=== PATIENT | male | born 1960 | race American Indian/Alaskan Native ===

== ENCOUNTER 2019-05-02 11:50 | Inpatient (IN) | payer MEDICARE ==
[2019-05-02] MEDS ORDERED: QUELICIN ONE (11:54)
[2019-05-02] MEDS ORDERED: AMIDATE IV ONE ×2 (11:54→12:02)
[2019-05-02] MEDS ORDERED: NACL 0.9% 1000 ML 1,000 ML ONE ×2 (11:58→17:11)
[2019-05-02] MEDS ORDERED: NACL 0.9% 1000 ML 1,000 ML IV ONE ×3 (12:02→16:57)
[2019-05-02] MEDS ORDERED: QUELICIN IV ONE (12:03)
[2019-05-02] MEDS ORDERED: VASELINE LIP THERAPY TP PRN (12:06)
[2019-05-02] MEDS ORDERED: ARTIFICIAL TEARS OPHTH OINT OU PRN (12:06)
[2019-05-02] MEDS ORDERED: NORMODYNE IV ONE (12:21)
--- NOTE | 2019-05-02 12:38 | Emergency Department Report ---
ED General Adult HPI - General Chief complaint: Altered Mental Status Stated complaint: UNRESPONSIVE Time Seen by Provider: 05/02/19 12:00 Source: EMS Mode of arrival: Stretcher Limitations: Physical Limitation - History of Present Illness Initial comments: This is a 59 year old male who supposedly was "fine yesterday" per a lady that comes to the emergency department. She states that she has a "business relationship" with the patient and was planning to move in. The lady does state that the patient has extreme visual impairment. However she states she is able to communicate at his baseline and make decisions. The patient is currently residing with his son who found him poorly responsive this morning. EMS was notified. They found the patient to have a respiratory rate of 6 and a low blood pressure. Medics were instructed to begin volume bolus and assist the patient's respirations. He was transferred to this facility for further evaluat ion. The patient was not able to provide any further information as he is and has remained obtunded. - Related Data Home Medications Medication Instructions Recorded Confirmed Last Taken Lisinopril [Zestril TAB] 40 mg PO QDAY 08/06/13 02/05/15 02/04/15 09:00 amLODIPine [Norvasc] 1 tab PO DAILY 08/08/13 02/05/15 02/04/15 09:00 Brimonidine Tartrate [Alphagan P 1 drop OP BID 02/05/15 02/05/15 02/04/15 09:00 0.1%] Dorzolamide HCl/Timolol Maleat 1 drop OP BID 02/05/15 02/05/15 02/04/15 09:00 [Dorzolamide-Timolol Eye Drops] glipiZIDE [Glucotrol] 5 mg PO BID 02/05/15 02/05/15 02/04/15 09:00 Previous Rx's Medication Instructions Recorded Last Taken Type levoFLOXacin [Levaquin TAB] 500 mg PO QDAY #7 tablet 02/07/15 Unknown Rx Allergies Allergy/AdvReac Type Severity Reaction Status Date / Time No Known Allergies Allergy Unverified 08/06/13 08:33 ED Review of Systems ROS: Stated complaint: UNRESPONSIVE Other details as noted in HPI Comment: Unobtainable due to pts medical conditions ED Past Medical Hx - Past Medical History Hx Hypertension: Yes Hx Diabetes: Yes Hx Asthma: No Hx COPD: No Hx HIV: No - Surgical History Additional Surgical History: corneal transplant - Social History Smoking Status: Unknown if ever smoked Substance Use Type: Other (unknown) - Medications Home Medications: Home Medications Medication Instructions Recorded Confirmed Last Taken Type Lisinopril [Zestril TAB] 40 mg PO QDAY 08/06/13 02/05/15 02/04/15 09:00 History amLODIPine [Norvasc] 1 tab PO DAILY 08/08/13 02/05/15 02/04/15 09:00 History Brimonidine Tartrate [Alphagan P 1 drop OP BID 02/05/15 02/05/15 02/04/15 09:00 History 0.1%] Dorzolamide HCl/Timolol Maleat 1 drop OP BID 02/05/15 02/05/15 02/04/15 09:00 History [Dorzolamide-Timolol Eye Drops] glipiZIDE [Glucotrol] 5 mg PO BID 02/05/15 02/05/15 02/04/15 09:00 History levoFLOXacin [Levaquin TAB] 500 mg PO QDAY #7 tablet 02/07/15 Unknown Rx ED Physical Exam - General Limitations: Physical Limitation General appearance: obtunded - Head Head exam: Present: atraumatic - Eye Eye exam: Present: other (bo cataracts question corneal abnormality). Absent: scleral icterus - ENT ENT exam: Present: mucous membranes moist - Neck Neck exam: Present: normal inspection. Absent: meningismus - Respiratory Respiratory exam: Present: normal lung sounds bilaterally. Absent: respiratory distress - Cardiovascular Cardiovascular Exam: Present: normal rhythm, tachycardia. Absent: systolic murmur, diastolic murmur, rubs, gallop - GI/Abdominal GI/Abdominal exam: Present: soft, normal bowel sounds. Absent: distended, tenderness, guarding, rebound, rigid - Rectal Rectal exam: Present: deferred - Extremities Exam Extremities exam: Present: normal inspection - Back Exam Back exam: Present: normal inspection - Neurological Exam Neurological exam: Present: altered, motor sensory deficit (all motor or sensory response to stimuli. Patient's GCS essentially was near 3 on arrival.) - Psychiatric Psychiatric exam: Present: normal affect, normal mood - Skin Skin exam: Present: warm, dry, intact, normal color. Absent: rash ED Course Vital Signs 05/02/19 05/02/19 05/02/19 11:56 12:01 12:15 Pulse Rate 99 H 97 H 101 H Respiratory 14 15 21 Rate Blood Pressure 169/123 205/109 205/109 O2 Sat by Pulse 100 80 L Oximetry 05/02/19 12:26 Pulse Rate 101 H Respiratory Rate Blood Pressure 74/43 O2 Sat by Pulse 100 Oximetry - Reevaluation(s) Reevaluation #1: The patient was intubated shortly upon arrival. A CT of his head was ordered. He was given volume bolus. He was found to be hypothermic. He was given empiric Biotic coverage for sepsis. He was rewarmed. Essential line was ultim ately placed and was put on pressors. He was found to be substantially acidotic and hypernatremic. Despite his sugar of over 1300 his sodium was 150. I decided to hold bicarbonate as this would be further hypertonic load which might be deleterious. Dr. Monson hospitalist was in agreement. I spoke to the son in [place] about his father's very guarded prognosis. He stated he would make arrangements to come to the hospital. 05/02/19 14:58 - Central Line Placement Right Femoral Consent Obtained: emergent situation Time Out Performed: Yes Patient Placed on Monitor/Pulse Ox: Yes Prep: mask, gown, gloves Central Line Prep: Povidone-Iodine 1% Local Anesthesia Used: Lidocaine 1% Amount of Anesthesia Used (mls): 5 Ultrasound Used for Placement: No Central Line Lumen Inserted: triple Central Line Position: good blood return (venous nonpulsatile after single stick) Dressing Applied: Tegaderm Post Procedure X-Ray: tip of catheter in good p Patient Tolerated Procedure: well Complications: none - Intubation Time Out Performed: Yes Sedative: Etomidate Paralytic: Succinylcholine Laryngoscope: Dioni Size: 4 ET Tube Size: 7.5 Tube Secured Depth (cm): 24 Tube Secured Location: teeth Tube Placement Confirmation: visualized tube passing t Patient Tolerated Procedure: well Intubation Complications: none ED Medical Decision Making - Lab Data Result diagrams: 05/02/19 12:05 05/02/19 13:07 Laboratory Results - last 24 hr 05/02/19 05/02/19 05/02/19 12:05 12:05 12:05 WBC 10.5 RBC TNR Hgb 15.3 H Hct TNR MCV 99 H MCH 28 MCHC 29 L RDW 16.9 H Plt Count 184 Lymph % (Auto) 15.7 [place] % (Auto) 4.5 Eos % (Auto) 0.0 Baso % (Auto) 0.3 Lymph # 1.6 [place] # 0.5 Eos # 0.0 Baso # 0.0 Seg Neutrophils % 79.5 H Seg Neutrophils # 8.3 H PT 15.4 H INR 1.25 H APTT 23.9 L VBG pH Sodium 151 H Potassium 4.5 Chloride 90.1 L Carbon Dioxide 5 L* Anion Gap 60 BUN 102 H Creatinine 6.4 H Estimated GFR 11 BUN/Creatinine Ratio 16 Glucose 1330 H* POC Glucose Ketones Quantitative Lactic Acid Calcium 8.7 Phosphorus 17.40 H Magnesium 4.90 H Total Bilirubin 0.20 AST 12 ALT 14 Alkaline Phosphatase 71 Ammonia Total Creatine Kinase 329 H CK-MB (CK-2) 2.7 CK-MB (CK-2) Rel Index 0.8 Troponin T NT-Pro-B Natriuret Pep 73.10 Total Protein 6.8 Albumin 3.4 L Albumin/Globulin Ratio 1.0 Urine Bilirubin Urine RBC (Auto) U Epithel Cells (Auto) 05/02/19 05/02/19 05/02/19 12:05 12:05 12:05 WBC RBC Hgb Hct MCV MCH MCHC RDW Plt Count Lymph % (Auto) [place] % (Auto) Eos % (Auto) Baso % (Auto) Lymph # [place] # Eos # Baso # Seg Neutrophils % Seg Neutrophils # PT INR APTT VBG pH 6.982 L* Sodium Potassium Chloride Carbon Dioxide Anion Gap BUN Creatinine Estimated GFR BUN/Creatinine Ratio Glucose POC Glucose Ketones Quantitative Lactic Acid Calcium Phosphorus Magnesium Total Bilirubin AST ALT Alkaline Phosphatase Ammonia 125.0 H Total Creatine Kinase CK-MB (CK-2) CK-MB (CK-2) Rel Index Troponin T < 0.010 NT-Pro-B Natriuret Pep Total Protein Albumin Albumin/Globulin Ratio Urine Bilirubin Urine RBC (Auto) U Epithel Cells (Auto) 05/02/19 05/02/19 05/02/19 12:05 12:05 12:09 WBC RBC Hgb Hct MCV MCH MCHC RDW Plt Count Lymph % (Auto) [place] % (Auto) Eos % (Auto) Baso % (Auto) Lymph # [place] # Eos # Baso # Seg Neutrophils % Seg Neutrophils # PT INR APTT VBG pH Sodium Potassium Chloride Carbon Dioxide Anion Gap BUN Creatinine Estimated GFR BUN/Creatinine Ratio Glucose POC Glucose > 500 H Ketones Quantitative Moderate Lactic Acid 7.60 H* Calcium Phosphorus Magnesium Total Bilirubin AST ALT Alkaline Phosphatase Ammonia Total Creatine Kinase CK-MB (CK-2) CK-MB (CK-2) Rel Index Troponin T NT-Pro-B Natriuret Pep Total Protein Albumin Albumin/Globulin Ratio Urine Bilirubin Urine RBC (Auto) U Epithel Cells (Auto) 05/02/19 12:19 WBC RBC Hgb Hct MCV MCH MCHC RDW Plt Count Lymph % (Auto) [place] % (Auto) Eos % (Auto) Baso % (Auto) Lymph # [place] # Eos # Baso # Seg Neutrophils % Seg Neutrophils # PT INR APTT VBG pH Sodium Potassium Chloride Carbon Dioxide Anion Gap BUN Creatinine Estimated GFR BUN/Creatinine Ratio Glucose POC Glucose Ketones Quantitative Lactic Acid Calcium Phosphorus Magnesium Total Bilirubin AST ALT Alkaline Phosphatase Ammonia Total Creatine Kinase CK-MB (CK-2) CK-MB (CK-2) Rel Index Troponin T NT-Pro-B Natriuret Pep Total Protein Albumin Albumin/Globulin Ratio Urine Bilirubin Neg Urine RBC (Auto) 24.0 U Epithel Cells (Auto) < 1.0 - EKG Data -: EKG Interpreted by Me EKG shows normal: sinus rhythm Rate: tachycardia - EKG Data Interpretation: nonspecific ST-T wave willam - Radiology Data Radiology results: pending (CT head is yet pending), image reviewed (endotracheal tube in satisfactory position, no acute finding otherwise) Critical Care Time: Yes Critical care time in (mins) excluding proc time.: 120 Critical care attestation.: If time is entered above; I have spent that time in minutes in the direct care of this critically ill patient, excluding procedure time. ED Disposition Clinical Impression: Lactic acidosis, Hypernatremia, Acute kidney injury, Acute encephalopathy DKA (diabetic ketoacidoses) Qualifiers: Diabetes mellitus type: type 1 Diabetes mellitus complication detail: with coma Qualified Code(s): E10.11 - Type 1 diabetes mellitus with ketoacidosis with coma Hypothermia Qualifiers: Encounter type: initial encounter Qualified Code(s): T68.XXXA - Hypothermia, initial encounter Disposition: 09 OP ADMIT IP TO THIS HOSP Is pt being admited?: Yes Does the pt Need Aspirin: Yes Condition: Stable Instructions: Diabetic Ketoacidosis (ED) Time of Disposition: 15:38
[2019-05-02 12:39] LABS: INR 1.25 (0.87-1.13)
[2019-05-02 12:43] LABS: Basophils % (Auto) 0.3 % (0.0-1.8); Lymphocytes # (Auto) 1.6 K/mm3 (1.2-5.4); Lymphocytes % (Auto) 15.7 % (13.4-35.0); Mean Corpuscular HGB Conc 29 % (32-34); Mean Corpuscular Volume 99 fl (84-94); Monocytes # (Auto) 0.5 K/mm3 (0.0-0.8); Monocytes % (Auto) 4.5 % (0.0-7.3); Platelet Count 184 K/mm3 (140-440); Red Cell Distribution Width 16.9 % (13.2-15.2)
[2019-05-02] MEDS ORDERED: ATIVAN IV ONE (12:46)
[2019-05-02 12:47] LABS: Creatine Kinase MB 2.7 ng/mL (0.0-4.0); Partial Thromboplastin Time 23.9 Sec. (24.2-36.6)
[2019-05-02] MEDS ORDERED: ATIVAN IV PRN (12:47)
--- NOTE | 2019-05-02 12:47 | XRay Report ---
CHEST 1 VIEW INDICATION: possible Sepsis. COMPARISON: None. FINDINGS: Support devices: ET tube in satisfactory position Heart: Within normal limits. Lungs/Pleura: No acute air space or interstitial disease. Additional findings: None. IMPRESSION: Satisfactory ET tube placement. Signer Name: Teo Hollis MD Signed: 05/02/2019 12:43 PM Workstation Name: [id number]
[2019-05-02 12:48] LABS: Albumin 3.4 g/dL (3.9-5); Calcium 8.7 mg/dL (8.4-10.2)
[2019-05-02] MEDS ORDERED: D50W (25GM) Syringe IV PRN ×2 (12:48→16:00)
[2019-05-02] MEDS ORDERED: ATIVAN ONE (12:50)
[2019-05-02 12:53] LABS: Bilirubin,Urine NEG (Negative); Blood,Urine LG (Negative); Color,Urine Yellow (Yellow); Mucus,Urine FEW /HPF; Protein,Urine <15 mg/dL mg/dL (Negative); Urobilinogen,Urine < 2.0 mg/dL (<2.0)
[2019-05-02 12:59] LABS: Hemoglobin 15.3 gm/dl (11.8-15.2)
[2019-05-02 13:00] LABS: Hematocrit TNR % (35.5-45.6); Red Blood Count TNR M/mm3 (3.65-5.03)
[2019-05-02] MEDS ORDERED: ATIVAN 100 MG in NACL 0.9% 50 ML, VIAFLEX EMPTY CONTAINER 0 ML IV SCH (13:00)
[2019-05-02] MEDS ORDERED: VANCOMYCIN 1,500 MG in NACL 0.9% 500 ML 500 ML IV ONE (13:00)
[2019-05-02] MEDS ORDERED: VANCOMYCIN PHARMACY TO DOSE IV SCH ×2 (13:00→17:00)
[2019-05-02] MEDS ORDERED: MERREM 1,000 MG in NACL 0.9% 100 ML IV ONE (13:03)
[2019-05-02 13:18] LABS: Bilirubin,Direct 0.2 mg/dL (0-0.2)
[2019-05-02 13:29] LABS: Calcium 8.3 mg/dL (8.4-10.2)
[2019-05-02] MEDS ORDERED: XYLOCAINE 1% 20 mL ONE (13:30)
[2019-05-02] MEDS: LEVOPHED DRIP 4 MG/NS 250 ML 4 MG/250 ML BAG IV SCH ×4 (14:44→23:30)
[2019-05-02 15:00] LABS: Calcium 7.8 mg/dL (8.4-10.2)
[2019-05-02] MEDS: HumuLIN R 100 UNITS in NACL 0.9% 99 ML IV SCH ×2 (15:14→20:03)
--- NOTE | 2019-05-02 15:58 | History and Physical Report ---
History of Present Illness Date of examination: 05/02/19 Date of admission: 05/02/19 14:10 Chief complaint: Decreased responsiveness for 1 day History of present illness: 59-year-old -[place] male with history of diabetes and hypertension brought in for altered sensorium and decreased responsiveness. Patient has been having blurred vision. Poorly compliant with his medications. Patient is currently residing with his son who found him poorly responsive this morning. EMS was called. On arrival patient was noted to have a lower respiratory rate of 6 and very low blood pressure. EMS gave of wall fluid bolus and brought the patient for further evaluation to the emergency room at [facility]. In the emergency room because of the decreased responsiveness and decreased breathing--- patient was intubated. No fever or chills. Patient also has glaucoma. No recent travel. Past Medical History Hypertension: Yes Diabetes: Yes Glaucoma Surgical History Additional Surgical History: corneal transplant Social History Smoking Status: Unknown if ever smoked Substance Use Type: Other (unknown) Family history Htn Medications Home Medications: Home Medications Medication Instructions Recorded Confirmed Last Taken Type Lisinopril [Zestril TAB] 40 mg PO QDAY 08/06/13 02/05/15 02/04/15 09:00 History amLODIPine [Norvasc] 1 tab PO DAILY 08/08/13 02/05/15 02/04/15 09:00 History Brimonidine Tartrate [Alphagan P 1 drop OP BID 02/05/15 02/05/15 02/04/15 09:00 History 0.1%] Dorzolamide HCl/Timolol Maleat 1 drop OP BID 02/05/15 02/05/15 02/04/15 09:00 History [Dorzolamide-Timolol Eye Drops] glipiZIDE [Glucotrol] 5 mg PO BID 02/05/15 02/05/15 02/04/15 09:00 History levoFLOXacin [Levaquin TAB] 500 mg PO QDAY #7 tablet 02/07/15 Unknown Rx Medications and Allergies Allergies Allergy/AdvReac Type Severity Reaction Status Date / Time No Known Allergies Allergy Unverified 08/06/13 08:33 Home Medications Medication Instructions Recorded Confirmed Last Taken Type Lisinopril [Zestril TAB] 40 mg PO QDAY 05/02/19 05/02/19 Unknown History glipiZIDE [Glucotrol] 10 mg PO QDAY 05/02/19 05/02/19 Unknown History hydroCHLOROthiazide [HCTZ] 25 mg PO QDAY 05/02/19 05/02/19 Unknown History metFORMIN [Glucophage] 500 mg PO BID 05/02/19 05/02/19 Unknown History Active Meds: Active Medications Aspirin (Aspirin) 300 mg MS QDAY ONE Stop: 05/03/19 17:01 Dextrose (D50w (25gm) Syringe) 0 ml IV ONCE PRN PRN Reason: Hypoglycemia Hydrophilic Ointment (Vaseline Lip Therapy) 1 applic TP Q2HR PRN PRN Reason: Dry Lips Lorazepam 100 mg/ Sodium Chloride/ Miscellaneous Information 100 mls @ 1 mls/hr IV TITR JENNIFER; Protocol Insulin Human Regular 100 (units/ Sodium Chloride) 100 mls @ 1 mls/hr IV TITR JENNIFER; Protocol Last Admin: 05/02/19 15:14 Dose: 8 units/hr, 8 mls/hr Documented by: Norepinephrine (Levophed Drip 4 Mg/Ns 250 Ml) 4 mg in 250 mls @ 7.5 mls/hr IV TITR JENNIFER; Protocol Last Titration: 05/02/19 15:35 Dose: 10 mcg/min, 37.5 mls/hr Documented by: Sodium Chloride (Nacl 0.9% 1000 Ml) 1,000 mls @ 250 mls/hr IV ONCE ONE Stop: 05/02/19 18:47 Last Admin: 05/02/19 15:16 Dose: 250 mls/hr Documented by: Lorazepam (Ativan) 2 mg IV Q10MIN PRN PRN Reason: Agitation Multi-Ingred Cream/Lotion/Oil/Oint (Artificial Tears Ophth Oint) 1 applic OU Q4HR PRN PRN Reason: Dry Eye(s) Review of Systems ROS unobtainable: due to endotracheal tube All systems: negative Constitutional: anorexia, fatigue, weakness, poor appetite Ears, nose, mouth and throat: no ear pain, no ear discharge, no tinnitis, no decreased hearing Cardiovascular: shortness of breath, dyspnea on exertion (RLFamily neurologic examination is normal S1 bowels and that based on Karol Lawton abrasions to many phone call), no chest pain, no orthopnea, no palpitations, no rapid/irregular heart beat, no edema, no syncope, no lightheadedness Respiratory: dyspnea on exertion, no cough, no cough with sputum, no excessive sputum, no hemoptysis, no shortness of breath, no congestion (Review.He is bladder was well l july 17 with increasing secondary to the) Gastrointestinal: nausea, vomiting, no abdominal pain, no diarrhea, no constipation, no change in bowel habits, no hematemesis, no coffee ground emesis Genitourinary Male: no dysuria, no hematuria, no flank pain, no discharge, no urinary frequency, no urinary hesitancy, no nocturia Musculoskeletal: no neck stiffness, no neck pain, no shooting arm pain, no arm numbness/tingling, no low back pain Integumentary: no rash, no pruritis, no redness, no sores, no wounds Neurological: no seizures, no syncope Psychiatric: no anxiety, no memory loss, no change in sleep habits, no sleep disturbances, no insomnia Endocrine: polyphagia, excessive thirst, polydipsia, polyuria, no cold intolerance, no heat intolerance Hematologic/Lymphatic: no easy bruising, no easy bleeding Allergic/Immunologic: no urticaria, no allergic rhinitis, no wheezing Exam - Constitutional Vitals: Temp Pulse Resp BP Pulse Ox 97.9 F 112 H 22 87/46 100 05/02/19 15:02 05/02/19 15:01 05/02/19 15:01 05/02/19 15:01 05/02/19 15:01 General appearance: Present: severe distress, well-nourished - EENT Eyes: Present: PERRL ENT: hearing intact, clear oral mucosa - Neck Neck: Present: supple, normal ROM - Respiratory Respiratory effort: normal Respiratory: bilateral: CTA - Cardiovascular Heart rate: 108 Rhythm: regular Heart Sounds: Present: S1 & S2. Absent: rub, click - Extremities Extremities: no ischemia, pulses intact, pulses symmetrical, No edema Peripheral Pulses: within normal limits - Abdominal General gastrointestinal: Present: soft, non-tender, non-distended, normal bowel sounds Male genitourinary: Present: normal - Rectal Rectal Exam: deferred - Integumentary Integumentary: Present: clear, warm, dry - Musculoskeletal Musculoskeletal: generalized weakness ( normal judgment limited), other (patient is lethargic and decreased responsiveness) - Neurologic Neurologic: CNII-XII intact, moves all extremities Results - Labs CBC & Chem 7: 05/02/19 12:05 05/02/19 17:19 Labs: Laboratory Last Values WBC 10.5 K/mm3 (4.5-11.0) 05/02/19 12:05 RBC TNR 05/02/19 12:05 Hgb 15.3 gm/dl (11.8-15.2) H 05/02/19 12:05 Hct TNR 05/02/19 12:05 MCV 99 fl (84-94) H 05/02/19 12:05 MCH 28 pg (28-32) 05/02/19 12:05 MCHC 29 % (32-34) L 05/02/19 12:05 RDW 16.9 % (13.2-15.2) H 05/02/19 12:05 Plt Count 184 K/mm3 (140-440) 05/02/19 12:05 Lymph % (Auto) 15.7 % (13.4-35.0) 05/02/19 12:05 [place] % (Auto) 4.5 % (0.0-7.3) 05/02/19 12:05 Eos % (Auto) 0.0 % (0.0-4.3) 05/02/19 12:05 Baso % (Auto) 0.3 % (0.0-1.8) 05/02/19 12:05 Lymph # 1.6 K/mm3 (1.2-5.4) 05/02/19 12:05 Hudson # 0.5 K/mm3 (0.0-0.8) 05/02/19 12:05 Eos # 0.0 K/mm3 (0.0-0.4) 05/02/19 12:05 Baso # 0.0 K/mm3 (0.0-0.1) 05/02/19 12:05 Seg Neutrophils % 79.5 % (40.0-70.0) H 05/02/19 12:05 Seg Neutrophils # 8.3 K/mm3 (1.8-7.7) H 05/02/19 12:05 PT 15.4 Sec. (12.2-14.9) H 05/02/19 12:05 INR 1.25 (0.87-1.13) H 05/02/19 12:05 APTT 23.9 Sec. (24.2-36.6) L 05/02/19 12:05 POC ABG pH 7.075 (7.35-7.45) L 05/02/19 13:50 POC ABG pO2 295 (80-105) H 05/02/19 13:50 POC ABG HCO3 6.6 (22-26 mml/L) 05/02/19 13:50 POC ABG Total CO2 7 (23-27mmol/L) 05/02/19 13:50 POC ABG O2 Sat 100 05/02/19 13:50 POC ABG Base Excess -23 ((-2) - (+3)mmol/L) 05/02/19 13:50 VBG pH 6.982 (7.320-7.420) L* 05/02/19 12:05 50 % 05/02/19 13:50 Sodium 150 mmol/L (137-145) H 05/02/19 14:28 Potassium 5.3 mmol/L (3.6-5.0) H 05/02/19 14:28 Chloride 95.0 mmol/L (98-107) L 05/02/19 14:28 Carbon Dioxide 4 mmol/L (22-30) L* 05/02/19 14:28 56 mmol/L 05/02/19 14:28 BUN 99 mg/dL (9-20) H 05/02/19 14:28 6.4 mg/dL (0.8-1.5) H 05/02/19 14:28 Estimated GFR 11 ml/min 05/02/19 14:28 15 % 05/02/19 14:28 Glucose 1271 mg/dL (75-100) H* 05/02/19 14:28 POC Glucose > 500 (70-105) H 05/02/19 12:09 Moderate (Negative) 05/02/19 12:05 Lactic Acid 4.10 mmol/L (0.7-2.0) H* 05/02/19 14:28 Calcium 7.8 mg/dL (8.4-10.2) L 05/02/19 14:28 Phosphorus 15.50 mg/dL (2.5-4.5) H 05/02/19 13:07 Magnesium 4.40 mg/dL (1.7-2.3) H 05/02/19 13:07 0.20 mg/dL (0.1-1.2) 05/02/19 12:05 0.2 mg/dL (0-0.2) 05/02/19 12:05 0.0 mg/dL 05/02/19 12:05 AST 12 units/L (5-40) 05/02/19 12:05 ALT 14 units/L (7-56) 05/02/19 12:05 71 units/L (35-129) 05/02/19 12:05 125.0 umol/L (25-60) H 05/02/19 12:05 329 units/L (55-170) H 05/02/19 12:05 CK-MB (CK-2) 2.7 ng/mL (0.0-4.0) 05/02/19 12:05 CK-MB (CK-2) Rel Index 0.8 (0-4) 05/02/19 12:05 < 0.010 ng/mL (0.00-0.029) 05/02/19 12:05 NT-Pro-B Natriuret Pep 73.10 pg/mL (0-900) 05/02/19 12:05 6.8 g/dL (6.3-8.2) 05/02/19 12:05 3.4 g/dL (3.9-5) L 05/02/19 12:05 1.0 % 05/02/19 12:05 Yellow (Yellow) 05/02/19 12:19 Slightly-cloudy (Clear) 05/02/19 12:19 5.0 (5.0-7.0) 05/02/19 12:19 Ur Specific [place] 1.021 (1.003-1.030) 05/02/19 12:19 <15 mg/dl mg/dL (Negative) 05/02/19 12:19 >=500 mg/dL (Negative) 05/02/19 12:19 20 mg/dL (Negative) 05/02/19 12:19 Lg (Negative) 05/02/19 12:19 Neg (Negative) 05/02/19 12:19 Neg (Negative) 05/02/19 12:19 < 2.0 mg/dL (<2.0) 05/02/19 12:19 Ur Leukocyte Esterase Neg (Negative) 05/02/19 12:19 2.0 /HPF (0.0-6.0) 05/02/19 12:19 24.0 /HPF (0.0-6.0) 05/02/19 12:19 U Epithel Cells (Auto) < 1.0 /HPF (0-13.0) 05/02/19 12:19 Few /HPF 05/02/19 12:19 Short CBC 05/02/19 Range/Units 12:05 WBC 10.5 (4.5-11.0) K/mm3 Hgb 15.3 H (11.8-15.2) gm/dl Hct TNR Plt Count 184 (140-440) K/mm3 BMP 05/02/19 05/02/19 05/02/19 12:05 13:07 14:28 Sodium 151 H 150 H 150 H Potassium 4.5 4.8 5.3 H Chloride 90.1 L 93.2 L 95.0 L Carbon Dioxide 5 L* 6 L* 4 L* BUN 102 H 98 H 99 H Creatinine 6.4 H 6.3 H 6.4 H Glucose 1330 H* 1264 H* 1271 H* Calcium 8.7 8.3 L 7.8 L 05/02/19 05/02/19 05/02/19 17:19 17:19 17:19 Sodium 154 H 154 H 155 H Potassium 4.4 4.3 4.3 Chloride 105.3 105.7 105.7 Carbon Dioxide 6 L* 6 L* 6 L* BUN 95 H 98 H 95 H Creatinine 6.6 H 6.5 H 6.6 H Glucose 1021 H* 1021 H* 1021 H* Calcium 6.8 L 6.8 L 6.9 L 05/02/19 05/02/19 17:19 18:36 Sodium 153 H 154 H Potassium 4.4 4.1 Chloride 104.4 107.7 H Carbon Dioxide 6 L* BUN 96 H 95 H Creatinine 6.5 H 6.6 H Glucose 1018 H* Calcium 6.8 L 6.7 L Cardiac Enzymes 05/02/19 05/02/19 Range/Units 12:05 12:05 Total Creatine Kinase 329 H (55-170) units/L CK-MB (CK-2) 2.7 (0.0-4.0) ng/mL Troponin T < 0.010 (0.00-0.029) ng/mL Liver Function 05/02/19 Range/Units 12:05 Total Bilirubin 0.20 (0.1-1.2) mg/dL Direct Bilirubin 0.2 (0-0.2) mg/dL AST 12 (5-40) units/L ALT 14 (7-56) units/L Alkaline Phosphatase 71 (35-129) units/L Albumin 3.4 L (3.9-5) g/dL Urine 05/02/19 Range/Units 12:19 Urine Color Yellow (Yellow) Urine pH 5.0 (5.0-7.0) Ur Specific [place] 1.021 (1.003-1.030) Urine Protein <15 mg/dl (Negative) mg/dL Urine Glucose (UA) >=500 (Negative) mg/dL Short CBC 05/02/19 Range/Units 12:05 WBC 10.5 (4.5-11.0) K/mm3 Hgb 15.3 H (11.8-15.2) gm/dl Hct TNR Plt Count 184 (140-440) K/mm3 BMP 05/02/19 05/02/19 05/02/19 12:05 13:07 14:28 Sodium 151 H 150 H 150 H Potassium 4.5 4.8 5.3 H Chloride 90.1 L 93.2 L 95.0 L Carbon Dioxide 5 L* 6 L* 4 L* BUN 102 H 98 H 99 H Creatinine 6.4 H 6.3 H 6.4 H Glucose 1330 H* 1264 H* 1271 H* Calcium 8.7 8.3 L 7.8 L 05/02/19 05/02/19 05/02/19 17:19 17:19 17:19 Sodium 154 H 154 H 155 H Potassium 4.4 4.3 4.3 Chloride 105.3 105.7 105.7 Carbon Dioxide 6 L* 6 L* 6 L* BUN 95 H 98 H 95 H Creatinine 6.6 H 6.5 H 6.6 H Glucose 1021 H* 1021 H* 1021 H* Calcium 6.8 L 6.8 L 6.9 L 05/02/19 05/02/19 17:19 18:36 Sodium 153 H 154 H Potassium 4.4 4.1 Chloride 104.4 107.7 H Carbon Dioxide 6 L* BUN 96 H 95 H Creatinine 6.5 H 6.6 H Glucose 1018 H* Calcium 6.8 L 6.7 L Cardiac Enzymes 05/02/19 05/02/19 Range/Units 12:05 12:05 Total Creatine Kinase 329 H (55-170) units/L CK-MB (CK-2) 2.7 (0.0-4.0) ng/mL Troponin T < 0.010 (0.00-0.029) ng/mL Liver Function 05/02/19 Range/Units 12:05 Total Bilirubin 0.20 (0.1-1.2) mg/dL Direct Bilirubin 0.2 (0-0.2) mg/dL AST 12 (5-40) units/L ALT 14 (7-56) units/L Alkaline Phosphatase 71 (35-129) units/L Albumin 3.4 L (3.9-5) g/dL Urine 05/02/19 Range/Units 12:19 Urine Color Yellow (Yellow) Urine pH 5.0 (5.0-7.0) Ur Specific [place] 1.021 (1.003-1.030) Urine Protein <15 mg/dl (Negative) mg/dL Urine Glucose (UA) >=500 (Negative) mg/dL - Imaging and Cardiology EKG: report reviewed Chest x-ray: report reviewed (no acute findings) CT Scan - head: report reviewed (no acute findings) Assessment and Plan Assessment and plan: Critical care statement Dr. barrera will be a very clinically significant sudden or life-threatening deterioration of the pulmonary, cardiac, renal systems for requirement full and direct attention, intervention and possible management. The aggravated critical care time was 45 minutes. This time is in addition to the time spent performing reported procedures but includes the following Data review and interpretation Patient assessment and monitoring of vital signs Documentation Medication orders and management Advance Directives: Yes (full code) VTE prophylaxis?: Chemical Plan of care discussed with patient/family: Yes - Patient Problems (1) Acute respiratory failure with hypoxia Current Visit: Yes Status: Acute Plan to address problem: Patient intubated Past hypoxic Duonebs round the clock, Albuterol neb treatments prn (2) Diabetic hyperosmolar non-ketotic state Current Visit: Yes Status: Acute Plan to address problem: Patient has a blood glucose level around 1300 Severe metabolic acidosis Minimal ketones in urine Insulin drip started IV fluids about 3 L of normal saline bolus given Normal saline to be continued at 250 mL per hour Patient is hypotensive Started on Levophed and vasopressin Plate Conditioner consult requested Poor prognosis because of the hypernatremia and severe volume depletion (3) Septic shock Current Visit: Yes Status: Acute Plan to address problem: High possibility IV antibiotics and IV fluids and pressors (4) Hypotension Current Visit: Yes Status: Acute Qualifiers: Hypotension type: orthostatic hypotension Qualified Code(s): I95.1 - Orthostatic hypotension Plan to address problem: On pressors--on Levophed and vasopressor (5) Hypernatremia Current Visit: Yes Status: Acute Plan to address problem: IV normal saline for now because of the volume depletion and hypotension (6) Metabolic acidosis Current Visit: Yes Status: Acute Plan to address problem: Severe IV sodium bicarbonatex2 (7) Lactic acidosis Current Visit: Yes Status: Acute Plan to address problem: Patient started on IV cefepime and vancomycin (8) Hypertension Current Visit: Yes Status: Chronic Qualifiers: Hypertension type: essential hypertension Qualified Code(s): I10 - Essential (primary) hypertension Plan to address problem: Hold antihypertensives (9) Acute kidney injury Current Visit: Yes Status: Acute Plan to address problem: Secondary to ATN and severe dehydration Nephrology consult requested IV fluids for now (10) Hypocalcemia Current Visit: Yes Status: Acute Plan to address problem: Calcium gluconate for now (11) Hyperammonemia Current Visit: Yes Status: Acute Plan to address problem: Lactulose 30 cc po bid (12) DVT prophylaxis Current Visit: Yes Status: Acute Plan to address problem: On heparin and GI prophylaxis
[2019-05-02] MEDS ORDERED: NON-FORMULARY (Brimonidine Tartrate [Alphagan P 0.1%] 1 DROP) OP SCH (16:00)
[2019-05-02] MEDS ORDERED: KCL 10MEQ/100ML 10 MEQ/100 ML BAG IV PRN ×2 (16:00)
[2019-05-02] MEDS ORDERED: HumuLIN R 100 UNITS in NACL 0.9% 99 ML IV SCH (16:00)
[2019-05-02] MEDS ORDERED: ZOFRAN IV PRN (16:10)
[2019-05-02] MEDS ORDERED: SODIUM CHLORIDE FLUSH SYRINGE 10 ML IV PRN (16:10)
[2019-05-02] MEDS ORDERED: TYLENOL PO PRN (16:10)
--- NOTE | 2019-05-02 16:54 | Cat Scan Report ---
CT head without contrast INDICATION : AMS. TECHNIQUE: Axial imaging performed from the skull apex through the skull base without the use of con trast. All CT scans at this location are performed using CT dose reduction for ALARA by means of aut omated exposure control. COMPARISON: None FINDINGS: Parenchyma: No acute intracranial hemorrhage or parenchymal abnormality. Ventricles: Ventricles are normal in size and appear symmetric. Soft tissues: Soft tissues including the orbits appear normal. Bones: No acute osseous abnormality. Sinuses: Sinuses and mastoid air cells are clear. IMPRESSION: No acute abnormality. Signer Name: Leo Noriega MD Signed: 05/02/2019 4:50 PM Workstation Name: [id number]
[2019-05-02] MEDS ORDERED: D5W/0.45% NACL/KCL 20 MEQ 20 MEQ/1,000 ML BAG IV SCH (17:00)
[2019-05-02] MEDS ORDERED: MAXIPIME/NS 1 GM/100 ML 1 GM/100 ML BAG IV SCH (17:00)
[2019-05-02] MEDS ORDERED: NACL 0.45% 1000 ML 1,000 ML IV SCH (17:00)
[2019-05-02] MEDS: NON-FORMULARY (Dorzolamide Hcl/Timolol Maleat [Dorzolamide-Timolol Eye Drops] 1 DROP) OP SCH (17:16)
[2019-05-02] MEDS: MAXIPIME/NS 1 GM/100 ML 1 GM/100 ML BAG IV SCH (17:40)
[2019-05-02 17:47] LABS: Calcium 6.8 mg/dL (8.4-10.2)
[2019-05-02 17:48] LABS: Calcium 6.8 mg/dL (8.4-10.2)
[2019-05-02 17:49] LABS: Calcium 6.9 mg/dL (8.4-10.2)
[2019-05-02 17:50] LABS: Calcium 6.8 mg/dL (8.4-10.2)
[2019-05-02] MEDS: NORVASC PO SCH (18:52)
[2019-05-02] MEDS: NACL 0.9% 1000 ML 1,000 ML IV SCH ×2 (19:00→22:25)
[2019-05-02 19:19] LABS: Calcium 6.7 mg/dL (8.4-10.2)
[2019-05-02] MEDS ORDERED: INTROPIN DRIP 800 MG/D5W 250 ML 800 MG/250 ML BAG IV SCH (20:00)
[2019-05-02] MEDS: Vasostrict 20 UNIT in NACL 0.9% 100 ML IV SCH (20:09)
[2019-05-02] MEDS ORDERED: CALCIUM GLUCONATE 2,000 MG in NACL 0.9% 100 ML IV ONE (20:33)
[2019-05-02 21:01] LABS: Calcium 6.6 mg/dL (8.4-10.2)
[2019-05-02] MEDS: DUONEB *Not for PRN Use IH SCH (21:01)
[2019-05-02] MEDS: CEPHULAC PO SCH (21:25)
[2019-05-02] MEDS: SODIUM CHLORIDE FLUSH SYRINGE 10 ML IV SCH ×2 (22:00)
[2019-05-03] MEDS: HumuLIN R 100 UNITS in NACL 0.9% 99 ML IV SCH ×3 (00:15→08:05)
[2019-05-03] MEDS: LEVOPHED DRIP 4 MG/NS 250 ML 4 MG/250 ML BAG IV SCH ×3 (02:17→10:14)
[2019-05-03] MEDS: NACL 0.9% 1000 ML 1,000 ML IV SCH (02:50)
--- NOTE | 2019-05-03 03:13 | XRay Report ---
CHEST 1 VIEW 2:27 AM INDICATION / CLINICAL INFORMATION: Follow-up respiratory failure. COMPARISON: Yesterday. FINDINGS: SUPPORT DEVICES: The position of the endotracheal tube has not changed. There is a new nasogastric tu be coursing into the stomach with the tip not seen. HEART / MEDIASTINUM: No significant abnormality. LUNGS / PLEURA: No significant pulmonary or pleural abnormality. No pneumothorax. ADDITIONAL FINDINGS: No significant additional findings. IMPRESSION: 1. New nasogastric tube without complication. 2. No acute abnormality or other change since yesterday. Signer Name: Fritz Luna MD Signed: 05/03/2019 3:09 AM Workstation Name: [id number]
[2019-05-03] MEDS: MAXIPIME/NS 1 GM/100 ML 1 GM/100 ML BAG IV SCH (04:39)
[2019-05-03] MEDS: Vasostrict 20 UNIT in NACL 0.9% 100 ML IV SCH (04:39)
[2019-05-03 05:47] LABS: Calcium 7.1 mg/dL (8.4-10.2)
[2019-05-03 05:53] LABS: ABG HCO3 17.9 mmol/L (20.0-26.0); ABG Methemoglobin 0.8 % (0.0-1.5); ABG Oxygen Saturation 98.7 % (95.0-99.0); ABG PCO2 34.3 mm Hg; ABG PH 7.335 pH Units (7.350-7.450)
[2019-05-03] MEDS: DUONEB *Not for PRN Use IH SCH ×4 (08:00→19:08)
[2019-05-03] MEDS ORDERED: D5NS 0.2% 1,000 ML IV SCH (08:00)
[2019-05-03 08:36] LABS: Calcium 7.1 mg/dL (8.4-10.2)
[2019-05-03] MEDS: CEPHULAC PO SCH ×2 (10:14→21:31)
[2019-05-03] MEDS: KCL 20MEQ/100ML 20 MEQ/100 ML BAG IV SCH ×2 (10:14→11:18)
[2019-05-03] MEDS: NORVASC PO SCH (10:15)
[2019-05-03] MEDS: PEPCID IV SCH (10:15)
[2019-05-03] MEDS: SODIUM CHLORIDE FLUSH SYRINGE 10 ML IV SCH ×2 (10:33→21:34)
[2019-05-03 10:59] LABS: ABG Base Excess -4.3 mmol/L (-2.0-3.0); ABG HCO3 19.6 mmol/L (20.0-26.0); ABG PH 7.392 pH Units (7.350-7.450); ABG PO2 146.9 mm Hg (80.0-90.0)
[2019-05-03 11:02] LABS: ABG Methemoglobin 0.9 % (0.0-1.5); ABG Oxygen Saturation 98.7 % (95.0-99.0)
[2019-05-03 13:41] LABS: Calcium 7.4 mg/dL (8.4-10.2)
--- NOTE | 2019-05-03 14:17 | Consultation ---
History of Present Illness Consult date: 05/03/19 Requesting physician: ALLAN CHANCE Reason for consult: other (Acute repiratory failure on MVS, Acute metabolic encephaloapthy) History of present illness: Bethany is orally intubated with encephalopathy. Histor is as obtained from medical records. I have been consulted for critical care management, ventilator management. Chief complaint: Decreased responsiveness for 1 day History of present illness: 59-year-old -[place] African male with history of diabetes and hypertension brought in for altered sensorium and decreased responsiveness. Per ED documentations Initial comments: This is a 59 year old male who supposedly was "fine yesterday" per a lady that comes to the emergency department. She states that she has a "business relatio nship" with the patient and was planning to move in. The lady does state that the patient has extreme visual impairment. However she states she is able to communicate at his baseline and make decisions. The patient is currently residing with his son who found him poorly responsive this morning. EMS was notified. They found the patient to have a respiratory rate of 6 and a low blood pressure. Medics were instructed to begin volume bolus and assist the patient's respirations. He was transferred to this facility for further evaluation. The patient was not able to provide any further information as he is and has remained obtunded. In the emergency room because of the decreased responsiveness and decreased breathing--- patient was intubated. No fever or chills. Patient also has glaucoma. No recent travel. Patient was seen and examined. Vitals, labs, medications, chart and imaging reviewed. Currently orally intubated, ETT at 23cm AC-VC 18/450/6/30% No reported fevers, has a caban catheter in place and a right femoral CVC. On insulin infusion at 5 units, D5 1/4N saline, norepinephrine at 10mcg, vasopressin is off at this time On Cefepime and Vancomycin Past Medical History Hypertension: Yes Diabetes: Yes Glaucoma Surgical History Additional Surgical History: corneal transplant Social History Smoking Status: Unknown if ever smoked Substance Use Type: Other (unknown) Family history Htn Medications and Allergies Allergies Allergy/AdvReac Type Severity Reaction Status Date / Time No Known Allergies Allergy Unverified 08/06/13 08:33 Home Medications Medication Instructions Recorded Confirmed Last Taken Type Lisinopril [Zestril TAB] 40 mg PO QDAY 05/02/19 05/02/19 Unknown History glipiZIDE [Glucotrol] 10 mg PO QDAY 05/02/19 05/02/19 Unknown History hydroCHLOROthiazide [HCTZ] 25 mg PO QDAY 05/02/19 05/02/19 Unknown History metFORMIN [Glucophage] 500 mg PO BID 05/02/19 05/02/19 Unknown History Active Meds: Active Medications Acetaminophen (Tylenol) 650 mg PO Q4H PRN PRN Reason: Pain MILD(1-3)/Fever >100.5/MEZA Albuterol/Ipratropium (Duoneb *Not For Prn Use*) 1 ampul IH QIDRT [facility] Last Admin: 05/03/19 08:00 Dose: 1 ampul Documented by: Amlodipine Besylate (Norvasc) 10 mg PO DAILY [facility] Last Admin: 05/03/19 10:15 Dose: Not Given Documented by: Aspirin (Aspirin) 300 mg OH QDAY ONE Stop: 05/03/19 17:01 Dextrose (D50w (25gm) Syringe) 0 ml IV PRN PRN PRN Reason: Hypoglycemia Famotidine (Pepcid) 20 mg IV DAILY [facility] Last Admin: 05/03/19 10:15 Dose: 20 mg Documented by: Heparin Sodium (Porcine) (Heparin) 5,000 unit SUB-Q BID [facility] Hydrophilic Ointment (Vaseline Lip Therapy) 1 applic TP Q2HR PRN PRN Reason: Dry Lips Lorazepam 100 mg/ Sodium Chloride/ Miscellaneous Information 100 mls @ 1 mls/hr IV TITR JENNIFER; Protocol Insulin Human Regular 100 (units/ Sodium Chloride) 100 mls @ 1 mls/hr IV TITR JENNIFER; Protocol Last Titration: 05/03/19 14:11 Dose: 2 units/hr, 2 mls/hr Documented by: Norepinephrine (Levophed Drip 4 Mg/Ns 250 Ml) 4 mg in 250 mls @ 7.5 mls/hr IV TITR JENNIFER; Protocol Last Titration: 05/03/19 13:50 Dose: 0 mcg/min, 0 mls/hr Documented by: Potassium Chloride (Kcl 10meq/100ml) 10 meq in 100 mls @ 100 mls/hr IV Q1H PRN PRN Reason: SEE COMMENTS Stop: 05/03/19 15:59 Cefepime HCl (Maxipime/Ns 1 Gm/100 Ml) 1 gm in 100 mls @ 200 mls/hr IV Q12H [facility]; Protocol Last Admin: 05/03/19 04:39 Dose: 200 mls/hr Documented by: Vasopressin 20 unit/ Sodium (Chloride) 101 mls @ 9.09 mls/hr IV TITR [facility]; Protocol Last Titration: 05/03/19 08:26 Dose: 0 units/min, 0 mls/hr Documented by: Dextrose/Sodium Chloride (D5ns 0.2%) 1,000 mls @ 100 mls/hr IV DIRECT [facility] Last Admin: 05/03/19 08:18 Dose: 100 mls/hr Documented by: Lactulose (Cephulac) 20 gm PO Q12HR [facility] Last Admin: 05/03/19 10:14 Dose: 20 gm Documented by: Lorazepam (Ativan) 2 mg IV Q10MIN PRN PRN Reason: Agitation Miscellaneous Medication (Dorzolamide Hcl/Timolol Maleat [Dorzolamide-Timolol Eye Drops]) 1 drop OP BID [facility] Last Admin: 05/02/19 17:16 Dose: Not Given Documented by: Miscellaneous Medication (Brimonidine Tartrate [Alphagan P 0.1%]) 1 drop OP BID [facility] Last Admin: 05/02/19 17:16 Dose: Not Given Documented by: Multi-Ingred Cream/Lotion/Oil/Oint (Artificial Tears Ophth Oint) 1 applic OU Q4HR PRN PRN Reason: Dry Eye(s) Ondansetron HCl (Zofran) 4 mg IV Q8H PRN PRN Reason: Nausea And Vomiting Sodium Chloride (Sodium Chloride Flush Syringe 10 Ml) 10 ml IV BID [facility] Last Admin: 05/03/19 10:33 Dose: 10 ml Documented by: Sodium Chloride (Sodium Chloride Flush Syringe 10 Ml) 10 ml IV PRN PRN PRN Reason: LINE FLUSH Review of Systems ROS unobtainable: due to endotracheal tube, due to mental status Physical Examination Vital signs: Vital Signs Pulse Resp BP Pulse Ox 99 H 14 169/123 100 05/02/19 11:56 05/02/19 11:56 05/02/19 11:56 05/02/19 11:56 General appearance: no acute distress, other (unresponsive, orally intubated, ETT to MVS) Eyes: non-icteric ENT: oropharynx dry Neck: supple, no lymphadenopathy, no JVD Effort: normal, other (no patient-ventilator dys-synchrony) Ascultation: Bilateral: clear, diminished breath sounds Cardiovascular: regular rate and rhythm, other (S1,S2) Gastrointestinal: normoactive bowel sounds, soft, non-tender, other (OGT) Integumentary: normal, other (right groin CVC) Extremities: no cyanosis, no edema, pulses normal, no ischemia or petechiae pupils equal and round, unable to assess other (unable to assess) Results - Laboratory Findings CBC and BMP: 05/02/19 12:05 05/03/19 20:15 ABG POC ABG pH 7.075 (7.35-7.45) L 05/02/19 13:50 ABG pH 7.335 pH Units (7.350-7.450) L 05/03/19 Unknown ABG pCO2 34.3 mm Hg 05/03/19 Unknown POC ABG pO2 295 (80-105) H 05/02/19 13:50 ABG pO2 143.0 mm Hg (80.0-90.0) H 05/03/19 Unknown POC ABG HCO3 6.6 (22-26 mml/L) 05/02/19 13:50 POC ABG Total CO2 7 (23-27mmol/L) 05/02/19 13:50 POC ABG O2 Sat 100 05/02/19 13:50 ABG O2 Saturation 98.7 % (95.0-99.0) 05/03/19 Unknown PT/INR, D-dimer PT 15.4 Sec. (12.2-14.9) H 05/02/19 12:05 INR 1.25 (0.87-1.13) H 05/02/19 12:05 Abnormal lab findings: Abnormal Labs 05/02/19 05/02/19 05/02/19 12:05 12:05 12:05 Hgb 15.3 H MCV 99 H MCHC 29 L RDW 16.9 H Seg Neutrophils % 79.5 H Seg Neutrophils # 8.3 H PT 15.4 H INR 1.25 H APTT 23.9 L POC ABG pH ABG pH POC ABG pO2 ABG pO2 ABG HCO3 ABG Base Excess ABG Hemoglobin VBG pH Sodium 151 H Potassium Chloride 90.1 L Carbon Dioxide 5 L* BUN 102 H Creatinine 6.4 H Glucose 1330 H* POC Glucose Hemoglobin A1c Lactic Acid Calcium Phosphorus 17.40 H Magnesium 4.90 H Ammonia Total Creatine Kinase 329 H Albumin 3.4 L 05/02/19 05/02/19 05/02/19 12:05 12:05 12:05 Hgb MCV MCHC RDW Seg Neutrophils % Seg Neutrophils # PT INR APTT POC ABG pH ABG pH POC ABG pO2 ABG pO2 ABG HCO3 ABG Base Excess ABG Hemoglobin VBG pH 6.982 L* Sodium Potassium Chloride Carbon Dioxide BUN Creatinine Glucose POC Glucose Hemoglobin A1c Lactic Acid 7.60 H* Calcium Phosphorus Magnesium Ammonia 125.0 H Total Creatine Kinase Albumin 05/02/19 05/02/19 05/02/19 12:09 12:59 13:07 Hgb MCV MCHC RDW Seg Neutrophils % Seg Neutrophils # PT INR APTT POC ABG pH ABG pH POC ABG pO2 ABG pO2 ABG HCO3 ABG Base Excess ABG Hemoglobin VBG pH Sodium Potassium Chloride Carbon Dioxide BUN Creatinine Glucose POC Glucose > 500 H Hemoglobin A1c Lactic Acid 6.00 H* Calcium Phosphorus 15.50 H Magnesium 4.40 H Ammonia Total Creatine Kinase Albumin 05/02/19 05/02/19 05/02/19 13:07 13:50 14:28 Hgb MCV MCHC RDW Seg Neutrophils % Seg Neutrophils # PT INR APTT POC ABG pH 7.075 L ABG pH POC ABG pO2 295 H ABG pO2 ABG HCO3 ABG Base Excess ABG Hemoglobin VBG pH Sodium 150 H 150 H Potassium 5.3 H Chloride 93.2 L 95.0 L Carbon Dioxide 6 L* 4 L* BUN 98 H 99 H Creatinine 6.3 H 6.4 H Glucose 1264 H* 1271 H* POC Glucose Hemoglobin A1c Lactic Acid Calcium 8.3 L 7.8 L Phosphorus Magnesium Ammonia Total Creatine Kinase Albumin 05/02/19 05/02/19 05/02/19 14:28 15:22 16:20 Hgb MCV MCHC RDW Seg Neutrophils % Seg Neutrophils # PT INR APTT POC ABG pH ABG pH POC ABG pO2 ABG pO2 ABG HCO3 ABG Base Excess ABG Hemoglobin VBG pH Sodium Potassium Chloride Carbon Dioxide BUN Creatinine Glucose POC Glucose > 500 H Hemoglobin A1c Lactic Acid 4.10 H* 4.40 H* Calcium Phosphorus Magnesium Ammonia Total Creatine Kinase Albumin 05/02/19 05/02/19 05/02/19 17:13 17:19 17:19 Hgb MCV MCHC RDW Seg Neutrophils % Seg Neutrophils # PT INR APTT POC ABG pH ABG pH POC ABG pO2 ABG pO2 ABG HCO3 ABG Base Excess ABG Hemoglobin VBG pH Sodium 154 H 154 H Potassium Chloride Carbon Dioxide 6 L* 6 L* BUN 95 H 98 H Creatinine 6.6 H 6.5 H Glucose 1021 H* 1021 H* POC Glucose > 500 H Hemoglobin A1c Lactic Acid Calcium 6.8 L 6.8 L Phosphorus Magnesium Ammonia Total Creatine Kinase Albumin 05/02/19 05/02/19 05/02/19 17:19 17:19 17:19 Hgb MCV MCHC RDW Seg Neutrophils % Seg Neutrophils # PT INR APTT POC ABG pH ABG pH POC ABG pO2 ABG pO2 ABG HCO3 ABG Base Excess ABG Hemoglobin VBG pH Sodium 155 H Potassium Chloride Carbon Dioxide 6 L* BUN 95 H Creatinine 6.6 H Glucose 1021 H* POC Glucose Hemoglobin A1c 12.9 H Lactic Acid 2.70 H* Calcium 6.9 L Phosphorus 10.90 H D Magnesium 3.70 H Ammonia Total Creatine Kinase Albumin 05/02/19 05/02/19 05/02/19 17:19 18:36 19:00 Hgb MCV MCHC RDW Seg Neutrophils % Seg Neutrophils # PT INR APTT POC ABG pH ABG pH POC ABG pO2 ABG pO2 ABG HCO3 ABG Base Excess ABG Hemoglobin VBG pH Sodium 153 H 154 H Potassium Chloride 107.7 H Carbon Dioxide 6 L* 8 L* BUN 96 H 95 H Creatinine 6.5 H 6.6 H Glucose 1018 H* 884 H* POC Glucose > 500 H Hemoglobin A1c Lactic Acid Calcium 6.8 L 6.7 L Phosphorus Magnesium Ammonia Total Creatine Kinase Albumin 05/02/19 05/02/19 05/02/19 20:02 21:08 21:20 Hgb MCV MCHC RDW Seg Neutrophils % Seg Neutrophils # PT INR APTT POC ABG pH ABG pH POC ABG pO2 ABG pO2 ABG HCO3 ABG Base Excess ABG Hemoglobin VBG pH Sodium Potassium Chloride Carbon Dioxide BUN Creatinine Glucose 708 H* POC Glucose > 500 H > 500 H Hemoglobin A1c Lactic Acid Calcium Phosphorus Magnesium Ammonia Total Creatine Kinase Albumin 05/02/19 05/02/19 05/02/19 22:15 22:41 23:13 Hgb MCV MCHC RDW Seg Neutrophils % Seg Neutrophils # PT INR APTT POC ABG pH ABG pH POC ABG pO2 ABG pO2 ABG HCO3 ABG Base Excess ABG Hemoglobin VBG pH Sodium Potassium Chloride Carbon Dioxide BUN Creatinine Glucose 600 H* POC Glucose > 500 H > 500 H Hemoglobin A1c Lactic Acid Calcium Phosphorus Magnesium Ammonia Total Creatine Kinase Albumin 05/02/19 05/02/19 05/02/19 23:40 23:55 Unknown Hgb MCV MCHC RDW Seg Neutrophils % Seg Neutrophils # PT INR APTT POC ABG pH ABG pH POC ABG pO2 ABG pO2 ABG HCO3 ABG Base Excess ABG Hemoglobin VBG pH Sodium 155 H Potassium Chloride 111.7 H Carbon Dioxide 10 L BUN 101 H Creatinine 6.3 H Glucose 544 H* 755 H* POC Glucose > 500 H Hemoglobin A1c Lactic Acid Calcium 6.6 L Phosphorus Magnesium Ammonia Total Creatine Kinase Albumin 05/02/19 05/02/19 05/03/19 Unknown Unknown 01:42 Hgb MCV MCHC RDW Seg Neutrophils % Seg Neutrophils # PT INR APTT POC ABG pH ABG pH POC ABG pO2 ABG pO2 ABG HCO3 ABG Base Excess ABG Hemoglobin VBG pH Sodium Potassium Chloride Carbon Dioxide BUN Creatinine Glucose 783 H* POC Glucose 484 H Hemoglobin A1c Lactic Acid 2.60 H* Calcium Phosphorus Magnesium Ammonia Total Creatine Kinase Albumin 05/03/19 05/03/19 05/03/19 02:39 03:45 05:05 Hgb MCV MCHC RDW Seg Neutrophils % Seg Neutrophils # PT INR APTT POC ABG pH ABG pH POC ABG pO2 ABG pO2 ABG HCO3 ABG Base Excess ABG Hemoglobin VBG pH Sodium Potassium Chloride Carbon Dioxide BUN Creatinine Glucose POC Glucose 358 H 329 H 324 H Hemoglobin A1c Lactic Acid Calcium Phosphorus Magnesium Ammonia Total Creatine Kinase Albumin 05/03/19 05/03/19 05/03/19 05:20 05:31 06:36 Hgb MCV MCHC RDW Seg Neutrophils % Seg Neutrophils # PT INR APTT POC ABG pH ABG pH POC ABG pO2 ABG pO2 ABG HCO3 ABG Base Excess ABG Hemoglobin VBG pH Sodium 162 H* Potassium 3.2 L Chloride 124.9 H Carbon Dioxide 18 L D BUN 87 H Creatinine 5.2 H Glucose 316 H POC Glucose 324 H 277 H Hemoglobin A1c Lactic Acid Calcium 7.1 L Phosphorus Magnesium Ammonia Total Creatine Kinase Albumin 05/03/19 05/03/19 05/03/19 07:58 07:59 07:59 Hgb MCV MCHC RDW Seg Neutrophils % Seg Neutrophils # PT INR APTT POC ABG pH ABG pH POC ABG pO2 ABG pO2 ABG HCO3 ABG Base Excess ABG Hemoglobin VBG pH Sodium 165 H* Potassium 2.9 L* Chloride 128.0 H Carbon Dioxide 19 L BUN 80 H Creatinine 4.5 H Glucose 164 H POC Glucose 161 H Hemoglobin A1c Lactic Acid Calcium 7.1 L Phosphorus Magnesium 3.20 H Ammonia Total Creatine Kinase Albumin 05/03/19 05/03/19 05/03/19 09:51 10:26 13:07 Hgb MCV MCHC RDW Seg Neutrophils % Seg Neutrophils # PT INR APTT POC ABG pH ABG pH POC ABG pO2 ABG pO2 146.9 H ABG HCO3 19.6 L ABG Base Excess -4.3 L ABG Hemoglobin 13.8 L VBG pH Sodium 164 H* Potassium 3.4 L Chloride 128.3 H Carbon Dioxide 21 L BUN 71 H Creatinine 3.3 H Glucose POC Glucose 117 H Hemoglobin A1c Lactic Acid Calcium 7.4 L Phosphorus Magnesium Ammonia Total Creatine Kinase Albumin 05/03/19 Unknown Hgb MCV MCHC RDW Seg Neutrophils % Seg Neutrophils # PT INR APTT POC ABG pH ABG pH 7.335 L POC ABG pO2 ABG pO2 143.0 H ABG HCO3 17.9 L ABG Base Excess -7.0 L ABG Hemoglobin VBG pH Sodium Potassium Chloride Carbon Dioxide BUN Creatinine Glucose POC Glucose Hemoglobin A1c Lactic Acid Calcium Phosphorus Magnesium Ammonia Total Creatine Kinase Albumin - Diagnostic Findings Chest x-ray: image reviewed (ETT in position, no acute pulmonary ifiltrates) Additional studies: CT HEAD- No acute mass, shift or bleed Assessment and Plan -Acute hypoxic respiratory failure on MVS -Acute metabolic encephalopathy -Hypotension, un differentiated shock- dehydration, sepsis -Hyperosmolar non-ketotic state/coma -Severe metabolic acidosis -Acute renal failure -Hypernatremia -Hypokalemia -VAP bundle addressed -Volume resuscitation -Free water flushes via the NGT -Accuchecks with glycemic control, continue with insulin infusion per protocol -Caban catheter for accurate intake and output monitoring in this critically ill patient with acute renal failure and hypotension -Avoid nephrotoxins, adjust all medications for CrCL, GFR -VTE prophylaxis -Stress ulcer prophylaxis -Empiric antibiotics, follow up cultures then de-escalate as indicated (currently on Cefepime/Vancomycin) -Nutritional support -Maintenance of sleep-wake cycle -Daily SAT and SBT -Avoid delirium -Mobility for pressure ulcer prevention -Wean vasopressor support for MAP>65 -Serial BMPs -Plan to discontinue femoral CVC in the morning CONDITION: CRITICAL PROGNOSIS; GUARDED CODE STATUS: FULL Discussed care plan with RT and RN. Discussed during ICU-IDT rounds The high probability of a clinically significant, sudden or life threatening deterioration of the respiratory, cardiovascular,endocrine, renal system(s) required my full and direct attention, intervention and personal management. The aggregate critical care time was [75] minutes. This time is in addition to time spent performing reported procedures but includes the following: [x] Data Review and interpretation [x]Patient assessment and monitoring of vital signs [x] Documentation [x] Medication orders and management
--- NOTE | 2019-05-03 14:46 | Progress Note ---
Assessment and Plan / Acute metabolic encephalopathy - from [facility], hyperglycemia and hypernatremia - CT head unremarkable, cont to monitor clinically / Acute respiratory failure with hypoxia Patient intubated for AMS and hypoxia Duonebs round the clock, Albuterol neb treatments prn CC consulted, wean off vent as tolerated / HHNS - hyperosmolar hyperglycemic non-ketotic syndrome Patient has a blood glucose level around 1330 with Severe metabolic acidosis and Minimal ketones in urine Insulin drip started, IV fluids about 3 L of normal saline bolus given will cont iv fluid with D5w for hypernatremia, and will cont insulin drip till Na level improves / Septic shock vs hypovlomic shock vs cardiogenic shock cont IV antibiotics and IV fluids and pressors - Started on Levophed and vasopressin follow Cx, obtain 2d echo /Severe Hypernatremia - Na 164 this am s/p IV normal saline for now because of the volume depletion and hypotension, now on D5W Cont to monitor BMP q6h / Metabolic acidosis Severe due to reclining renal function vs possible sepsis IV sodium bicarbonatex2, monitor bmp / h/o Hypertension Hold antihypertensives / Acute kidney injury due to ATN Secondary to severe dehydration Nephrology consult requested IV fluids for now, monitor renal function / Hypocalcemia s/p Calcium gluconate for now / Hyperammonemia Lactulose 30 cc with feeding tube bid / DVT prophylaxis On heparin and GI prophylaxis The high probability of a clinically significant, sudden or life threatening deterioration of the [[employer]/Renal/endocrine] system(s) required my full and direct attention, intervention and personal management. The aggregate critical care time was [34] minutes. This time is in addition to time spent performing reported procedures but includes the following: [x] Data Review and interpretation [x] Patient assessment and monitoring of vital signs [x] Documentation [x] Medication orders and management Brief History: 59-year-old -[place] male with history of diabetes and hypertension brought in for altered sensorium and decreased responsiveness. Patient is currently residing with his sister who found him poorly responsive in the morning and EMS was called. EMS gave of wall fluid bolus and brought the patient for further evaluation to the emergency room at [facility]. In the emergency room because of the decreased responsiveness and decreased breathing--- patient was intubated. His BG was 1330, Cr 6.4, Na of 154. He was placed on pressores, insulin drip, aggressive iv fluid hydration, abx and admitted to ICU for further Mx. Hospitalist physical: GENERAL: well-developed and well-nourished -Dominican male lying on bed, intubated and sedated. HEENT: Normocephalic. Atraumatic. No conjunctival congestion or icterus. Patient has dry mucous membranes. NECK: Supple. Trachea midline. ET tube in place CHEST/LUNGS: Clear to auscultated bilaterally. No wheezes crackles or rhonchi. On mechanical ventilation HEART/CARDIOVASCULAR: Tachycardic. S1 and S2 positive. ABDOMEN: Abdomen is soft. Patient has normal bowel sounds. SKIN: There is no rash. Warm and dry. NEURO: Sedated, moves all extremities purposefully MUSCULOSKELETAL: No joint effusion or tenderness. EXTRIMITY: No edema, no cyanosis or clubbing. PSYCH: Unable to assess Subjective Date of service: 05/03/19 Interval history: Patient seen and examined Intubated, on pressores, discussed with Pt's Objective - Constitutional Vitals: Vital Signs - 12hr 05/03/19 05/03/19 05/03/19 02:50 03:00 03:10 Temperature Pulse Rate 116 H 114 H 117 H Pulse Rate [ Bilateral Throughout] Respiratory 21 20 25 H Rate Respiratory Rate [Bilateral Throughout] Blood Pressure 113/77 113/77 128/78 O2 Sat by Pulse 99 100 100 Oximetry 05/03/19 05/03/19 05/03/19 03:20 03:23 03:30 Temperature Pulse Rate 116 H 119 H Pulse Rate [ Bilateral Throughout] Respiratory 25 H 21 23 Rate Respiratory Rate [Bilateral Throughout] Blood Pressure 111/75 120/80 O2 Sat by Pulse 100 100 100 Oximetry 05/03/19 05/03/19 05/03/19 03:40 03:50 04:00 Temperature Pulse Rate 117 H 114 H 116 H Pulse Rate [ Bilateral Throughout] Respiratory 18 20 24 Rate Respiratory Rate [Bilateral Throughout] Blood Pressure 106/78 94/73 119/72 O2 Sat by Pulse 100 100 100 Oximetry 05/03/19 05/03/19 05/03/19 04:02 04:11 04:20 Temperature Pulse Rate 116 H 116 H 112 H Pulse Rate [ Bilateral Throughout] Respiratory 19 20 Rate Respiratory Rate [Bilateral Throughout] Blood Pressure 119/72 124/76 121/68 O2 Sat by Pulse 100 99 100 Oximetry 05/03/19 05/03/19 05/03/19 04:30 04:40 04:50 Temperature Pulse Rate 117 H 116 H 112 H Pulse Rate [ Bilateral Throughout] Respiratory 21 18 21 Rate Respiratory Rate [Bilateral Throughout] Blood Pressure 127/74 127/71 108/67 O2 Sat by Pulse 97 100 98 Oximetry 05/03/19 05/03/19 05/03/19 05:00 05:11 05:20 Temperature Pulse Rate 112 H 119 H 116 H Pulse Rate [ Bilateral Throughout] Respiratory 23 19 17 Rate Respiratory Rate [Bilateral Throughout] Blood Pressure 112/73 112/73 106/76 O2 Sat by Pulse 99 100 99 Oximetry 05/03/19 05/03/19 05/03/19 05:29 05:30 05:40 Temperature Pulse Rate 116 H 121 H 116 H Pulse Rate [ Bilateral Throughout] Respiratory 17 21 Rate Respiratory Rate [Bilateral Throughout] Blood Pressure 111/78 109/71 O2 Sat by Pulse 100 100 Oximetry 05/03/19 05/03/19 05/03/19 05:50 06:00 06:10 Temperature Pulse Rate 114 H 111 H 111 H Pulse Rate [ Bilateral Throughout] Respiratory 16 15 21 Rate Respiratory Rate [Bilateral Throughout] Blood Pressure 118/87 120/78 106/79 O2 Sat by Pulse 100 100 Oximetry 05/03/19 05/03/19 05/03/19 06:19 06:20 06:30 Temperature Pulse Rate 109 H 108 H Pulse Rate [ Bilateral Throughout] Respiratory 18 17 22 Rate Respiratory Rate [Bilateral Throughout] Blood Pressure 124/75 126/79 O2 Sat by Pulse 100 99 Oximetry 05/03/19 05/03/19 05/03/19 07:57 08:00 10:00 Temperature 98.0 F Pulse Rate 107 H 107 H 114 H Pulse Rate [ 107 H Bilateral Throughout] Respiratory 17 Rate Respiratory 17 Rate [Bilateral Throughout] Blood Pressure 140/84 140/84 O2 Sat by Pulse 100 100 100 Oximetry 05/03/19 05/03/19 11:58 12:00 Temperature 98.4 F Pulse Rate 115 H Pulse Rate [ Bilateral Throughout] Respiratory 18 Rate Respiratory Rate [Bilateral Throughout] Blood Pressure 112/76 O2 Sat by Pulse 100 100 Oximetry - Labs CBC & Chem 7: 05/02/19 12:05 05/05/19 01:09 Labs: Abnormal lab results 05/02/19 05/02/19 05/02/19 Range/Units 14:28 14:28 15:22 ABG pH (7.350-7.450) pH Units ABG pO2 (80.0-90.0) mm Hg ABG HCO3 (20.0-26.0) mmol/L ABG Base Excess (-2.0-3.0) mmol/L ABG Hemoglobin (14.0-18.0) gm/dl Sodium 150 H (137-145) mmol/L Potassium 5.3 H (3.6-5.0) mmol/L Chloride 95.0 L (98-107) mmol/L Carbon Dioxide 4 L* (22-30) mmol/L BUN 99 H (9-20) mg/dL Creatinine 6.4 H (0.8-1.5) mg/dL Glucose 1271 H* (75-100) mg/dL POC Glucose (70-105) Hemoglobin A1c (4-6) % Lactic Acid 4.10 H* 4.40 H* (0.7-2.0) mmol/L Calcium 7.8 L (8.4-10.2) mg/dL Phosphorus (2.5-4.5) mg/dL Magnesium (1.7-2.3) mg/dL 05/02/19 05/02/19 05/02/19 Range/Units 16:20 17:13 17:19 ABG pH (7.350-7.450) pH Units ABG pO2 (80.0-90.0) mm Hg ABG HCO3 (20.0-26.0) mmol/L ABG Base Excess (-2.0-3.0) mmol/L ABG Hemoglobin (14.0-18.0) gm/dl Sodium 154 H (137-145) mmol/L Potassium (3.6-5.0) mmol/L Chloride (98-107) mmol/L Carbon Dioxide 6 L* (22-30) mmol/L BUN 95 H (9-20) mg/dL Creatinine 6.6 H (0.8-1.5) mg/dL Glucose 1021 H* (75-100) mg/dL POC Glucose > 500 H > 500 H (70-105) Hemoglobin A1c (4-6) % Lactic Acid (0.7-2.0) mmol/L Calcium 6.8 L (8.4-10.2) mg/dL Phosphorus (2.5-4.5) mg/dL Magnesium (1.7-2.3) mg/dL 05/02/19 05/02/19 05/02/19 Range/Units 17: 17: 17: ABG pH (7.350-7.450) pH Units ABG pO2 (80.0-90.0) mm Hg ABG HCO3 (20.0-26.0) mmol/L ABG Base Excess (-2.0-3.0) mmol/L ABG Hemoglobin (14.0-18.0) gm/dl Sodium 154 H 155 H (137-145) mmol/L Potassium (3.6-5.0) mmol/L Chloride (98-107) mmol/L Carbon Dioxide 6 L* 6 L* (22-30) mmol/L BUN 98 H 95 H (9-20) mg/dL Creatinine 6.5 H 6.6 H (0.8-1.5) mg/dL Glucose 1021 H* 1021 H* (75-100) mg/dL POC Glucose (70-105) Hemoglobin A1c (4-6) % Lactic Acid 2.70 H* (0.7-2.0) mmol/L Calcium 6.8 L 6.9 L (8.4-10.2) mg/dL Phosphorus 10.90 H D (2.5-4.5) mg/dL Magnesium 3.70 H (1.7-2.3) mg/dL 05/02/19 05/02/19 05/02/19 Range/Units : 17: 18:36 ABG pH (7.350-7.450) pH Units ABG pO2 (80.0-90.0) mm Hg ABG HCO3 (20.0-26.0) mmol/L ABG Base Excess (-2.0-3.0) mmol/L ABG Hemoglobin (14.0-18.0) gm/dl Sodium 153 H 154 H (137-145) mmol/L Potassium (3.6-5.0) mmol/L Chloride 107.7 H (98-107) mmol/L Carbon Dioxide 6 L* 8 L* (22-30) mmol/L BUN 96 H 95 H (9-20) mg/dL Creatinine 6.5 H 6.6 H (0.8-1.5) mg/dL Glucose 1018 H* 884 H* (75-100) mg/dL POC Glucose (70-105) Hemoglobin A1c 12.9 H (4-6) % Lactic Acid (0.7-2.0) mmol/L Calcium 6.8 L 6.7 L (8.4-10.2) mg/dL Phosphorus (2.5-4.5) mg/dL Magnesium (1.7-2.3) mg/dL 05/02/19 05/02/19 05/02/19 Range/Units 19:00 20:02 21:08 ABG pH (7.350-7.450) pH Units ABG pO2 (80.0-90.0) mm Hg ABG HCO3 (20.0-26.0) mmol/L ABG Base Excess (-2.0-3.0) mmol/L ABG Hemoglobin (14.0-18.0) gm/dl Sodium (137-145) mmol/L Potassium (3.6-5.0) mmol/L Chloride (98-107) mmol/L Carbon Dioxide (22-30) mmol/L BUN (9-20) mg/dL Creatinine (0.8-1.5) mg/dL Glucose (75-100) mg/dL POC Glucose > 500 H > 500 H > 500 H (70-105) Hemoglobin A1c (4-6) % Lactic Acid (0.7-2.0) mmol/L Calcium (8.4-10.2) mg/dL Phosphorus (2.5-4.5) mg/dL Magnesium (1.7-2.3) mg/dL 05/02/19 05/02/19 05/02/19 Range/Units 21:20 22:15 22:41 ABG pH (7.350-7.450) pH Units ABG pO2 (80.0-90.0) mm Hg ABG HCO3 (20.0-26.0) mmol/L ABG Base Excess (-2.0-3.0) mmol/L ABG Hemoglobin (14.0-18.0) gm/dl Sodium (137-145) mmol/L Potassium (3.6-5.0) mmol/L Chloride (98-107) mmol/L Carbon Dioxide (22-30) mmol/L BUN (9-20) mg/dL Creatinine (0.8-1.5) mg/dL Glucose 708 H* 600 H* (75-100) mg/dL POC Glucose > 500 H (70-105) Hemoglobin A1c (4-6) % Lactic Acid (0.7-2.0) mmol/L Calcium (8.4-10.2) mg/dL Phosphorus (2.5-4.5) mg/dL Magnesium (1.7-2.3) mg/dL 05/02/19 05/02/19 05/02/19 Range/Units 23:13 23:40 23:55 ABG pH (7.350-7.450) pH Units ABG pO2 (80.0-90.0) mm Hg ABG HCO3 (20.0-26.0) mmol/L ABG Base Excess (-2.0-3.0) mmol/L ABG Hemoglobin (14.0-18.0) gm/dl Sodium (137-145) mmol/L Potassium (3.6-5.0) mmol/L Chloride (98-107) mmol/L Carbon Dioxide (22-30) mmol/L BUN (9-20) mg/dL Creatinine (0.8-1.5) mg/dL Glucose 544 H* (75-100) mg/dL POC Glucose > 500 H > 500 H (70-105) Hemoglobin A1c (4-6) % Lactic Acid (0.7-2.0) mmol/L Calcium (8.4-10.2) mg/dL Phosphorus (2.5-4.5) mg/dL Magnesium (1.7-2.3) mg/dL 05/02/19 05/02/19 05/02/19 Range/Units Unknown Unknown Unknown ABG pH (7.350-7.450) pH Units ABG pO2 (80.0-90.0) mm Hg ABG HCO3 (20.0-26.0) mmol/L ABG Base Excess (-2.0-3.0) mmol/L ABG Hemoglobin (14.0-18.0) gm/dl Sodium 155 H (137-145) mmol/L Potassium (3.6-5.0) mmol/L Chloride 111.7 H (98-107) mmol/L Carbon Dioxide 10 L (22-30) mmol/L BUN 101 H (9-20) mg/dL Creatinine 6.3 H (0.8-1.5) mg/dL Glucose 755 H* 783 H* (75-100) mg/dL POC Glucose (70-105) Hemoglobin A1c (4-6) % Lactic Acid 2.60 H* (0.7-2.0) mmol/L Calcium 6.6 L (8.4-10.2) mg/dL Phosphorus (2.5-4.5) mg/dL Magnesium (1.7-2.3) mg/dL 05/03/19 05/03/19 05/03/19 Range/Units 01:42 02:39 03:45 ABG pH (7.350-7.450) pH Units ABG pO2 (80.0-90.0) mm Hg ABG HCO3 (20.0-26.0) mmol/L ABG Base Excess (-2.0-3.0) mmol/L ABG Hemoglobin (14.0-18.0) gm/dl Sodium (137-145) mmol/L Potassium (3.6-5.0) mmol/L Chloride (98-107) mmol/L Carbon Dioxide (22-30) mmol/L BUN (9-20) mg/dL Creatinine (0.8-1.5) mg/dL Glucose (75-100) mg/dL POC Glucose 484 H 358 H 329 H (70-105) Hemoglobin A1c (4-6) % Lactic Acid (0.7-2.0) mmol/L Calcium (8.4-10.2) mg/dL Phosphorus (2.5-4.5) mg/dL Magnesium (1.7-2.3) mg/dL 05/03/19 05/03/19 05/03/19 Range/Units 05:05 05:20 05:31 ABG pH (7.350-7.450) pH Units ABG pO2 (80.0-90.0) mm Hg ABG HCO3 (20.0-26.0) mmol/L ABG Base Excess (-2.0-3.0) mmol/L ABG Hemoglobin (14.0-18.0) gm/dl Sodium 162 H* (137-145) mmol/L Potassium 3.2 L (3.6-5.0) mmol/L Chloride 124.9 H (98-107) mmol/L Carbon Dioxide 18 L D (22-30) mmol/L BUN 87 H (9-20) mg/dL Creatinine 5.2 H (0.8-1.5) mg/dL Glucose 316 H (75-100) mg/dL POC Glucose 324 H 324 H (70-105) Hemoglobin A1c (4-6) % Lactic Acid (0.7-2.0) mmol/L Calcium 7.1 L (8.4-10.2) mg/dL Phosphorus (2.5-4.5) mg/dL Magnesium (1.7-2.3) mg/dL 05/03/19 05/03/19 05/03/19 Range/Units 06:36 07:58 07:59 ABG pH (7.350-7.450) pH Units ABG pO2 (80.0-90.0) mm Hg ABG HCO3 (20.0-26.0) mmol/L ABG Base Excess (-2.0-3.0) mmol/L ABG Hemoglobin (14.0-18.0) gm/dl Sodium 165 H* (137-145) mmol/L Potassium 2.9 L* (3.6-5.0) mmol/L Chloride 128.0 H (98-107) mmol/L Carbon Dioxide 19 L (22-30) mmol/L BUN 80 H (9-20) mg/dL Creatinine 4.5 H (0.8-1.5) mg/dL Glucose 164 H (75-100) mg/dL POC Glucose 277 H 161 H (70-105) Hemoglobin A1c (4-6) % Lactic Acid (0.7-2.0) mmol/L Calcium 7.1 L (8.4-10.2) mg/dL Phosphorus (2.5-4.5) mg/dL Magnesium (1.7-2.3) mg/dL 05/03/19 05/03/19 05/03/19 Range/Units 07:59 09:51 10:26 ABG pH (7.350-7.450) pH Units ABG pO2 146.9 H (80.0-90.0) mm Hg ABG HCO3 19.6 L (20.0-26.0) mmol/L ABG Base Excess -4.3 L (-2.0-3.0) mmol/L ABG Hemoglobin 13.8 L (14.0-18.0) gm/dl Sodium (137-145) mmol/L Potassium (3.6-5.0) mmol/L Chloride (98-107) mmol/L Carbon Dioxide (22-30) mmol/L BUN (9-20) mg/dL Creatinine (0.8-1.5) mg/dL Glucose (75-100) mg/dL POC Glucose 117 H (70-105) Hemoglobin A1c (4-6) % Lactic Acid (0.7-2.0) mmol/L Calcium (8.4-10.2) mg/dL Phosphorus (2.5-4.5) mg/dL Magnesium 3.20 H (1.7-2.3) mg/dL 05/03/19 05/03/19 Range/Units 13:07 Unknown ABG pH 7.335 L (7.350-7.450) pH Units ABG pO2 143.0 H (80.0-90.0) mm Hg ABG HCO3 17.9 L (20.0-26.0) mmol/L ABG Base Excess -7.0 L (-2.0-3.0) mmol/L ABG Hemoglobin (14.0-18.0) gm/dl Sodium 164 H* (137-145) mmol/L Potassium 3.4 L (3.6-5.0) mmol/L Chloride 128.3 H (98-107) mmol/L Carbon Dioxide 21 L (22-30) mmol/L BUN 71 H (9-20) mg/dL Creatinine 3.3 H (0.8-1.5) mg/dL Glucose (75-100) mg/dL POC Glucose (70-105) Hemoglobin A1c (4-6) % Lactic Acid (0.7-2.0) mmol/L Calcium 7.4 L (8.4-10.2) mg/dL Phosphorus (2.5-4.5) mg/dL Magnesium (1.7-2.3) mg/dL
[2019-05-03] MEDS ORDERED: POTASSIUM CHLORIDE FEEDTUBE ONE (15:00)
[2019-05-03] MEDS: D5W 1,000 ML IV SCH (15:20)
[2019-05-03] MEDS ORDERED: ASPIRIN PR ONE (17:00)
[2019-05-03] MEDS: HumaLOG SUB-Q SCH (18:44)
--- NOTE | 2019-05-03 18:46 | Consultation ---
History of Present Illness - Reason for Consult Consult date: 05/03/19 acute renal failure, other (hypernatremia) Requesting physician: ALLAN CHANCE - History of Present Illness 59-year-old male brought from home due to altered mental status. Patient was less responsive and so was brought to the emergency room. In the ER, patient had bradypnea and hypotension. Was given fluid boluses and intubated for airway protection. Patient was started on Levophed at 10 mics. Minutes. Labs showed sodium quite high at 160 mmol per liter, potassium low at 3.2 mmol per liter and BUN/creatinine at 87/5.2 mg/dL. Bicarbonate was also very low at 10 mmol per liter. I'm consulted to assist with managing the renal failure, acid base and electrolytes abnormalities Past History Past Medical History: diabetes, hypertension, other Past Surgical History: No surgical history, Other (Unable to obtain due to irma ent's mental status) Social history: other (Unable to obtain due to patient's mental status) Family history: other (Unable to obtain due to patient's mental status) Medications and Allergies Allergies Allergy/AdvReac Type Severity Reaction Status Date / Time No Known Allergies Allergy Unverified 08/06/13 08:33 Home Medications Medication Instructions Recorded Confirmed Last Taken Type Lisinopril [Zestril TAB] 40 mg PO QDAY 05/02/19 05/02/19 Unknown History glipiZIDE [Glucotrol] 10 mg PO QDAY 05/02/19 05/02/19 Unknown History hydroCHLOROthiazide [HCTZ] 25 mg PO QDAY 05/02/19 05/02/19 Unknown History metFORMIN [Glucophage] 500 mg PO BID 05/02/19 05/02/19 Unknown History Active Meds: Active Medications Acetaminophen (Tylenol) 650 mg PO Q4H PRN PRN Reason: Pain MILD(1-3)/Fever >100.5/MEZA Albuterol/Ipratropium (Duoneb *Not For Prn Use*) 1 ampul IH TIDRT [facility] Last Admin: 05/03/19 14:49 Dose: 1 ampul Documented by: Amlodipine Besylate (Norvasc) 10 mg PO DAILY [facility] Last Admin: 05/03/19 10:15 Dose: Not Given Documented by: Dextrose (D50w (25gm) Syringe) 0 ml IV PRN PRN PRN Reason: Hypoglycemia Famotidine (Pepcid) 20 mg IV DAILY [facility] Last Admin: 05/03/19 10:15 Dose: 20 mg Documented by: Heparin Sodium (Porcine) (Heparin) 5,000 unit SUB-Q BID [facility] Hydrophilic Ointment (Vaseline Lip Therapy) 1 applic TP Q2HR PRN PRN Reason: Dry Lips Lorazepam 100 mg/ Sodium Chloride/ Miscellaneous Information 100 mls @ 1 mls/hr IV TITR [facility]; Protocol Norepinephrine (Levophed Drip 4 Mg/Ns 250 Ml) 4 mg in 250 mls @ 7.5 mls/hr IV TITR [facility]; Protocol Last Titration: 05/03/19 13:50 Dose: 0 mcg/min, 0 mls/hr Documented by: Vasopressin 20 unit/ Sodium (Chloride) 101 mls @ 9.09 mls/hr IV TITR [facility]; Protocol Last Titration: 05/03/19 08:26 Dose: 0 units/min, 0 mls/hr Documented by: Cefepime HCl (Maxipime/Ns 1 Gm/100 Ml) 1 gm in 100 mls @ 200 mls/hr IV Q24HR [facility]; Protocol Dextrose (D5w) 1,000 mls @ 100 mls/hr IV DIRECT [facility] Last Admin: 05/03/19 15:20 Dose: 100 mls/hr Documented by: Insulin Human Lispro (Humalog) 0 unit SUB-Q Q6HR [facility]; Protocol Insulin Human NPH (Humulin N) 5 unit SUB-Q BID [facility] Lactulose (Cephulac) 20 gm PO Q12HR [facility] Last Admin: 05/03/19 10:14 Dose: 20 gm Documented by: Lorazepam (Ativan) 2 mg IV Q10MIN PRN PRN Reason: Agitation Miscellaneous Medication (Dorzolamide Hcl/Timolol Maleat [Dorzolamide-Timolol Eye Drops]) 1 drop OP BID [facility] Last Admin: 05/02/19 17:16 Dose: Not Given Documented by: Miscellaneous Medication (Brimonidine Tartrate [Alphagan P 0.1%]) 1 drop OP BID [facility] Last Admin: 05/02/19 17:16 Dose: Not Given Documented by: Multi-Ingred Cream/Lotion/Oil/Oint (Artificial Tears Ophth Oint) 1 applic OU Q4HR PRN PRN Reason: Dry Eye(s) Ondansetron HCl (Zofran) 4 mg IV Q8H PRN PRN Reason: Nausea And Vomiting Sodium Chloride (Sodium Chloride Flush Syringe 10 Ml) 10 ml IV BID [facility] Last Admin: 05/03/19 10:33 Dose: 10 ml Documented by: Sodium Chloride (Sodium Chloride Flush Syringe 10 Ml) 10 ml IV PRN PRN PRN Reason: LINE FLUSH Review of Systems ROS unobtainable: due to mental status Exam - Vital Signs Vital signs: Vital Signs Pulse Resp BP Pulse Ox 99 H 14 169/123 100 05/02/19 11:56 05/02/19 11:56 05/02/19 11:56 05/02/19 11:56 - Physical Exam Narrative exam: Middle-aged -[place] male lying in bed intubated on a ventilator HEENT: NCAT, pink oral mucous membrane Neck: Supple, no venous distention CVS: S1S2 RRR with no murmur, rub or gallop Chest: Clear to auscultation Abdomen: Protuberant, soft, nontender, no organomegaly, bowel sounds are present Extremities: No edema Neuro: Intubated on the Ventilator, not following commands Results - Lab Results 05/02/19 12:05 05/05/19 12:26 Most recent lab results ABG pH 7.335 pH Units (7.350-7.450) L 05/03/19 Unknown ABG pCO2 34.3 mm Hg 05/03/19 Unknown ABG pO2 143.0 mm Hg (80.0-90.0) H 05/03/19 Unknown ABG HCO3 17.9 mmol/L (20.0-26.0) L 05/03/19 Unknown ABG O2 Saturation 98.7 % (95.0-99.0) 05/03/19 Unknown Calcium 7.4 mg/dL (8.4-10.2) L 05/03/19 13:07 Phosphorus 10.90 mg/dL (2.5-4.5) H D 05/02/19 17:19 Magnesium 3.20 mg/dL (1.7-2.3) H 05/03/19 07:59 Assessment and Plan - Patient Problems (1) Acute kidney injury with acute tubular necrosis Current Visit: Yes Status: Acute Plan to address problem: Acute kidney injury secondary to hypotension/volume depletion and possible septic shock. Kidney function a bit better following fluid resuscitation. Continue volume repletion. Follow up electrolytes and renal function. (2) Hypokalemia Current Visit: Yes Status: Acute Plan to address problem: Supplement potassium and follow-up levels needed. Check magnesium and phosphorus levels (3) Hypernatremia Current Visit: Yes Status: Acute Plan to address problem: Free water replacement enterally and parenterally (4) Septic shock Current Visit: Yes Status: Acute Plan to address problem: Continue antibiotics doses appropriately adjusted to degree of renal function. Follow up cultures (5) Diabetic hyperosmolar non-ketotic state Current Visit: Yes Status: Acute Plan to address problem: Blood sugar management by primary attending (6) Lactic acidosis Current Visit: Yes Status: Acute Plan to address problem: Continue vasopressors wean maintaining mean arterial pressure more than 65 mmHg.
[2019-05-03] MEDS ORDERED: SODIUM BICARBONATE FEEDTUBE PRN ×2 (19:33)
[2019-05-03] MEDS ORDERED: SIMPLE SYRUP FEEDTUBE PRN ×2 (19:33)
[2019-05-03] MEDS ORDERED: PANCREAZE DR 10,500 UNIT FEEDTUBE PRN ×2 (19:33)
[2019-05-03] MEDS: HEPARIN SUB-Q SCH (21:31)
[2019-05-03 21:33] LABS: Calcium 7.3 mg/dL (8.4-10.2)
[2019-05-04] MEDS: HumaLOG SUB-Q SCH ×4 (00:25→17:48)
--- NOTE | 2019-05-04 02:53 | XRay Report ---
CHEST 1 VIEW 2:03 AM INDICATION / CLINICAL INFORMATION: Follow-up respiratory failure. COMPARISON: Yesterday. FINDINGS: SUPPORT DEVICES: The positions of the endotracheal tube and nasogastric tube have not changed. HEART / MEDIASTINUM: No significant abnormality. LUNGS / PLEURA: No significant pulmonary or pleural abnormality. No pneumothorax. ADDITIONAL FINDINGS: No significant additional findings. IMPRESSION: No acute abnormality or significant change. Signer Name: Fritz Luna MD Signed: 05/04/2019 2:48 AM Workstation Name: [id number]
[2019-05-04 04:49] LABS: ABG Base Excess -0.9 mmol/L (-2.0-3.0); ABG HCO3 22.3 mmol/L (20.0-26.0); ABG Methemoglobin 0.6 % (0.0-1.5); ABG Oxygen Saturation 98.3 % (95.0-99.0); ABG PCO2 33.2 mm Hg; ABG PH 7.446 pH Units (7.350-7.450); ABG PO2 117.2 mm Hg (80.0-90.0)
[2019-05-04 05:55] LABS: Albumin 2.9 g/dL (3.9-5); Calcium 7.4 mg/dL (8.4-10.2)
[2019-05-04] MEDS: KCL 10MEQ/100ML 10 MEQ/100 ML BAG IV SCH ×6 (07:32→16:38)
[2019-05-04] MEDS: DUONEB *Not for PRN Use IH SCH ×3 (07:59→20:48)
[2019-05-04] MEDS ORDERED: POTASSIUM CHLORIDE PO ONE ×2 (08:00→14:00)
[2019-05-04] MEDS ORDERED: SIMPLE SYRUP FEEDTUBE PRN ×2 (08:54)
[2019-05-04] MEDS ORDERED: SODIUM BICARBONATE FEEDTUBE PRN (08:54)
[2019-05-04] MEDS ORDERED: PANCREAZE DR 10,500 UNIT FEEDTUBE PRN (08:54)
[2019-05-04] MEDS: PEPCID IV SCH (09:15)
[2019-05-04] MEDS: MAXIPIME/NS 1 GM/100 ML 1 GM/100 ML BAG IV SCH (09:15)
[2019-05-04] MEDS: HEPARIN SUB-Q SCH ×2 (09:15→23:40)
[2019-05-04] MEDS: SODIUM CHLORIDE FLUSH SYRINGE 10 ML IV SCH ×2 (09:16→23:41)
[2019-05-04] MEDS: NORVASC PO SCH (09:22)
--- NOTE | 2019-05-04 10:44 | Progress Note ---
Assessment and Plan -Acute hypoxic respiratory failure on MVS -Acute metabolic encephalopathy -Hypotension, un differentiated shock- dehydration, sepsis -Hyperosmolar non-ketotic state/coma -Severe metabolic acidosis -Acute renal failure -Hypernatremia -Hypokalemia -VAP bundle addressed -Volume resuscitation -Free water flushes via the NGT -Accuchecks with glycemic control, continue with insulin infusion per protocol -Mcclain catheter for accurate intake and output monitoring in this critically ill patient with acute renal failure and hypotension -Avoid nephrotoxins, adjust all medications for CrCL, GFR -VTE prophylaxis -Stress ulcer prophylaxis -Empiric antibiotics, follow up cultures then de-escalate as indicated (currently on Cefepime/Vancomycin) -Nutritional support -Maintenance of sleep-wake cycle -Daily SAT and SBT -Avoid delirium -Mobility for pressure ulcer prevention -Wean vasopressor support for MAP>65 -Serial BMPs -Plan to discontinue femoral CVC in the morning CONDITION: CRITICAL PROGNOSIS; GUARDED CODE STATUS: FULL Discussed care plan with RT and RN. Discussed during ICU-IDT rounds The high probability of a clinically significant, sudden or life threatening deterioration of the respiratory, cardiovascular,endocrine, renal system(s) required my full and direct attention, intervention and personal management. The aggregate critical care time was [75] minutes. This time is in addition to time spent performing reported procedures but includes the following: [x] Data Review and interpretation [x]Patient assessment and monitoring of vital signs [x] Documentation [x] Medication orders and management Subjective Date of service: 05/04/19 Objective Vital Signs - 12hr 05/03/19 05/04/19 05/04/19 23:24 00:00 04:00 Temperature 99.6 F 99.0 F Pulse Rate 113 H Pulse Rate [ Bilateral Throughout] Respiratory Rate Respiratory Rate [Bilateral Throughout] Blood Pressure 135/84 O2 Sat by Pulse 100 100 100 Oximetry 05/04/19 05/04/19 05/04/19 07:53 08:00 09:22 Temperature 97.7 F Pulse Rate 111 H 103 H Pulse Rate [ 114 H Bilateral Throughout] Respiratory 16 Rate Respiratory 19 Rate [Bilateral Throughout] Blood Pressure 154/94 143/87 O2 Sat by Pulse 99 98 Oximetry Constitutional: no acute distress, other (unresponsive, orally intubated, ETT to MVS) Eyes: non-icteric ENT: oropharynx dry Neck: supple, no lymphadenopathy, no JVD Effort: normal, other (no patient-ventilator dys-synchrony) Ascultation: Bilateral: clear, diminished breath sounds Cardiovascular: regular rate and rhythm, other (S1,S2) Gastrointestinal: normoactive bowel sounds, soft, non-tender, other (OGT) Integumentary: normal, other (right groin CVC) Extremities: no cyanosis, no edema, pulses normal, no ischemia or petechiae Neurologic: pupils equal and round, unable to assess Psychiatric: other (unable to assess) CBC and BMP: 05/02/19 12:05 05/04/19 05:00 ABG, PT/INR, D-dimer: ABG POC ABG pH 7.075 (7.35-7.45) L 05/02/19 13:50 ABG pH 7.446 pH Units (7.350-7.450) 05/04/19 04:10 ABG pCO2 33.2 mm Hg 05/04/19 04:10 POC ABG pO2 295 (80-105) H 05/02/19 13:50 ABG pO2 117.2 mm Hg (80.0-90.0) H 05/04/19 04:10 POC ABG HCO3 6.6 (22-26 mml/L) 05/02/19 13:50 POC ABG Total CO2 7 (23-27mmol/L) 05/02/19 13:50 POC ABG O2 Sat 100 05/02/19 13:50 ABG O2 Saturation 98.3 % (95.0-99.0) 05/04/19 04:10 PT/INR, D-dimer PT 15.4 Sec. (12.2-14.9) H 05/02/19 12:05 INR 1.25 (0.87-1.13) H 05/02/19 12:05 Abnormal lab findings: Abnormal Labs 05/02/19 05/02/19 05/02/19 12:05 12:05 12:05 Hgb 15.3 H MCV 99 H MCHC 29 L RDW 16.9 H Seg Neutrophils % 79.5 H Seg Neutrophils # 8.3 H PT 15.4 H INR 1.25 H APTT 23.9 L POC ABG pH ABG pH POC ABG pO2 ABG pO2 ABG HCO3 ABG Base Excess ABG Hemoglobin VBG pH Sodium 151 H Potassium Chloride 90.1 L Carbon Dioxide 5 L* BUN 102 H Creatinine 6.4 H Glucose 1330 H* POC Glucose Hemoglobin A1c Lactic Acid Calcium Phosphorus 17.40 H Magnesium 4.90 H AST ALT Ammonia Total Creatine Kinase 329 H Total Protein Albumin 3.4 L 05/02/19 05/02/19 05/02/19 12:05 12:05 12:05 Hgb MCV MCHC RDW Seg Neutrophils % Seg Neutrophils # PT INR APTT POC ABG pH ABG pH POC ABG pO2 ABG pO2 ABG HCO3 ABG Base Excess ABG Hemoglobin VBG pH 6.982 L* Sodium Potassium Chloride Carbon Dioxide BUN Creatinine Glucose POC Glucose Hemoglobin A1c Lactic Acid 7.60 H* Calcium Phosphorus Magnesium AST ALT Ammonia 125.0 H Total Creatine Kinase Total Protein Albumin 05/02/19 05/02/19 05/02/19 12:09 12:59 13:07 Hgb MCV MCHC RDW Seg Neutrophils % Seg Neutrophils # PT INR APTT POC ABG pH ABG pH POC ABG pO2 ABG pO2 ABG HCO3 ABG Base Excess ABG Hemoglobin VBG pH Sodium Potassium Chloride Carbon Dioxide BUN Creatinine Glucose POC Glucose > 500 H Hemoglobin A1c Lactic Acid 6.00 H* Calcium Phosphorus 15.50 H Magnesium 4.40 H AST ALT Ammonia Total Creatine Kinase Total Protein Albumin 05/02/19 05/02/19 05/02/19 13:07 13:50 14:28 Hgb MCV MCHC RDW Seg Neutrophils % Seg Neutrophils # PT INR APTT POC ABG pH 7.075 L ABG pH POC ABG pO2 295 H ABG pO2 ABG HCO3 ABG Base Excess ABG Hemoglobin VBG pH Sodium 150 H 150 H Potassium 5.3 H Chloride 93.2 L 95.0 L Carbon Dioxide 6 L* 4 L* BUN 98 H 99 H Creatinine 6.3 H 6.4 H Glucose 1264 H* 1271 H* POC Glucose Hemoglobin A1c Lactic Acid Calcium 8.3 L 7.8 L Phosphorus Magnesium AST ALT Ammonia Total Creatine Kinase Total Protein Albumin 05/02/19 05/02/19 05/02/19 14:28 15:22 16:20 Hgb MCV MCHC RDW Seg Neutrophils % Seg Neutrophils # PT INR APTT POC ABG pH ABG pH POC ABG pO2 ABG pO2 ABG HCO3 ABG Base Excess ABG Hemoglobin VBG pH Sodium Potassium Chloride Carbon Dioxide BUN Creatinine Glucose POC Glucose > 500 H Hemoglobin A1c Lactic Acid 4.10 H* 4.40 H* Calcium Phosphorus Magnesium AST ALT Ammonia Total Creatine Kinase Total Protein Albumin 05/02/19 05/02/19 05/02/19 17:13 17:19 17:19 Hgb MCV MCHC RDW Seg Neutrophils % Seg Neutrophils # PT INR APTT POC ABG pH ABG pH POC ABG pO2 ABG pO2 ABG HCO3 ABG Base Excess ABG Hemoglobin VBG pH Sodium 154 H 154 H Potassium Chloride Carbon Dioxide 6 L* 6 L* BUN 95 H 98 H Creatinine 6.6 H 6.5 H Glucose 1021 H* 1021 H* POC Glucose > 500 H Hemoglobin A1c Lactic Acid Calcium 6.8 L 6.8 L Phosphorus Magnesium AST ALT Ammonia Total Creatine Kinase Total Protein Albumin 05/02/19 05/02/19 05/02/19 17:19 17:19 17:19 Hgb MCV MCHC RDW Seg Neutrophils % Seg Neutrophils # PT INR APTT POC ABG pH ABG pH POC ABG pO2 ABG pO2 ABG HCO3 ABG Base Excess ABG Hemoglobin VBG pH Sodium 155 H Potassium Chloride Carbon Dioxide 6 L* BUN 95 H Creatinine 6.6 H Glucose 1021 H* POC Glucose Hemoglobin A1c 12.9 H Lactic Acid 2.70 H* Calcium 6.9 L Phosphorus 10.90 H D Magnesium 3.70 H AST ALT Ammonia Total Creatine Kinase Total Protein Albumin 05/02/19 05/02/19 05/02/19 17: 18:36 19:00 Hgb MCV MCHC RDW Seg Neutrophils % Seg Neutrophils # PT INR APTT POC ABG pH ABG pH POC ABG pO2 ABG pO2 ABG HCO3 ABG Base Excess ABG Hemoglobin VBG pH Sodium 153 H 154 H Potassium Chloride 107.7 H Carbon Dioxide 6 L* 8 L* BUN 96 H 95 H Creatinine 6.5 H 6.6 H Glucose 1018 H* 884 H* POC Glucose > 500 H Hemoglobin A1c Lactic Acid Calcium 6.8 L 6.7 L Phosphorus Magnesium AST ALT Ammonia Total Creatine Kinase Total Protein Albumin 05/02/19 05/02/19 05/02/19 20:02 21:08 21:20 Hgb MCV MCHC RDW Seg Neutrophils % Seg Neutrophils # PT INR APTT POC ABG pH ABG pH POC ABG pO2 ABG pO2 ABG HCO3 ABG Base Excess ABG Hemoglobin VBG pH Sodium Potassium Chloride Carbon Dioxide BUN Creatinine Glucose 708 H* POC Glucose > 500 H > 500 H Hemoglobin A1c Lactic Acid Calcium Phosphorus Magnesium AST ALT Ammonia Total Creatine Kinase Total Protein Albumin 05/02/19 05/02/19 05/02/19 22:15 22:41 23:13 Hgb MCV MCHC RDW Seg Neutrophils % Seg Neutrophils # PT INR APTT POC ABG pH ABG pH POC ABG pO2 ABG pO2 ABG HCO3 ABG Base Excess ABG Hemoglobin VBG pH Sodium Potassium Chloride Carbon Dioxide BUN Creatinine Glucose 600 H* POC Glucose > 500 H > 500 H Hemoglobin A1c Lactic Acid Calcium Phosphorus Magnesium AST ALT Ammonia Total Creatine Kinase Total Protein Albumin 05/02/19 05/02/19 05/02/19 23:40 23:55 Unknown Hgb MCV MCHC RDW Seg Neutrophils % Seg Neutrophils # PT INR APTT POC ABG pH ABG pH POC ABG pO2 ABG pO2 ABG HCO3 ABG Base Excess ABG Hemoglobin VBG pH Sodium 155 H Potassium Chloride 111.7 H Carbon Dioxide 10 L BUN 101 H Creatinine 6.3 H Glucose 544 H* 755 H* POC Glucose > 500 H Hemoglobin A1c Lactic Acid Calcium 6.6 L Phosphorus Magnesium AST ALT Ammonia Total Creatine Kinase Total Protein Albumin 05/02/19 05/02/19 05/03/19 Unknown Unknown 01:42 Hgb MCV MCHC RDW Seg Neutrophils % Seg Neutrophils # PT INR APTT POC ABG pH ABG pH POC ABG pO2 ABG pO2 ABG HCO3 ABG Base Excess ABG Hemoglobin VBG pH Sodium Potassium Chloride Carbon Dioxide BUN Creatinine Glucose 783 H* POC Glucose 484 H Hemoglobin A1c Lactic Acid 2.60 H* Calcium Phosphorus Magnesium AST ALT Ammonia Total Creatine Kinase Total Protein Albumin 05/03/19 05/03/19 05/03/19 02:39 03:45 05:05 Hgb MCV MCHC RDW Seg Neutrophils % Seg Neutrophils # PT INR APTT POC ABG pH ABG pH POC ABG pO2 ABG pO2 ABG HCO3 ABG Base Excess ABG Hemoglobin VBG pH Sodium Potassium Chloride Carbon Dioxide BUN Creatinine Glucose POC Glucose 358 H 329 H 324 H Hemoglobin A1c Lactic Acid Calcium Phosphorus Magnesium AST ALT Ammonia Total Creatine Kinase Total Protein Albumin 05/03/19 05/03/19 05/03/19 05:20 05:31 06:36 Hgb MCV MCHC RDW Seg Neutrophils % Seg Neutrophils # PT INR APTT POC ABG pH ABG pH POC ABG pO2 ABG pO2 ABG HCO3 ABG Base Excess ABG Hemoglobin VBG pH Sodium 162 H* Potassium 3.2 L Chloride 124.9 H Carbon Dioxide 18 L D BUN 87 H Creatinine 5.2 H Glucose 316 H POC Glucose 324 H 277 H Hemoglobin A1c Lactic Acid Calcium 7.1 L Phosphorus Magnesium AST ALT Ammonia Total Creatine Kinase Total Protein Albumin 05/03/19 05/03/19 05/03/19 07:58 07:59 07:59 Hgb MCV MCHC RDW Seg Neutrophils % Seg Neutrophils # PT INR APTT POC ABG pH ABG pH POC ABG pO2 ABG pO2 ABG HCO3 ABG Base Excess ABG Hemoglobin VBG pH Sodium 165 H* Potassium 2.9 L* Chloride 128.0 H Carbon Dioxide 19 L BUN 80 H Creatinine 4.5 H Glucose 164 H POC Glucose 161 H Hemoglobin A1c Lactic Acid Calcium 7.1 L Phosphorus Magnesium 3.20 H AST ALT Ammonia Total Creatine Kinase Total Protein Albumin 05/03/19 05/03/19 05/03/19 09:14 09:51 10:25 Hgb MCV MCHC RDW Seg Neutrophils % Seg Neutrophils # PT INR APTT POC ABG pH ABG pH POC ABG pO2 ABG pO2 ABG HCO3 ABG Base Excess ABG Hemoglobin VBG pH Sodium Potassium Chloride Carbon Dioxide BUN Creatinine Glucose POC Glucose 120 H 117 H 111 H Hemoglobin A1c Lactic Acid Calcium Phosphorus Magnesium AST ALT Ammonia Total Creatine Kinase Total Protein Albumin 05/03/19 05/03/19 05/03/19 10:26 13:07 18:31 Hgb MCV MCHC RDW Seg Neutrophils % Seg Neutrophils # PT INR APTT POC ABG pH ABG pH POC ABG pO2 ABG pO2 146.9 H ABG HCO3 19.6 L ABG Base Excess -4.3 L ABG Hemoglobin 13.8 L VBG pH Sodium 164 H* Potassium 3.4 L Chloride 128.3 H Carbon Dioxide 21 L BUN 71 H Creatinine 3.3 H Glucose POC Glucose 303 H Hemoglobin A1c Lactic Acid Calcium 7.4 L Phosphorus Magnesium AST ALT Ammonia Total Creatine Kinase Total Protein Albumin 05/03/19 05/03/19 05/03/19 20:15 21:18 Unknown Hgb MCV MCHC RDW Seg Neutrophils % Seg Neutrophils # PT INR APTT POC ABG pH ABG pH 7.335 L POC ABG pO2 ABG pO2 143.0 H ABG HCO3 17.9 L ABG Base Excess -7.0 L ABG Hemoglobin VBG pH Sodium 159 H Potassium 3.3 L Chloride 121.7 H Carbon Dioxide 21 L BUN 62 H Creatinine 2.8 H Glucose 334 H POC Glucose 311 H Hemoglobin A1c Lactic Acid Calcium 7.3 L Phosphorus Magnesium AST ALT Ammonia Total Creatine Kinase Total Protein Albumin 05/04/19 05/04/19 05/04/19 04:10 05:00 05:23 Hgb MCV MCHC RDW Seg Neutrophils % Seg Neutrophils # PT INR APTT POC ABG pH ABG pH POC ABG pO2 ABG pO2 117.2 H ABG HCO3 ABG Base Excess ABG Hemoglobin VBG pH Sodium 157 H Potassium 2.4 L* D Chloride 117.6 H Carbon Dioxide BUN 53 H Creatinine 2.2 H Glucose 346 H POC Glucose 319 H Hemoglobin A1c Lactic Acid Calcium 7.4 L Phosphorus 1.70 L D Magnesium 2.60 H AST 312 H ALT 74 H Ammonia Total Creatine Kinase Total Protein 5.8 L Albumin 2.9 L
[2019-05-04] MEDS: D5W 1,000 ML IV SCH ×2 (10:59→21:42)
[2019-05-04] MEDS ORDERED: LANTUS SUB-Q ONE (12:00)
[2019-05-04] MEDS ORDERED: KPHOS 15 MMOL in NACL 0.9% 250ML 250 ML IV ONE (12:00)
--- NOTE | 2019-05-04 12:27 | Progress Note ---
Assessment and Plan - Patient Problems (1) Acute kidney injury with acute tubular necrosis Current Visit: Yes Status: Acute Plan to address problem: Acute kidney injury secondary to hypotension/volume depletion and possible septic shock. Kidney function improving. Continue volume repletion. Follow up electrolytes and renal function. (2) Hypokalemia Current Visit: Yes Status: Acute Plan to address problem: Supplement potassium and follow-up levels needed. (3) Hypernatremia Current Visit: Yes Status: Acute Plan to address problem: Continue Free water replacement enterally and parenterally (4) Septic shock Current Visit: Yes Status: Acute Plan to address problem: Continue antibiotics doses appropriately adjusted to degree of renal function. Follow up cultures (5) Hypophosphatemia Current Visit: Yes Status: Acute Plan to address problem: Supplement phosphorous enterally and follow-up levels Subjective Date of service: 05/05/19 Principal diagnosis: acute kidney injury, septic shock, electrolyte abnormalities Interval history: Patient seen lying in bed. Family at the bedside son and sister. Patient intubated on ventilator but weaning ongoing Objective - Exam Narrative Exam: Middle-aged -[place] male lying in bed intubated on a ventilator HEENT: NCAT, pink oral mucous membrane Neck: Supple, no venous distention CVS: S1S2 RRR with no murmur, rub or gallop Chest: Clear to auscultation Abdomen: Protuberant, soft, nontender, no organomegaly, bowel sounds are present Extremities: No edema Neuro: Intubated on the Ventilator, not following commands - Vital Signs Vital signs: Vital Signs - 12hr 05/04/19 05/04/19 05/04/19 04:00 07:53 08:00 Temperature 99.0 F 97.7 F Pulse Rate 111 H Pulse Rate [ 114 H Bilateral Throughout] Respiratory 16 Rate Respiratory 19 Rate [Bilateral Throughout] Blood Pressure 154/94 O2 Sat by Pulse 100 99 98 Oximetry 05/04/19 05/04/19 05/04/19 09:22 11:04 12:00 Temperature 97.2 F L Pulse Rate 103 H Pulse Rate [ Bilateral Throughout] Respiratory Rate Respiratory Rate [Bilateral Throughout] Blood Pressure 143/87 O2 Sat by Pulse 98 Oximetry - Lab 05/02/19 12:05 05/05/19 12:26 Most recent lab results ABG pH 7.446 pH Units (7.350-7.450) 05/04/19 04:10 ABG pCO2 33.2 mm Hg 05/04/19 04:10 ABG pO2 117.2 mm Hg (80.0-90.0) H 05/04/19 04:10 ABG HCO3 22.3 mmol/L (20.0-26.0) 05/04/19 04:10 ABG O2 Saturation 98.3 % (95.0-99.0) 05/04/19 04:10 Calcium 7.4 mg/dL (8.4-10.2) L 05/04/19 05:00 Phosphorus 1.70 mg/dL (2.5-4.5) L D 05/04/19 05:00 Magnesium 2.60 mg/dL (1.7-2.3) H 05/04/19 05:00 Medications & Allergies - Medications Allergies/Adverse Reactions: Allergies No Known Allergies Allergy (Unverified 08/06/13 08:33) Home Medications: Home Medications Medication Instructions Recorded Confirmed Last Taken Type Lisinopril [Zestril TAB] 40 mg PO QDAY 05/02/19 05/02/19 Unknown History glipiZIDE [Glucotrol] 10 mg PO QDAY 05/02/19 05/02/19 Unknown History hydroCHLOROthiazide [HCTZ] 25 mg PO QDAY 05/02/19 05/02/19 Unknown History metFORMIN [Glucophage] 500 mg PO BID 05/02/19 05/02/19 Unknown History Active Medications: Generic Name Dose Route Start Last Admin Trade Name Freq PRN Reason Stop Dose Admin Acetaminophen 650 mg 05/02/19 16:10 Tylenol PO Q4H PRN Pain MILD(1-3)/Fever >100.5/MEZA Albuterol/Ipratropium 1 ampul 05/03/19 14:45 05/04/19 07:59 Duoneb *Not For Prn Use* IH 1 ampul TIDRT JENNIFER Administration Amlodipine Besylate 10 mg 05/02/19 18:00 05/04/19 09:22 Norvasc PO 10 mg DAILY JENNIFER Administration Lipase/Protease/Amylase 1 each 05/03/19 19:33 Pancredoris Bowie 10,500 Unit FEEDTUBE PRN PRN For Clogged Feeding Tube Brimonidine Tartrate 1 drops 05/04/19 10:00 Alphagan P 0.15% OU BID JENNIFER Dextrose 0 ml 05/02/19 16:00 D50w (25gm) Syringe IV PRN PRN Hypoglycemia Famotidine 20 mg 05/03/19 10:00 05/04/19 09:15 Pepcid IV 20 mg DAILY JENNIFER Administration Heparin Sodium (Porcine) 5,000 unit 05/03/19 22:00 05/04/19 09:15 Heparin SUB-Q 5,000 unit BID JENNIFER Administration Hydrophilic Ointment 1 applic 05/02/19 12:06 Vaseline Lip Therapy TP Q2HR PRN Dry Lips Lorazepam 100 mg/ Sodium 100 mls @ 1 mls/hr 05/02/19 13:00 Chloride/ Miscellaneous IV Information TITR JENNIFER Protocol 1 MG/HR Norepinephrine 4 mg in 250 mls @ 7.5 mls/hr 05/02/19 15:00 05/03/19 13:50 Levophed Drip 4 Mg/Ns 250 Ml IV 0 mcg/min TITR JENNIFER 0 mls/hr Titration Protocol 2 MCG/MIN Vasopressin 20 unit/ Sodium 101 mls @ 9.09 mls/hr 05/02/19 20:00 05/03/19 08:26 Chloride IV 0 units/min TITR JENNIFER 0 mls/hr Titration Protocol 0.03 UNITS/MIN Cefepime HCl 1 gm in 100 mls @ 200 mls/hr 05/04/19 10:00 05/04/19 09:15 Maxipime/Ns 1 Gm/100 Ml IV 05/06/19 23:59 200 mls/hr Q24HR JENNIFER Administration Protocol Dextrose 1,000 mls @ 100 mls/hr 05/03/19 15:00 05/04/19 10:59 D5w IV 100 mls/hr DIRECT JENNIFER Administration Potassium Phosphate 15 mmol/ 255 mls @ 63 mls/hr 05/04/19 12:00 05/04/19 11:58 Sodium Chloride IV 05/04/19 16:02 63 mls/hr ONCE ONE Administration Insulin Human Lispro 0 unit 05/03/19 18:00 05/04/19 11:59 Humalog SUB-Q 8 unit Q6HR JENNIFER Administration Protocol Insulin Human NPH 15 unit 05/04/19 22:00 Humulin N SUB-Q BID JENNIFER Lorazepam 2 mg 05/02/19 12:47 Ativan IV Q10MIN PRN Agitation Miscellaneous Medication 1 drop 05/02/19 16:00 05/02/19 17:16 Dorzolamide Hcl/Timolol Maleat [Dorzolamide-Timolol Eye Drops] OP Not Given BID JENNIFER Multi-Ingred Cream/Lotion/Oil/Oint 1 applic 05/02/19 12:06 Artificial Tears Ophth Oint OU Q4HR PRN Dry Eye(s) Ondansetron HCl 4 mg 05/02/19 16:10 Zofran IV Q8H PRN Nausea And Vomiting Simple Syrup 15 ml 05/03/19 19:33 Simple Syrup FEEDTUBE PRN PRN Hypoglycemia Simple Syrup 30 ml 05/03/19 19:33 Simple Syrup FEEDTUBE PRN PRN Hypoglycemia Sodium Bicarbonate 325 mg 05/03/19 19:33 Sodium Bicarbonate FEEDTUBE PRN PRN For Clogged Feeding Tube Sodium Chloride 10 ml 05/02/19 22:00 05/04/19 09:16 Sodium Chloride Flush Syringe 10 Ml IV 10 ml BID JENNIFER Administration Sodium Chloride 10 ml 05/02/19 16:10 Sodium Chloride Flush Syringe 10 Ml IV PRN PRN LINE FLUSH
[2019-05-04 12:52] LABS: Calcium 7.4 mg/dL (8.4-10.2)
[2019-05-04] MEDS: CEPHULAC PO SCH (13:04)
--- NOTE | 2019-05-04 15:19 | Progress Note ---
Assessment and Plan / Acute metabolic encephalopathy - from [facility], hyperglycemia and hypernatremia - CT head unremarkable, cont to monitor clinically - Continue frequently retching / Acute respiratory failure with hypoxia Patient intubated for AMS and hypoxia Continue Duonebs round the clock, Albuterol neb treatments prn CC consulted, wean off vent as tolerated - tolerating CPAP trial, possible extubation today / HHNS - hyperosmolar hyperglycemic non-ketotic syndrome Patient has a blood glucose level around 1330 with Severe metabolic acidosis and Minimal ketones in urine In the ER Insulin drip started, IV fluids about 3 L of normal saline bolus given will cont iv fluid with D5w for hypernatremia, and will cont insulin drip till Na level improves / Septic shock vs hypovlomic shock vs cardiogenic shock cont IV antibiotics and IV fluids - Started on Levophed and vasopressin following admission - now weaned off - follow Cx, obtain 2d echo /Severe Hypernatremia - Na 164 to 157 this am s/p IV normal saline because of the volume depletion and hypotension, now on D5W Cont to monitor BMP q6h / Metabolic acidosis Severe due to reclining renal function vs possible sepsis IV sodium bicarbonatex2, monitor bmp / h/o Hypertension Hold antihypertensives / Acute kidney injury due to ATN Secondary to severe dehydration Nephrology consult requested, renal function improving IV fluids for now, monitor renal function, we'll get renal ultrasound when patient clinically more stable / Hypocalcemia s/p Calcium gluconate for now / Hyperammonemia Lactulose 30 cc with feeding tube bid / DVT prophylaxis On heparin and GI prophylaxis The high probability of a clinically significant, sudden or life threatening deterioration of the [[facility]/Renal/endocrine] system(s) required my full and direct attention, intervention and personal management. The aggregate critical care time was [34] minutes. This time is in addition to time spent performing reported procedures but includes the following: [x] Data Review and interpretation [x] Patient assessment and monitoring of vital signs [x] Documentation [x] Medication orders and management Brief History: 59-year-old -[place] male with history of diabetes and hypertension brought in for altered sensorium and decreased responsiveness. Patient is currently residing with his sister who found him poorly responsive in the morning and EMS was called. EMS gave of wall fluid bolus and brought the patient for further evaluation to the emergency room at [facility]. In the emergency room because of the decreased responsiveness and decr eased breathing--- patient was intubated. His BG was 1330, Cr 6.4, Na of 154. He was placed on pressores, insulin drip, aggressive iv fluid hydration, abx and admitted to ICU for further Mx. Hospitalist physical: GENERAL: well-developed and well-nourished -[place] male lying on bed, intubated and sedated. HEENT: Normocephalic. Atraumatic. No conjunctival congestion or icterus. Patient has dry mucous membranes. NECK: Supple. Trachea midline. ET tube in place CHEST/LUNGS: Clear to auscultated bilaterally. No wheezes crackles or rhonchi. On mechanical ventilation HEART/CARDIOVASCULAR: Tachycardic. S1 and S2 positive. ABDOMEN: Abdomen is soft. Patient has normal bowel sounds. SKIN: There is no rash. Warm and dry. NEURO: Sedated, moves all extremities purposefully MUSCULOSKELETAL: No joint effusion or tenderness. EXTRIMITY: No edema, no cyanosis or clubbing. PSYCH: Unable to assess Subjective Date of service: 05/04/19 Interval history: Patient seen and examined Intubated, off pressores, on CPAP trial discussed with family at bedside Plan for extubation today Objective - Constitutional Vitals: Vital Signs - 12hr 05/04/19 05/04/19 05/04/19 04:00 07:53 08:00 Temperature 99.0 F 97.7 F Pulse Rate 111 H Pulse Rate [ 114 H Bilateral Throughout] Respiratory 16 Rate Respiratory 19 Rate [Bilateral Throughout] Blood Pressure 154/94 O2 Sat by Pulse 100 99 98 Oximetry 05/04/19 05/04/19 05/04/19 09:22 10:00 11:04 Temperature Pulse Rate 103 H 98 H Pulse Rate [ Bilateral Throughout] Respiratory Rate Respiratory Rate [Bilateral Throughout] Blood Pressure 143/87 O2 Sat by Pulse 98 Oximetry 05/04/19 05/04/19 12:00 14:00 Temperature 97.2 F L Pulse Rate Pulse Rate [ 110 H Bilateral Throughout] Respiratory Rate Respiratory 17 Rate [Bilateral Throughout] Blood Pressure O2 Sat by Pulse 100 Oximetry - Labs CBC & Chem 7: 05/02/19 12:05 05/05/19 01:09 Labs: Abnormal lab results 05/03/19 05/03/19 05/03/19 Range/Units 09:14 10:25 18:31 POC ABG pCO2 (35-45) POC ABG pO2 (80-105) ABG pO2 (80.0-90.0) mm Hg Sodium (137-145) mmol/L Potassium (3.6-5.0) mmol/L Chloride (98-107) mmol/L Carbon Dioxide (22-30) mmol/L BUN (9-20) mg/dL Creatinine (0.8-1.5) mg/dL Glucose (75-100) mg/dL POC Glucose 120 H 111 H 303 H (70-105) Calcium (8.4-10.2) mg/dL Phosphorus (2.5-4.5) mg/dL Magnesium (1.7-2.3) mg/dL AST (5-40) units/L ALT (7-56) units/L Total Protein (6.3-8.2) g/dL Albumin (3.9-5) g/dL 05/03/19 05/03/19 05/04/19 Range/Units 20:15 21:18 04:10 POC ABG pCO2 (35-45) POC ABG pO2 (80-105) ABG pO2 117.2 H (80.0-90.0) mm Hg Sodium 159 H (137-145) mmol/L Potassium 3.3 L (3.6-5.0) mmol/L Chloride 121.7 H (98-107) mmol/L Carbon Dioxide 21 L (22-30) mmol/L BUN 62 H (9-20) mg/dL Creatinine 2.8 H (0.8-1.5) mg/dL Glucose 334 H (75-100) mg/dL POC Glucose 311 H (70-105) Calcium 7.3 L (8.4-10.2) mg/dL Phosphorus (2.5-4.5) mg/dL Magnesium (1.7-2.3) mg/dL AST (5-40) units/L ALT (7-56) units/L Total Protein (6.3-8.2) g/dL Albumin (3.9-5) g/dL 05/04/19 05/04/19 05/04/19 Range/Units 05:00 05:23 10:53 POC ABG pCO2 34.1 L (35-45) POC ABG pO2 157 H (80-105) ABG pO2 (80.0-90.0) mm Hg Sodium 157 H (137-145) mmol/L Potassium 2.4 L* D (3.6-5.0) mmol/L Chloride 117.6 H (98-107) mmol/L Carbon Dioxide (22-30) mmol/L BUN 53 H (9-20) mg/dL Creatinine 2.2 H (0.8-1.5) mg/dL Glucose 346 H (75-100) mg/dL POC Glucose 319 H (70-105) Calcium 7.4 L (8.4-10.2) mg/dL Phosphorus 1.70 L D (2.5-4.5) mg/dL Magnesium 2.60 H (1.7-2.3) mg/dL AST 312 H (5-40) units/L ALT 74 H (7-56) units/L Total Protein 5.8 L (6.3-8.2) g/dL Albumin 2.9 L (3.9-5) g/dL 05/04/19 05/04/19 Range/Units 11:53 12:17 POC ABG pCO2 (35-45) POC ABG pO2 (80-105) ABG pO2 (80.0-90.0) mm Hg Sodium 154 H (137-145) mmol/L Potassium 2.8 L* (3.6-5.0) mmol/L Chloride 114.4 H (98-107) mmol/L Carbon Dioxide (22-30) mmol/L BUN 44 H (9-20) mg/dL Creatinine 1.9 H (0.8-1.5) mg/dL Glucose 448 H (75-100) mg/dL POC Glucose 443 H (70-105) Calcium 7.4 L (8.4-10.2) mg/dL Phosphorus (2.5-4.5) mg/dL Magnesium (1.7-2.3) mg/dL AST (5-40) units/L ALT (7-56) units/L Total Protein (6.3-8.2) g/dL Albumin (3.9-5) g/dL
[2019-05-04] MEDS: ALPHAGAN P 0.15% OU SCH ×2 (17:30→23:37)
[2019-05-04] MEDS ORDERED: D50W (25GM) Syringe IV PRN (18:09)
[2019-05-04 18:54] LABS: Calcium 7.6 mg/dL (8.4-10.2)
[2019-05-04] MEDS: HumuLIN R 100 UNITS in NACL 0.9% 99 ML IV SCH (19:19)
[2019-05-05 02:06] LABS: BUN/Creatinine Ratio 22; Blood Urea Nitrogen 28 mg/dL (9-20); Calcium 7.6 mg/dL (8.4-10.2); Hemolysis Index 7
[2019-05-05] MEDS ORDERED: K-DUR PO ONE ×2 (03:11→17:13)
[2019-05-05] MEDS: D5W 1,000 ML IV SCH ×2 (07:33→15:47)
[2019-05-05] MEDS: DUONEB *Not for PRN Use IH SCH ×2 (07:48→15:52)
[2019-05-05] MEDS ORDERED: KPHOS 30 MMOL in NACL 0.9% 500 ML 500 ML IV ONE (08:00)
[2019-05-05] MEDS ORDERED: KCL 20MEQ/100ML 20 MEQ/100 ML BAG IV SCH (08:00)
[2019-05-05] MEDS: KCL 10MEQ/100ML 10 MEQ/100 ML BAG IV SCH ×3 (08:22→10:35)
--- NOTE | 2019-05-05 08:49 | XRay Report ---
CHEST 1 VIEW INDICATION: follow up respiratory failure. COMPARISON: 05/03/2019 FINDINGS: Support devices: The endotracheal tube has been removed. A nasogastric tube tip is in the upper stoma ch. Heart: Normal. Pulmonary vasculature: Normal. Lungs/Pleura: Mild left basal focal opacification at the diaphragm and the left costophrenic angle. T he lungs are otherwise clear. Additional findings: None. IMPRESSION: Mild left basal subsegmental atelectasis versus airspace disease and possible small pleural effusion. Signer Name: Kolby Acosta MD Signed: 05/05/2019 8:45 AM Workstation Name: [id number]
[2019-05-05] MEDS: MAXIPIME/NS 1 GM/100 ML 1 GM/100 ML BAG IV SCH (09:28)
[2019-05-05] MEDS: PEPCID PO SCH ×2 (09:29→21:43)
[2019-05-05] MEDS: NORVASC PO SCH (09:29)
[2019-05-05] MEDS: NON-FORMULARY (Dorzolamide Hcl/Timolol Maleat [Dorzolamide-Timolol Eye Drops] 1 DROP) OP SCH ×2 (09:30→21:44)
[2019-05-05] MEDS: HEPARIN SUB-Q SCH ×2 (10:36→21:43)
[2019-05-05] MEDS: SODIUM CHLORIDE FLUSH SYRINGE 10 ML IV SCH ×2 (10:36→21:53)
[2019-05-05] MEDS: ALPHAGAN P 0.15% OU SCH ×2 (10:43→21:50)
--- NOTE | 2019-05-05 11:35 | Progress Note ---
Assessment and Plan Acute hypoxic respiratory failure on MVS Acute metabolic encephalopathy Hypotension, un differentiated shock- dehydration, sepsis Hyperosmolar non-ketotic state/coma Severe metabolic acidosis Acute renal failure Hypernatremia Hypokalemia - discontinue scheduled duonebs - prn albuterol - watch closely for development of angioedema re: lip swelling - repeat BMP - continue electrolyte correction meanwhile - continue I.V. Insulin therapy and discontinue per DKA protocol - Accuchecks with glycemic control, continue with insulin infusion per protocol - discontinued caban catheter - continue to avoid nephrotoxins, adjust all medications for CrCL, GFR - continue VTE prophylaxis - continue Stress ulcer prophylaxis - continue empiric antibiotics, follow up cultures then de-escalate as indicated (currently on Cefepime/Vancomycin) - Nutritional support (continue enteral nutrition for now) - Maintenance of sleep-wake cycle - Avoid delirium; avoid benzodiazepines - Mobility for pressure ulcer prevention - Wean vasopressor support for MAP>65 - Serial BMPs - continue other care per attending / other consultants CONDITION: CRITICAL PROGNOSIS; GUARDED CODE STATUS: FULL Discussed care plan with RT and RN. Discussed during ICU-IDT rounds The high probability of a clinically significant, sudden or life threatening deterioration of the respiratory, cardiovascular,endocrine, renal system(s) required my full and direct attention, intervention and personal management. The aggregate critical care time was [35] minutes. This time is in addition to time spent performing reported procedures but includes the following: [x] Data Review and interpretation [x]Patient assessment and monitoring of vital signs [x] Documentation [x] Medication orders and management Subjective Date of service: 05/05/19 Principal diagnosis: Ac hypoxemic resp failure; Ac met. encephalopathy; Un- differentiated shock Interval history: Patient is seen today for: Acute hypoxic respiratory failure; Acute metabolic encephalopathy; Hypotension, un differentiated shock (dehydration, sepsis); Hyperosmolar non-ketotic state/coma; Severe metabolic acidosis; Acute renal failure; Hypernatremia; Hypokalemia Seen and examined at bedside; 24hour events reviewed; nursing and respiratory care staff consulted; no adverse overnight events reported to me; resting peacefully in bed; lethargic; denies acute chest pains; A&O X 2; no N/V/F/C; lip swelling a little better per his son in room Objective Vital Signs - 12hr 05/05/19 05/05/19 05/05/19 00:00 00:01 01:00 Temperature Pulse Rate 91 H 93 H 88 Pulse Rate [ Bilateral Throughout] Pulse Rate [ 91 H From Monitor] Respiratory 21 15 Rate Respiratory Rate [Bilateral Throughout] Blood Pressure 143/96 150/98 O2 Sat by Pulse 100 100 100 Oximetry 05/05/19 05/05/19 05/05/19 02:01 03:00 04:00 Temperature Pulse Rate 84 90 89 Pulse Rate [ Bilateral Throughout] Pulse Rate [ 86 From Monitor] Respiratory 19 15 21 Rate Respiratory Rate [Bilateral Throughout] Blood Pressure 108/67 144/107 143/93 O2 Sat by Pulse 98 100 100 Oximetry 05/05/19 05/05/19 05/05/19 05:00 06:00 07:00 Temperature Pulse Rate 98 H 94 H 96 H Pulse Rate [ Bilateral Throughout] Pulse Rate [ From Monitor] Respiratory 18 20 22 Rate Respiratory Rate [Bilateral Throughout] Blood Pressure 147/93 110/74 137/84 O2 Sat by Pulse 99 100 100 Oximetry 05/05/19 05/05/19 05/05/19 07:50 08:00 09:14 Temperature 98.3 F Pulse Rate 94 H Pulse Rate [ 100 H Bilateral Throughout] Pulse Rate [ 104 H From Monitor] Respiratory 20 Rate Respiratory 20 Rate [Bilateral Throughout] Blood Pressure 138/95 O2 Sat by Pulse 100 100 Oximetry 05/05/19 09:29 Temperature Pulse Rate 121 H Pulse Rate [ Bilateral Throughout] Pulse Rate [ From Monitor] Respiratory Rate Respiratory Rate [Bilateral Throughout] Blood Pressure 139/90 O2 Sat by Pulse Oximetry Constitutional: no acute distress, other (elderly looking M, with upper lip swelling but in no other acute distress) Eyes: non-icteric ENT: oropharynx dry Neck: supple, no lymphadenopathy, no JVD, other (extubated) Effort: normal Ascultation: Bilateral: clear, rhonchi Percussion: Bilateral: not dull Cardiovascular: regular rate and rhythm, other (S1,S2) Gastrointestinal: normoactive bowel sounds, soft, non-tender, non-distended, other (NGT) Integumentary: normal Extremities: no cyanosis, no edema, pulses normal, no ischemia or petechiae Neurologic: non-focal exam (grossly), pupils equal and round, CN II-XII normal, other (very weak) Psychiatric: mood appropriate, other (affect flat) CBC and BMP: 05/02/19 12:05 05/06/19 06:09 ABG, PT/INR, D-dimer: ABG POC ABG pH 7.371 (7.35-7.45) 05/04/19 10:53 ABG pH 7.446 pH Units (7.350-7.450) 05/04/19 04:10 POC ABG pCO2 34.1 (35-45) L 05/04/19 10:53 ABG pCO2 33.2 mm Hg 05/04/19 04:10 POC ABG pO2 157 (80-105) H 05/04/19 10:53 ABG pO2 117.2 mm Hg (80.0-90.0) H 05/04/19 04:10 POC ABG HCO3 19.8 (22-26 mml/L) 05/04/19 10:53 POC ABG Total CO2 21 (23-27mmol/L) 05/04/19 10:53 POC ABG O2 Sat 99 05/04/19 10:53 ABG O2 Saturation 98.3 % (95.0-99.0) 05/04/19 04:10 PT/INR, D-dimer PT 15.4 Sec. (12.2-14.9) H 05/02/19 12:05 INR 1.25 (0.87-1.13) H 05/02/19 12:05 Abnormal lab findings: Abnormal Labs 05/02/19 05/02/19 05/02/19 12:05 12:05 12:05 Hgb 15.3 H MCV 99 H MCHC 29 L RDW 16.9 H Seg Neutrophils % 79.5 H Seg Neutrophils # 8.3 H PT 15.4 H INR 1.25 H APTT 23.9 L POC ABG pH ABG pH POC ABG pCO2 POC ABG pO2 ABG pO2 ABG HCO3 ABG Base Excess ABG Hemoglobin VBG pH Sodium 151 H Potassium Chloride 90.1 L Carbon Dioxide 5 L* BUN 102 H Creatinine 6.4 H Glucose 1330 H* POC Glucose Hemoglobin A1c Lactic Acid Calcium Phosphorus 17.40 H Magnesium 4.90 H AST ALT Ammonia Total Creatine Kinase 329 H Total Protein Albumin 3.4 L 05/02/19 05/02/19 05/02/19 12:05 12:05 12:05 Hgb MCV MCHC RDW Seg Neutrophils % Seg Neutrophils # PT INR APTT POC ABG pH ABG pH POC ABG pCO2 POC ABG pO2 ABG pO2 ABG HCO3 ABG Base Excess ABG Hemoglobin VBG pH 6.982 L* Sodium Potassium Chloride Carbon Dioxide BUN Creatinine Glucose POC Glucose Hemoglobin A1c Lactic Acid 7.60 H* Calcium Phosphorus Magnesium AST ALT Ammonia 125.0 H Total Creatine Kinase Total Protein Albumin 05/02/19 05/02/19 05/02/19 12:09 12:59 13:07 Hgb MCV MCHC RDW Seg Neutrophils % Seg Neutrophils # PT INR APTT POC ABG pH ABG pH POC ABG pCO2 POC ABG pO2 ABG pO2 ABG HCO3 ABG Base Excess ABG Hemoglobin VBG pH Sodium Potassium Chloride Carbon Dioxide BUN Creatinine Glucose POC Glucose > 500 H Hemoglobin A1c Lactic Acid 6.00 H* Calcium Phosphorus 15.50 H Magnesium 4.40 H AST ALT Ammonia Total Creatine Kinase Total Protein Albumin 05/02/19 05/02/19 05/02/19 13:07 13:50 14:28 Hgb MCV MCHC RDW Seg Neutrophils % Seg Neutrophils # PT INR APTT POC ABG pH 7.075 L ABG pH POC ABG pCO2 POC ABG pO2 295 H ABG pO2 ABG HCO3 ABG Base Excess ABG Hemoglobin VBG pH Sodium 150 H 150 H Potassium 5.3 H Chloride 93.2 L 95.0 L Carbon Dioxide 6 L* 4 L* BUN 98 H 99 H Creatinine 6.3 H 6.4 H Glucose 1264 H* 1271 H* POC Glucose Hemoglobin A1c Lactic Acid Calcium 8.3 L 7.8 L Phosphorus Magnesium AST ALT Ammonia Total Creatine Kinase Total Protein Albumin 05/02/19 05/02/19 05/02/19 14:28 15:22 16:20 Hgb MCV MCHC RDW Seg Neutrophils % Seg Neutrophils # PT INR APTT POC ABG pH ABG pH POC ABG pCO2 POC ABG pO2 ABG pO2 ABG HCO3 ABG Base Excess ABG Hemoglobin VBG pH Sodium Potassium Chloride Carbon Dioxide BUN Creatinine Glucose POC Glucose > 500 H Hemoglobin A1c Lactic Acid 4.10 H* 4.40 H* Calcium Phosphorus Magnesium AST ALT Ammonia Total Creatine Kinase Total Protein Albumin 05/02/19 05/02/19 05/02/19 17:13 17:19 17:19 Hgb MCV MCHC RDW Seg Neutrophils % Seg Neutrophils # PT INR APTT POC ABG pH ABG pH POC ABG pCO2 POC ABG pO2 ABG pO2 ABG HCO3 ABG Base Excess ABG Hemoglobin VBG pH Sodium 154 H 154 H Potassium Chloride Carbon Dioxide 6 L* 6 L* BUN 95 H 98 H Creatinine 6.6 H 6.5 H Glucose 1021 H* 1021 H* POC Glucose > 500 H Hemoglobin A1c Lactic Acid Calcium 6.8 L 6.8 L Phosphorus Magnesium AST ALT Ammonia Total Creatine Kinase Total Protein Albumin 05/02/19 05/02/19 05/02/19 17:19 17:19 17:19 Hgb MCV MCHC RDW Seg Neutrophils % Seg Neutrophils # PT INR APTT POC ABG pH ABG pH POC ABG pCO2 POC ABG pO2 ABG pO2 ABG HCO3 ABG Base Excess ABG Hemoglobin VBG pH Sodium 155 H Potassium Chloride Carbon Dioxide 6 L* BUN 95 H Creatinine 6.6 H Glucose 1021 H* POC Glucose Hemoglobin A1c 12.9 H Lactic Acid 2.70 H* Calcium 6.9 L Phosphorus 10.90 H D Magnesium 3.70 H AST ALT Ammonia Total Creatine Kinase Total Protein Albumin 05/02/19 05/02/19 05/02/19 17:19 18:36 19:00 Hgb MCV MCHC RDW Seg Neutrophils % Seg Neutrophils # PT INR APTT POC ABG pH ABG pH POC ABG pCO2 POC ABG pO2 ABG pO2 ABG HCO3 ABG Base Excess ABG Hemoglobin VBG pH Sodium 153 H 154 H Potassium Chloride 107.7 H Carbon Dioxide 6 L* 8 L* BUN 96 H 95 H Creatinine 6.5 H 6.6 H Glucose 1018 H* 884 H* POC Glucose > 500 H Hemoglobin A1c Lactic Acid Calcium 6.8 L 6.7 L Phosphorus Magnesium AST ALT Ammonia Total Creatine Kinase Total Protein Albumin 05/02/19 05/02/19 05/02/19 20:02 21:08 21:20 Hgb MCV MCHC RDW Seg Neutrophils % Seg Neutrophils # PT INR APTT POC ABG pH ABG pH POC ABG pCO2 POC ABG pO2 ABG pO2 ABG HCO3 ABG Base Excess ABG Hemoglobin VBG pH Sodium Potassium Chloride Carbon Dioxide BUN Creatinine Glucose 708 H* POC Glucose > 500 H > 500 H Hemoglobin A1c Lactic Acid Calcium Phosphorus Magnesium AST ALT Ammonia Total Creatine Kinase Total Protein Albumin 05/02/19 05/02/19 05/02/19 22:15 22:41 23:13 Hgb MCV MCHC RDW Seg Neutrophils % Seg Neutrophils # PT INR APTT POC ABG pH ABG pH POC ABG pCO2 POC ABG pO2 ABG pO2 ABG HCO3 ABG Base Excess ABG Hemoglobin VBG pH Sodium Potassium Chloride Carbon Dioxide BUN Creatinine Glucose 600 H* POC Glucose > 500 H > 500 H Hemoglobin A1c Lactic Acid Calcium Phosphorus Magnesium AST ALT Ammonia Total Creatine Kinase Total Protein Albumin 05/02/19 05/02/19 05/02/19 23:40 23:55 Unknown Hgb MCV MCHC RDW Seg Neutrophils % Seg Neutrophils # PT INR APTT POC ABG pH ABG pH POC ABG pCO2 POC ABG pO2 ABG pO2 ABG HCO3 ABG Base Excess ABG Hemoglobin VBG pH Sodium 155 H Potassium Chloride 111.7 H Carbon Dioxide 10 L BUN 101 H Creatinine 6.3 H Glucose 544 H* 755 H* POC Glucose > 500 H Hemoglobin A1c Lactic Acid Calcium 6.6 L Phosphorus Magnesium AST ALT Ammonia Total Creatine Kinase Total Protein Albumin 05/02/19 05/02/19 05/03/19 Unknown Unknown 01:42 Hgb MCV MCHC RDW Seg Neutrophils % Seg Neutrophils # PT INR APTT POC ABG pH ABG pH POC ABG pCO2 POC ABG pO2 ABG pO2 ABG HCO3 ABG Base Excess ABG Hemoglobin VBG pH Sodium Potassium Chloride Carbon Dioxide BUN Creatinine Glucose 783 H* POC Glucose 484 H Hemoglobin A1c Lactic Acid 2.60 H* Calcium Phosphorus Magnesium AST ALT Ammonia Total Creatine Kinase Total Protein Albumin 05/03/19 05/03/19 05/03/19 02:39 03:45 05:05 Hgb MCV MCHC RDW Seg Neutrophils % Seg Neutrophils # PT INR APTT POC ABG pH ABG pH POC ABG pCO2 POC ABG pO2 ABG pO2 ABG HCO3 ABG Base Excess ABG Hemoglobin VBG pH Sodium Potassium Chloride Carbon Dioxide BUN Creatinine Glucose POC Glucose 358 H 329 H 324 H Hemoglobin A1c Lactic Acid Calcium Phosphorus Magnesium AST ALT Ammonia Total Creatine Kinase Total Protein Albumin 05/03/19 05/03/19 05/03/19 05:20 05:31 06:36 Hgb MCV MCHC RDW Seg Neutrophils % Seg Neutrophils # PT INR APTT POC ABG pH ABG pH POC ABG pCO2 POC ABG pO2 ABG pO2 ABG HCO3 ABG Base Excess ABG Hemoglobin VBG pH Sodium 162 H* Potassium 3.2 L Chloride 124.9 H Carbon Dioxide 18 L D BUN 87 H Creatinine 5.2 H Glucose 316 H POC Glucose 324 H 277 H Hemoglobin A1c Lactic Acid Calcium 7.1 L Phosphorus Magnesium AST ALT Ammonia Total Creatine Kinase Total Protein Albumin 05/03/19 05/03/19 05/03/19 07:58 07:59 07:59 Hgb MCV MCHC RDW Seg Neutrophils % Seg Neutrophils # PT INR APTT POC ABG pH ABG pH POC ABG pCO2 POC ABG pO2 ABG pO2 ABG HCO3 ABG Base Excess ABG Hemoglobin VBG pH Sodium 165 H* Potassium 2.9 L* Chloride 128.0 H Carbon Dioxide 19 L BUN 80 H Creatinine 4.5 H Glucose 164 H POC Glucose 161 H Hemoglobin A1c Lactic Acid Calcium 7.1 L Phosphorus Magnesium 3.20 H AST ALT Ammonia Total Creatine Kinase Total Protein Albumin 05/03/19 05/03/19 05/03/19 09:14 09:51 10:25 Hgb MCV MCHC RDW Seg Neutrophils % Seg Neutrophils # PT INR APTT POC ABG pH ABG pH POC ABG pCO2 POC ABG pO2 ABG pO2 ABG HCO3 ABG Base Excess ABG Hemoglobin VBG pH Sodium Potassium Chloride Carbon Dioxide BUN Creatinine Glucose POC Glucose 120 H 117 H 111 H Hemoglobin A1c Lactic Acid Calcium Phosphorus Magnesium AST ALT Ammonia Total Creatine Kinase Total Protein Albumin 05/03/19 05/03/19 05/03/19 10:26 13:07 18:31 Hgb MCV MCHC RDW Seg Neutrophils % Seg Neutrophils # PT INR APTT POC ABG pH ABG pH POC ABG pCO2 POC ABG pO2 ABG pO2 146.9 H ABG HCO3 19.6 L ABG Base Excess -4.3 L ABG Hemoglobin 13.8 L VBG pH Sodium 164 H* Potassium 3.4 L Chloride 128.3 H Carbon Dioxide 21 L BUN 71 H Creatinine 3.3 H Glucose POC Glucose 303 H Hemoglobin A1c Lactic Acid Calcium 7.4 L Phosphorus Magnesium AST ALT Ammonia Total Creatine Kinase Total Protein Albumin 05/03/19 05/03/19 05/03/19 20:15 21:18 Unknown Hgb MCV MCHC RDW Seg Neutrophils % Seg Neutrophils # PT INR APTT POC ABG pH ABG pH 7.335 L POC ABG pCO2 POC ABG pO2 ABG pO2 143.0 H ABG HCO3 17.9 L ABG Base Excess -7.0 L ABG Hemoglobin VBG pH Sodium 159 H Potassium 3.3 L Chloride 121.7 H Carbon Dioxide 21 L BUN 62 H Creatinine 2.8 H Glucose 334 H POC Glucose 311 H Hemoglobin A1c Lactic Acid Calcium 7.3 L Phosphorus Magnesium AST ALT Ammonia Total Creatine Kinase Total Protein Albumin 05/04/19 05/04/19 05/04/19 04:10 05:00 05:23 Hgb MCV MCHC RDW Seg Neutrophils % Seg Neutrophils # PT INR APTT POC ABG pH ABG pH POC ABG pCO2 POC ABG pO2 ABG pO2 117.2 H ABG HCO3 ABG Base Excess ABG Hemoglobin VBG pH Sodium 157 H Potassium 2.4 L* D Chloride 117.6 H Carbon Dioxide BUN 53 H Creatinine 2.2 H Glucose 346 H POC Glucose 319 H Hemoglobin A1c Lactic Acid Calcium 7.4 L Phosphorus 1.70 L D Magnesium 2.60 H AST 312 H ALT 74 H Ammonia Total Creatine Kinase Total Protein 5.8 L Albumin 2.9 L 05/04/19 05/04/19 05/04/19 10:53 11:53 12:17 Hgb MCV MCHC RDW Seg Neutrophils % Seg Neutrophils # PT INR APTT POC ABG pH ABG pH POC ABG pCO2 34.1 L POC ABG pO2 157 H ABG pO2 ABG HCO3 ABG Base Excess ABG Hemoglobin VBG pH Sodium 154 H Potassium 2.8 L* Chloride 114.4 H Carbon Dioxide BUN 44 H Creatinine 1.9 H Glucose 448 H POC Glucose 443 H Hemoglobin A1c Lactic Acid Calcium 7.4 L Phosphorus Magnesium AST ALT Ammonia Total Creatine Kinase Total Protein Albumin 05/04/19 05/04/19 05/04/19 17:44 17:48 19:30 Hgb MCV MCHC RDW Seg Neutrophils % Seg Neutrophils # PT INR APTT POC ABG pH ABG pH POC ABG pCO2 POC ABG pO2 ABG pO2 ABG HCO3 ABG Base Excess ABG Hemoglobin VBG pH Sodium 154 H Potassium Chloride 115.5 H Carbon Dioxide BUN 39 H Creatinine 1.6 H Glucose 376 H POC Glucose 383 H 372 H Hemoglobin A1c Lactic Acid Calcium 7.6 L Phosphorus Magnesium AST ALT Ammonia Total Creatine Kinase Total Protein Albumin 05/04/19 05/04/19 05/04/19 20:16 20:42 21:50 Hgb MCV MCHC RDW Seg Neutrophils % Seg Neutrophils # PT INR APTT POC ABG pH ABG pH POC ABG pCO2 POC ABG pO2 ABG pO2 ABG HCO3 ABG Base Excess ABG Hemoglobin VBG pH Sodium Potassium Chloride Carbon Dioxide BUN Creatinine Glucose POC Glucose 301 H 218 H Hemoglobin A1c Lactic Acid Calcium Phosphorus 1.30 L D Magnesium 2.40 H AST ALT Ammonia Total Creatine Kinase Total Protein Albumin 05/04/19 05/04/19 05/05/19 22:49 23:35 00:51 Hgb MCV MCHC RDW Seg Neutrophils % Seg Neutrophils # PT INR APTT POC ABG pH ABG pH POC ABG pCO2 POC ABG pO2 ABG pO2 ABG HCO3 ABG Base Excess ABG Hemoglobin VBG pH Sodium Potassium Chloride Carbon Dioxide BUN Creatinine Glucose POC Glucose 194 H 154 H 143 H Hemoglobin A1c Lactic Acid Calcium Phosphorus Magnesium AST ALT Ammonia Total Creatine Kinase Total Protein Albumin 05/05/19 05/05/19 05/05/19 01:09 01:41 02:59 Hgb MCV MCHC RDW Seg Neutrophils % Seg Neutrophils # PT INR APTT POC ABG pH ABG pH POC ABG pCO2 POC ABG pO2 ABG pO2 ABG HCO3 ABG Base Excess ABG Hemoglobin VBG pH Sodium 151 H Potassium 2.7 L* D Chloride 109.8 H Carbon Dioxide BUN 28 H Creatinine Glucose 166 H POC Glucose 180 H 174 H Hemoglobin A1c Lactic Acid Calcium 7.6 L Phosphorus Magnesium AST ALT Ammonia Total Creatine Kinase Total Protein Albumin 05/05/19 05/05/19 05/05/19 03:52 04:54 05:47 Hgb MCV MCHC RDW Seg Neutrophils % Seg Neutrophils # PT INR APTT POC ABG pH ABG pH POC ABG pCO2 POC ABG pO2 ABG pO2 ABG HCO3 ABG Base Excess ABG Hemoglobin VBG pH Sodium Potassium Chloride Carbon Dioxide BUN Creatinine Glucose POC Glucose 180 H 192 H 172 H Hemoglobin A1c Lactic Acid Calcium Phosphorus Magnesium AST ALT Ammonia Total Creatine Kinase Total Protein Albumin 05/05/19 05/05/19 05/05/19 06:45 06:59 07:38 Hgb MCV MCHC RDW Seg Neutrophils % Seg Neutrophils # PT INR APTT POC ABG pH ABG pH POC ABG pCO2 POC ABG pO2 ABG pO2 ABG HCO3 ABG Base Excess ABG Hemoglobin VBG pH Sodium Potassium Chloride Carbon Dioxide BUN Creatinine Glucose POC Glucose 183 H 202 H Hemoglobin A1c Lactic Acid Calcium Phosphorus 1.60 L D Magnesium AST ALT Ammonia Total Creatine Kinase Total Protein Albumin 05/05/19 05/05/19 05/05/19 08:40 09:40 10:45 Hgb MCV MCHC RDW Seg Neutrophils % Seg Neutrophils # PT INR APTT POC ABG pH ABG pH POC ABG pCO2 POC ABG pO2 ABG pO2 ABG HCO3 ABG Base Excess ABG Hemoglobin VBG pH Sodium Potassium Chloride Carbon Dioxide BUN Creatinine Glucose POC Glucose 204 H 220 H 201 H Hemoglobin A1c Lactic Acid Calcium Phosphorus Magnesium AST ALT Ammonia Total Creatine Kinase Total Protein Albumin Chest x-ray: image reviewed (LLL small volume atelectasis) Allied health notes reviewed: nursing
[2019-05-05] MEDS ORDERED: PROVENTIL IH PRN (13:00)
[2019-05-05 13:10] LABS: BUN/Creatinine Ratio 20; Blood Urea Nitrogen 24 mg/dL (9-20); Calcium 7.4 mg/dL (8.4-10.2); Hemolysis Index 6
[2019-05-05] MEDS: HumuLIN R 100 UNITS in NACL 0.9% 99 ML IV SCH (13:45)
[2019-05-05] MEDS: POTASSIUM CHLORIDE FEEDTUBE SCH ×2 (13:45→17:42)
--- NOTE | 2019-05-05 17:04 | Progress Note ---
Assessment and Plan / Acute metabolic encephalopathy, resolved - from [facility], hyperglycemia and hypernatremia - CT head unremarkable, cont to monitor clinically - Continue frequently neuro check / Acute respiratory failure with hypoxia Patient was intubated for AMS and hypoxia Continue Duonebs round the clock, Albuterol neb treatments prn CC consulted, weaned off vent - extubation yesterday / NS - hyperosmolar hyperglycemic non-ketotic syndrome Patient has a blood glucose level around 1330 with Severe metabolic acidosis and Minimal ketones in urine In the ER Insulin drip started, IV fluids about 3 L of normal saline bolus given then continued with D5W for hypernatremia, BG and Na level improved, will stop D5W, place on 1/4NS, free water, TF as failed swallow eval, start on subqu insulin / Septic shock vs hypovlomic shock vs cardiogenic shock cont IV antibiotics and IV fluids - Started on Levophed and vasopressin following admission - now weaned off - follow Cx, follow 2d echo /Severe Hypernatremia - Na 164 to 149 this am on D5W - change to 1/4NS Cont to monitor BMP q6h / Metabolic acidosis Severe due to reclining renal function vs possible sepsis IV sodium bicarbonatex2, monitor bmp / h/o Hypertension Hold antihypertensives / Acute kidney injury due to ATN Secondary to severe dehydration Nephrology consult requested, renal function improving IV fluids for now, monitor renal function, we'll get renal ultrasound when patient clinically more stable / Hypocalcemia s/p Calcium gluconate for now / Hyperammonemia Lactulose 30 cc with feeding tube bid / DVT prophylaxis On heparin and GI prophylaxis The high probability of a clinically significant, sudden or life threatening deterioration of the [CVS/NAVAL ARCHITECT SPECIALIST/Renal/endocrine] system(s) required my full and direct attention, intervention and personal management. The aggregate critical care time was [34] minutes. This time is in addition to time spent performing reported procedures but includes the following: [x] Data Review and interpretation [x] Patient assessment and monitoring of vital signs [x] Documentation [x] Medication orders and management Brief History: 59-year-old -Ivorian male with history of diabetes and hypertension brought in for altered sensorium and decreased responsiveness. Patient is currently residing with his sister who found him poorly responsive in the morning and EMS was called. EMS gave of wall fluid bolus and brought the patient for further evaluation to the emergency room at [facility]. In the emergency room because of the decreased responsiveness and decreased breathing--- patient was intubated. His BG was 1330, Cr 6.4, Na of 154. He was placed on pressores, insulin drip, aggressive iv fluid hydration, abx and admitted to ICU for further Mx. Hospitalist physical: GENERAL: well-developed and well-nourished -Ivorian male lying on bed, HEENT: Normocephalic. Atraumatic. No conjunctival congestion or icterus. Patient has dry mucous membranes. NECK: Supple. Trachea midline. CHEST/LUNGS: Clear to auscultated bilaterally. No wheezes crackles or rhonchi. On mechanical ventilation HEART/CARDIOVASCULAR: Tachycardic. S1 and S2 positive. ABDOMEN: Abdomen is soft. Patient has normal bowel sounds. SKIN: There is no rash. Warm and dry. NEURO: Sedated, moves all extremities, [id number] MUSCULOSKELETAL: No joint effusion or tenderness. EXTRIMITY: No edema, no cyanosis or clubbing. PSYCH: co-operative Subjective Date of service: 05/05/19 Interval history: Patient seen and examined off vent, off pressores, discussed with patient and family at bedside failed swallow eval Objective - Constitutional Vitals: Vital Signs - 12hr 05/05/19 05/05/19 05/05/19 06:00 07:00 07:50 Temperature Pulse Rate 94 H 96 H Pulse Rate [ 100 H Bilateral Throughout] Pulse Rate [ From Monitor] Respiratory 20 22 Rate Respiratory 20 Rate [Bilateral Throughout] Blood Pressure 110/74 137/84 O2 Sat by Pulse 100 100 Oximetry 05/05/19 05/05/19 05/05/19 08:00 08:10 09:00 Temperature 98.3 F 98.3 F Pulse Rate 94 H 106 H Pulse Rate [ Bilateral Throughout] Pulse Rate [ 104 H From Monitor] Respiratory 20 22 Rate Respiratory Rate [Bilateral Throughout] Blood Pressure 138/95 119/84 O2 Sat by Pulse 100 100 Oximetry 05/05/19 05/05/19 05/05/19 09:14 09:29 10:00 Temperature Pulse Rate 121 H 102 H Pulse Rate [ Bilateral Throughout] Pulse Rate [ From Monitor] Respiratory 23 Rate Respiratory Rate [Bilateral Throughout] Blood Pressure 139/90 119/74 O2 Sat by Pulse 100 100 Oximetry 05/05/19 05/05/19 05/05/19 11:00 12:00 12:05 Temperature 97.4 F L Pulse Rate 99 H 102 H Pulse Rate [ Bilateral Throughout] Pulse Rate [ 100 H From Monitor] Respiratory 25 H 24 Rate Respiratory Rate [Bilateral Throughout] Blood Pressure 125/85 120/82 O2 Sat by Pulse 100 96 Oximetry 05/05/19 05/05/19 05/05/19 13:00 14:00 15:00 Temperature Pulse Rate 100 H 92 H 101 H Pulse Rate [ Bilateral Throughout] Pulse Rate [ From Monitor] Respiratory 21 17 20 Rate Respiratory Rate [Bilateral Throughout] Blood Pressure 127/84 125/83 140/93 O2 Sat by Pulse 100 97 99 Oximetry 05/05/19 15:55 Temperature 98.9 F Pulse Rate Pulse Rate [ Bilateral Throughout] Pulse Rate [ From Monitor] Respiratory Rate Respiratory Rate [Bilateral Throughout] Blood Pressure O2 Sat by Pulse Oximetry - Labs CBC & Chem 7: 05/02/19 12:05 05/05/19 12:26 Labs: Abnormal lab results 05/04/19 05/04/19 05/04/19 Range/Units 17:44 17:48 19:30 Sodium 154 H (137-145) mmol/L Potassium (3.6-5.0) mmol/L Chloride 115.5 H (98-107) mmol/L Carbon Dioxide (22-30) mmol/L BUN 39 H (9-20) mg/dL Creatinine 1.6 H (0.8-1.5) mg/dL Glucose 376 H (75-100) mg/dL POC Glucose 383 H 372 H (70-105) Calcium 7.6 L (8.4-10.2) mg/dL Phosphorus (2.5-4.5) mg/dL Magnesium (1.7-2.3) mg/dL 05/04/19 05/04/19 05/04/19 Range/Units 20:16 20:42 21:50 Sodium (137-145) mmol/L Potassium (3.6-5.0) mmol/L Chloride (98-107) mmol/L Carbon Dioxide (22-30) mmol/L BUN (9-20) mg/dL Creatinine (0.8-1.5) mg/dL Glucose (75-100) mg/dL POC Glucose 301 H 218 H (70-105) Calcium (8.4-10.2) mg/dL Phosphorus 1.30 L D (2.5-4.5) mg/dL Magnesium 2.40 H (1.7-2.3) mg/dL 05/04/19 05/04/19 05/05/19 Range/Units 22:49 23:35 00:51 Sodium (137-145) mmol/L Potassium (3.6-5.0) mmol/L Chloride (98-107) mmol/L Carbon Dioxide (22-30) mmol/L BUN (9-20) mg/dL Creatinine (0.8-1.5) mg/dL Glucose (75-100) mg/dL POC Glucose 194 H 154 H 143 H (70-105) Calcium (8.4-10.2) mg/dL Phosphorus (2.5-4.5) mg/dL Magnesium (1.7-2.3) mg/dL 05/05/19 05/05/19 05/05/19 Range/Units 01:09 01:41 02:59 Sodium 151 H (137-145) mmol/L Potassium 2.7 L* D (3.6-5.0) mmol/L Chloride 109.8 H (98-107) mmol/L Carbon Dioxide (22-30) mmol/L BUN 28 H (9-20) mg/dL Creatinine (0.8-1.5) mg/dL Glucose 166 H (75-100) mg/dL POC Glucose 180 H 174 H (70-105) Calcium 7.6 L (8.4-10.2) mg/dL Phosphorus (2.5-4.5) mg/dL Magnesium (1.7-2.3) mg/dL 05/05/19 05/05/19 05/05/19 Range/Units 03:52 04:54 05:47 Sodium (137-145) mmol/L Potassium (3.6-5.0) mmol/L Chloride (98-107) mmol/L Carbon Dioxide (22-30) mmol/L BUN (9-20) mg/dL Creatinine (0.8-1.5) mg/dL Glucose (75-100) mg/dL POC Glucose 180 H 192 H 172 H (70-105) Calcium (8.4-10.2) mg/dL Phosphorus (2.5-4.5) mg/dL Magnesium (1.7-2.3) mg/dL 05/05/19 05/05/19 05/05/19 Range/Units 06:45 06:59 07:38 Sodium (137-145) mmol/L Potassium (3.6-5.0) mmol/L Chloride (98-107) mmol/L Carbon Dioxide (22-30) mmol/L BUN (9-20) mg/dL Creatinine (0.8-1.5) mg/dL Glucose (75-100) mg/dL POC Glucose 183 H 202 H (70-105) Calcium (8.4-10.2) mg/dL Phosphorus 1.60 L D (2.5-4.5) mg/dL Magnesium (1.7-2.3) mg/dL 05/05/19 05/05/19 05/05/19 Range/Units 08:40 09:40 10:45 Sodium (137-145) mmol/L Potassium (3.6-5.0) mmol/L Chloride (98-107) mmol/L Carbon Dioxide (22-30) mmol/L BUN (9-20) mg/dL Creatinine (0.8-1.5) mg/dL Glucose (75-100) mg/dL POC Glucose 204 H 220 H 201 H (70-105) Calcium (8.4-10.2) mg/dL Phosphorus (2.5-4.5) mg/dL Magnesium (1.7-2.3) mg/dL 05/05/19 05/05/19 05/05/19 Range/Units 11:45 12:26 12:45 Sodium 149 H (137-145) mmol/L Potassium 3.0 L (3.6-5.0) mmol/L Chloride (98-107) mmol/L Carbon Dioxide 31 H (22-30) mmol/L BUN 24 H (9-20) mg/dL Creatinine (0.8-1.5) mg/dL Glucose 151 H (75-100) mg/dL POC Glucose 197 H 188 H (70-105) Calcium 7.4 L (8.4-10.2) mg/dL Phosphorus (2.5-4.5) mg/dL Magnesium (1.7-2.3) mg/dL 05/05/19 05/05/19 05/05/19 Range/Units 13:34 14:34 15:49 Sodium (137-145) mmol/L Potassium (3.6-5.0) mmol/L Chloride (98-107) mmol/L Carbon Dioxide (22-30) mmol/L BUN (9-20) mg/dL Creatinine (0.8-1.5) mg/dL Glucose (75-100) mg/dL POC Glucose 192 H 163 H 154 H (70-105) Calcium (8.4-10.2) mg/dL Phosphorus (2.5-4.5) mg/dL Magnesium (1.7-2.3) mg/dL 05/05/19 Range/Units 16:51 Sodium (137-145) mmol/L Potassium (3.6-5.0) mmol/L Chloride (98-107) mmol/L Carbon Dioxide (22-30) mmol/L BUN (9-20) mg/dL Creatinine (0.8-1.5) mg/dL Glucose (75-100) mg/dL POC Glucose 203 H (70-105) Calcium (8.4-10.2) mg/dL Phosphorus (2.5-4.5) mg/dL Magnesium (1.7-2.3) mg/dL
[2019-05-05] MEDS ORDERED: PANCREAZE DR 10,500 UNIT FEEDTUBE PRN ×2 (17:08→17:13)
[2019-05-05] MEDS ORDERED: SIMPLE SYRUP FEEDTUBE PRN ×4 (17:08→17:13)
[2019-05-05] MEDS ORDERED: SODIUM BICARBONATE FEEDTUBE PRN ×2 (17:08→17:13)
[2019-05-05] MEDS: NACL 0.45% 1000 ML 1,000 ML IV SCH (17:42)
[2019-05-05] MEDS: HumuLIN R SUB-Q SCH ×3 (17:46→23:50)
--- NOTE | 2019-05-05 18:23 | Progress Note ---
Assessment and Plan - Patient Problems (1) Acute kidney injury with acute tubular necrosis Current Visit: Yes Status: Acute Plan to address problem: Acute kidney injury secondary to hypotension/volume depletion and possible septic shock. Kidney function is still improving. Continue volume repletion. Follow up electrolytes and renal function. (2) Hypokalemia Current Visit: Yes Status: Acute Plan to address problem: Potassium was improving but is worse this morning. Supplement potassium and follow-up levels needed. (3) Hypernatremia Current Visit: Yes Status: Acute Plan to address problem: Sodium is improving. Continue Free water replacement enterally and parenterally (4) Septic shock Current Visit: Yes Status: Acute Plan to address problem: Continue antibiotics doses appropriately adjusted to degree of renal function. Follow up cultures (5) Hypophosphatemia Current Visit: Yes Status: Acute Plan to address problem: Phosphorus is improving but still low. Supplement phosphorous enterally and follow-up levels Subjective Date of service: 05/05/19 Principal diagnosis: acute kidney injury, septic shock, electrolyte abnormalities Interval history: Patient seen lying in bed. He was extubated yesterday. Says a few words and is appropriate. Denies any pain nausea vomiting. Objective - Exam Narrative Exam: Middle-aged -Turkmen male lying in bed HEENT: NCAT, pink oral mucous membrane Neck: Supple, no venous distention CVS: S1S2 RRR with no murmur, rub or gallop Chest: Clear to auscultation Abdomen: Protuberant, soft, nontender, no organomegaly, bowel sounds are present Extremities: No edema Neuro: Awake, lethargic, following commands - Vital Signs Vital signs: Vital Signs - 12hr 05/05/19 05/05/19 05/05/19 07:00 07:50 08:00 Temperature 98.3 F Pulse Rate 96 H 94 H Pulse Rate [ 100 H Bilateral Throughout] Pulse Rate [ 104 H From Monitor] Respiratory 22 20 Rate Respiratory 20 Rate [Bilateral Throughout] Blood Pressure 137/84 138/95 O2 Sat by Pulse 100 100 Oximetry 05/05/19 05/05/19 05/05/19 08:10 09:00 09:14 Temperature 98.3 F Pulse Rate 106 H Pulse Rate [ Bilateral Throughout] Pulse Rate [ From Monitor] Respiratory 22 Rate Respiratory Rate [Bilateral Throughout] Blood Pressure 119/84 O2 Sat by Pulse 100 100 Oximetry 05/05/19 05/05/19 05/05/19 09:29 10:00 11:00 Temperature Pulse Rate 121 H 102 H 99 H Pulse Rate [ Bilateral Throughout] Pulse Rate [ From Monitor] Respiratory 23 25 H Rate Respiratory Rate [Bilateral Throughout] Blood Pressure 139/90 119/74 125/85 O2 Sat by Pulse 100 100 Oximetry 05/05/19 05/05/19 05/05/19 12:00 12:05 13:00 Temperature 97.4 F L Pulse Rate 102 H 100 H Pulse Rate [ Bilateral Throughout] Pulse Rate [ 100 H From Monitor] Respiratory 24 21 Rate Respiratory Rate [Bilateral Throughout] Blood Pressure 120/82 127/84 O2 Sat by Pulse 96 100 Oximetry 05/05/19 05/05/19 05/05/19 14:00 15:00 15:55 Temperature 98.9 F Pulse Rate 92 H 101 H Pulse Rate [ Bilateral Throughout] Pulse Rate [ From Monitor] Respiratory 17 20 Rate Respiratory Rate [Bilateral Throughout] Blood Pressure 125/83 140/93 O2 Sat by Pulse 97 99 Oximetry 05/05/19 05/05/19 16:00 17:00 Temperature Pulse Rate 97 H 89 Pulse Rate [ Bilateral Throughout] Pulse Rate [ 96 H From Monitor] Respiratory 26 H 20 Rate Respiratory Rate [Bilateral Throughout] Blood Pressure 115/79 114/77 O2 Sat by Pulse 96 97 Oximetry - Lab 05/02/19 12:05 05/05/19 12:26 Most recent lab results ABG pH 7.446 pH Units (7.350-7.450) 05/04/19 04:10 ABG pCO2 33.2 mm Hg 05/04/19 04:10 ABG pO2 117.2 mm Hg (80.0-90.0) H 05/04/19 04:10 ABG HCO3 22.3 mmol/L (20.0-26.0) 05/04/19 04:10 ABG O2 Saturation 98.3 % (95.0-99.0) 05/04/19 04:10 Calcium 7.4 mg/dL (8.4-10.2) L 05/05/19 12:26 Phosphorus 1.60 mg/dL (2.5-4.5) L D 05/05/19 06:59 Magnesium 2.40 mg/dL (1.7-2.3) H 05/04/19 20:16 Medications & Allergies - Medications Allergies/Adverse Reactions: Allergies No Known Allergies Allergy (Unverified 08/06/13 08:33) Home Medications: Home Medications Medication Instructions Recorded Confirmed Last Taken Type Lisinopril [Zestril TAB] 40 mg PO QDAY 05/02/19 05/02/19 Unknown History glipiZIDE [Glucotrol] 10 mg PO QDAY 05/02/19 05/02/19 Unknown History hydroCHLOROthiazide [HCTZ] 25 mg PO QDAY 05/02/19 05/02/19 Unknown History metFORMIN [Glucophage] 500 mg PO BID 05/02/19 05/02/19 Unknown History Active Medications: Generic Name Dose Route Start Last Admin Trade Name Freq PRN Reason Stop Dose Admin Acetaminophen 650 mg 05/02/19 16:10 Tylenol PO Q4H PRN Pain MILD(1-3)/Fever >100.5/MEZA Albuterol 2.5 mg 05/05/19 13:00 Proventil IH Q6HRT PRN Shortness Of Breath Amlodipine Besylate 10 mg 05/02/19 18:00 05/05/19 09:29 Norvasc PO 10 mg DAILY JENNIFER Administration Lipase/Protease/Amylase 1 each 05/05/19 17:[address] 10,500 Unit FEEDTUBE PRN PRN For Clogged Feeding Tube Brimonidine Tartrate 1 drops 05/04/19 10:00 05/05/19 10:43 Alphagan P 0.15% OU Not Given BID JENNIFER Dextrose 0 ml 05/02/19 16:00 D50w (25gm) Syringe IV PRN PRN Hypoglycemia Famotidine 20 mg 05/05/19 10:00 05/05/19 09:29 Pepcid PO 20 mg BID JENNIFER Administration Heparin Sodium (Porcine) 5,000 unit 05/03/19 22:00 05/05/19 10:36 Heparin SUB-Q 5,000 unit BID JENNIFER Administration Hydrophilic Ointment 1 applic 05/02/19 12:06 Vaseline Lip Therapy TP Q2HR PRN Dry Lips Norepinephrine 4 mg in 250 mls @ 7.5 mls/hr 05/02/19 15:00 05/03/19 13:50 Levophed Drip 4 Mg/Ns 250 Ml IV 0 mcg/min TITR JENNIFER 0 mls/hr Titration Protocol 2 MCG/MIN Vasopressin 20 unit/ Sodium 101 mls @ 9.09 mls/hr 05/02/19 20:00 05/03/19 08:26 Chloride IV 0 units/min TITR JENNIFER 0 mls/hr Titration Protocol 0.03 UNITS/MIN Cefepime HCl 1 gm in 100 mls @ 200 mls/hr 05/04/19 10:00 05/05/19 09:28 Maxipime/Ns 1 Gm/100 Ml IV 05/06/19 23:59 200 mls/hr Q24HR JENNIFER Administration Protocol Insulin Human Regular 100 100 mls @ 1 mls/hr 05/04/19 19:00 05/05/19 17:50 units/ Sodium Chloride IV 0 units/hr TITR JENNIFER 0 mls/hr Titration Protocol 1 UNITS/HR Sodium Chloride 1,000 mls @ 100 mls/hr 05/05/19 18:00 05/05/19 17:42 Nacl 0.45% 1000 Ml IV 100 mls/hr DIRECT JENNIFER Administration Insulin Human NPH 25 unit 05/06/19 08:00 Humulin N SUB-Q BIDDIAB JENNIFER Insulin Human Regular 0 units 05/05/19 18:00 05/05/19 17:46 Humulin R SUB-Q 3 units Q4H JENNIFER Administration Protocol Miscellaneous Medication 1 drop 05/05/19 10:00 05/05/19 09:30 Dorzolamide Hcl/Timolol Maleat [Dorzolamide-Timolol Eye Drops] OP 1 drop BID JENNIFER Administration Multi-Ingred Cream/Lotion/Oil/Oint 1 applic 05/02/19 12:06 Artificial Tears Ophth Oint OU Q4HR PRN Dry Eye(s) Ondansetron HCl 4 mg 05/02/19 16:10 Zofran IV Q8H PRN Nausea And Vomiting Simple Syrup 15 ml 05/05/19 17:08 Simple Syrup FEEDTUBE PRN PRN Hypoglycemia Simple Syrup 30 ml 05/05/19 17:08 Simple Syrup FEEDTUBE PRN PRN Hypoglycemia Sodium Bicarbonate 325 mg 05/05/19 17:08 Sodium Bicarbonate FEEDTUBE PRN PRN For Clogged Feeding Tube Sodium Chloride 10 ml 05/02/19 22:00 05/05/19 10:36 Sodium Chloride Flush Syringe 10 Ml IV 10 ml BID JENNIFER Administration Sodium Chloride 10 ml 05/02/19 16:10 Sodium Chloride Flush Syringe 10 Ml IV PRN PRN LINE FLUSH
--- NOTE | 2019-05-06 01:24 | XRay Report ---
ABDOMEN 1 VIEW 12:55 AM INDICATION / CLINICAL INFORMATION: NG tube placement. COMPARISON: None available. FINDINGS: TUBES / LINES: There is a nasogastric tube with the tip overlying the proximal gastric body and the p roximal sidehole well below the gastroesophageal junction. BOWEL GAS PATTERN: Nonobstructive. FREE AIR / EXTRALUMINAL GAS: None seen. ADDITIONAL FINDINGS: No significant additional findings. IMPRESSION: Nasogastric tube tip overlies the proximal stomach. Signer Name: Fritz Luna MD Signed: 05/06/2019 1:19 AM Workstation Name: [id number]
--- NOTE | 2019-05-06 01:25 | XRay Report ---
CHEST 1 VIEW 12:58 AM INDICATION / CLINICAL INFORMATION: Follow-up respiratory failure. COMPARISON: Yesterday. FINDINGS: SUPPORT DEVICES: The position of the nasogastric tube has not changed. HEART / MEDIASTINUM: Unchanged. LUNGS / PLEURA: Minimal left basilar subsegmental atelectasis has improved. No definite pleural effus ion. No pneumothorax. ADDITIONAL FINDINGS: No significant additional findings. IMPRESSION: Minimal left basilar subsegmental atelectasis has improved. Signer Name: Fritz Luna MD Signed: 05/06/2019 1:21 AM Workstation Name: [id number]
[2019-05-06] MEDS: HumuLIN R SUB-Q SCH ×4 (02:24→11:38)
[2019-05-06] MEDS: NACL 0.45% 1000 ML 1,000 ML IV SCH ×2 (04:26→14:41)
[2019-05-06 06:22] LABS: BUN/Creatinine Ratio 26; Blood Urea Nitrogen 21 mg/dL (9-20); Calcium 7.4 mg/dL (8.4-10.2); Hemolysis Index 57
[2019-05-06 06:51] LABS: BUN/Creatinine Ratio 21; Blood Urea Nitrogen 21 mg/dL (9-20); Calcium 7.4 mg/dL (8.4-10.2); Hemolysis Index 0
[2019-05-06] MEDS ORDERED: SIMPLE SYRUP FEEDTUBE PRN ×2 (08:46)
[2019-05-06] MEDS ORDERED: SODIUM BICARBONATE FEEDTUBE PRN (08:46)
[2019-05-06] MEDS ORDERED: PANCREAZE DR 10,500 UNIT FEEDTUBE PRN (08:46)
[2019-05-06] MEDS: K-DUR PO SCH (09:00)
[2019-05-06] MEDS: HEPARIN SUB-Q SCH ×2 (09:01→22:50)
[2019-05-06] MEDS: MAXIPIME/NS 1 GM/100 ML 1 GM/100 ML BAG IV SCH (09:01)
[2019-05-06] MEDS: NORVASC PO SCH (09:01)
[2019-05-06] MEDS: PEPCID PO SCH ×2 (09:02→22:51)
[2019-05-06] MEDS: NON-FORMULARY (Dorzolamide Hcl/Timolol Maleat [Dorzolamide-Timolol Eye Drops] 1 DROP) OP SCH ×2 (09:02→22:49)
[2019-05-06] MEDS: ALPHAGAN P 0.15% OU SCH ×2 (09:43→22:49)
--- NOTE | 2019-05-06 11:13 | Progress Note ---
Assessment and Plan Acute hypoxic respiratory failure on MVS Acute metabolic encephalopathy Hypotension, un differentiated shock- dehydration, sepsis Hyperosmolar non-ketotic state/coma Severe metabolic acidosis Acute renal failure Hypernatremia Hypokalemia - discontinue scheduled duonebs - prn albuterol - watch closely for development of angioedema re: lip swelling - repeat BMP - continue electrolyte correction meanwhile - continue I.V. Insulin therapy and discontinue per DKA protocol - Accuchecks with glycemic control, continue with insulin infusion per protocol - discontinued caban catheter - continue to avoid nephrotoxins, adjust all medications for CrCL, GFR - continue VTE prophylaxis - continue Stress ulcer prophylaxis - continue empiric antibiotics, follow up cultures then de-escalate as indicated (currently on Cefepime/Vancomycin) - Nutritional support (continue enteral nutrition for now) - Maintenance of sleep-wake cycle - Avoid delirium; avoid benzodiazepines - Mobility for pressure ulcer prevention - Wean vasopressor support for MAP>65 - Serial BMPs - continue other care per attending / other consultants CONDITION: CRITICAL PROGNOSIS; GUARDED CODE STATUS: FULL Discussed care plan with RT and RN. Discussed during ICU-IDT rounds The high probability of a clinically significant, sudden or life threatening deterioration of the respiratory, cardiovascular,endocrine, renal system(s) required my full and direct attention, intervention and personal management. The aggregate critical care time was [35] minutes. This time is in addition to time spent performing reported procedures but includes the following: [x] Data Review and interpretation [x]Patient assessment and monitoring of vital signs [x] Documentation [x] Medication orders and management Subjective Date of service: 05/06/19 Principal diagnosis: Ac hypoxemic resp failure; Ac met. encephalopathy; Un- differentiated shock Interval history: Patient is seen today for: Acute hypoxic respiratory failure; Acute metabolic encephalopathy; Hypotension, un differentiated shock (dehydration, sepsis); Hyperosmolar non-ketotic state/coma; Severe metabolic acidosis; Acute renal failure; Hypernatremia; Hypokalemia Seen and examined at bedside; 24hour events reviewed; nursing and respiratory care staff consulted; no adverse overnight events reported to me; resting peacefully in bed; Objective Vital Signs - 12hr 05/06/19 05/06/19 05/06/19 00:00 01:00 02:00 Temperature Pulse Rate 96 H 98 H 96 H Respiratory 24 22 20 Rate Blood Pressure 120/82 125/84 127/80 O2 Sat by Pulse 100 100 100 Oximetry 05/06/19 05/06/19 05/06/19 02:47 03:00 04:00 Temperature 98.4 F Pulse Rate 92 H 84 Respiratory 21 15 Rate Blood Pressure 130/88 125/91 O2 Sat by Pulse 100 99 Oximetry 05/06/19 05/06/19 05/06/19 05:00 06:00 07:00 Temperature Pulse Rate 95 H 97 H 107 H Respiratory 20 19 17 Rate Blood Pressure 132/89 134/92 129/90 O2 Sat by Pulse 100 100 100 Oximetry 05/06/19 05/06/19 05/06/19 08:00 09:01 09:07 Temperature 97.5 F L Pulse Rate 95 H 92 H Respiratory 21 19 Rate Blood Pressure 130/83 129/90 O2 Sat by Pulse 99 100 100 Oximetry 05/06/19 10:01 Temperature Pulse Rate Respiratory Rate Blood Pressure 140/97 O2 Sat by Pulse Oximetry Constitutional: no acute distress, other (elderly looking M, with upper lip swelling but in no other acute distress) Eyes: non-icteric ENT: oropharynx dry Neck: supple, no lymphadenopathy, no JVD, other (extubated) Effort: normal Ascultation: Bilateral: clear, diminished breath sounds, rhonchi Percussion: Bilateral: not dull Cardiovascular: regular rate and rhythm, other (S1,S2) Gastrointestinal: normoactive bowel sounds, soft, non-tender, non-distended, other (NGT) Integumentary: normal Extremities: no cyanosis, no edema, pulses normal, no ischemia or petechiae Neurologic: non-focal exam (grossly), pupils equal and round, CN II-XII normal, other (very weak) Psychiatric: mood appropriate, other (affect flat) CBC and BMP: 05/02/19 12:05 05/06/19 06:09 ABG, PT/INR, D-dimer: ABG POC ABG pH 7.371 (7.35-7.45) 05/04/19 10:53 ABG pH 7.446 pH Units (7.350-7.450) 05/04/19 04:10 POC ABG pCO2 34.1 (35-45) L 05/04/19 10:53 ABG pCO2 33.2 mm Hg 05/04/19 04:10 POC ABG pO2 157 (80-105) H 05/04/19 10:53 ABG pO2 117.2 mm Hg (80.0-90.0) H 05/04/19 04:10 POC ABG HCO3 19.8 (22-26 mml/L) 05/04/19 10:53 POC ABG Total CO2 21 (23-27mmol/L) 05/04/19 10:53 POC ABG O2 Sat 99 05/04/19 10:53 ABG O2 Saturation 98.3 % (95.0-99.0) 05/04/19 04:10 PT/INR, D-dimer PT 15.4 Sec. (12.2-14.9) H 05/02/19 12:05 INR 1.25 (0.87-1.13) H 05/02/19 12:05 Abnormal lab findings: Abnormal Labs 05/02/19 05/02/19 05/02/19 12:05 12:05 12:05 Hgb 15.3 H MCV 99 H MCHC 29 L RDW 16.9 H Seg Neutrophils % 79.5 H Seg Neutrophils # 8.3 H PT 15.4 H INR 1.25 H APTT 23.9 L POC ABG pH ABG pH POC ABG pCO2 POC ABG pO2 ABG pO2 ABG HCO3 ABG Base Excess ABG Hemoglobin VBG pH Sodium 151 H Potassium Chloride 90.1 L Carbon Dioxide 5 L* BUN 102 H Creatinine 6.4 H Glucose 1330 H* POC Glucose Hemoglobin A1c Lactic Acid Calcium Phosphorus 17.40 H Magnesium 4.90 H AST ALT Ammonia Total Creatine Kinase 329 H Total Protein Albumin 3.4 L 05/02/19 05/02/19 05/02/19 12:05 12:05 12:05 Hgb MCV MCHC RDW Seg Neutrophils % Seg Neutrophils # PT INR APTT POC ABG pH ABG pH POC ABG pCO2 POC ABG pO2 ABG pO2 ABG HCO3 ABG Base Excess ABG Hemoglobin VBG pH 6.982 L* Sodium Potassium Chloride Carbon Dioxide BUN Creatinine Glucose POC Glucose Hemoglobin A1c Lactic Acid 7.60 H* Calcium Phosphorus Magnesium AST ALT Ammonia 125.0 H Total Creatine Kinase Total Protein Albumin 05/02/19 05/02/19 05/02/19 12:09 12:59 13:07 Hgb MCV MCHC RDW Seg Neutrophils % Seg Neutrophils # PT INR APTT POC ABG pH ABG pH POC ABG pCO2 POC ABG pO2 ABG pO2 ABG HCO3 ABG Base Excess ABG Hemoglobin VBG pH Sodium Potassium Chloride Carbon Dioxide BUN Creatinine Glucose POC Glucose > 500 H Hemoglobin A1c Lactic Acid 6.00 H* Calcium Phosphorus 15.50 H Magnesium 4.40 H AST ALT Ammonia Total Creatine Kinase Total Protein Albumin 05/02/19 05/02/19 05/02/19 13:07 13:50 14:28 Hgb MCV MCHC RDW Seg Neutrophils % Seg Neutrophils # PT INR APTT POC ABG pH 7.075 L ABG pH POC ABG pCO2 POC ABG pO2 295 H ABG pO2 ABG HCO3 ABG Base Excess ABG Hemoglobin VBG pH Sodium 150 H 150 H Potassium 5.3 H Chloride 93.2 L 95.0 L Carbon Dioxide 6 L* 4 L* BUN 98 H 99 H Creatinine 6.3 H 6.4 H Glucose 1264 H* 1271 H* POC Glucose Hemoglobin A1c Lactic Acid Calcium 8.3 L 7.8 L Phosphorus Magnesium AST ALT Ammonia Total Creatine Kinase Total Protein Albumin 05/02/19 05/02/19 05/02/19 14:28 15:22 16:20 Hgb MCV MCHC RDW Seg Neutrophils % Seg Neutrophils # PT INR APTT POC ABG pH ABG pH POC ABG pCO2 POC ABG pO2 ABG pO2 ABG HCO3 ABG Base Excess ABG Hemoglobin VBG pH Sodium Potassium Chloride Carbon Dioxide BUN Creatinine Glucose POC Glucose > 500 H Hemoglobin A1c Lactic Acid 4.10 H* 4.40 H* Calcium Phosphorus Magnesium AST ALT Ammonia Total Creatine Kinase Total Protein Albumin 05/02/19 05/02/19 05/02/19 17:13 17:19 17:19 Hgb MCV MCHC RDW Seg Neutrophils % Seg Neutrophils # PT INR APTT POC ABG pH ABG pH POC ABG pCO2 POC ABG pO2 ABG pO2 ABG HCO3 ABG Base Excess ABG Hemoglobin VBG pH Sodium 154 H 154 H Potassium Chloride Carbon Dioxide 6 L* 6 L* BUN 95 H 98 H Creatinine 6.6 H 6.5 H Glucose 1021 H* 1021 H* POC Glucose > 500 H Hemoglobin A1c Lactic Acid Calcium 6.8 L 6.8 L Phosphorus Magnesium AST ALT Ammonia Total Creatine Kinase Total Protein Albumin 05/02/19 05/02/19 05/02/19 17:19 17:19 17:19 Hgb MCV MCHC RDW Seg Neutrophils % Seg Neutrophils # PT INR APTT POC ABG pH ABG pH POC ABG pCO2 POC ABG pO2 ABG pO2 ABG HCO3 ABG Base Excess ABG Hemoglobin VBG pH Sodium 155 H Potassium Chloride Carbon Dioxide 6 L* BUN 95 H Creatinine 6.6 H Glucose 1021 H* POC Glucose Hemoglobin A1c 12.9 H Lactic Acid 2.70 H* Calcium 6.9 L Phosphorus 10.90 H D Magnesium 3.70 H AST ALT Ammonia Total Creatine Kinase Total Protein Albumin 05/02/19 05/02/19 05/02/19 17:19 18:36 19:00 Hgb MCV MCHC RDW Seg Neutrophils % Seg Neutrophils # PT INR APTT POC ABG pH ABG pH POC ABG pCO2 POC ABG pO2 ABG pO2 ABG HCO3 ABG Base Excess ABG Hemoglobin VBG pH Sodium 153 H 154 H Potassium Chloride 107.7 H Carbon Dioxide 6 L* 8 L* BUN 96 H 95 H Creatinine 6.5 H 6.6 H Glucose 1018 H* 884 H* POC Glucose > 500 H Hemoglobin A1c Lactic Acid Calcium 6.8 L 6.7 L Phosphorus Magnesium AST ALT Ammonia Total Creatine Kinase Total Protein Albumin 05/02/19 05/02/19 05/02/19 20:02 21:08 21:20 Hgb MCV MCHC RDW Seg Neutrophils % Seg Neutrophils # PT INR APTT POC ABG pH ABG pH POC ABG pCO2 POC ABG pO2 ABG pO2 ABG HCO3 ABG Base Excess ABG Hemoglobin VBG pH Sodium Potassium Chloride Carbon Dioxide BUN Creatinine Glucose 708 H* POC Glucose > 500 H > 500 H Hemoglobin A1c Lactic Acid Calcium Phosphorus Magnesium AST ALT Ammonia Total Creatine Kinase Total Protein Albumin 05/02/19 05/02/19 05/02/19 22:15 22:41 23:13 Hgb MCV MCHC RDW Seg Neutrophils % Seg Neutrophils # PT INR APTT POC ABG pH ABG pH POC ABG pCO2 POC ABG pO2 ABG pO2 ABG HCO3 ABG Base Excess ABG Hemoglobin VBG pH Sodium Potassium Chloride Carbon Dioxide BUN Creatinine Glucose 600 H* POC Glucose > 500 H > 500 H Hemoglobin A1c Lactic Acid Calcium Phosphorus Magnesium AST ALT Ammonia Total Creatine Kinase Total Protein Albumin 05/02/19 05/02/19 05/02/19 23:40 23:55 Unknown Hgb MCV MCHC RDW Seg Neutrophils % Seg Neutrophils # PT INR APTT POC ABG pH ABG pH POC ABG pCO2 POC ABG pO2 ABG pO2 ABG HCO3 ABG Base Excess ABG Hemoglobin VBG pH Sodium 155 H Potassium Chloride 111.7 H Carbon Dioxide 10 L BUN 101 H Creatinine 6.3 H Glucose 544 H* 755 H* POC Glucose > 500 H Hemoglobin A1c Lactic Acid Calcium 6.6 L Phosphorus Magnesium AST ALT Ammonia Total Creatine Kinase Total Protein Albumin 05/02/19 05/02/19 05/03/19 Unknown Unknown 01:42 Hgb MCV MCHC RDW Seg Neutrophils % Seg Neutrophils # PT INR APTT POC ABG pH ABG pH POC ABG pCO2 POC ABG pO2 ABG pO2 ABG HCO3 ABG Base Excess ABG Hemoglobin VBG pH Sodium Potassium Chloride Carbon Dioxide BUN Creatinine Glucose 783 H* POC Glucose 484 H Hemoglobin A1c Lactic Acid 2.60 H* Calcium Phosphorus Magnesium AST ALT Ammonia Total Creatine Kinase Total Protein Albumin 05/03/19 05/03/19 05/03/19 02:39 03:45 05:05 Hgb MCV MCHC RDW Seg Neutrophils % Seg Neutrophils # PT INR APTT POC ABG pH ABG pH POC ABG pCO2 POC ABG pO2 ABG pO2 ABG HCO3 ABG Base Excess ABG Hemoglobin VBG pH Sodium Potassium Chloride Carbon Dioxide BUN Creatinine Glucose POC Glucose 358 H 329 H 324 H Hemoglobin A1c Lactic Acid Calcium Phosphorus Magnesium AST ALT Ammonia Total Creatine Kinase Total Protein Albumin 05/03/19 05/03/19 05/03/19 05:20 05:31 06:36 Hgb MCV MCHC RDW Seg Neutrophils % Seg Neutrophils # PT INR APTT POC ABG pH ABG pH POC ABG pCO2 POC ABG pO2 ABG pO2 ABG HCO3 ABG Base Excess ABG Hemoglobin VBG pH Sodium 162 H* Potassium 3.2 L Chloride 124.9 H Carbon Dioxide 18 L D BUN 87 H Creatinine 5.2 H Glucose 316 H POC Glucose 324 H 277 H Hemoglobin A1c Lactic Acid Calcium 7.1 L Phosphorus Magnesium AST ALT Ammonia Total Creatine Kinase Total Protein Albumin 05/03/19 05/03/19 05/03/19 07:58 07:59 07:59 Hgb MCV MCHC RDW Seg Neutrophils % Seg Neutrophils # PT INR APTT POC ABG pH ABG pH POC ABG pCO2 POC ABG pO2 ABG pO2 ABG HCO3 ABG Base Excess ABG Hemoglobin VBG pH Sodium 165 H* Potassium 2.9 L* Chloride 128.0 H Carbon Dioxide 19 L BUN 80 H Creatinine 4.5 H Glucose 164 H POC Glucose 161 H Hemoglobin A1c Lactic Acid Calcium 7.1 L Phosphorus Magnesium 3.20 H AST ALT Ammonia Total Creatine Kinase Total Protein Albumin 05/03/19 05/03/19 05/03/19 09:14 09:51 10:25 Hgb MCV MCHC RDW Seg Neutrophils % Seg Neutrophils # PT INR APTT POC ABG pH ABG pH POC ABG pCO2 POC ABG pO2 ABG pO2 ABG HCO3 ABG Base Excess ABG Hemoglobin VBG pH Sodium Potassium Chloride Carbon Dioxide BUN Creatinine Glucose POC Glucose 120 H 117 H 111 H Hemoglobin A1c Lactic Acid Calcium Phosphorus Magnesium AST ALT Ammonia Total Creatine Kinase Total Protein Albumin 05/03/19 05/03/19 05/03/19 10:26 13:07 18:31 Hgb MCV MCHC RDW Seg Neutrophils % Seg Neutrophils # PT INR APTT POC ABG pH ABG pH POC ABG pCO2 POC ABG pO2 ABG pO2 146.9 H ABG HCO3 19.6 L ABG Base Excess -4.3 L ABG Hemoglobin 13.8 L VBG pH Sodium 164 H* Potassium 3.4 L Chloride 128.3 H Carbon Dioxide 21 L BUN 71 H Creatinine 3.3 H Glucose POC Glucose 303 H Hemoglobin A1c Lactic Acid Calcium 7.4 L Phosphorus Magnesium AST ALT Ammonia Total Creatine Kinase Total Protein Albumin 05/03/19 05/03/19 05/03/19 20:15 21:18 Unknown Hgb MCV MCHC RDW Seg Neutrophils % Seg Neutrophils # PT INR APTT POC ABG pH ABG pH 7.335 L POC ABG pCO2 POC ABG pO2 ABG pO2 143.0 H ABG HCO3 17.9 L ABG Base Excess -7.0 L ABG Hemoglobin VBG pH Sodium 159 H Potassium 3.3 L Chloride 121.7 H Carbon Dioxide 21 L BUN 62 H Creatinine 2.8 H Glucose 334 H POC Glucose 311 H Hemoglobin A1c Lactic Acid Calcium 7.3 L Phosphorus Magnesium AST ALT Ammonia Total Creatine Kinase Total Protein Albumin 05/04/19 05/04/19 05/04/19 04:10 05:00 05:23 Hgb MCV MCHC RDW Seg Neutrophils % Seg Neutrophils # PT INR APTT POC ABG pH ABG pH POC ABG pCO2 POC ABG pO2 ABG pO2 117.2 H ABG HCO3 ABG Base Excess ABG Hemoglobin VBG pH Sodium 157 H Potassium 2.4 L* D Chloride 117.6 H Carbon Dioxide BUN 53 H Creatinine 2.2 H Glucose 346 H POC Glucose 319 H Hemoglobin A1c Lactic Acid Calcium 7.4 L Phosphorus 1.70 L D Magnesium 2.60 H AST 312 H ALT 74 H Ammonia Total Creatine Kinase Total Protein 5.8 L Albumin 2.9 L 05/04/19 05/04/19 05/04/19 10:53 11:53 12:17 Hgb MCV MCHC RDW Seg Neutrophils % Seg Neutrophils # PT INR APTT POC ABG pH ABG pH POC ABG pCO2 34.1 L POC ABG pO2 157 H ABG pO2 ABG HCO3 ABG Base Excess ABG Hemoglobin VBG pH Sodium 154 H Potassium 2.8 L* Chloride 114.4 H Carbon Dioxide BUN 44 H Creatinine 1.9 H Glucose 448 H POC Glucose 443 H Hemoglobin A1c Lactic Acid Calcium 7.4 L Phosphorus Magnesium AST ALT Ammonia Total Creatine Kinase Total Protein Albumin 05/04/19 05/04/19 05/04/19 17:44 17:48 19:30 Hgb MCV MCHC RDW Seg Neutrophils % Seg Neutrophils # PT INR APTT POC ABG pH ABG pH POC ABG pCO2 POC ABG pO2 ABG pO2 ABG HCO3 ABG Base Excess ABG Hemoglobin VBG pH Sodium 154 H Potassium Chloride 115.5 H Carbon Dioxide BUN 39 H Creatinine 1.6 H Glucose 376 H POC Glucose 383 H 372 H Hemoglobin A1c Lactic Acid Calcium 7.6 L Phosphorus Magnesium AST ALT Ammonia Total Creatine Kinase Total Protein Albumin 05/04/19 05/04/19 05/04/19 20:16 20:42 21:50 Hgb MCV MCHC RDW Seg Neutrophils % Seg Neutrophils # PT INR APTT POC ABG pH ABG pH POC ABG pCO2 POC ABG pO2 ABG pO2 ABG HCO3 ABG Base Excess ABG Hemoglobin VBG pH Sodium Potassium Chloride Carbon Dioxide BUN Creatinine Glucose POC Glucose 301 H 218 H Hemoglobin A1c Lactic Acid Calcium Phosphorus 1.30 L D Magnesium 2.40 H AST ALT Ammonia Total Creatine Kinase Total Protein Albumin 05/04/19 05/04/19 05/05/19 22:49 23:35 00:51 Hgb MCV MCHC RDW Seg Neutrophils % Seg Neutrophils # PT INR APTT POC ABG pH ABG pH POC ABG pCO2 POC ABG pO2 ABG pO2 ABG HCO3 ABG Base Excess ABG Hemoglobin VBG pH Sodium Potassium Chloride Carbon Dioxide BUN Creatinine Glucose POC Glucose 194 H 154 H 143 H Hemoglobin A1c Lactic Acid Calcium Phosphorus Magnesium AST ALT Ammonia Total Creatine Kinase Total Protein Albumin 05/05/19 05/05/19 05/05/19 01:09 01:41 02:59 Hgb MCV MCHC RDW Seg Neutrophils % Seg Neutrophils # PT INR APTT POC ABG pH ABG pH POC ABG pCO2 POC ABG pO2 ABG pO2 ABG HCO3 ABG Base Excess ABG Hemoglobin VBG pH Sodium 151 H Potassium 2.7 L* D Chloride 109.8 H Carbon Dioxide BUN 28 H Creatinine Glucose 166 H POC Glucose 180 H 174 H Hemoglobin A1c Lactic Acid Calcium 7.6 L Phosphorus Magnesium AST ALT Ammonia Total Creatine Kinase Total Protein Albumin 05/05/19 05/05/19 05/05/19 03:52 04:54 05:47 Hgb MCV MCHC RDW Seg Neutrophils % Seg Neutrophils # PT INR APTT POC ABG pH ABG pH POC ABG pCO2 POC ABG pO2 ABG pO2 ABG HCO3 ABG Base Excess ABG Hemoglobin VBG pH Sodium Potassium Chloride Carbon Dioxide BUN Creatinine Glucose POC Glucose 180 H 192 H 172 H Hemoglobin A1c Lactic Acid Calcium Phosphorus Magnesium AST ALT Ammonia Total Creatine Kinase Total Protein Albumin 05/05/19 05/05/19 05/05/19 06:45 06:59 07:38 Hgb MCV MCHC RDW Seg Neutrophils % Seg Neutrophils # PT INR APTT POC ABG pH ABG pH POC ABG pCO2 POC ABG pO2 ABG pO2 ABG HCO3 ABG Base Excess ABG Hemoglobin VBG pH Sodium Potassium Chloride Carbon Dioxide BUN Creatinine Glucose POC Glucose 183 H 202 H Hemoglobin A1c Lactic Acid Calcium Phosphorus 1.60 L D Magnesium AST ALT Ammonia Total Creatine Kinase Total Protein Albumin 05/05/19 05/05/19 05/05/19 08:40 09:40 10:45 Hgb MCV MCHC RDW Seg Neutrophils % Seg Neutrophils # PT INR APTT POC ABG pH ABG pH POC ABG pCO2 POC ABG pO2 ABG pO2 ABG HCO3 ABG Base Excess ABG Hemoglobin VBG pH Sodium Potassium Chloride Carbon Dioxide BUN Creatinine Glucose POC Glucose 204 H 220 H 201 H Hemoglobin A1c Lactic Acid Calcium Phosphorus Magnesium AST ALT Ammonia Total Creatine Kinase Total Protein Albumin 05/05/19 05/05/19 05/05/19 11:45 12:26 12:45 Hgb MCV MCHC RDW Seg Neutrophils % Seg Neutrophils # PT INR APTT POC ABG pH ABG pH POC ABG pCO2 POC ABG pO2 ABG pO2 ABG HCO3 ABG Base Excess ABG Hemoglobin VBG pH Sodium 149 H Potassium 3.0 L Chloride Carbon Dioxide 31 H BUN 24 H Creatinine Glucose 151 H POC Glucose 197 H 188 H Hemoglobin A1c Lactic Acid Calcium 7.4 L Phosphorus Magnesium AST ALT Ammonia Total Creatine Kinase Total Protein Albumin 05/05/19 05/05/19 05/05/19 13:34 14:34 15:49 Hgb MCV MCHC RDW Seg Neutrophils % Seg Neutrophils # PT INR APTT POC ABG pH ABG pH POC ABG pCO2 POC ABG pO2 ABG pO2 ABG HCO3 ABG Base Excess ABG Hemoglobin VBG pH Sodium Potassium Chloride Carbon Dioxide BUN Creatinine Glucose POC Glucose 192 H 163 H 154 H Hemoglobin A1c Lactic Acid Calcium Phosphorus Magnesium AST ALT Ammonia Total Creatine Kinase Total Protein Albumin 05/05/19 05/05/19 05/05/19 16:51 17:39 19:56 Hgb MCV MCHC RDW Seg Neutrophils % Seg Neutrophils # PT INR APTT POC ABG pH ABG pH POC ABG pCO2 POC ABG pO2 ABG pO2 ABG HCO3 ABG Base Excess ABG Hemoglobin VBG pH Sodium Potassium Chloride Carbon Dioxide BUN Creatinine Glucose POC Glucose 203 H 223 H 298 H Hemoglobin A1c Lactic Acid Calcium Phosphorus Magnesium AST ALT Ammonia Total Creatine Kinase Total Protein Albumin 05/05/19 05/05/19 05/06/19 22:34 23:35 02:07 Hgb MCV MCHC RDW Seg Neutrophils % Seg Neutrophils # PT INR APTT POC ABG pH ABG pH POC ABG pCO2 POC ABG pO2 ABG pO2 ABG HCO3 ABG Base Excess ABG Hemoglobin VBG pH Sodium Potassium Chloride Carbon Dioxide BUN Creatinine Glucose POC Glucose 331 H 333 H 282 H Hemoglobin A1c Lactic Acid Calcium Phosphorus Magnesium AST ALT Ammonia Total Creatine Kinase Total Protein Albumin 05/06/19 05/06/19 05/06/19 04:15 05:10 05:54 Hgb MCV MCHC RDW Seg Neutrophils % Seg Neutrophils # PT INR APTT POC ABG pH ABG pH POC ABG pCO2 POC ABG pO2 ABG pO2 ABG HCO3 ABG Base Excess ABG Hemoglobin VBG pH Sodium Potassium 3.2 L Chloride Carbon Dioxide BUN 21 H Creatinine Glucose 191 H POC Glucose 210 H 199 H Hemoglobin A1c Lactic Acid Calcium 7.4 L Phosphorus Magnesium AST ALT Ammonia Total Creatine Kinase Total Protein Albumin 05/06/19 06:09 Hgb MCV MCHC RDW Seg Neutrophils % Seg Neutrophils # PT INR APTT POC ABG pH ABG pH POC ABG pCO2 POC ABG pO2 ABG pO2 ABG HCO3 ABG Base Excess ABG Hemoglobin VBG pH Sodium Potassium 2.8 L* Chloride Carbon Dioxide BUN 21 H Creatinine Glucose 182 H POC Glucose Hemoglobin A1c Lactic Acid Calcium 7.4 L Phosphorus Magnesium AST ALT Ammonia Total Creatine Kinase Total Protein Albumin Allied health notes reviewed: nursing
[2019-05-06] MEDS: SODIUM CHLORIDE FLUSH SYRINGE 10 ML IV SCH ×2 (11:38→22:51)
--- NOTE | 2019-05-06 12:38 | Progress Note ---
Assessment and Plan / Acute metabolic encephalopathy, resolved - from STIVEN, hyperglycemia and hypernatremia - CT head unremarkable, cont to monitor clinically / Acute respiratory failure with hypoxia Patient was intubated for AMS and hypoxia Continue Duonebs round the clock, Albuterol neb treatments prn CC consulted, weaned off vent - extubation 05/04/19 / HHNS - hyperosmolar hyperglycemic non-ketotic syndrome Patient has a blood glucose level around 1330 with Severe metabolic acidosis and Minimal ketones in urine In the ER Insulin drip started, IV fluids about 3 L of normal saline bolus given then continued with D5W followed by 1/4NS for hypernatremia, BG and Na level improved, Now on 1/2NS and free water with TF as failed swallow eval, started on subqu insulin - adjust dose as needed / Septic shock vs Hypovlomic shock vs cardiogenic shock Placed on IV antibiotics and IV fluids - Started on Levophed and vasopressin following admission - now weaned off - negative Cx, 2d echo showing EF 35-40% - will lower the rate of Iv fluid /New onset CHF, Ef 35-40% - stable w/o compensation - cardiology consult if needed any ischemic workup before discharge /Severe Hypernatremia , resolved - Na was upto 164 s/p on D5W and 1/4NS Cont to monitor BMP daily change iv fluid to 1/2NS 50ml/hr for hydration / Metabolic acidosis Severe due to reclining renal function vs possible sepsis IV sodium bicarbonatex2, monitor bmp / h/o Hypertension Hold antihypertensives / Acute kidney injury due to ATN Secondary to severe dehydration Nephrology consult requested, renal function improving IV fluids for now, monitor renal function, / Hypocalcemia, s/p Calcium gluconate / Hyperammonemia Lactulose 30 cc with feeding tube bid / DVT prophylaxis On heparin and GI prophylaxis Brief History: 59-year-old -Irish male with history of diabetes and hypertension brought in for altered sensorium and decreased responsiveness. Patient is currently residing with his sister who found him poorly responsive in the [facility] and EMS was called. EMS gave of wall fluid bolus and brought the patient for further evaluation to the emergency room at [facility]. In the emergency room because of the decreased responsiveness and decreased breathing--- patient was intubated. His BG was 1330, Cr 6.4, Na of 154. He was placed on pressores, insulin drip, aggressive iv fluid hydration, abx and admitted to ICU for further Mx. Hospitalist physical: GENERAL: well-developed and well-nourished -Irish male lying on bed, HEENT: Normocephalic. Atraumatic. No conjunctival congestion or icterus. Patient has dry mucous membranes. NECK: Supple. Trachea midline. CHEST/LUNGS: Clear to auscultated bilaterally. No wheezes crackles or rhonchi. On mechanical ventilation HEART/CARDIOVASCULAR: Tachycardic. S1 and S2 positive. ABDOMEN: Abdomen is soft. Patient has normal bowel sounds. SKIN: There is no rash. Warm and dry. NEURO: Sedated, moves all extremities, [id number] MUSCULOSKELETAL: No joint effusion or tenderness. EXTRIMITY: No edema, no cyanosis or clubbing. PSYCH: co-operative Subjective Date of service: 05/06/19 Principal diagnosis: Ac hypoxemic resp failure; Ac met. encephalopathy; Un-di fferentiated shock Interval history: Patient seen and examined off vent, off pressores, discussed with patient at bedside waiting repeat swallow eval plan to transfer to [facility] Objective - Constitutional Vitals: Vital Signs - 12hr 05/06/19 05/06/19 05/06/19 01:00 02:00 02:47 Temperature 98.4 F Pulse Rate 98 H 96 H Respiratory 22 20 Rate Blood Pressure 125/84 127/80 O2 Sat by Pulse 100 100 Oximetry 05/06/19 05/06/19 05/06/19 03:00 04:00 05:00 Temperature Pulse Rate 92 H 84 95 H Respiratory 21 15 20 Rate Blood Pressure 130/88 125/91 132/89 O2 Sat by Pulse 100 99 100 Oximetry 05/06/19 05/06/19 05/06/19 06:00 07:00 08:00 Temperature 97.5 F L Pulse Rate 97 H 107 H 95 H Respiratory 19 17 21 Rate Blood Pressure 134/92 129/90 130/83 O2 Sat by Pulse 100 100 99 Oximetry 05/06/19 05/06/19 05/06/19 09:01 09:07 10:01 Temperature Pulse Rate 92 H Respiratory 19 Rate Blood Pressure 129/90 140/97 O2 Sat by Pulse 100 100 Oximetry 05/06/19 12:00 Temperature 98 F Pulse Rate Respiratory Rate Blood Pressure O2 Sat by Pulse Oximetry - Labs CBC & Chem 7: 05/02/19 12:05 05/07/19 05:42 Labs: Abnormal lab results 05/05/19 05/05/19 05/05/19 Range/Units 12:26 12:45 13:34 Sodium 149 H (137-145) mmol/L Potassium 3.0 L (3.6-5.0) mmol/L Carbon Dioxide 31 H (22-30) mmol/L BUN 24 H (9-20) mg/dL Glucose 151 H (75-100) mg/dL POC Glucose 188 H 192 H (70-105) Calcium 7.4 L (8.4-10.2) mg/dL Phosphorus (2.5-4.5) mg/dL 05/05/19 05/05/19 05/05/19 Range/Units 14:34 15:49 16:51 Sodium (137-145) mmol/L Potassium (3.6-5.0) mmol/L Carbon Dioxide (22-30) mmol/L BUN (9-20) mg/dL Glucose (75-100) mg/dL POC Glucose 163 H 154 H 203 H (70-105) Calcium (8.4-10.2) mg/dL Phosphorus (2.5-4.5) mg/dL 05/05/19 05/05/19 05/05/19 Range/Units 17:39 19:56 22:34 Sodium (137-145) mmol/L Potassium (3.6-5.0) mmol/L Carbon Dioxide (22-30) mmol/L BUN (9-20) mg/dL Glucose (75-100) mg/dL POC Glucose 223 H 298 H 331 H (70-105) Calcium (8.4-10.2) mg/dL Phosphorus (2.5-4.5) mg/dL 05/05/19 05/06/19 05/06/19 Range/Units 23:35 02:07 04:15 Sodium (137-145) mmol/L Potassium (3.6-5.0) mmol/L Carbon Dioxide (22-30) mmol/L BUN (9-20) mg/dL Glucose (75-100) mg/dL POC Glucose 333 H 282 H 210 H (70-105) Calcium (8.4-10.2) mg/dL Phosphorus (2.5-4.5) mg/dL 05/06/19 05/06/19 05/06/19 Range/Units 05:10 05:54 06:09 Sodium (137-145) mmol/L Potassium 3.2 L 2.8 L* (3.6-5.0) mmol/L Carbon Dioxide (22-30) mmol/L BUN 21 H 21 H (9-20) mg/dL Glucose 191 H 182 H (75-100) mg/dL POC Glucose 199 H (70-105) Calcium 7.4 L 7.4 L (8.4-10.2) mg/dL Phosphorus (2.5-4.5) mg/dL 05/06/19 05/06/19 Range/Units 06:09 11:39 Sodium (137-145) mmol/L Potassium (3.6-5.0) mmol/L Carbon Dioxide (22-30) mmol/L BUN (9-20) mg/dL Glucose (75-100) mg/dL POC Glucose 228 H (70-105) Calcium (8.4-10.2) mg/dL Phosphorus 1.50 L (2.5-4.5) mg/dL
--- NOTE | 2019-05-06 16:38 | Progress Note ---
Assessment and Plan - Patient Problems (1) Acute kidney injury with acute tubular necrosis Current Visit: Yes Status: Acute Plan to address problem: Acute kidney injury secondary to hypotension/volume depletion and possible septic shock. Kidney function has improved back to normal. Continue volume repletion. Follow up electrolytes and renal function. (2) Hypokalemia Current Visit: Yes Status: Acute Plan to address problem: Potassium was improving but is worse this morning. Supplement potassium and follow-up levels needed. (3) Hypophosphatemia Current Visit: Yes Status: Acute Plan to address problem: Phosphorus is still low. Supplement phosphorous parenterally and follow-up levels (4) Hypernatremia Current Visit: Yes Status: Acute Plan to address problem: Sodium has improved back to normal. Follow-up sodium. (5) Septic shock Current Visit: Yes Status: Acute Plan to address problem: Resolving. Cultures negative. Patient on IV Cefepime. Continue antibiotics doses appropriately adjusted to degree of renal function. Subjective Date of service: 05/06/19 Principal diagnosis: Ac hypoxemic resp failure; Ac met. encephalopathy; Un- differentiated shock Interval history: Patient seen lying in bed. He is lethargic. Opens eyes briefly. Denies any pain nausea vomiting. Objective - Exam Narrative Exam: Middle-aged -Mauritian male lying in bed HEENT: NCAT, pink oral mucous membrane Neck: Supple, no venous distention CVS: S1S2 RRR with no murmur, rub or gallop Chest: Clear to auscultation Abdomen: Protuberant, soft, nontender, no organomegaly, bowel sounds are present Extremities: No edema Neuro: Awake, lethargic, following simple commands - Vital Signs Vital signs: Vital Signs - 12hr 05/06/19 05/06/19 05/06/19 05:00 06:00 07:00 Temperature Pulse Rate 95 H 97 H 107 H Respiratory 20 19 17 Rate Blood Pressure 132/89 134/92 129/90 O2 Sat by Pulse 100 100 100 Oximetry 05/06/19 05/06/19 05/06/19 08:00 09:01 09:07 Temperature 97.5 F L Pulse Rate 95 H 92 H Respiratory 21 19 Rate Blood Pressure 130/83 129/90 O2 Sat by Pulse 99 100 100 Oximetry 05/06/19 05/06/19 10:01 12:00 Temperature 98 F Pulse Rate Respiratory Rate Blood Pressure 140/97 O2 Sat by Pulse Oximetry - Lab 05/02/19 12:05 05/06/19 06:09 Most recent lab results ABG pH 7.446 pH Units (7.350-7.450) 05/04/19 04:10 ABG pCO2 33.2 mm Hg 05/04/19 04:10 ABG pO2 117.2 mm Hg (80.0-90.0) H 05/04/19 04:10 ABG HCO3 22.3 mmol/L (20.0-26.0) 05/04/19 04:10 ABG O2 Saturation 98.3 % (95.0-99.0) 05/04/19 04:10 Calcium 7.4 mg/dL (8.4-10.2) L 05/06/19 06:09 Phosphorus 1.50 mg/dL (2.5-4.5) L 05/06/19 06:09 Magnesium 2.40 mg/dL (1.7-2.3) H 05/04/19 20:16 Medications & Allergies - Medications Allergies/Adverse Reactions: Allergies No Known Allergies Allergy (Unverified 08/06/13 08:33) Home Medications: Home Medications Medication Instructions Recorded Confirmed Last Taken Type Lisinopril [Zestril TAB] 40 mg PO QDAY 05/02/19 05/02/19 Unknown History glipiZIDE [Glucotrol] 10 mg PO QDAY 05/02/19 05/02/19 Unknown History hydroCHLOROthiazide [HCTZ] 25 mg PO QDAY 05/02/19 05/02/19 Unknown History metFORMIN [Glucophage] 500 mg PO BID 05/02/19 05/02/19 Unknown History Active Medications: Generic Name Dose Route Start Last Admin Trade Name Freq PRN Reason Stop Dose Admin Acetaminophen 650 mg 05/02/19 16:10 Tylenol PO Q4H PRN Pain MILD(1-3)/Fever >100.5/MEZA Albuterol 2.5 mg 05/05/19 13:00 Proventil IH Q6HRT PRN Shortness Of Breath Amlodipine Besylate 10 mg 05/02/19 18:00 05/06/19 09:01 Norvasc PO 10 mg DAILY JENNIFER Administration Lipase/Protease/Amylase 1 each 05/06/19 08:[address] 10,500 Unit FEEDTUBE PRN PRN For Clogged Feeding Tube Brimonidine Tartrate 1 drops 05/04/19 10:00 05/06/19 09:43 Alphagan P 0.15% OU 1 drops BID JENNIFER Administration Dextrose 0 ml 05/02/19 16:00 D50w (25gm) Syringe IV PRN PRN Hypoglycemia Famotidine 20 mg 05/05/19 10:00 05/06/19 09:02 Pepcid PO 20 mg BID JENNIFER Administration Heparin Sodium (Porcine) 5,000 unit 05/03/19 22:00 05/06/19 09:01 Heparin SUB-Q 5,000 unit BID JENNIFER Administration Hydrophilic Ointment 1 applic 05/02/19 12:06 Vaseline Lip Therapy TP Q2HR PRN Dry Lips Norepinephrine 4 mg in 250 mls @ 7.5 mls/hr 05/02/19 15:00 05/03/19 13:50 Levophed Drip 4 Mg/Ns 250 Ml IV 0 mcg/min TITR JENNIFER 0 mls/hr Titration Protocol 2 MCG/MIN Vasopressin 20 unit/ Sodium 101 mls @ 9.09 mls/hr 05/02/19 20:00 05/03/19 08:26 Chloride IV 0 units/min TITR JENNIFER 0 mls/hr Titration Protocol 0.03 UNITS/MIN Cefepime HCl 1 gm in 100 mls @ 200 mls/hr 05/04/19 10:00 05/06/19 09:01 Maxipime/Ns 1 Gm/100 Ml IV 05/06/19 23:59 200 mls/hr Q24HR JENNIFER Administration Protocol Sodium Chloride 1,000 mls @ 100 mls/hr 05/05/19 18:00 05/06/19 14:41 Nacl 0.45% 1000 Ml IV 100 mls/hr DIRECT JENNIFER Administration Insulin Human NPH 25 unit 05/06/19 08:00 05/06/19 08:58 Humulin N SUB-Q 25 unit BIDDIAB JENNIFER Administration Insulin Human Regular 0 units 05/06/19 12:00 05/06/19 11:38 Humulin R SUB-Q 4 units Q6H JENNIFER Administration Protocol Miscellaneous Medication 1 drop 05/05/19 10:00 05/06/19 09:02 Dorzolamide Hcl/Timolol Maleat [Dorzolamide-Timolol Eye Drops] OP 1 drop BID JENNIFER Administration Multi-Ingred Cream/Lotion/Oil/Oint 1 applic 05/02/19 12:06 Artificial Tears Ophth Oint OU Q4HR PRN Dry Eye(s) Ondansetron HCl 4 mg 05/02/19 16:10 Zofran IV Q8H PRN Nausea And Vomiting Potassium Chloride 40 meq 05/06/19 10:00 05/06/19 09:00 K-Dur PO 40 meq QDAY JENNIFER Administration Simple Syrup 15 ml 05/06/19 08:46 Simple Syrup FEEDTUBE PRN PRN Hypoglycemia Simple Syrup 30 ml 05/06/19 08:46 Simple Syrup FEEDTUBE PRN PRN Hypoglycemia Sodium Bicarbonate 325 mg 05/06/19 08:46 Sodium Bicarbonate FEEDTUBE PRN PRN For Clogged Feeding Tube Sodium Chloride 10 ml 05/02/19 22:00 05/06/19 11:38 Sodium Chloride Flush Syringe 10 Ml IV 10 ml BID JENNIFER Administration Sodium Chloride 10 ml 05/02/19 16:10 Sodium Chloride Flush Syringe 10 Ml IV PRN PRN LINE FLUSH
[2019-05-06] MEDS ORDERED: KPHOS 15 MMOL in NACL 0.9% 250ML 250 ML IV ONE (18:00)
[2019-05-07] MEDS: HumuLIN R SUB-Q SCH ×6 (01:19→22:57)
[2019-05-07] MEDS: NACL 0.45% 1000 ML 1,000 ML IV SCH ×2 (05:17→18:41)
[2019-05-07 06:24] LABS: BUN/Creatinine Ratio 24; Blood Urea Nitrogen 24 mg/dL (9-20); Calcium 7.9 mg/dL (8.4-10.2); Hemolysis Index 30
--- NOTE | 2019-05-07 11:00 | Progress Note ---
Assessment and Plan - Patient Problems (1) Acute kidney injury with acute tubular necrosis Current Visit: Yes Status: Acute Plan to address problem: Acute kidney injury secondary to hypotension/volume depletion and possible septic shock. Kidney function has improved back to normal. Follow up electrolytes and renal function. (2) Hypokalemia Current Visit: Yes Status: Acute Plan to address problem: Potassium is still low. Supplement potassium and follow-up levels needed. (3) Hypophosphatemia Current Visit: Yes Status: Acute Plan to address problem: Phosphorus is now normal (4) Hypernatremia Current Visit: Yes Status: Acute Plan to address problem: Sodium has improved back to normal. Follow-up sodium. (5) Septic shock Current Visit: Yes Status: Acute Plan to address problem: Resolving. Cultures negative. Patient on IV Cefepime. Continue antibiotics doses appropriately adjusted to degree of renal function. Subjective Date of service: 05/07/19 Principal diagnosis: Ac hypoxemic resp failure; Ac met. encephalopathy; Un- differentiated shock Interval history: Patient seen lying in bed. He is lethargic. Opens eyes briefly and answers a few questions. Denies any pain, shortness of breath, nausea or vomiting. Objective - Exam Narrative Exam: Middle-aged -[place] Islander male lying in bed in no acute distress HEENT: NCAT, pink oral mucous membrane Neck: Supple, no venous distention CVS: S1S2 RRR with no murmur, rub or gallop Chest: Clear to auscultation Abdomen: Protuberant, soft, nontender, no organomegaly, bowel sounds are present Extremities: No edema Neuro: Awake, lethargic, following simple commands - Vital Signs Vital signs: Vital Signs - 12hr 05/06/19 05/07/19 05/07/19 23:30 05:48 09:34 Temperature 99.7 F H 99.0 F Pulse Rate 96 H 99 H Respiratory 20 18 Rate Blood Pressure 110/72 107/63 O2 Sat by Pulse 100 96 96 Oximetry - Lab 05/02/19 12:05 05/07/19 05:42 Most recent lab results ABG pH 7.446 pH Units (7.350-7.450) 05/04/19 04:10 ABG pCO2 33.2 mm Hg 05/04/19 04:10 ABG pO2 117.2 mm Hg (80.0-90.0) H 05/04/19 04:10 ABG HCO3 22.3 mmol/L (20.0-26.0) 05/04/19 04:10 ABG O2 Saturation 98.3 % (95.0-99.0) 05/04/19 04:10 Calcium 7.9 mg/dL (8.4-10.2) L 05/07/19 05:42 Phosphorus 2.80 mg/dL (2.5-4.5) D 05/07/19 05:42 Magnesium 2.40 mg/dL (1.7-2.3) H 05/04/19 20:16 Medications & Allergies - Medications Allergies/Adverse Reactions: Allergies No Known Allergies Allergy (Unverified 08/06/13 08:33) Home Medications: Home Medications Medication Instructions Recorded Confirmed Last Taken Type Lisinopril [Zestril TAB] 40 mg PO QDAY 05/02/19 05/02/19 Unknown History glipiZIDE [Glucotrol] 10 mg PO QDAY 05/02/19 05/02/19 Unknown History hydroCHLOROthiazide [HCTZ] 25 mg PO QDAY 05/02/19 05/02/19 Unknown History metFORMIN [Glucophage] 500 mg PO BID 05/02/19 05/02/19 Unknown History Active Medications: Generic Name Dose Route Start Last Admin Trade Name Eyalq PRN Reason Stop Dose Admin Acetaminophen 650 mg 05/02/19 16:10 Tylenol PO Q4H PRN Pain MILD(1-3)/Fever >100.5/MEZA Albuterol 2.5 mg 05/05/19 13:00 Proventil IH Q6HRT PRN Shortness Of Breath Amlodipine Besylate 10 mg 05/02/19 18:00 05/06/19 09:01 Norvasc PO 10 mg DAILY JENNIFER Administration Lipase/Protease/Amylase 1 each 05/06/19 08:46 Pancreazjose Bowie 10,500 Unit FEEDTUBE PRN PRN For Clogged Feeding Tube Brimonidine Tartrate 1 drops 05/04/19 10:00 05/06/19 22:49 Alphagan P 0.15% OU 1 drops BID JENNIFER Administration Dextrose 0 ml 05/02/19 16:00 D50w (25gm) Syringe IV PRN PRN Hypoglycemia Famotidine 20 mg 05/05/19 10:00 05/06/19 22:51 Pepcid PO 20 mg BID JENNIFER Administration Heparin Sodium (Porcine) 5,000 unit 05/03/19 22:00 05/06/19 22:50 Heparin SUB-Q 5,000 unit BID JENNIFER Administration Hydrophilic Ointment 1 applic 05/02/19 12:06 Vaseline Lip Therapy TP Q2HR PRN Dry Lips Sodium Chloride 1,000 mls @ 100 mls/hr 05/05/19 18:00 05/07/19 05:17 Nacl 0.45% 1000 Ml IV 100 mls/hr DIRECT JENNIFER Administration Insulin Human NPH 25 unit 05/06/19 08:00 05/07/19 08:49 Humulin N SUB-Q Not Given BIDDIAB JENNIFER Insulin Human Regular 0 units 05/06/19 12:00 05/07/19 06:04 Humulin R SUB-Q 6 units Q6H JENNIFER Administration Protocol Miscellaneous Medication 1 drop 05/05/19 10:00 05/06/19 22:49 Dorzolamide Hcl/Timolol Maleat [Dorzolamide-Timolol Eye Drops] OP 1 drop BID JENNIFER Administration Multi-Ingred Cream/Lotion/Oil/Oint 1 applic 05/02/19 12:06 Artificial Tears Ophth Oint OU Q4HR PRN Dry Eye(s) Ondansetron HCl 4 mg 05/02/19 16:10 Zofran IV Q8H PRN Nausea And Vomiting Potassium Chloride 40 meq 05/06/19 10:00 05/06/19 09:00 K-Dur PO 40 meq QDAY JENNIFER Administration Simple Syrup 15 ml 05/06/19 08:46 Simple Syrup FEEDTUBE PRN PRN Hypoglycemia Simple Syrup 30 ml 05/06/19 08:46 Simple Syrup FEEDTUBE PRN PRN Hypoglycemia Sodium Bicarbonate 325 mg 05/06/19 08:46 Sodium Bicarbonate FEEDTUBE PRN PRN For Clogged Feeding Tube Sodium Chloride 10 ml 05/02/19 22:00 05/06/19 22:51 Sodium Chloride Flush Syringe 10 Ml IV 10 ml BID JENNIFER Administration Sodium Chloride 10 ml 05/02/19 16:10 Sodium Chloride Flush Syringe 10 Ml IV PRN PRN LINE FLUSH
--- NOTE | 2019-05-07 12:24 | Progress Note ---
Assessment and Plan / Acute metabolic encephalopathy, resolved - from STIVEN, hyperglycemia and hypernatremia - CT head unremarkable, cont to monitor clinically / Acute respiratory failure with hypoxia Patient was intubated for AMS and hypoxia Continue Duonebs round the clock, Albuterol neb treatments prn CC consulted, weaned off vent - extubation 05/04/19 / HHNS - hyperosmolar hyperglycemic non-ketotic syndrome Patient has a blood glucose level around 1330 with Severe metabolic acidosis and Minimal ketones in urine In the ER Insulin drip started, IV fluids about 3 L of normal saline bolus given then continued with D5W followed by 1/4NS for hypernatremia, BG and Na level improved, then was 1/2NS and free water with TF as failed swallow eval, started on subqu insulin - adjust dose as needed Started on mechanical soft diet today / Hypovlomic shock vs cardiogenic shock - Started on Levophed and vasopressin following admission - now weaned off - septic shock unlikely as negative Cx, d/beverley iv abx, 2d echo showing EF 35-40% - will lower the rate of Iv fluid /New onset CHF, Ef 35-40% - stable w/o compensation - cardiology consulted if needed any ischemic workup before discharge /Severe Hypernatremia , resolved - Na was upto 164 s/p on D5W and 1/4NS Cont to monitor BMP daily change iv fluid to 1/2NS 30ml/hr for hydration / Metabolic acidosis Severe due to reclining renal function vs possible sepsis IV sodium bicarbonatex2, monitor bmp / h/o Hypertension Hold antihypertensives / Acute kidney injury due to ATN Secondary to severe dehydration Nephrology consult requested, renal function improving IV fluids for now, monitor renal function, / Hypocalcemia, s/p Calcium gluconate / Hyperammonemia, resolved s/p Lactulose 30 cc with feeding tube / DVT prophylaxis On heparin and GI prophylaxis Brief History: 59-year-old -Welsh male with history of diabetes and hypertension brought in for altered sensorium and decreased responsiveness. Patient is currently residing with his sister who found him poorly responsive in the morning and EMS was called. EMS gave of wall fluid bolus and brought the patient for further evaluation to the emergency room at [facility]. In the emergency room because of the decreased responsiveness and decreased breathing--- patient was intubated. His BG was 1330, Cr 6.4, Na of 154. He was placed on pressores, insulin drip, aggressive iv fluid hydration, abx and admitted to ICU for further Mx. Hospitalist physical: GENERAL: well-developed and well-nourished -Welsh male lying on bed, HEENT: Normocephalic. Atraumatic. No conjunctival congestion or icterus. Patient has dry mucous membranes. NECK: Supple. Trachea midline. CHEST/LUNGS: Clear to auscultated bilaterally. No wheezes crackles or rhonchi. On mechanical ventilation HEART/CARDIOVASCULAR: Tachycardic. S1 and S2 positive. ABDOMEN: Abdomen is soft. Patient has normal bowel sounds. SKIN: There is no rash. Warm and dry. NEURO: Sedated, moves all extremities, [id number] MUSCULOSKELETAL: No joint effusion or tenderness. EXTRIMITY: No edema, no cyanosis or clubbing. PSYCH: co-operative Subjective Date of service: 05/07/19 Principal diagnosis: Ac hypoxemic resp failure; Ac met. encephalopathy; Un- differentiated shock Interval history: Patient seen and examined off vent, off pressores, discussed with patient and his Son at bedside Passed swallow eval this am Objective - Constitutional Vitals: Vital Signs - 12hr 05/07/19 05/07/19 05:48 09:34 Temperature 99.0 F Pulse Rate 99 H Respiratory 18 Rate Blood Pressure 107/63 O2 Sat by Pulse 96 96 Oximetry - Labs CBC & Chem 7: 05/02/19 12:05 05/08/19 04:38 Labs: Abnormal lab results 05/06/19 05/06/19 05/07/19 Range/Units 17:22 23:38 05:42 Potassium 3.3 L (3.6-5.0) mmol/L BUN 24 H (9-20) mg/dL Glucose 264 H (75-100) mg/dL POC Glucose 246 H 340 H (70-105) Calcium 7.9 L (8.4-10.2) mg/dL 05/07/19 Range/Units 05:52 Potassium (3.6-5.0) mmol/L BUN (9-20) mg/dL Glucose (75-100) mg/dL POC Glucose 251 H (70-105) Calcium (8.4-10.2) mg/dL
[2019-05-07] MEDS: PEPCID PO SCH ×2 (13:18→22:40)
[2019-05-07] MEDS: HEPARIN SUB-Q SCH ×2 (13:19→22:40)
[2019-05-07] MEDS: ALPHAGAN P 0.15% OU SCH ×2 (13:20→22:41)
[2019-05-07] MEDS: NON-FORMULARY (Dorzolamide Hcl/Timolol Maleat [Dorzolamide-Timolol Eye Drops] 1 DROP) OP SCH ×3 (13:23→22:54)
--- NOTE | 2019-05-07 13:25 | Progress Note ---
Assessment and Plan Patient resting on room air.No acute respiratory distress. O2 saturation 98%. Patients upper lip swollen. Patient febrile. No leukocytosis. - Patient Problems (1) Acute respiratory failure with hypoxia Current Visit: Yes Status: Acute Plan to address problem: Patient extubated. Presently resting on room air. O2 saturation 98% on room air. (2) Acute encephalopathy Current Visit: Yes Status: Acute Plan to address problem: Patient sleeping comforbly at this time. (3) Acute kidney injury Current Visit: Yes Status: Acute Plan to address problem: Management as per nephrology. (4) DKA (diabetic ketoacidoses) Current Visit: Yes Status: Acute Qualifiers: Diabetes mellitus type: type 1 Diabetes mellitus complication detail: with coma Qualified Code(s): E10.11 - Type 1 diabetes mellitus with ketoacidosis with coma Plan to address problem: Improved. Management as per primary care. Subjective Date of service: 05/07/19 Principal diagnosis: Ac hypoxemic resp failure; Ac met. encephalopathy; Un- differentiated shock Interval history: Patient resting on room air.No acute respiratory distress. O2 saturation 98%. Patients upper lip swollen. Patient febrile. No leukocytosis. Objective Vital Signs - 12hr 05/07/19 05/07/19 05/07/19 05:48 09:34 12:16 Temperature 99.0 F 100.0 F H Pulse Rate 99 H 73 Respiratory 18 19 Rate Blood Pressure 107/63 124/80 O2 Sat by Pulse 96 96 98 Oximetry Constitutional: no acute distress, asleep, other (elderly looking M, with upper lip swelling but in no other acute distress) Eyes: non-icteric ENT: oropharynx dry Neck: supple, no lymphadenopathy, no JVD, other (extubated) Effort: normal Ascultation: Bilateral: diminished breath sounds, rhonchi Percussion: Bilateral: not dull Cardiovascular: regular rate and rhythm, other (S1,S2) Gastrointestinal: normoactive bowel sounds, soft, non-tender, non-distended, other (NGT) Integumentary: normal Extremities: no cyanosis, no edema, pulses normal, no ischemia or petechiae Neurologic: non-focal exam (grossly), pupils equal and round, CN II-XII normal, other (very weak) Psychiatric: mood appropriate, other (affect flat) CBC and BMP: 05/02/19 12:05 05/07/19 05:42 ABG, PT/INR, D-dimer: ABG POC ABG pH 7.371 (7.35-7.45) 05/04/19 10:53 ABG pH 7.446 pH Units (7.350-7.450) 05/04/19 04:10 POC ABG pCO2 34.1 (35-45) L 05/04/19 10:53 ABG pCO2 33.2 mm Hg 05/04/19 04:10 POC ABG pO2 157 (80-105) H 05/04/19 10:53 ABG pO2 117.2 mm Hg (80.0-90.0) H 05/04/19 04:10 POC ABG HCO3 19.8 (22-26 mml/L) 05/04/19 10:53 POC ABG Total CO2 21 (23-27mmol/L) 05/04/19 10:53 POC ABG O2 Sat 99 05/04/19 10:53 ABG O2 Saturation 98.3 % (95.0-99.0) 05/04/19 04:10 PT/INR, D-dimer PT 15.4 Sec. (12.2-14.9) H 05/02/19 12:05 INR 1.25 (0.87-1.13) H 05/02/19 12:05 Abnormal lab findings: Abnormal Labs 05/02/19 05/02/19 05/02/19 12:05 12:05 12:05 Hgb 15.3 H MCV 99 H MCHC 29 L RDW 16.9 H Seg Neutrophils % 79.5 H Seg Neutrophils # 8.3 H PT 15.4 H INR 1.25 H APTT 23.9 L POC ABG pH ABG pH POC ABG pCO2 POC ABG pO2 ABG pO2 ABG HCO3 ABG Base Excess ABG Hemoglobin VBG pH Sodium 151 H Potassium Chloride 90.1 L Carbon Dioxide 5 L* BUN 102 H Creatinine 6.4 H Glucose 1330 H* POC Glucose Hemoglobin A1c Lactic Acid Calcium Phosphorus 17.40 H Magnesium 4.90 H AST ALT Ammonia Total Creatine Kinase 329 H Total Protein Albumin 3.4 L 05/02/19 05/02/19 05/02/19 12:05 12:05 12:05 Hgb MCV MCHC RDW Seg Neutrophils % Seg Neutrophils # PT INR APTT POC ABG pH ABG pH POC ABG pCO2 POC ABG pO2 ABG pO2 ABG HCO3 ABG Base Excess ABG Hemoglobin VBG pH 6.982 L* Sodium Potassium Chloride Carbon Dioxide BUN Creatinine Glucose POC Glucose Hemoglobin A1c Lactic Acid 7.60 H* Calcium Phosphorus Magnesium AST ALT Ammonia 125.0 H Total Creatine Kinase Total Protein Albumin 05/02/19 05/02/19 05/02/19 12:09 12:59 13:07 Hgb MCV MCHC RDW Seg Neutrophils % Seg Neutrophils # PT INR APTT POC ABG pH ABG pH POC ABG pCO2 POC ABG pO2 ABG pO2 ABG HCO3 ABG Base Excess ABG Hemoglobin VBG pH Sodium Potassium Chloride Carbon Dioxide BUN Creatinine Glucose POC Glucose > 500 H Hemoglobin A1c Lactic Acid 6.00 H* Calcium Phosphorus 15.50 H Magnesium 4.40 H AST ALT Ammonia Total Creatine Kinase Total Protein Albumin 05/02/19 05/02/19 05/02/19 13:07 13:50 14:28 Hgb MCV MCHC RDW Seg Neutrophils % Seg Neutrophils # PT INR APTT POC ABG pH 7.075 L ABG pH POC ABG pCO2 POC ABG pO2 295 H ABG pO2 ABG HCO3 ABG Base Excess ABG Hemoglobin VBG pH Sodium 150 H 150 H Potassium 5.3 H Chloride 93.2 L 95.0 L Carbon Dioxide 6 L* 4 L* BUN 98 H 99 H Creatinine 6.3 H 6.4 H Glucose 1264 H* 1271 H* POC Glucose Hemoglobin A1c Lactic Acid Calcium 8.3 L 7.8 L Phosphorus Magnesium AST ALT Ammonia Total Creatine Kinase Total Protein Albumin 05/02/19 05/02/19 05/02/19 14:28 15:22 16:20 Hgb MCV MCHC RDW Seg Neutrophils % Seg Neutrophils # PT INR APTT POC ABG pH ABG pH POC ABG pCO2 POC ABG pO2 ABG pO2 ABG HCO3 ABG Base Excess ABG Hemoglobin VBG pH Sodium Potassium Chloride Carbon Dioxide BUN Creatinine Glucose POC Glucose > 500 H Hemoglobin A1c Lactic Acid 4.10 H* 4.40 H* Calcium Phosphorus Magnesium AST ALT Ammonia Total Creatine Kinase Total Protein Albumin 05/02/19 05/02/19 05/02/19 17:13 17:19 17:19 Hgb MCV MCHC RDW Seg Neutrophils % Seg Neutrophils # PT INR APTT POC ABG pH ABG pH POC ABG pCO2 POC ABG pO2 ABG pO2 ABG HCO3 ABG Base Excess ABG Hemoglobin VBG pH Sodium 154 H 154 H Potassium Chloride Carbon Dioxide 6 L* 6 L* BUN 95 H 98 H Creatinine 6.6 H 6.5 H Glucose 1021 H* 1021 H* POC Glucose > 500 H Hemoglobin A1c Lactic Acid Calcium 6.8 L 6.8 L Phosphorus Magnesium AST ALT Ammonia Total Creatine Kinase Total Protein Albumin 05/02/19 05/02/19 05/02/19 17:19 17:19 17:19 Hgb MCV MCHC RDW Seg Neutrophils % Seg Neutrophils # PT INR APTT POC ABG pH ABG pH POC ABG pCO2 POC ABG pO2 ABG pO2 ABG HCO3 ABG Base Excess ABG Hemoglobin VBG pH Sodium 155 H Potassium Chloride Carbon Dioxide 6 L* BUN 95 H Creatinine 6.6 H Glucose 1021 H* POC Glucose Hemoglobin A1c 12.9 H Lactic Acid 2.70 H* Calcium 6.9 L Phosphorus 10.90 H D Magnesium 3.70 H AST ALT Ammonia Total Creatine Kinase Total Protein Albumin 05/02/19 05/02/19 05/02/19 17:19 18:36 19:00 Hgb MCV MCHC RDW Seg Neutrophils % Seg Neutrophils # PT INR APTT POC ABG pH ABG pH POC ABG pCO2 POC ABG pO2 ABG pO2 ABG HCO3 ABG Base Excess ABG Hemoglobin VBG pH Sodium 153 H 154 H Potassium Chloride 107.7 H Carbon Dioxide 6 L* 8 L* BUN 96 H 95 H Creatinine 6.5 H 6.6 H Glucose 1018 H* 884 H* POC Glucose > 500 H Hemoglobin A1c Lactic Acid Calcium 6.8 L 6.7 L Phosphorus Magnesium AST ALT Ammonia Total Creatine Kinase Total Protein Albumin 05/02/19 05/02/19 05/02/19 20:02 21:08 21:20 Hgb MCV MCHC RDW Seg Neutrophils % Seg Neutrophils # PT INR APTT POC ABG pH ABG pH POC ABG pCO2 POC ABG pO2 ABG pO2 ABG HCO3 ABG Base Excess ABG Hemoglobin VBG pH Sodium Potassium Chloride Carbon Dioxide BUN Creatinine Glucose 708 H* POC Glucose > 500 H > 500 H Hemoglobin A1c Lactic Acid Calcium Phosphorus Magnesium AST ALT Ammonia Total Creatine Kinase Total Protein Albumin 05/02/19 05/02/19 05/02/19 22:15 22:41 23:13 Hgb MCV MCHC RDW Seg Neutrophils % Seg Neutrophils # PT INR APTT POC ABG pH ABG pH POC ABG pCO2 POC ABG pO2 ABG pO2 ABG HCO3 ABG Base Excess ABG Hemoglobin VBG pH Sodium Potassium Chloride Carbon Dioxide BUN Creatinine Glucose 600 H* POC Glucose > 500 H > 500 H Hemoglobin A1c Lactic Acid Calcium Phosphorus Magnesium AST ALT Ammonia Total Creatine Kinase Total Protein Albumin 05/02/19 05/02/19 05/02/19 23:40 23:55 Unknown Hgb MCV MCHC RDW Seg Neutrophils % Seg Neutrophils # PT INR APTT POC ABG pH ABG pH POC ABG pCO2 POC ABG pO2 ABG pO2 ABG HCO3 ABG Base Excess ABG Hemoglobin VBG pH Sodium 155 H Potassium Chloride 111.7 H Carbon Dioxide 10 L BUN 101 H Creatinine 6.3 H Glucose 544 H* 755 H* POC Glucose > 500 H Hemoglobin A1c Lactic Acid Calcium 6.6 L Phosphorus Magnesium AST ALT Ammonia Total Creatine Kinase Total Protein Albumin 05/02/19 05/02/19 05/03/19 Unknown Unknown 01:42 Hgb MCV MCHC RDW Seg Neutrophils % Seg Neutrophils # PT INR APTT POC ABG pH ABG pH POC ABG pCO2 POC ABG pO2 ABG pO2 ABG HCO3 ABG Base Excess ABG Hemoglobin VBG pH Sodium Potassium Chloride Carbon Dioxide BUN Creatinine Glucose 783 H* POC Glucose 484 H Hemoglobin A1c Lactic Acid 2.60 H* Calcium Phosphorus Magnesium AST ALT Ammonia Total Creatine Kinase Total Protein Albumin 05/03/19 05/03/19 05/03/19 02:39 03:45 05:05 Hgb MCV MCHC RDW Seg Neutrophils % Seg Neutrophils # PT INR APTT POC ABG pH ABG pH POC ABG pCO2 POC ABG pO2 ABG pO2 ABG HCO3 ABG Base Excess ABG Hemoglobin VBG pH Sodium Potassium Chloride Carbon Dioxide BUN Creatinine Glucose POC Glucose 358 H 329 H 324 H Hemoglobin A1c Lactic Acid Calcium Phosphorus Magnesium AST ALT Ammonia Total Creatine Kinase Total Protein Albumin 05/03/19 05/03/19 05/03/19 05:20 05:31 06:36 Hgb MCV MCHC RDW Seg Neutrophils % Seg Neutrophils # PT INR APTT POC ABG pH ABG pH POC ABG pCO2 POC ABG pO2 ABG pO2 ABG HCO3 ABG Base Excess ABG Hemoglobin VBG pH Sodium 162 H* Potassium 3.2 L Chloride 124.9 H Carbon Dioxide 18 L D BUN 87 H Creatinine 5.2 H Glucose 316 H POC Glucose 324 H 277 H Hemoglobin A1c Lactic Acid Calcium 7.1 L Phosphorus Magnesium AST ALT Ammonia Total Creatine Kinase Total Protein Albumin 05/03/19 05/03/19 05/03/19 07:58 07:59 07:59 Hgb MCV MCHC RDW Seg Neutrophils % Seg Neutrophils # PT INR APTT POC ABG pH ABG pH POC ABG pCO2 POC ABG pO2 ABG pO2 ABG HCO3 ABG Base Excess ABG Hemoglobin VBG pH Sodium 165 H* Potassium 2.9 L* Chloride 128.0 H Carbon Dioxide 19 L BUN 80 H Creatinine 4.5 H Glucose 164 H POC Glucose 161 H Hemoglobin A1c Lactic Acid Calcium 7.1 L Phosphorus Magnesium 3.20 H AST ALT Ammonia Total Creatine Kinase Total Protein Albumin 05/03/19 05/03/19 05/03/19 09:14 09:51 10:25 Hgb MCV MCHC RDW Seg Neutrophils % Seg Neutrophils # PT INR APTT POC ABG pH ABG pH POC ABG pCO2 POC ABG pO2 ABG pO2 ABG HCO3 ABG Base Excess ABG Hemoglobin VBG pH Sodium Potassium Chloride Carbon Dioxide BUN Creatinine Glucose POC Glucose 120 H 117 H 111 H Hemoglobin A1c Lactic Acid Calcium Phosphorus Magnesium AST ALT Ammonia Total Creatine Kinase Total Protein Albumin 05/03/19 05/03/19 05/03/19 10:26 13:07 18:31 Hgb MCV MCHC RDW Seg Neutrophils % Seg Neutrophils # PT INR APTT POC ABG pH ABG pH POC ABG pCO2 POC ABG pO2 ABG pO2 146.9 H ABG HCO3 19.6 L ABG Base Excess -4.3 L ABG Hemoglobin 13.8 L VBG pH Sodium 164 H* Potassium 3.4 L Chloride 128.3 H Carbon Dioxide 21 L BUN 71 H Creatinine 3.3 H Glucose POC Glucose 303 H Hemoglobin A1c Lactic Acid Calcium 7.4 L Phosphorus Magnesium AST ALT Ammonia Total Creatine Kinase Total Protein Albumin 05/03/19 05/03/19 05/03/19 20:15 21:18 Unknown Hgb MCV MCHC RDW Seg Neutrophils % Seg Neutrophils # PT INR APTT POC ABG pH ABG pH 7.335 L POC ABG pCO2 POC ABG pO2 ABG pO2 143.0 H ABG HCO3 17.9 L ABG Base Excess -7.0 L ABG Hemoglobin VBG pH Sodium 159 H Potassium 3.3 L Chloride 121.7 H Carbon Dioxide 21 L BUN 62 H Creatinine 2.8 H Glucose 334 H POC Glucose 311 H Hemoglobin A1c Lactic Acid Calcium 7.3 L Phosphorus Magnesium AST ALT Ammonia Total Creatine Kinase Total Protein Albumin 05/04/19 05/04/19 05/04/19 04:10 05:00 05:23 Hgb MCV MCHC RDW Seg Neutrophils % Seg Neutrophils # PT INR APTT POC ABG pH ABG pH POC ABG pCO2 POC ABG pO2 ABG pO2 117.2 H ABG HCO3 ABG Base Excess ABG Hemoglobin VBG pH Sodium 157 H Potassium 2.4 L* D Chloride 117.6 H Carbon Dioxide BUN 53 H Creatinine 2.2 H Glucose 346 H POC Glucose 319 H Hemoglobin A1c Lactic Acid Calcium 7.4 L Phosphorus 1.70 L D Magnesium 2.60 H AST 312 H ALT 74 H Ammonia Total Creatine Kinase Total Protein 5.8 L Albumin 2.9 L 05/04/19 05/04/19 05/04/19 10:53 11:53 12:17 Hgb MCV MCHC RDW Seg Neutrophils % Seg Neutrophils # PT INR APTT POC ABG pH ABG pH POC ABG pCO2 34.1 L POC ABG pO2 157 H ABG pO2 ABG HCO3 ABG Base Excess ABG Hemoglobin VBG pH Sodium 154 H Potassium 2.8 L* Chloride 114.4 H Carbon Dioxide BUN 44 H Creatinine 1.9 H Glucose 448 H POC Glucose 443 H Hemoglobin A1c Lactic Acid Calcium 7.4 L Phosphorus Magnesium AST ALT Ammonia Total Creatine Kinase Total Protein Albumin 05/04/19 05/04/19 05/04/19 17:44 17:48 19:30 Hgb MCV MCHC RDW Seg Neutrophils % Seg Neutrophils # PT INR APTT POC ABG pH ABG pH POC ABG pCO2 POC ABG pO2 ABG pO2 ABG HCO3 ABG Base Excess ABG Hemoglobin VBG pH Sodium 154 H Potassium Chloride 115.5 H Carbon Dioxide BUN 39 H Creatinine 1.6 H Glucose 376 H POC Glucose 383 H 372 H Hemoglobin A1c Lactic Acid Calcium 7.6 L Phosphorus Magnesium AST ALT Ammonia Total Creatine Kinase Total Protein Albumin 05/04/19 05/04/19 05/04/19 20:16 20:42 21:50 Hgb MCV MCHC RDW Seg Neutrophils % Seg Neutrophils # PT INR APTT POC ABG pH ABG pH POC ABG pCO2 POC ABG pO2 ABG pO2 ABG HCO3 ABG Base Excess ABG Hemoglobin VBG pH Sodium Potassium Chloride Carbon Dioxide BUN Creatinine Glucose POC Glucose 301 H 218 H Hemoglobin A1c Lactic Acid Calcium Phosphorus 1.30 L D Magnesium 2.40 H AST ALT Ammonia Total Creatine Kinase Total Protein Albumin 05/04/19 05/04/19 05/05/19 22:49 23:35 00:51 Hgb MCV MCHC RDW Seg Neutrophils % Seg Neutrophils # PT INR APTT POC ABG pH ABG pH POC ABG pCO2 POC ABG pO2 ABG pO2 ABG HCO3 ABG Base Excess ABG Hemoglobin VBG pH Sodium Potassium Chloride Carbon Dioxide BUN Creatinine Glucose POC Glucose 194 H 154 H 143 H Hemoglobin A1c Lactic Acid Calcium Phosphorus Magnesium AST ALT Ammonia Total Creatine Kinase Total Protein Albumin 05/05/19 05/05/19 05/05/19 01:09 01:41 02:59 Hgb MCV MCHC RDW Seg Neutrophils % Seg Neutrophils # PT INR APTT POC ABG pH ABG pH POC ABG pCO2 POC ABG pO2 ABG pO2 ABG HCO3 ABG Base Excess ABG Hemoglobin VBG pH Sodium 151 H Potassium 2.7 L* D Chloride 109.8 H Carbon Dioxide BUN 28 H Creatinine Glucose 166 H POC Glucose 180 H 174 H Hemoglobin A1c Lactic Acid Calcium 7.6 L Phosphorus Magnesium AST ALT Ammonia Total Creatine Kinase Total Protein Albumin 05/05/19 05/05/19 05/05/19 03:52 04:54 05:47 Hgb MCV MCHC RDW Seg Neutrophils % Seg Neutrophils # PT INR APTT POC ABG pH ABG pH POC ABG pCO2 POC ABG pO2 ABG pO2 ABG HCO3 ABG Base Excess ABG Hemoglobin VBG pH Sodium Potassium Chloride Carbon Dioxide BUN Creatinine Glucose POC Glucose 180 H 192 H 172 H Hemoglobin A1c Lactic Acid Calcium Phosphorus Magnesium AST ALT Ammonia Total Creatine Kinase Total Protein Albumin 05/05/19 05/05/19 05/05/19 06:45 06:59 07:38 Hgb MCV MCHC RDW Seg Neutrophils % Seg Neutrophils # PT INR APTT POC ABG pH ABG pH POC ABG pCO2 POC ABG pO2 ABG pO2 ABG HCO3 ABG Base Excess ABG Hemoglobin VBG pH Sodium Potassium Chloride Carbon Dioxide BUN Creatinine Glucose POC Glucose 183 H 202 H Hemoglobin A1c Lactic Acid Calcium Phosphorus 1.60 L D Magnesium AST ALT Ammonia Total Creatine Kinase Total Protein Albumin 05/05/19 05/05/19 05/05/19 08:40 09:40 10:45 Hgb MCV MCHC RDW Seg Neutrophils % Seg Neutrophils # PT INR APTT POC ABG pH ABG pH POC ABG pCO2 POC ABG pO2 ABG pO2 ABG HCO3 ABG Base Excess ABG Hemoglobin VBG pH Sodium Potassium Chloride Carbon Dioxide BUN Creatinine Glucose POC Glucose 204 H 220 H 201 H Hemoglobin A1c Lactic Acid Calcium Phosphorus Magnesium AST ALT Ammonia Total Creatine Kinase Total Protein Albumin 05/05/19 05/05/19 05/05/19 11:45 12:26 12:45 Hgb MCV MCHC RDW Seg Neutrophils % Seg Neutrophils # PT INR APTT POC ABG pH ABG pH POC ABG pCO2 POC ABG pO2 ABG pO2 ABG HCO3 ABG Base Excess ABG Hemoglobin VBG pH Sodium 149 H Potassium 3.0 L Chloride Carbon Dioxide 31 H BUN 24 H Creatinine Glucose 151 H POC Glucose 197 H 188 H Hemoglobin A1c Lactic Acid Calcium 7.4 L Phosphorus Magnesium AST ALT Ammonia Total Creatine Kinase Total Protein Albumin 05/05/19 05/05/19 05/05/19 13:34 14:34 15:49 Hgb MCV MCHC RDW Seg Neutrophils % Seg Neutrophils # PT INR APTT POC ABG pH ABG pH POC ABG pCO2 POC ABG pO2 ABG pO2 ABG HCO3 ABG Base Excess ABG Hemoglobin VBG pH Sodium Potassium Chloride Carbon Dioxide BUN Creatinine Glucose POC Glucose 192 H 163 H 154 H Hemoglobin A1c Lactic Acid Calcium Phosphorus Magnesium AST ALT Ammonia Total Creatine Kinase Total Protein Albumin 05/05/19 05/05/19 05/05/19 16:51 17:39 19:56 Hgb MCV MCHC RDW Seg Neutrophils % Seg Neutrophils # PT INR APTT POC ABG pH ABG pH POC ABG pCO2 POC ABG pO2 ABG pO2 ABG HCO3 ABG Base Excess ABG Hemoglobin VBG pH Sodium Potassium Chloride Carbon Dioxide BUN Creatinine Glucose POC Glucose 203 H 223 H 298 H Hemoglobin A1c Lactic Acid Calcium Phosphorus Magnesium AST ALT Ammonia Total Creatine Kinase Total Protein Albumin 05/05/19 05/05/19 05/06/19 22:34 23:35 02:07 Hgb MCV MCHC RDW Seg Neutrophils % Seg Neutrophils # PT INR APTT POC ABG pH ABG pH POC ABG pCO2 POC ABG pO2 ABG pO2 ABG HCO3 ABG Base Excess ABG Hemoglobin VBG pH Sodium Potassium Chloride Carbon Dioxide BUN Creatinine Glucose POC Glucose 331 H 333 H 282 H Hemoglobin A1c Lactic Acid Calcium Phosphorus Magnesium AST ALT Ammonia Total Creatine Kinase Total Protein Albumin 05/06/19 05/06/19 05/06/19 04:15 05:10 05:54 Hgb MCV MCHC RDW Seg Neutrophils % Seg Neutrophils # PT INR APTT POC ABG pH ABG pH POC ABG pCO2 POC ABG pO2 ABG pO2 ABG HCO3 ABG Base Excess ABG Hemoglobin VBG pH Sodium Potassium 3.2 L Chloride Carbon Dioxide BUN 21 H Creatinine Glucose 191 H POC Glucose 210 H 199 H Hemoglobin A1c Lactic Acid Calcium 7.4 L Phosphorus Magnesium AST ALT Ammonia Total Creatine Kinase Total Protein Albumin 05/06/19 05/06/19 05/06/19 06:09 06:09 11:39 Hgb MCV MCHC RDW Seg Neutrophils % Seg Neutrophils # PT INR APTT POC ABG pH ABG pH POC ABG pCO2 POC ABG pO2 ABG pO2 ABG HCO3 ABG Base Excess ABG Hemoglobin VBG pH Sodium Potassium 2.8 L* Chloride Carbon Dioxide BUN 21 H Creatinine Glucose 182 H POC Glucose 228 H Hemoglobin A1c Lactic Acid Calcium 7.4 L Phosphorus 1.50 L Magnesium AST ALT Ammonia Total Creatine Kinase Total Protein Albumin 05/06/19 05/06/19 05/07/19 17:22 23:38 05:42 Hgb MCV MCHC RDW Seg Neutrophils % Seg Neutrophils # PT INR APTT POC ABG pH ABG pH POC ABG pCO2 POC ABG pO2 ABG pO2 ABG HCO3 ABG Base Excess ABG Hemoglobin VBG pH Sodium Potassium 3.3 L Chloride Carbon Dioxide BUN 24 H Creatinine Glucose 264 H POC Glucose 246 H 340 H Hemoglobin A1c Lactic Acid Calcium 7.9 L Phosphorus Magnesium AST ALT Ammonia Total Creatine Kinase Total Protein Albumin 05/07/19 05/07/19 05:52 12:47 Hgb MCV MCHC RDW Seg Neutrophils % Seg Neutrophils # PT INR APTT POC ABG pH ABG pH POC ABG pCO2 POC ABG pO2 ABG pO2 ABG HCO3 ABG Base Excess ABG Hemoglobin VBG pH Sodium Potassium Chloride Carbon Dioxide BUN Creatinine Glucose POC Glucose 251 H 213 H Hemoglobin A1c Lactic Acid Calcium Phosphorus Magnesium AST ALT Ammonia Total Creatine Kinase Total Protein Albumin Chest x-ray: report reviewed (Reported left subsegmental atelectasis improved.), image reviewed Allied health notes reviewed: nursing
[2019-05-07] MEDS: NORVASC PO SCH (13:29)
[2019-05-07] MEDS: K-DUR PO SCH (13:29)
[2019-05-07] MEDS: SODIUM CHLORIDE FLUSH SYRINGE 10 ML IV SCH ×2 (13:31→22:42)
[2019-05-07] MEDS: HALFPRIN EC PO SCH (15:18)
[2019-05-07] MEDS: GLUCOPHAGE PO SCH (18:25)
[2019-05-08] MEDS: HumuLIN R SUB-Q SCH ×5 (00:27→23:16)
[2019-05-08 05:24] LABS: Alanine Aminotransferase 87 units/L (7-56); Albumin 2.3 g/dL (3.9-5); BUN/Creatinine Ratio 20; Blood Urea Nitrogen 18 mg/dL (9-20); Calcium 7.8 mg/dL (8.4-10.2); Hemolysis Index 4
[2019-05-08 05:26] LABS: Bilirubin,Direct < 0.2 mg/dL (0-0.2)
[2019-05-08] MEDS: GLUCOPHAGE PO SCH ×2 (09:15→18:21)
--- NOTE | 2019-05-08 10:31 | Consultation ---
History of Present Illness Consult date: 05/08/19 History of present illness: Impression Compensated Systolic CHF, CMP EF 35-40% Overall poor candidate for ischemic w/u at this time would cont medical therapy monitor progress and reassess at later date. optimize medical therapy start BB and ARB. Past History Past Medical History: diabetes, hypertension, other Past Surgical History: No surgical history, Other (Unable to obtain due to patient's mental status) Social history: other (Unable to obtain due to patient's mental status) Family history: other (Unable to obtain due to patient's mental status) Medications and Allergies Allergies Allergy/AdvReac Type Severity Reaction Status Date / Time No Known Allergies Allergy Unverified 08/06/13 08:33 Home Medications Medication Instructions Recorded Confirmed Last Taken Type Lisinopril [Zestril TAB] 40 mg PO QDAY 05/02/19 05/02/19 Unknown History glipiZIDE [Glucotrol] 10 mg PO QDAY 05/02/19 05/02/19 Unknown History hydroCHLOROthiazide [HCTZ] 25 mg PO QDAY 05/02/19 05/02/19 Unknown History metFORMIN [Glucophage] 500 mg PO BID 05/02/19 05/02/19 Unknown History Active Meds: Active Medications Acetaminophen (Tylenol) 650 mg PO Q4H PRN PRN Reason: Pain MILD(1-3)/Fever >100.5/MEZA Albuterol (Proventil) 2.5 mg IH Q6HRT PRN PRN Reason: Shortness Of Breath Amlodipine Besylate (Norvasc) 10 mg PO DAILY [facility] Last Admin: 05/07/19 13:29 Dose: 10 mg Documented by: Lipase/Protease/Amylase ([place] 10,500 Unit) 1 each FEEDTUBE PRN PRN PRN Reason: For Clogged Feeding Tube Aspirin (Halfprin Ec) 81 mg PO QDAY [facility] Last Admin: 05/07/19 15:18 Dose: 81 mg Documented by: Atorvastatin Calcium (Lipitor) 40 mg PO QHS [facility] Last Admin: 05/07/19 22:40 Dose: 40 mg Documented by: Brimonidine Tartrate (Alphagan P 0.15%) 1 drops OU BID [facility] Last Admin: 05/07/19 22:41 Dose: 1 drops Documented by: Dextrose (D50w (25gm) Syringe) 0 ml IV PRN PRN PRN Reason: Hypoglycemia Famotidine (Pepcid) 20 mg PO BID [facility] Last Admin: 05/07/19 22:40 Dose: 20 mg Documented by: Heparin Sodium (Porcine) (Heparin) 5,000 unit SUB-Q BID [facility] Last Admin: 05/07/19 22:40 Dose: 5,000 unit Documented by: Hydrophilic Ointment (Vaseline Lip Therapy) 1 applic TP Q2HR PRN PRN Reason: Dry Lips Insulin Human NPH (Humulin N) 25 unit SUB-Q BIDDIAB [facility] Last Admin: 05/08/19 09:12 Dose: 25 unit Documented by: Insulin Human Regular (Humulin R) 0 units SUB-Q [facility]; Protocol Last Admin: 05/08/19 09:12 Dose: 3 units Documented by: Metformin HCl (Glucophage) 1,000 mg PO BIDDIAB [facility] Last Admin: 05/08/19 09:15 Dose: 1,000 mg Documented by: Miscellaneous Medication (Dorzolamide Hcl/Timolol Maleat [Dorzolamide-Timolol Eye Drops]) 1 drop OP BID [facility] Last Admin: 05/07/19 22:42 Dose: 1 drop Documented by: Multi-Ingred Cream/Lotion/Oil/Oint (Artificial Tears Ophth Oint) 1 applic OU Q4HR PRN PRN Reason: Dry Eye(s) Ondansetron HCl (Zofran) 4 mg IV Q8H PRN PRN Reason: Nausea And Vomiting Potassium Chloride (K-Dur) 40 meq PO QDAY [facility] Last Admin: 05/07/19 13:29 Dose: 40 meq Documented by: Simple Syrup (Simple Syrup) 15 ml FEEDTUBE PRN PRN PRN Reason: Hypoglycemia Simple Syrup (Simple Syrup) 30 ml FEEDTUBE PRN PRN PRN Reason: Hypoglycemia Sodium Bicarbonate (Sodium Bicarbonate) 325 mg FEEDTUBE PRN PRN PRN Reason: For Clogged Feeding Tube Sodium Chloride (Sodium Chloride Flush Syringe 10 Ml) 10 ml IV BID [facility] Last Admin: 05/07/19 22:42 Dose: 10 ml Documented by: Sodium Chloride (Sodium Chloride Flush Syringe 10 Ml) 10 ml IV PRN PRN PRN Reason: LINE FLUSH Review of Systems All systems: negative (stated in impression) Physical Examination Vital Signs Pulse Resp BP Pulse Ox 99 H 14 169/123 100 05/02/19 11:56 05/02/19 11:56 05/02/19 11:56 05/02/19 11:56 General appearance: no acute distress Neck: Positive: neck supple. Negative: JVD/HJR Cardiac: Positive: Reg Rate and Rhythm, S1/S2 Lungs: Positive: clear to auscultation Abdomen: Positive: Soft. Negative: Pulsations/Bruits Extremities: Present: normal. Absent: edema Results 05/02/19 12:05 05/08/19 04:38 Cardiac Enzymes 05/08/19 Range/Units 04:38 AST 109 H (5-40) units/L Comprehensive Metabolic Panel 05/08/19 Range/Units 04:38 Sodium 146 H (137-145) mmol/L Potassium 3.0 L (3.6-5.0) mmol/L Chloride 105.0 (98-107) mmol/L Carbon Dioxide 27 (22-30) mmol/L BUN 18 (9-20) mg/dL Creatinine 0.9 (0.8-1.5) mg/dL Glucose 147 H (75-100) mg/dL Calcium 7.8 L (8.4-10.2) mg/dL Direct Bilirubin < 0.2 (0-0.2) mg/dL Indirect Bilirubin 0.2 mg/dL AST 109 H (5-40) units/L ALT 87 H (7-56) units/L Alkaline Phosphatase 116 (35-129) units/L Total Protein 5.8 L (6.3-8.2) g/dL Albumin 2.3 L (3.9-5) g/dL
[2019-05-08] MEDS: NON-FORMULARY (Dorzolamide Hcl/Timolol Maleat [Dorzolamide-Timolol Eye Drops] 1 DROP) OP SCH ×2 (12:49→23:17)
[2019-05-08] MEDS: ALPHAGAN P 0.15% OU SCH ×2 (12:52→23:18)
[2019-05-08] MEDS: HALFPRIN EC PO SCH (12:54)
[2019-05-08] MEDS: HEPARIN SUB-Q SCH ×2 (12:54→23:16)
[2019-05-08] MEDS: K-DUR PO SCH (12:54)
[2019-05-08] MEDS: PEPCID PO SCH ×2 (12:54→23:16)
[2019-05-08] MEDS: NORVASC PO SCH (12:56)
[2019-05-08] MEDS: SODIUM CHLORIDE FLUSH SYRINGE 10 ML IV SCH ×2 (12:57→23:18)
--- NOTE | 2019-05-08 14:31 | Progress Note ---
Assessment and Plan /Acute diarrhea, start on flagyl, stool Cx / Acute metabolic encephalopathy, resolved - from [facility], hyperglycemia and hypernatremia - CT head unremarkable, cont to monitor clinically / Acute respiratory failure with hypoxia Patient was intubated for AMS and hypoxia CC consulted, weaned off vent - extubation 05/04/19 Continue Duonebs round the clock, Albuterol neb treatments prn / HHNS - hyperosmolar hyperglycemic non-ketotic syndrome Patient has a blood glucose level around 1330 with Severe metabolic acidosis and Minimal ketones in urine In the ER Insulin drip started, IV fluids about 3 L of normal saline bolus given then continued with D5W followed by 1/4NS for hypernatremia, BG and Na level improved, then was 1/2NS and free water with TF as failed swallow eval, started on subqu insulin - adjust dose as needed On mechanical soft diet / Hypovlomic shock vs cardiogenic shock, resolved - Started on Levophed and vasopressin following admission - now weaned off - septic shock unlikely as negative Cx, d/beverley iv abx, 2d echo showing EF 35-40% /New onset CHF, Ef 35-40% - stable w/o compensation - cardiology consulted if needed any ischemic workup before discharge - recommended medical Mx /Severe Hypernatremia , resolved - Na was upto 164 s/p on D5W and 1/4NS Cont to monitor BMP daily, 1/2 NS @30ml/hr / Metabolic acidosis Severe due to reclining renal function vs possible sepsis IV sodium bicarbonatex2, monitor bmp / h/o Hypertension Hold antihypertensives / Acute kidney injury due to ATN Secondary to severe dehydration Nephrology consult requested, renal function improved IV fluids for now, monitor renal function, / Hypocalcemia, s/p Calcium gluconate /Hyperkalemia on admission now persistent Hypokalemia - POA, replete as needed, cont to monitor BMP / Hyperammonemia, resolved s/p Lactulose 30 cc with feeding tube / DVT prophylaxis On heparin and GI prophylaxis Disposition: PT recommended Acute rehab Brief History: 59-year-old -[place] male with history of diabetes and hypertension brought in for altered sensorium and decreased responsiveness. Patient is currently residing with his sister who found him poorly responsive in the morning and EMS was called. EMS gave of wall fluid bolus and brought the patient for further evaluation to the emergency room at [facility] [place]. In the emergency room because of the decreased responsiveness and decreased breathing--- patient was intubated. His BG was 1330, Cr 6.4, Na of 154. He was placed on pressores, insulin drip, aggressive iv fluid hydration, abx and admitted to ICU for further Mx. Hospitalist physical: GENERAL: well-developed and well-nourished -[place] male lying on bed, HEENT: Normocephalic. Atraumatic. No conjunctival congestion or icterus. Patient has dry mucous membranes. + cataract both eyes NECK: Supple. Trachea midline. CHEST/LUNGS: Clear to auscultated bilaterally. No wheezes crackles or rhonchi. On mechanical ventilation HEART/CARDIOVASCULAR: Tachycardic. S1 and S2 positive. ABDOMEN: Abdomen is soft. Patient has normal bowel sounds. SKIN: There is no rash. Warm and dry. NEURO: moves all extremities, MUSCULOSKELETAL: No joint effusion or tenderness. EXTRIMITY: No edema, no cyanosis or clubbing. PSYCH: co-operative Subjective Date of service: 05/08/19 Principal diagnosis: Ac hypoxemic resp failure; Ac met. encephalopathy; Un-differentiated shock Interval history: Patient seen and examined Having loose stool discussed with patient and his Son at bedside Objective - Constitutional Vitals: Vital Signs - 12hr 05/08/19 05/08/19 05/08/19 05:10 11:48 12:56 Temperature 98.5 F 99.9 F H Pulse Rate 99 H 102 H 102 H Respiratory 20 16 Rate Blood Pressure 119/77 119/76 119/76 O2 Sat by Pulse 94 97 Oximetry - Labs CBC & Chem 7: 05/02/19 12:05 05/08/19 04:38 Labs: Abnormal lab results 05/07/19 05/07/19 05/08/19 Range/Units 17:16 21:23 04:38 Sodium 146 H (137-145) mmol/L Potassium 3.0 L (3.6-5.0) mmol/L Glucose 147 H (75-100) mg/dL POC Glucose 258 H 204 H (70-105) Calcium 7.8 L (8.4-10.2) mg/dL Phosphorus 2.00 L D (2.5-4.5) mg/dL AST 109 H (5-40) units/L ALT 87 H (7-56) units/L Total Protein 5.8 L (6.3-8.2) g/dL Albumin 2.3 L (3.9-5) g/dL 05/08/19 05/08/19 Range/Units 07:59 11:53 Sodium (137-145) mmol/L Potassium (3.6-5.0) mmol/L Glucose (75-100) mg/dL POC Glucose 161 H 170 H (70-105) Calcium (8.4-10.2) mg/dL Phosphorus (2.5-4.5) mg/dL AST (5-40) units/L ALT (7-56) units/L Total Protein (6.3-8.2) g/dL Albumin (3.9-5) g/dL
[2019-05-08] MEDS: FLAGYL PO SCH ×2 (15:52→23:16)
--- NOTE | 2019-05-08 16:21 | Progress Note ---
Assessment and Plan - Patient Problems (1) Acute kidney injury with acute tubular necrosis Current Visit: Yes Status: Acute Plan to address problem: Acute kidney injury secondary to hypotension/volume depletion and possible septic shock. Kidney function has improved back to normal. Follow up electrolytes and renal function. (2) Hypokalemia Current Visit: Yes Status: Acute Plan to address problem: Potassium is still low. Supplement potassium and follow-up level (3) Hypophosphatemia Current Visit: Yes Status: Acute Plan to address problem: Phosphorus is now normal (4) Hypernatremia Current Visit: Yes Status: Acute Plan to address problem: Sodium had improved back to normal but is now a bit high. Increase free water replacement. Follow-up sodium. (5) Septic shock Current Visit: Yes Status: Acute Plan to address problem: Resolving. Cultures negative. Patient on IV Cefepime. Continue antibiotics doses appropriately adjusted to degree of renal function. Subjective Date of service: 05/08/19 Principal diagnosis: Ac hypoxemic resp failure; Ac met. encephalopathy; Un- differentiated shock Interval history: Patient seen lying in bed. He is lethargic. Opens eyes briefly and answers a few questions. Denies any pain, shortness of breath, nausea or vomiting. Objective - Exam Narrative Exam: Middle-aged -[place] male lying in bed in no acute distress HEENT: NCAT, pink oral mucous membrane, drooling; Neck: Supple, no venous distention CVS: S1S2 RRR with no murmur, rub or gallop Chest: Clear to auscultation Abdomen: Protuberant, soft, nontender, no organomegaly, bowel sounds are present Extremities: No edema Neuro: Awake, lethargic, following simple commands - Vital Signs Vital signs: Vital Signs - 12hr 05/08/19 05/08/19 05/08/19 05:10 11:48 12:56 Temperature 98.5 F 99.9 F H Pulse Rate 99 H 102 H 102 H Respiratory 20 16 Rate Blood Pressure 119/77 119/76 119/76 O2 Sat by Pulse 94 97 Oximetry - Lab 05/02/19 12:05 05/08/19 04:38 Most recent lab results ABG pH 7.446 pH Units (7.350-7.450) 05/04/19 04:10 ABG pCO2 33.2 mm Hg 05/04/19 04:10 ABG pO2 117.2 mm Hg (80.0-90.0) H 05/04/19 04:10 ABG HCO3 22.3 mmol/L (20.0-26.0) 05/04/19 04:10 ABG O2 Saturation 98.3 % (95.0-99.0) 05/04/19 04:10 Calcium 7.8 mg/dL (8.4-10.2) L 05/08/19 04:38 Phosphorus 2.00 mg/dL (2.5-4.5) L D 05/08/19 04:38 Magnesium 2.20 mg/dL (1.7-2.3) 05/08/19 04:38 Medications & Allergies - Medications Allergies/Adverse Reactions: Allergies No Known Allergies Allergy (Unverified 08/06/13 08:33) Home Medications: Home Medications Medication Instructions Recorded Confirmed Last Taken Type Lisinopril [Zestril TAB] 40 mg PO QDAY 05/02/19 05/02/19 Unknown History glipiZIDE [Glucotrol] 10 mg PO QDAY 05/02/19 05/02/19 Unknown History hydroCHLOROthiazide [HCTZ] 25 mg PO QDAY 05/02/19 05/02/19 Unknown History metFORMIN [Glucophage] 500 mg PO BID 05/02/19 05/02/19 Unknown History Active Medications: Generic Name Dose Route Start Last Admin Trade Name Freq PRN Reason Stop Dose Admin Acetaminophen 650 mg 05/02/19 16:10 Tylenol PO Q4H PRN Pain MILD(1-3)/Fever >100.5/MEZA Albuterol 2.5 mg 05/05/19 13:00 Proventil IH Q6HRT PRN Shortness Of Breath Amlodipine Besylate 10 mg 05/02/19 18:00 05/08/19 12:56 Norvasc PO 10 mg DAILY JENNIFER Administration Lipase/Protease/Amylase 1 each 05/06/19 08:46 Pancredoris Bowie 10,500 Unit FEEDTUBE PRN PRN For Clogged Feeding Tube Aspirin 81 mg 05/07/19 13:00 05/08/19 12:54 Halfprin Ec PO 81 mg QDAY JENNIFER Administration Atorvastatin Calcium 40 mg 05/07/19 22:00 05/07/19 22:40 Lipitor PO 40 mg QHS JENNIFER Administration Brimonidine Tartrate 1 drops 05/04/19 10:00 05/08/19 12:52 Alphagan P 0.15% OU 1 drops BID JENNIFER Administration Carvedilol 3.125 mg 05/08/19 22:00 Coreg PO BID JENNIFER Dextrose 0 ml 05/02/19 16:00 D50w (25gm) Syringe IV PRN PRN Hypoglycemia Famotidine 20 mg 05/05/19 10:00 05/08/19 12:54 Pepcid PO 20 mg BID JENNIFER Administration Heparin Sodium (Porcine) 5,000 unit 05/03/19 22:00 05/08/19 12:54 Heparin SUB-Q 5,000 unit BID JENNIFER Administration Hydrophilic Ointment 1 applic 05/02/19 12:06 Vaseline Lip Therapy TP Q2HR PRN Dry Lips Insulin Human NPH 25 unit 05/06/19 08:00 05/08/19 09:12 Humulin N SUB-Q 25 unit BIDDIAB JENNIFER Administration Insulin Human Regular 0 units 05/07/19 23:00 05/08/19 12:53 Humulin R SUB-Q 3 units ACHS JENNIFER Administration Protocol Losartan Potassium 12.5 mg 05/09/19 10:00 Cozaar PO QDAY JENNIFER Metformin HCl 1,000 mg 05/07/19 17:00 05/08/19 09:15 Glucophage PO 1,000 mg BIDDIAB JENNIFER Administration Metronidazole 500 mg 05/08/19 14:00 05/08/19 15:52 Flagyl PO 500 mg Q8HR JENNIFER Administration Protocol Miscellaneous Medication 1 drop 05/05/19 10:00 05/08/19 12:49 Dorzolamide Hcl/Timolol Maleat [Dorzolamide-Timolol Eye Drops] OP 1 drop BID JENNIFER Administration Multi-Ingred Cream/Lotion/Oil/Oint 1 applic 05/02/19 12:06 Artificial Tears Ophth Oint OU Q4HR PRN Dry Eye(s) Ondansetron HCl 4 mg 05/02/19 16:10 Zofran IV Q8H PRN Nausea And Vomiting Potassium Chloride 40 meq 05/06/19 10:00 05/08/19 12:54 K-Dur PO 40 meq QDAY JENNIFER Administration Simple Syrup 15 ml 05/06/19 08:46 Simple Syrup FEEDTUBE PRN PRN Hypoglycemia Simple Syrup 30 ml 05/06/19 08:46 Simple Syrup FEEDTUBE PRN PRN Hypoglycemia Sodium Bicarbonate 325 mg 05/06/19 08:46 Sodium Bicarbonate FEEDTUBE PRN PRN For Clogged Feeding Tube Sodium Chloride 10 ml 05/02/19 22:00 05/08/19 12:57 Sodium Chloride Flush Syringe 10 Ml IV 10 ml BID JENNIFER Administration Sodium Chloride 10 ml 05/02/19 16:10 Sodium Chloride Flush Syringe 10 Ml IV PRN PRN LINE FLUSH
[2019-05-08] MEDS ORDERED: K-DUR PO ONE (16:23)
--- NOTE | 2019-05-08 18:59 | Progress Note ---
Assessment and Plan Patient sleeping on room air.No acute respiratory distress. O2 saturation 97%. Patients upper lip swelling slightly better today.. Patient febrile. No leukocytosis.. - Patient Problems (1) Acute respiratory failure with hypoxia Current Visit: Yes Status: Acute Plan to address problem: Patient extubated. Presently resting on room air. O2 saturation 97% on room air. (2) Acute encephalopathy Current Visit: Yes Status: Acute Plan to address problem: Patient sleeping comfortably at this time. (3) Acute kidney injury Current Visit: Yes Status: Acute Plan to address problem: Management as per nephrology. (4) DKA (diabetic ketoacidoses) Current Visit: Yes Status: Acute Qualifiers: Diabetes mellitus type: type 1 Diabetes mellitus complication detail: with coma Qualified Code(s): E10.11 - Type 1 diabetes mellitus with ketoacidosis with coma Plan to address problem: Improved. Management as per primary care. Subjective Date of service: 05/08/19 Principal diagnosis: Ac hypoxemic resp failure; Ac met. encephalopathy; Un- differentiated shock Interval history: Patient sleeping on room air.No acute respiratory distress. O2 saturation 97%. Patients upper lip swelling slightly better today.. Patient febrile. No leukocytosis. Objective Vital Signs - 12hr 05/08/19 05/08/19 11:48 12:56 Temperature 99.9 F H Pulse Rate 102 H 102 H Respiratory 16 Rate Blood Pressure 119/76 119/76 O2 Sat by Pulse 97 Oximetry Constitutional: no acute distress, asleep, other (elderly looking M, with upper lip swelling but in no other acute distress) Eyes: non-icteric ENT: oropharynx dry Neck: supple, no lymphadenopathy, no JVD, other (extubated) Effort: normal Ascultation: Bilateral: diminished breath sounds, rhonchi Percussion: Bilateral: not dull Cardiovascular: regular rate and rhythm, other (S1,S2) Gastrointestinal: normoactive bowel sounds, soft, non-tender, non-distended, ot her (NGT) Integumentary: normal Extremities: no cyanosis, no edema, pulses normal, no ischemia or petechiae Neurologic: non-focal exam (grossly), pupils equal and round, CN II-XII normal, other (very weak) Psychiatric: mood appropriate, other (affect flat) CBC and BMP: 05/02/19 12:05 05/08/19 04:38 ABG, PT/INR, D-dimer: ABG POC ABG pH 7.371 (7.35-7.45) 05/04/19 10:53 ABG pH 7.446 pH Units (7.350-7.450) 05/04/19 04:10 POC ABG pCO2 34.1 (35-45) L 05/04/19 10:53 ABG pCO2 33.2 mm Hg 05/04/19 04:10 POC ABG pO2 157 (80-105) H 05/04/19 10:53 ABG pO2 117.2 mm Hg (80.0-90.0) H 05/04/19 04:10 POC ABG HCO3 19.8 (22-26 mml/L) 05/04/19 10:53 POC ABG Total CO2 21 (23-27mmol/L) 05/04/19 10:53 POC ABG O2 Sat 99 05/04/19 10:53 ABG O2 Saturation 98.3 % (95.0-99.0) 05/04/19 04:10 PT/INR, D-dimer PT 15.4 Sec. (12.2-14.9) H 05/02/19 12:05 INR 1.25 (0.87-1.13) H 05/02/19 12:05 Abnormal lab findings: Abnormal Labs 05/02/19 05/02/19 05/02/19 12:05 12:05 12:05 Hgb 15.3 H MCV 99 H MCHC 29 L RDW 16.9 H Seg Neutrophils % 79.5 H Seg Neutrophils # 8.3 H PT 15.4 H INR 1.25 H APTT 23.9 L POC ABG pH ABG pH POC ABG pCO2 POC ABG pO2 ABG pO2 ABG HCO3 ABG Base Excess ABG Hemoglobin VBG pH Sodium 151 H Potassium Chloride 90.1 L Carbon Dioxide 5 L* BUN 102 H Creatinine 6.4 H Glucose 1330 H* POC Glucose Hemoglobin A1c Lactic Acid Calcium Phosphorus 17.40 H Magnesium 4.90 H AST ALT Ammonia Total Creatine Kinase 329 H Total Protein Albumin 3.4 L 05/02/19 05/02/19 05/02/19 12:05 12:05 12:05 Hgb MCV MCHC RDW Seg Neutrophils % Seg Neutrophils # PT INR APTT POC ABG pH ABG pH POC ABG pCO2 POC ABG pO2 ABG pO2 ABG HCO3 ABG Base Excess ABG Hemoglobin VBG pH 6.982 L* Sodium Potassium Chloride Carbon Dioxide BUN Creatinine Glucose POC Glucose Hemoglobin A1c Lactic Acid 7.60 H* Calcium Phosphorus Magnesium AST ALT Ammonia 125.0 H Total Creatine Kinase Total Protein Albumin 05/02/19 05/02/19 05/02/19 12:09 12:59 13:07 Hgb MCV MCHC RDW Seg Neutrophils % Seg Neutrophils # PT INR APTT POC ABG pH ABG pH POC ABG pCO2 POC ABG pO2 ABG pO2 ABG HCO3 ABG Base Excess ABG Hemoglobin VBG pH Sodium Potassium Chloride Carbon Dioxide BUN Creatinine Glucose POC Glucose > 500 H Hemoglobin A1c Lactic Acid 6.00 H* Calcium Phosphorus 15.50 H Magnesium 4.40 H AST ALT Ammonia Total Creatine Kinase Total Protein Albumin 05/02/19 05/02/19 05/02/19 13:07 13:50 14:28 Hgb MCV MCHC RDW Seg Neutrophils % Seg Neutrophils # PT INR APTT POC ABG pH 7.075 L ABG pH POC ABG pCO2 POC ABG pO2 295 H ABG pO2 ABG HCO3 ABG Base Excess ABG Hemoglobin VBG pH Sodium 150 H 150 H Potassium 5.3 H Chloride 93.2 L 95.0 L Carbon Dioxide 6 L* 4 L* BUN 98 H 99 H Creatinine 6.3 H 6.4 H Glucose 1264 H* 1271 H* POC Glucose Hemoglobin A1c Lactic Acid Calcium 8.3 L 7.8 L Phosphorus Magnesium AST ALT Ammonia Total Creatine Kinase Total Protein Albumin 05/02/19 05/02/19 05/02/19 14:28 15:22 16:20 Hgb MCV MCHC RDW Seg Neutrophils % Seg Neutrophils # PT INR APTT POC ABG pH ABG pH POC ABG pCO2 POC ABG pO2 ABG pO2 ABG HCO3 ABG Base Excess ABG Hemoglobin VBG pH Sodium Potassium Chloride Carbon Dioxide BUN Creatinine Glucose POC Glucose > 500 H Hemoglobin A1c Lactic Acid 4.10 H* 4.40 H* Calcium Phosphorus Magnesium AST ALT Ammonia Total Creatine Kinase Total Protein Albumin 05/02/19 05/02/19 05/02/19 17:13 17:19 17:19 Hgb MCV MCHC RDW Seg Neutrophils % Seg Neutrophils # PT INR APTT POC ABG pH ABG pH POC ABG pCO2 POC ABG pO2 ABG pO2 ABG HCO3 ABG Base Excess ABG Hemoglobin VBG pH Sodium 154 H 154 H Potassium Chloride Carbon Dioxide 6 L* 6 L* BUN 95 H 98 H Creatinine 6.6 H 6.5 H Glucose 1021 H* 1021 H* POC Glucose > 500 H Hemoglobin A1c Lactic Acid Calcium 6.8 L 6.8 L Phosphorus Magnesium AST ALT Ammonia Total Creatine Kinase Total Protein Albumin 05/02/19 05/02/19 05/02/19 17:19 17:19 17:19 Hgb MCV MCHC RDW Seg Neutrophils % Seg Neutrophils # PT INR APTT POC ABG pH ABG pH POC ABG pCO2 POC ABG pO2 ABG pO2 ABG HCO3 ABG Base Excess ABG Hemoglobin VBG pH Sodium 155 H Potassium Chloride Carbon Dioxide 6 L* BUN 95 H Creatinine 6.6 H Glucose 1021 H* POC Glucose Hemoglobin A1c 12.9 H Lactic Acid 2.70 H* Calcium 6.9 L Phosphorus 10.90 H D Magnesium 3.70 H AST ALT Ammonia Total Creatine Kinase Total Protein Albumin 05/02/19 05/02/19 05/02/19 17:19 18:36 19:00 Hgb MCV MCHC RDW Seg Neutrophils % Seg Neutrophils # PT INR APTT POC ABG pH ABG pH POC ABG pCO2 POC ABG pO2 ABG pO2 ABG HCO3 ABG Base Excess ABG Hemoglobin VBG pH Sodium 153 H 154 H Potassium Chloride 107.7 H Carbon Dioxide 6 L* 8 L* BUN 96 H 95 H Creatinine 6.5 H 6.6 H Glucose 1018 H* 884 H* POC Glucose > 500 H Hemoglobin A1c Lactic Acid Calcium 6.8 L 6.7 L Phosphorus Magnesium AST ALT Ammonia Total Creatine Kinase Total Protein Albumin 05/02/19 05/02/19 05/02/19 20:02 21:08 21:20 Hgb MCV MCHC RDW Seg Neutrophils % Seg Neutrophils # PT INR APTT POC ABG pH ABG pH POC ABG pCO2 POC ABG pO2 ABG pO2 ABG HCO3 ABG Base Excess ABG Hemoglobin VBG pH Sodium Potassium Chloride Carbon Dioxide BUN Creatinine Glucose 708 H* POC Glucose > 500 H > 500 H Hemoglobin A1c Lactic Acid Calcium Phosphorus Magnesium AST ALT Ammonia Total Creatine Kinase Total Protein Albumin 05/02/19 05/02/19 05/02/19 22:15 22:41 23:13 Hgb MCV MCHC RDW Seg Neutrophils % Seg Neutrophils # PT INR APTT POC ABG pH ABG pH POC ABG pCO2 POC ABG pO2 ABG pO2 ABG HCO3 ABG Base Excess ABG Hemoglobin VBG pH Sodium Potassium Chloride Carbon Dioxide BUN Creatinine Glucose 600 H* POC Glucose > 500 H > 500 H Hemoglobin A1c Lactic Acid Calcium Phosphorus Magnesium AST ALT Ammonia Total Creatine Kinase Total Protein Albumin 05/02/19 05/02/19 05/02/19 23:40 23:55 Unknown Hgb MCV MCHC RDW Seg Neutrophils % Seg Neutrophils # PT INR APTT POC ABG pH ABG pH POC ABG pCO2 POC ABG pO2 ABG pO2 ABG HCO3 ABG Base Excess ABG Hemoglobin VBG pH Sodium 155 H Potassium Chloride 111.7 H Carbon Dioxide 10 L BUN 101 H Creatinine 6.3 H Glucose 544 H* 755 H* POC Glucose > 500 H Hemoglobin A1c Lactic Acid Calcium 6.6 L Phosphorus Magnesium AST ALT Ammonia Total Creatine Kinase Total Protein Albumin 05/02/19 05/02/19 05/03/19 Unknown Unknown 01:42 Hgb MCV MCHC RDW Seg Neutrophils % Seg Neutrophils # PT INR APTT POC ABG pH ABG pH POC ABG pCO2 POC ABG pO2 ABG pO2 ABG HCO3 ABG Base Excess ABG Hemoglobin VBG pH Sodium Potassium Chloride Carbon Dioxide BUN Creatinine Glucose 783 H* POC Glucose 484 H Hemoglobin A1c Lactic Acid 2.60 H* Calcium Phosphorus Magnesium AST ALT Ammonia Total Creatine Kinase Total Protein Albumin 05/03/19 05/03/19 05/03/19 02:39 03:45 05:05 Hgb MCV MCHC RDW Seg Neutrophils % Seg Neutrophils # PT INR APTT POC ABG pH ABG pH POC ABG pCO2 POC ABG pO2 ABG pO2 ABG HCO3 ABG Base Excess ABG Hemoglobin VBG pH Sodium Potassium Chloride Carbon Dioxide BUN Creatinine Glucose POC Glucose 358 H 329 H 324 H Hemoglobin A1c Lactic Acid Calcium Phosphorus Magnesium AST ALT Ammonia Total Creatine Kinase Total Protein Albumin 05/03/19 05/03/19 05/03/19 05:20 05:31 06:36 Hgb MCV MCHC RDW Seg Neutrophils % Seg Neutrophils # PT INR APTT POC ABG pH ABG pH POC ABG pCO2 POC ABG pO2 ABG pO2 ABG HCO3 ABG Base Excess ABG Hemoglobin VBG pH Sodium 162 H* Potassium 3.2 L Chloride 124.9 H Carbon Dioxide 18 L D BUN 87 H Creatinine 5.2 H Glucose 316 H POC Glucose 324 H 277 H Hemoglobin A1c Lactic Acid Calcium 7.1 L Phosphorus Magnesium AST ALT Ammonia Total Creatine Kinase Total Protein Albumin 05/03/19 05/03/19 05/03/19 07:58 07:59 07:59 Hgb MCV MCHC RDW Seg Neutrophils % Seg Neutrophils # PT INR APTT POC ABG pH ABG pH POC ABG pCO2 POC ABG pO2 ABG pO2 ABG HCO3 ABG Base Excess ABG Hemoglobin VBG pH Sodium 165 H* Potassium 2.9 L* Chloride 128.0 H Carbon Dioxide 19 L BUN 80 H Creatinine 4.5 H Glucose 164 H POC Glucose 161 H Hemoglobin A1c Lactic Acid Calcium 7.1 L Phosphorus Magnesium 3.20 H AST ALT Ammonia Total Creatine Kinase Total Protein Albumin 05/03/19 05/03/19 05/03/19 09:14 09:51 10:25 Hgb MCV MCHC RDW Seg Neutrophils % Seg Neutrophils # PT INR APTT POC ABG pH ABG pH POC ABG pCO2 POC ABG pO2 ABG pO2 ABG HCO3 ABG Base Excess ABG Hemoglobin VBG pH Sodium Potassium Chloride Carbon Dioxide BUN Creatinine Glucose POC Glucose 120 H 117 H 111 H Hemoglobin A1c Lactic Acid Calcium Phosphorus Magnesium AST ALT Ammonia Total Creatine Kinase Total Protein Albumin 05/03/19 05/03/19 05/03/19 10:26 13:07 18:31 Hgb MCV MCHC RDW Seg Neutrophils % Seg Neutrophils # PT INR APTT POC ABG pH ABG pH POC ABG pCO2 POC ABG pO2 ABG pO2 146.9 H ABG HCO3 19.6 L ABG Base Excess -4.3 L ABG Hemoglobin 13.8 L VBG pH Sodium 164 H* Potassium 3.4 L Chloride 128.3 H Carbon Dioxide 21 L BUN 71 H Creatinine 3.3 H Glucose POC Glucose 303 H Hemoglobin A1c Lactic Acid Calcium 7.4 L Phosphorus Magnesium AST ALT Ammonia Total Creatine Kinase Total Protein Albumin 05/03/19 05/03/19 05/03/19 20:15 21:18 Unknown Hgb MCV MCHC RDW Seg Neutrophils % Seg Neutrophils # PT INR APTT POC ABG pH ABG pH 7.335 L POC ABG pCO2 POC ABG pO2 ABG pO2 143.0 H ABG HCO3 17.9 L ABG Base Excess -7.0 L ABG Hemoglobin VBG pH Sodium 159 H Potassium 3.3 L Chloride 121.7 H Carbon Dioxide 21 L BUN 62 H Creatinine 2.8 H Glucose 334 H POC Glucose 311 H Hemoglobin A1c Lactic Acid Calcium 7.3 L Phosphorus Magnesium AST ALT Ammonia Total Creatine Kinase Total Protein Albumin 05/04/19 05/04/19 05/04/19 04:10 05:00 05:23 Hgb MCV MCHC RDW Seg Neutrophils % Seg Neutrophils # PT INR APTT POC ABG pH ABG pH POC ABG pCO2 POC ABG pO2 ABG pO2 117.2 H ABG HCO3 ABG Base Excess ABG Hemoglobin VBG pH Sodium 157 H Potassium 2.4 L* D Chloride 117.6 H Carbon Dioxide BUN 53 H Creatinine 2.2 H Glucose 346 H POC Glucose 319 H Hemoglobin A1c Lactic Acid Calcium 7.4 L Phosphorus 1.70 L D Magnesium 2.60 H AST 312 H ALT 74 H Ammonia Total Creatine Kinase Total Protein 5.8 L Albumin 2.9 L 05/04/19 05/04/19 05/04/19 10:53 11:53 12:17 Hgb MCV MCHC RDW Seg Neutrophils % Seg Neutrophils # PT INR APTT POC ABG pH ABG pH POC ABG pCO2 34.1 L POC ABG pO2 157 H ABG pO2 ABG HCO3 ABG Base Excess ABG Hemoglobin VBG pH Sodium 154 H Potassium 2.8 L* Chloride 114.4 H Carbon Dioxide BUN 44 H Creatinine 1.9 H Glucose 448 H POC Glucose 443 H Hemoglobin A1c Lactic Acid Calcium 7.4 L Phosphorus Magnesium AST ALT Ammonia Total Creatine Kinase Total Protein Albumin 05/04/19 05/04/19 05/04/19 17:44 17:48 19:30 Hgb MCV MCHC RDW Seg Neutrophils % Seg Neutrophils # PT INR APTT POC ABG pH ABG pH POC ABG pCO2 POC ABG pO2 ABG pO2 ABG HCO3 ABG Base Excess ABG Hemoglobin VBG pH Sodium 154 H Potassium Chloride 115.5 H Carbon Dioxide BUN 39 H Creatinine 1.6 H Glucose 376 H POC Glucose 383 H 372 H Hemoglobin A1c Lactic Acid Calcium 7.6 L Phosphorus Magnesium AST ALT Ammonia Total Creatine Kinase Total Protein Albumin 05/04/19 05/04/19 05/04/19 20:16 20:42 21:50 Hgb MCV MCHC RDW Seg Neutrophils % Seg Neutrophils # PT INR APTT POC ABG pH ABG pH POC ABG pCO2 POC ABG pO2 ABG pO2 ABG HCO3 ABG Base Excess ABG Hemoglobin VBG pH Sodium Potassium Chloride Carbon Dioxide BUN Creatinine Glucose POC Glucose 301 H 218 H Hemoglobin A1c Lactic Acid Calcium Phosphorus 1.30 L D Magnesium 2.40 H AST ALT Ammonia Total Creatine Kinase Total Protein Albumin 05/04/19 05/04/19 05/05/19 22:49 23:35 00:51 Hgb MCV MCHC RDW Seg Neutrophils % Seg Neutrophils # PT INR APTT POC ABG pH ABG pH POC ABG pCO2 POC ABG pO2 ABG pO2 ABG HCO3 ABG Base Excess ABG Hemoglobin VBG pH Sodium Potassium Chloride Carbon Dioxide BUN Creatinine Glucose POC Glucose 194 H 154 H 143 H Hemoglobin A1c Lactic Acid Calcium Phosphorus Magnesium AST ALT Ammonia Total Creatine Kinase Total Protein Albumin 05/05/19 05/05/19 05/05/19 01:09 01:41 02:59 Hgb MCV MCHC RDW Seg Neutrophils % Seg Neutrophils # PT INR APTT POC ABG pH ABG pH POC ABG pCO2 POC ABG pO2 ABG pO2 ABG HCO3 ABG Base Excess ABG Hemoglobin VBG pH Sodium 151 H Potassium 2.7 L* D Chloride 109.8 H Carbon Dioxide BUN 28 H Creatinine Glucose 166 H POC Glucose 180 H 174 H Hemoglobin A1c Lactic Acid Calcium 7.6 L Phosphorus Magnesium AST ALT Ammonia Total Creatine Kinase Total Protein Albumin 05/05/19 05/05/19 05/05/19 03:52 04:54 05:47 Hgb MCV MCHC RDW Seg Neutrophils % Seg Neutrophils # PT INR APTT POC ABG pH ABG pH POC ABG pCO2 POC ABG pO2 ABG pO2 ABG HCO3 ABG Base Excess ABG Hemoglobin VBG pH Sodium Potassium Chloride Carbon Dioxide BUN Creatinine Glucose POC Glucose 180 H 192 H 172 H Hemoglobin A1c Lactic Acid Calcium Phosphorus Magnesium AST ALT Ammonia Total Creatine Kinase Total Protein Albumin 05/05/19 05/05/19 05/05/19 06:45 06:59 07:38 Hgb MCV MCHC RDW Seg Neutrophils % Seg Neutrophils # PT INR APTT POC ABG pH ABG pH POC ABG pCO2 POC ABG pO2 ABG pO2 ABG HCO3 ABG Base Excess ABG Hemoglobin VBG pH Sodium Potassium Chloride Carbon Dioxide BUN Creatinine Glucose POC Glucose 183 H 202 H Hemoglobin A1c Lactic Acid Calcium Phosphorus 1.60 L D Magnesium AST ALT Ammonia Total Creatine Kinase Total Protein Albumin 05/05/19 05/05/19 05/05/19 08:40 09:40 10:45 Hgb MCV MCHC RDW Seg Neutrophils % Seg Neutrophils # PT INR APTT POC ABG pH ABG pH POC ABG pCO2 POC ABG pO2 ABG pO2 ABG HCO3 ABG Base Excess ABG Hemoglobin VBG pH Sodium Potassium Chloride Carbon Dioxide BUN Creatinine Glucose POC Glucose 204 H 220 H 201 H Hemoglobin A1c Lactic Acid Calcium Phosphorus Magnesium AST ALT Ammonia Total Creatine Kinase Total Protein Albumin 05/05/19 05/05/19 05/05/19 11:45 12:26 12:45 Hgb MCV MCHC RDW Seg Neutrophils % Seg Neutrophils # PT INR APTT POC ABG pH ABG pH POC ABG pCO2 POC ABG pO2 ABG pO2 ABG HCO3 ABG Base Excess ABG Hemoglobin VBG pH Sodium 149 H Potassium 3.0 L Chloride Carbon Dioxide 31 H BUN 24 H Creatinine Glucose 151 H POC Glucose 197 H 188 H Hemoglobin A1c Lactic Acid Calcium 7.4 L Phosphorus Magnesium AST ALT Ammonia Total Creatine Kinase Total Protein Albumin 05/05/19 05/05/19 05/05/19 13:34 14:34 15:49 Hgb MCV MCHC RDW Seg Neutrophils % Seg Neutrophils # PT INR APTT POC ABG pH ABG pH POC ABG pCO2 POC ABG pO2 ABG pO2 ABG HCO3 ABG Base Excess ABG Hemoglobin VBG pH Sodium Potassium Chloride Carbon Dioxide BUN Creatinine Glucose POC Glucose 192 H 163 H 154 H Hemoglobin A1c Lactic Acid Calcium Phosphorus Magnesium AST ALT Ammonia Total Creatine Kinase Total Protein Albumin 05/05/19 05/05/19 05/05/19 16:51 17:39 19:56 Hgb MCV MCHC RDW Seg Neutrophils % Seg Neutrophils # PT INR APTT POC ABG pH ABG pH POC ABG pCO2 POC ABG pO2 ABG pO2 ABG HCO3 ABG Base Excess ABG Hemoglobin VBG pH Sodium Potassium Chloride Carbon Dioxide BUN Creatinine Glucose POC Glucose 203 H 223 H 298 H Hemoglobin A1c Lactic Acid Calcium Phosphorus Magnesium AST ALT Ammonia Total Creatine Kinase Total Protein Albumin 05/05/19 05/05/19 05/06/19 22:34 23:35 02:07 Hgb MCV MCHC RDW Seg Neutrophils % Seg Neutrophils # PT INR APTT POC ABG pH ABG pH POC ABG pCO2 POC ABG pO2 ABG pO2 ABG HCO3 ABG Base Excess ABG Hemoglobin VBG pH Sodium Potassium Chloride Carbon Dioxide BUN Creatinine Glucose POC Glucose 331 H 333 H 282 H Hemoglobin A1c Lactic Acid Calcium Phosphorus Magnesium AST ALT Ammonia Total Creatine Kinase Total Protein Albumin 05/06/19 05/06/19 05/06/19 04:15 05:10 05:54 Hgb MCV MCHC RDW Seg Neutrophils % Seg Neutrophils # PT INR APTT POC ABG pH ABG pH POC ABG pCO2 POC ABG pO2 ABG pO2 ABG HCO3 ABG Base Excess ABG Hemoglobin VBG pH Sodium Potassium 3.2 L Chloride Carbon Dioxide BUN 21 H Creatinine Glucose 191 H POC Glucose 210 H 199 H Hemoglobin A1c Lactic Acid Calcium 7.4 L Phosphorus Magnesium AST ALT Ammonia Total Creatine Kinase Total Protein Albumin 05/06/19 05/06/19 05/06/19 06:09 06:09 11:39 Hgb MCV MCHC RDW Seg Neutrophils % Seg Neutrophils # PT INR APTT POC ABG pH ABG pH POC ABG pCO2 POC ABG pO2 ABG pO2 ABG HCO3 ABG Base Excess ABG Hemoglobin VBG pH Sodium Potassium 2.8 L* Chloride Carbon Dioxide BUN 21 H Creatinine Glucose 182 H POC Glucose 228 H Hemoglobin A1c Lactic Acid Calcium 7.4 L Phosphorus 1.50 L Magnesium AST ALT Ammonia Total Creatine Kinase Total Protein Albumin 05/06/19 05/06/19 05/07/19 17:22 23:38 05:42 Hgb MCV MCHC RDW Seg Neutrophils % Seg Neutrophils # PT INR APTT POC ABG pH ABG pH POC ABG pCO2 POC ABG pO2 ABG pO2 ABG HCO3 ABG Base Excess ABG Hemoglobin VBG pH Sodium Potassium 3.3 L Chloride Carbon Dioxide BUN 24 H Creatinine Glucose 264 H POC Glucose 246 H 340 H Hemoglobin A1c Lactic Acid Calcium 7.9 L Phosphorus Magnesium AST ALT Ammonia Total Creatine Kinase Total Protein Albumin 05/07/19 05/07/19 05/07/19 05:52 12:47 17:16 Hgb MCV MCHC RDW Seg Neutrophils % Seg Neutrophils # PT INR APTT POC ABG pH ABG pH POC ABG pCO2 POC ABG pO2 ABG pO2 ABG HCO3 ABG Base Excess ABG Hemoglobin VBG pH Sodium Potassium Chloride Carbon Dioxide BUN Creatinine Glucose POC Glucose 251 H 213 H 258 H Hemoglobin A1c Lactic Acid Calcium Phosphorus Magnesium AST ALT Ammonia Total Creatine Kinase Total Protein Albumin 05/07/19 05/08/19 05/08/19 21:23 04:38 07:59 Hgb MCV MCHC RDW Seg Neutrophils % Seg Neutrophils # PT INR APTT POC ABG pH ABG pH POC ABG pCO2 POC ABG pO2 ABG pO2 ABG HCO3 ABG Base Excess ABG Hemoglobin VBG pH Sodium 146 H Potassium 3.0 L Chloride Carbon Dioxide BUN Creatinine Glucose 147 H POC Glucose 204 H 161 H Hemoglobin A1c Lactic Acid Calcium 7.8 L Phosphorus 2.00 L D Magnesium AST 109 H ALT 87 H Ammonia Total Creatine Kinase Total Protein 5.8 L Albumin 2.3 L 05/08/19 05/08/19 11:53 16:52 Hgb MCV MCHC RDW Seg Neutrophils % Seg Neutrophils # PT INR APTT POC ABG pH ABG pH POC ABG pCO2 POC ABG pO2 ABG pO2 ABG HCO3 ABG Base Excess ABG Hemoglobin VBG pH Sodium Potassium Chloride Carbon Dioxide BUN Creatinine Glucose POC Glucose 170 H 163 H Hemoglobin A1c Lactic Acid Calcium Phosphorus Magnesium AST ALT Ammonia Total Creatine Kinase Total Protein Albumin Allied health notes reviewed: nursing
[2019-05-08] MEDS: COREG PO SCH (23:16)
[2019-05-09 05:33] LABS: Hemoglobin 13.1 gm/dl (11.8-15.2); Mean Corpuscular HGB Conc 33 % (32-34); Mean Corpuscular Volume 85 fl (84-94); Platelet Count 260 K/mm3 (140-440); Red Blood Count 4.68 M/mm3 (3.65-5.03); Red Cell Distribution Width 14.1 % (13.2-15.2)
[2019-05-09 05:49] LABS: BUN/Creatinine Ratio 20; Blood Urea Nitrogen 18 mg/dL (9-20); Calcium 7.9 mg/dL (8.4-10.2); Hemolysis Index 67
[2019-05-09] MEDS: FLAGYL PO SCH ×2 (06:39→14:13)
[2019-05-09 06:43] LABS: Basophils % (Manual) 0 % (0.0-1.8); Total Cells Counted 100
[2019-05-09 06:44] LABS: Platelet Estimate Consistent w Auto; RBC Morphology Normal
[2019-05-09] MEDS ORDERED: COZAAR PO SCH (10:00)
[2019-05-09] MEDS: HumuLIN R SUB-Q SCH ×3 (10:10→17:39)
[2019-05-09] MEDS: HEPARIN SUB-Q SCH (10:13)
[2019-05-09] MEDS: K-DUR PO SCH (10:16)
[2019-05-09] MEDS: HALFPRIN EC PO SCH (10:16)
[2019-05-09] MEDS: PEPCID PO SCH (10:16)
[2019-05-09] MEDS: GLUCOPHAGE PO SCH ×2 (10:16→17:39)
[2019-05-09] MEDS: COREG PO SCH (10:18)
[2019-05-09] MEDS: NORVASC PO SCH (10:19)
[2019-05-09] MEDS: NON-FORMULARY (Dorzolamide Hcl/Timolol Maleat [Dorzolamide-Timolol Eye Drops] 1 DROP) OP SCH (10:28)
[2019-05-09] MEDS: ALPHAGAN P 0.15% OU SCH (10:29)
--- NOTE | 2019-05-09 10:31 | Progress Note ---
Assessment and Plan - Patient Problems (1) Acute kidney injury with acute tubular necrosis Current Visit: Yes Status: Acute Plan to address problem: Acute kidney injury secondary to hypotension/volume depletion and possible septic shock. Kidney function has improved back to normal. Follow up electrolytes and renal function. (2) Hypokalemia Current Visit: Yes Status: Acute Plan to address problem: K replete (3) Hypernatremia Current Visit: Yes Status: Acute Plan to address problem: Sodium mildly elevated. Increase free water replacement. Follow-up sodium. (4) Hypophosphatemia Current Visit: Yes Status: Acute Plan to address problem: Phosphorus is now normal (5) Septic shock Current Visit: Yes Status: Acute Plan to address problem: resolved Subjective Date of service: 05/09/19 Principal diagnosis: Ac hypoxemic resp failure; Ac met. encephalopathy; Un- differentiated shock Interval history: pt awake, alert, in NAD Objective - Vital Signs Vital signs: Vital Signs - 12hr 05/08/19 05/08/19 05/09/19 23:02 23:16 05:26 Temperature 98.5 F 98.6 F Pulse Rate 91 H 102 H 92 H Respiratory 18 16 Rate Blood Pressure 134/86 119/76 123/83 O2 Sat by Pulse 97 97 Oximetry 05/09/19 05/09/19 05/09/19 09:56 10:18 10:19 Temperature Pulse Rate 99 H 99 H Respiratory Rate Blood Pressure 110/71 110/71 110/71 O2 Sat by Pulse 95 Oximetry - General Appearance General appearance: well-developed, well-nourished, appears stated age EENT: ATNC, PERRL, mucous membranes moist Neck: no JVD Respiratory: Present: Clear to Ascultation Cardiology: regular, S1S2 Gastrointestinal: normoactive bowel sounds Integumentary: no rash, other (no edema ) Neurologic: no focal deficit, alert and oriented x3, strength 5/5, CN 3-12 intact Psychiatric: mood/affect appropriate, cooperative - Lab 05/09/19 04:58 05/09/19 04:58 Most recent lab results ABG pH 7.446 pH Units (7.350-7.450) 05/04/19 04:10 ABG pCO2 33.2 mm Hg 05/04/19 04:10 ABG pO2 117.2 mm Hg (80.0-90.0) H 05/04/19 04:10 ABG HCO3 22.3 mmol/L (20.0-26.0) 05/04/19 04:10 ABG O2 Saturation 98.3 % (95.0-99.0) 05/04/19 04:10 Calcium 7.9 mg/dL (8.4-10.2) L 05/09/19 04:58 Phosphorus 2.00 mg/dL (2.5-4.5) L D 05/08/19 04:38 Magnesium 2.20 mg/dL (1.7-2.3) 05/08/19 04:38 Medications & Allergies - Medications Allergies/Adverse Reactions: Allergies No Known Allergies Allergy (Unverified 08/06/13 08:33) Home Medications: Home Medications Medication Instructions Recorded Confirmed Last Taken Type Lisinopril [Zestril TAB] 40 mg PO QDAY 05/02/19 05/02/19 Unknown History glipiZIDE [Glucotrol] 10 mg PO QDAY 05/02/19 05/02/19 Unknown History hydroCHLOROthiazide [HCTZ] 25 mg PO QDAY 05/02/19 05/02/19 Unknown History metFORMIN [Glucophage] 500 mg PO BID 05/02/19 05/02/19 Unknown History Active Medications: Generic Name Dose Route Start Last Admin Trade Name Freq PRN Reason Stop Dose Admin Acetaminophen 650 mg 05/02/19 16:10 Tylenol PO Q4H PRN Pain MILD(1-3)/Fever >100.5/MEZA Albuterol 2.5 mg 05/05/19 13:00 Proventil IH Q6HRT PRN Shortness Of Breath Amlodipine Besylate 10 mg 05/02/19 18:00 05/09/19 10:19 Norvasc PO 10 mg DAILY JENNIFER Administration Lipase/Protease/Amylase 1 each 05/06/19 08:[address] 10,500 Unit FEEDTUBE PRN PRN For Clogged Feeding Tube Aspirin 81 mg 05/07/19 13:00 05/09/19 10:16 Halfprin Ec PO 81 mg QDAY JENNIFER Administration Atorvastatin Calcium 40 mg 05/07/19 22:00 05/08/19 23:16 Lipitor PO 40 mg QHS JENNIFER Administration Brimonidine Tartrate 1 drops 05/04/19 10:00 05/08/19 23:18 Alphagan P 0.15% OU 1 drops BID JENNIFER Administration Carvedilol 3.125 mg 05/08/19 22:00 05/09/19 10:18 Coreg PO 3.125 mg BID JENNIFER Administration Dextrose 0 ml 05/02/19 16:00 D50w (25gm) Syringe IV PRN PRN Hypoglycemia Famotidine 20 mg 05/05/19 10:00 05/09/19 10:16 Pepcid PO 20 mg BID JENNIFER Administration Heparin Sodium (Porcine) 5,000 unit 05/03/19 22:00 05/09/19 10:13 Heparin SUB-Q 5,000 unit BID JENNIFER Administration Hydrophilic Ointment 1 applic 05/02/19 12:06 Vaseline Lip Therapy TP Q2HR PRN Dry Lips Insulin Human NPH 25 unit 05/06/19 08:00 05/09/19 10:09 Humulin N SUB-Q 25 unit BIDDIAB JENNIFER Administration Insulin Human Regular 0 units 05/07/19 23:00 05/09/19 10:10 Humulin R SUB-Q 3 units ACHS JENNIFER Administration Protocol Losartan Potassium 12.5 mg 05/09/19 10:00 05/09/19 10:18 Cozaar PO 12.5 mg QDAY JENNIFER Administration Metformin HCl 1,000 mg 05/07/19 17:00 05/09/19 10:16 Glucophage PO 1,000 mg BIDDIAB JENNIFER Administration Metronidazole 500 mg 05/08/19 14:00 05/09/19 06:39 Flagyl PO Not Given Q8HR [facility] Protocol Miscellaneous Medication 1 drop 05/05/19 10:00 05/08/19 23:17 Dorzolamide Hcl/Timolol Maleat [Dorzolamide-Timolol Eye Drops] OP 1 drop BID JENNIFER Administration Multi-Ingred Cream/Lotion/Oil/Oint 1 applic 05/02/19 12:06 Artificial Tears Ophth Oint OU Q4HR PRN Dry Eye(s) Ondansetron HCl 4 mg 05/02/19 16:10 Zofran IV Q8H PRN Nausea And Vomiting Potassium Chloride 40 meq 05/06/19 10:00 05/09/19 10:16 K-Dur PO 40 meq QDAY JENNIFER Administration Simple Syrup 15 ml 05/06/19 08:46 Simple Syrup FEEDTUBE PRN PRN Hypoglycemia Simple Syrup 30 ml 05/06/19 08:46 Simple Syrup FEEDTUBE PRN PRN Hypoglycemia Sodium Bicarbonate 325 mg 05/06/19 08:46 Sodium Bicarbonate FEEDTUBE PRN PRN For Clogged Feeding Tube Sodium Chloride 10 ml 05/02/19 22:00 05/08/19 23:18 Sodium Chloride Flush Syringe 10 Ml IV 10 ml BID JENNIFER Administration Sodium Chloride 10 ml 05/02/19 16:10 Sodium Chloride Flush Syringe 10 Ml IV PRN PRN LINE FLUSH
[2019-05-09] MEDS ORDERED: K-DUR PO SCH (11:57)
--- NOTE | 2019-05-09 13:05 | Progress Note ---
Assessment and Plan - Patient Problems (1) Cardiomyopathy Current Visit: Yes Status: Acute Plan to address problem: Asymptomatic, moderate severity cardiomyopathy will be managed medically. Afterload agents, beta blockers and oral antiplatelet therapy as tolerated. Subjective Date of service: 05/09/19 Principal diagnosis: Ac hypoxemic resp failure; Ac met. encephalopathy; Un-differentiated shock Interval history: Patient is frail, cachectic, lethargic, somnolent, but no acute respiratory distress. Objective Vital Signs Temp Pulse Resp BP Pulse Ox 05/09/19 10:19 99 H 110/71 05/09/19 10:18 110/71 05/09/19 09:56 99 H 110/71 95 05/09/19 05:26 98.6 F 92 H 16 123/83 97 05/08/19 23:16 102 H 119/76 05/08/19 23:02 98.5 F 91 H 18 134/86 97 05/08/19 22:00 20 05/08/19 17:20 98.9 F 96 H 20 117/76 97 - Physical Examination General: No Apparent Distress, Cachectic HEENT: Positive: PERRL Neck: Positive: neck supple. Negative: JVD/HJR Cardiac: Positive: Reg Rate and Rhythm Lungs: Positive: Decreased Breath Sounds Neuro: Positive: Weakness Abdomen: Positive: Soft. Negative: Pulsations/Bruits Skin: Positive: Clear Extremities: Absent: edema - Labs and Meds CBC 05/09/19 Range/Units 04:58 WBC 12.5 H (4.5-11.0) K/mm3 RBC 4.68 (3.65-5.03) M/mm3 Hgb 13.1 (11.8-15.2) gm/dl Hct 40.0 (35.5-45.6) % Plt Count 260 (140-440) K/mm3 Comprehensive Metabolic Panel 05/09/19 Range/Units 04:58 Sodium 146 H (137-145) mmol/L Potassium 3.8 D (3.6-5.0) mmol/L Chloride 107.8 H (98-107) mmol/L Carbon Dioxide 26 (22-30) mmol/L BUN 18 (9-20) mg/dL Creatinine 0.9 (0.8-1.5) mg/dL Glucose 108 H (75-100) mg/dL Calcium 7.9 L (8.4-10.2) mg/dL - Imaging and Cardiology EKG: report reviewed - Allied health notes Allied health notes reviewed: nursing
--- NOTE | 2019-05-09 13:42 | Progress Note ---
Assessment and Plan Patient awake. sitting up by the side of the bed and eating his lunch. Patient is on room air.No acute respiratory distress. O2 saturation 98%. Patients upper lip swelling getting better . Patient afebrile. No leukocytosis. I was told patient is going to be transferred to acute rehab. - Patient Problems (1) Acute respiratory failure with hypoxia Current Visit: Yes Status: Acute Plan to address problem: Patient extubated. Presently resting on room air. O2 saturation 98% on room air. (2) Acute encephalopathy Current Visit: Yes Status: Acute Plan to address problem: Patient still not following commands well. Management as per primary care. (3) Acute kidney injury Current Visit: Yes Status: Acute Plan to address problem: Management as per nephrology. (4) DKA (diabetic ketoacidoses) Current Visit: Yes Status: Acute Qualifiers: Diabetes mellitus type: type 1 Diabetes mellitus complication detail: with coma Qualified Code(s): E10.11 - Type 1 diabetes mellitus with ketoacidosis w ith coma Plan to address problem: Improved. Management as per primary care. Subjective Date of service: 05/09/19 Principal diagnosis: Ac hypoxemic resp failure; Ac met. encephalopathy; Un- differentiated shock Interval history: Patient awake. sitting up by the side of the bed and eating his lunch. Patient is on room air.No acute respiratory distress. O2 saturation 98%. Patients upper lip swelling getting better . Patient afebrile. No leukocytosis. I was told patient is going to be transfered to [facility] rehab. Objective Vital Signs - 12hr 05/09/19 05/09/19 05/09/19 05:26 09:56 10:18 Temperature 98.6 F Pulse Rate 92 H 99 H Respiratory 16 Rate Blood Pressure 123/83 110/71 110/71 O2 Sat by Pulse 97 95 Oximetry 05/09/19 10:19 Temperature Pulse Rate 99 H Respiratory Rate Blood Pressure 110/71 O2 Sat by Pulse Oximetry Constitutional: no acute distress, alert, other (elderly looking M, with upper lip swelling but in no other acute distress) Eyes: non-icteric ENT: oropharynx dry Neck: supple, no lymphadenopathy, no JVD, other (extubated) Effort: normal Ascultation: Bilateral: diminished breath sounds, rhonchi Percussion: Bilateral: not dull Cardiovascular: regular rate and rhythm, other (S1,S2) Gastrointestinal: normoactive bowel sounds, soft, non-tender, non-distended, other (NGT) Integumentary: normal Extremities: no cyanosis, no edema, pulses normal, no ischemia or petechiae Neurologic: non-focal exam (grossly), pupils equal and round, CN II-XII normal, other (very weak) Psychiatric: mood appropriate, other (affect flat) CBC and BMP: 05/09/19 04:58 05/09/19 04:58 ABG, PT/INR, D-dimer: ABG POC ABG pH 7.371 (7.35-7.45) 05/04/19 10:53 ABG pH 7.446 pH Units (7.350-7.450) 05/04/19 04:10 POC ABG pCO2 34.1 (35-45) L 05/04/19 10:53 ABG pCO2 33.2 mm Hg 05/04/19 04:10 POC ABG pO2 157 (80-105) H 05/04/19 10:53 ABG pO2 117.2 mm Hg (80.0-90.0) H 05/04/19 04:10 POC ABG HCO3 19.8 (22-26 mml/L) 05/04/19 10:53 POC ABG Total CO2 21 (23-27mmol/L) 05/04/19 10:53 POC ABG O2 Sat 99 05/04/19 10:53 ABG O2 Saturation 98.3 % (95.0-99.0) 05/04/19 04:10 PT/INR, D-dimer PT 15.4 Sec. (12.2-14.9) H 05/02/19 12:05 INR 1.25 (0.87-1.13) H 05/02/19 12:05 Abnormal lab findings: Abnormal Labs 05/02/19 05/02/19 05/02/19 12:05 12:05 12:05 WBC Hgb 15.3 H MCV 99 H MCHC 29 L RDW 16.9 H Seg Neutrophils % 79.5 H Seg Neuts % (Manual) Lymphocytes % (Manual) Monocytes % (Manual) Seg Neutrophils # 8.3 H Seg Neutrophils # Man Monocytes # (Manual) PT 15.4 H INR 1.25 H APTT 23.9 L POC ABG pH ABG pH POC ABG pCO2 POC ABG pO2 ABG pO2 ABG HCO3 ABG Base Excess ABG Hemoglobin VBG pH Sodium 151 H Potassium Chloride 90.1 L Carbon Dioxide 5 L* BUN 102 H Creatinine 6.4 H Glucose 1330 H* POC Glucose Hemoglobin A1c Lactic Acid Calcium Phosphorus 17.40 H Magnesium 4.90 H AST ALT Ammonia Total Creatine Kinase 329 H Total Protein Albumin 3.4 L 05/02/19 05/02/19 05/02/19 12:05 12:05 12:05 WBC Hgb MCV MCHC RDW Seg Neutrophils % Seg Neuts % (Manual) Lymphocytes % (Manual) Monocytes % (Manual) Seg Neutrophils # Seg Neutrophils # Man Monocytes # (Manual) PT INR APTT POC ABG pH ABG pH POC ABG pCO2 POC ABG pO2 ABG pO2 ABG HCO3 ABG Base Excess ABG Hemoglobin VBG pH 6.982 L* Sodium Potassium Chloride Carbon Dioxide BUN Creatinine Glucose POC Glucose Hemoglobin A1c Lactic Acid 7.60 H* Calcium Phosphorus Magnesium AST ALT Ammonia 125.0 H Total Creatine Kinase Total Protein Albumin 05/02/19 05/02/19 05/02/19 12:09 12:59 13:07 WBC Hgb MCV MCHC RDW Seg Neutrophils % Seg Neuts % (Manual) Lymphocytes % (Manual) Monocytes % (Manual) Seg Neutrophils # Seg Neutrophils # Man Monocytes # (Manual) PT INR APTT POC ABG pH ABG pH POC ABG pCO2 POC ABG pO2 ABG pO2 ABG HCO3 ABG Base Excess ABG Hemoglobin VBG pH Sodium Potassium Chloride Carbon Dioxide BUN Creatinine Glucose POC Glucose > 500 H Hemoglobin A1c Lactic Acid 6.00 H* Calcium Phosphorus 15.50 H Magnesium 4.40 H AST ALT Ammonia Total Creatine Kinase Total Protein Albumin 05/02/19 05/02/19 05/02/19 13:07 13:50 14:28 WBC Hgb MCV MCHC RDW Seg Neutrophils % Seg Neuts % (Manual) Lymphocytes % (Manual) Monocytes % (Manual) Seg Neutrophils # Seg Neutrophils # Man Monocytes # (Manual) PT INR APTT POC ABG pH 7.075 L ABG pH POC ABG pCO2 POC ABG pO2 295 H ABG pO2 ABG HCO3 ABG Base Excess ABG Hemoglobin VBG pH Sodium 150 H 150 H Potassium 5.3 H Chloride 93.2 L 95.0 L Carbon Dioxide 6 L* 4 L* BUN 98 H 99 H Creatinine 6.3 H 6.4 H Glucose 1264 H* 1271 H* POC Glucose Hemoglobin A1c Lactic Acid Calcium 8.3 L 7.8 L Phosphorus Magnesium AST ALT Ammonia Total Creatine Kinase Total Protein Albumin 05/02/19 05/02/19 05/02/19 14:28 15:22 16:20 WBC Hgb MCV MCHC RDW Seg Neutrophils % Seg Neuts % (Manual) Lymphocytes % (Manual) Monocytes % (Manual) Seg Neutrophils # Seg Neutrophils # Man Monocytes # (Manual) PT INR APTT POC ABG pH ABG pH POC ABG pCO2 POC ABG pO2 ABG pO2 ABG HCO3 ABG Base Excess ABG Hemoglobin VBG pH Sodium Potassium Chloride Carbon Dioxide BUN Creatinine Glucose POC Glucose > 500 H Hemoglobin A1c Lactic Acid 4.10 H* 4.40 H* Calcium Phosphorus Magnesium AST ALT Ammonia Total Creatine Kinase Total Protein Albumin 05/02/19 05/02/19 05/02/19 17:13 17:19 17:19 WBC Hgb MCV MCHC RDW Seg Neutrophils % Seg Neuts % (Manual) Lymphocytes % (Manual) Monocytes % (Manual) Seg Neutrophils # Seg Neutrophils # Man Monocytes # (Manual) PT INR APTT POC ABG pH ABG pH POC ABG pCO2 POC ABG pO2 ABG pO2 ABG HCO3 ABG Base Excess ABG Hemoglobin VBG pH Sodium 154 H 154 H Potassium Chloride Carbon Dioxide 6 L* 6 L* BUN 95 H 98 H Creatinine 6.6 H 6.5 H Glucose 1021 H* 1021 H* POC Glucose > 500 H Hemoglobin A1c Lactic Acid Calcium 6.8 L 6.8 L Phosphorus Magnesium AST ALT Ammonia Total Creatine Kinase Total Protein Albumin 05/02/19 05/02/19 05/02/19 17:19 17:19 17:19 WBC Hgb MCV MCHC RDW Seg Neutrophils % Seg Neuts % (Manual) Lymphocytes % (Manual) Monocytes % (Manual) Seg Neutrophils # Seg Neutrophils # Man Monocytes # (Manual) PT INR APTT POC ABG pH ABG pH POC ABG pCO2 POC ABG pO2 ABG pO2 ABG HCO3 ABG Base Excess ABG Hemoglobin VBG pH Sodium 155 H Potassium Chloride Carbon Dioxide 6 L* BUN 95 H Creatinine 6.6 H Glucose 1021 H* POC Glucose Hemoglobin A1c 12.9 H Lactic Acid 2.70 H* Calcium 6.9 L Phosphorus 10.90 H D Magnesium 3.70 H AST ALT Ammonia Total Creatine Kinase Total Protein Albumin 05/02/19 05/02/19 05/02/19 17:19 18:36 19:00 WBC Hgb MCV MCHC RDW Seg Neutrophils % Seg Neuts % (Manual) Lymphocytes % (Manual) Monocytes % (Manual) Seg Neutrophils # Seg Neutrophils # Man Monocytes # (Manual) PT INR APTT POC ABG pH ABG pH POC ABG pCO2 POC ABG pO2 ABG pO2 ABG HCO3 ABG Base Excess ABG Hemoglobin VBG pH Sodium 153 H 154 H Potassium Chloride 107.7 H Carbon Dioxide 6 L* 8 L* BUN 96 H 95 H Creatinine 6.5 H 6.6 H Glucose 1018 H* 884 H* POC Glucose > 500 H Hemoglobin A1c Lactic Acid Calcium 6.8 L 6.7 L Phosphorus Magnesium AST ALT Ammonia Total Creatine Kinase Total Protein Albumin 05/02/19 05/02/19 05/02/19 20:02 21:08 21:20 WBC Hgb MCV MCHC RDW Seg Neutrophils % Seg Neuts % (Manual) Lymphocytes % (Manual) Monocytes % (Manual) Seg Neutrophils # Seg Neutrophils # Man Monocytes # (Manual) PT INR APTT POC ABG pH ABG pH POC ABG pCO2 POC ABG pO2 ABG pO2 ABG HCO3 ABG Base Excess ABG Hemoglobin VBG pH Sodium Potassium Chloride Carbon Dioxide BUN Creatinine Glucose 708 H* POC Glucose > 500 H > 500 H Hemoglobin A1c Lactic Acid Calcium Phosphorus Magnesium AST ALT Ammonia Total Creatine Kinase Total Protein Albumin 05/02/19 05/02/19 05/02/19 22:15 22:41 23:13 WBC Hgb MCV MCHC RDW Seg Neutrophils % Seg Neuts % (Manual) Lymphocytes % (Manual) Monocytes % (Manual) Seg Neutrophils # Seg Neutrophils # Man Monocytes # (Manual) PT INR APTT POC ABG pH ABG pH POC ABG pCO2 POC ABG pO2 ABG pO2 ABG HCO3 ABG Base Excess ABG Hemoglobin VBG pH Sodium Potassium Chloride Carbon Dioxide BUN Creatinine Glucose 600 H* POC Glucose > 500 H > 500 H Hemoglobin A1c Lactic Acid Calcium Phosphorus Magnesium AST ALT Ammonia Total Creatine Kinase Total Protein Albumin 05/02/19 05/02/19 05/02/19 23:40 23:55 Unknown WBC Hgb MCV MCHC RDW Seg Neutrophils % Seg Neuts % (Manual) Lymphocytes % (Manual) Monocytes % (Manual) Seg Neutrophils # Seg Neutrophils # Man Monocytes # (Manual) PT INR APTT POC ABG pH ABG pH POC ABG pCO2 POC ABG pO2 ABG pO2 ABG HCO3 ABG Base Excess ABG Hemoglobin VBG pH Sodium 155 H Potassium Chloride 111.7 H Carbon Dioxide 10 L BUN 101 H Creatinine 6.3 H Glucose 544 H* 755 H* POC Glucose > 500 H Hemoglobin A1c Lactic Acid Calcium 6.6 L Phosphorus Magnesium AST ALT Ammonia Total Creatine Kinase Total Protein Albumin 05/02/19 05/02/19 05/03/19 Unknown Unknown 01:42 WBC Hgb MCV MCHC RDW Seg Neutrophils % Seg Neuts % (Manual) Lymphocytes % (Manual) Monocytes % (Manual) Seg Neutrophils # Seg Neutrophils # Man Monocytes # (Manual) PT INR APTT POC ABG pH ABG pH POC ABG pCO2 POC ABG pO2 ABG pO2 ABG HCO3 ABG Base Excess ABG Hemoglobin VBG pH Sodium Potassium Chloride Carbon Dioxide BUN Creatinine Glucose 783 H* POC Glucose 484 H Hemoglobin A1c Lactic Acid 2.60 H* Calcium Phosphorus Magnesium AST ALT Ammonia Total Creatine Kinase Total Protein Albumin 05/03/19 05/03/19 05/03/19 02:39 03:45 05:05 WBC Hgb MCV MCHC RDW Seg Neutrophils % Seg Neuts % (Manual) Lymphocytes % (Manual) Monocytes % (Manual) Seg Neutrophils # Seg Neutrophils # Man Monocytes # (Manual) PT INR APTT POC ABG pH ABG pH POC ABG pCO2 POC ABG pO2 ABG pO2 ABG HCO3 ABG Base Excess ABG Hemoglobin VBG pH Sodium Potassium Chloride Carbon Dioxide BUN Creatinine Glucose POC Glucose 358 H 329 H 324 H Hemoglobin A1c Lactic Acid Calcium Phosphorus Magnesium AST ALT Ammonia Total Creatine Kinase Total Protein Albumin 05/03/19 05/03/19 05/03/19 05:20 05:31 06:36 WBC Hgb MCV MCHC RDW Seg Neutrophils % Seg Neuts % (Manual) Lymphocytes % (Manual) Monocytes % (Manual) Seg Neutrophils # Seg Neutrophils # Man Monocytes # (Manual) PT INR APTT POC ABG pH ABG pH POC ABG pCO2 POC ABG pO2 ABG pO2 ABG HCO3 ABG Base Excess ABG Hemoglobin VBG pH Sodium 162 H* Potassium 3.2 L Chloride 124.9 H Carbon Dioxide 18 L D BUN 87 H Creatinine 5.2 H Glucose 316 H POC Glucose 324 H 277 H Hemoglobin A1c Lactic Acid Calcium 7.1 L Phosphorus Magnesium AST ALT Ammonia Total Creatine Kinase Total Protein Albumin 05/03/19 05/03/19 05/03/19 07:58 07:59 07:59 WBC Hgb MCV MCHC RDW Seg Neutrophils % Seg Neuts % (Manual) Lymphocytes % (Manual) Monocytes % (Manual) Seg Neutrophils # Seg Neutrophils # Man Monocytes # (Manual) PT INR APTT POC ABG pH ABG pH POC ABG pCO2 POC ABG pO2 ABG pO2 ABG HCO3 ABG Base Excess ABG Hemoglobin VBG pH Sodium 165 H* Potassium 2.9 L* Chloride 128.0 H Carbon Dioxide 19 L BUN 80 H Creatinine 4.5 H Glucose 164 H POC Glucose 161 H Hemoglobin A1c Lactic Acid Calcium 7.1 L Phosphorus Magnesium 3.20 H AST ALT Ammonia Total Creatine Kinase Total Protein Albumin 05/03/19 05/03/19 05/03/19 09:14 09:51 10:25 WBC Hgb MCV MCHC RDW Seg Neutrophils % Seg Neuts % (Manual) Lymphocytes % (Manual) Monocytes % (Manual) Seg Neutrophils # Seg Neutrophils # Man Monocytes # (Manual) PT INR APTT POC ABG pH ABG pH POC ABG pCO2 POC ABG pO2 ABG pO2 ABG HCO3 ABG Base Excess ABG Hemoglobin VBG pH Sodium Potassium Chloride Carbon Dioxide BUN Creatinine Glucose POC Glucose 120 H 117 H 111 H Hemoglobin A1c Lactic Acid Calcium Phosphorus Magnesium AST ALT Ammonia Total Creatine Kinase Total Protein Albumin 05/03/19 05/03/19 05/03/19 10:26 13:07 18:31 WBC Hgb MCV MCHC RDW Seg Neutrophils % Seg Neuts % (Manual) Lymphocytes % (Manual) Monocytes % (Manual) Seg Neutrophils # Seg Neutrophils # Man Monocytes # (Manual) PT INR APTT POC ABG pH ABG pH POC ABG pCO2 POC ABG pO2 ABG pO2 146.9 H ABG HCO3 19.6 L ABG Base Excess -4.3 L ABG Hemoglobin 13.8 L VBG pH Sodium 164 H* Potassium 3.4 L Chloride 128.3 H Carbon Dioxide 21 L BUN 71 H Creatinine 3.3 H Glucose POC Glucose 303 H Hemoglobin A1c Lactic Acid Calcium 7.4 L Phosphorus Magnesium AST ALT Ammonia Total Creatine Kinase Total Protein Albumin 05/03/19 05/03/19 05/03/19 20:15 21:18 Unknown WBC Hgb MCV MCHC RDW Seg Neutrophils % Seg Neuts % (Manual) Lymphocytes % (Manual) Monocytes % (Manual) Seg Neutrophils # Seg Neutrophils # Man Monocytes # (Manual) PT INR APTT POC ABG pH ABG pH 7.335 L POC ABG pCO2 POC ABG pO2 ABG pO2 143.0 H ABG HCO3 17.9 L ABG Base Excess -7.0 L ABG Hemoglobin VBG pH Sodium 159 H Potassium 3.3 L Chloride 121.7 H Carbon Dioxide 21 L BUN 62 H Creatinine 2.8 H Glucose 334 H POC Glucose 311 H Hemoglobin A1c Lactic Acid Calcium 7.3 L Phosphorus Magnesium AST ALT Ammonia Total Creatine Kinase Total Protein Albumin 05/04/19 05/04/19 05/04/19 04:10 05:00 05:23 WBC Hgb MCV MCHC RDW Seg Neutrophils % Seg Neuts % (Manual) Lymphocytes % (Manual) Monocytes % (Manual) Seg Neutrophils # Seg Neutrophils # Man Monocytes # (Manual) PT INR APTT POC ABG pH ABG pH POC ABG pCO2 POC ABG pO2 ABG pO2 117.2 H ABG HCO3 ABG Base Excess ABG Hemoglobin VBG pH Sodium 157 H Potassium 2.4 L* D Chloride 117.6 H Carbon Dioxide BUN 53 H Creatinine 2.2 H Glucose 346 H POC Glucose 319 H Hemoglobin A1c Lactic Acid Calcium 7.4 L Phosphorus 1.70 L D Magnesium 2.60 H AST 312 H ALT 74 H Ammonia Total Creatine Kinase Total Protein 5.8 L Albumin 2.9 L 05/04/19 05/04/19 05/04/19 10:53 11:53 12:17 WBC Hgb MCV MCHC RDW Seg Neutrophils % Seg Neuts % (Manual) Lymphocytes % (Manual) Monocytes % (Manual) Seg Neutrophils # Seg Neutrophils # Man Monocytes # (Manual) PT INR APTT POC ABG pH ABG pH POC ABG pCO2 34.1 L POC ABG pO2 157 H ABG pO2 ABG HCO3 ABG Base Excess ABG Hemoglobin VBG pH Sodium 154 H Potassium 2.8 L* Chloride 114.4 H Carbon Dioxide BUN 44 H Creatinine 1.9 H Glucose 448 H POC Glucose 443 H Hemoglobin A1c Lactic Acid Calcium 7.4 L Phosphorus Magnesium AST ALT Ammonia Total Creatine Kinase Total Protein Albumin 05/04/19 05/04/19 05/04/19 17:44 17:48 19:30 WBC Hgb MCV MCHC RDW Seg Neutrophils % Seg Neuts % (Manual) Lymphocytes % (Manual) Monocytes % (Manual) Seg Neutrophils # Seg Neutrophils # Man Monocytes # (Manual) PT INR APTT POC ABG pH ABG pH POC ABG pCO2 POC ABG pO2 ABG pO2 ABG HCO3 ABG Base Excess ABG Hemoglobin VBG pH Sodium 154 H Potassium Chloride 115.5 H Carbon Dioxide BUN 39 H Creatinine 1.6 H Glucose 376 H POC Glucose 383 H 372 H Hemoglobin A1c Lactic Acid Calcium 7.6 L Phosphorus Magnesium AST ALT Ammonia Total Creatine Kinase Total Protein Albumin 05/04/19 05/04/19 05/04/19 20:16 20:42 21:50 WBC Hgb MCV MCHC RDW Seg Neutrophils % Seg Neuts % (Manual) Lymphocytes % (Manual) Monocytes % (Manual) Seg Neutrophils # Seg Neutrophils # Man Monocytes # (Manual) PT INR APTT POC ABG pH ABG pH POC ABG pCO2 POC ABG pO2 ABG pO2 ABG HCO3 ABG Base Excess ABG Hemoglobin VBG pH Sodium Potassium Chloride Carbon Dioxide BUN Creatinine Glucose POC Glucose 301 H 218 H Hemoglobin A1c Lactic Acid Calcium Phosphorus 1.30 L D Magnesium 2.40 H AST ALT Ammonia Total Creatine Kinase Total Protein Albumin 05/04/19 05/04/19 05/05/19 22:49 23:35 00:51 WBC Hgb MCV MCHC RDW Seg Neutrophils % Seg Neuts % (Manual) Lymphocytes % (Manual) Monocytes % (Manual) Seg Neutrophils # Seg Neutrophils # Man Monocytes # (Manual) PT INR APTT POC ABG pH ABG pH POC ABG pCO2 POC ABG pO2 ABG pO2 ABG HCO3 ABG Base Excess ABG Hemoglobin VBG pH Sodium Potassium Chloride Carbon Dioxide BUN Creatinine Glucose POC Glucose 194 H 154 H 143 H Hemoglobin A1c Lactic Acid Calcium Phosphorus Magnesium AST ALT Ammonia Total Creatine Kinase Total Protein Albumin 05/05/19 05/05/19 05/05/19 01:09 01:41 02:59 WBC Hgb MCV MCHC RDW Seg Neutrophils % Seg Neuts % (Manual) Lymphocytes % (Manual) Monocytes % (Manual) Seg Neutrophils # Seg Neutrophils # Man Monocytes # (Manual) PT INR APTT POC ABG pH ABG pH POC ABG pCO2 POC ABG pO2 ABG pO2 ABG HCO3 ABG Base Excess ABG Hemoglobin VBG pH Sodium 151 H Potassium 2.7 L* D Chloride 109.8 H Carbon Dioxide BUN 28 H Creatinine Glucose 166 H POC Glucose 180 H 174 H Hemoglobin A1c Lactic Acid Calcium 7.6 L Phosphorus Magnesium AST ALT Ammonia Total Creatine Kinase Total Protein Albumin 05/05/19 05/05/19 05/05/19 03:52 04:54 05:47 WBC Hgb MCV MCHC RDW Seg Neutrophils % Seg Neuts % (Manual) Lymphocytes % (Manual) Monocytes % (Manual) Seg Neutrophils # Seg Neutrophils # Man Monocytes # (Manual) PT INR APTT POC ABG pH ABG pH POC ABG pCO2 POC ABG pO2 ABG pO2 ABG HCO3 ABG Base Excess ABG Hemoglobin VBG pH Sodium Potassium Chloride Carbon Dioxide BUN Creatinine Glucose POC Glucose 180 H 192 H 172 H Hemoglobin A1c Lactic Acid Calcium Phosphorus Magnesium AST ALT Ammonia Total Creatine Kinase Total Protein Albumin 05/05/19 05/05/19 05/05/19 06:45 06:59 07:38 WBC Hgb MCV MCHC RDW Seg Neutrophils % Seg Neuts % (Manual) Lymphocytes % (Manual) Monocytes % (Manual) Seg Neutrophils # Seg Neutrophils # Man Monocytes # (Manual) PT INR APTT POC ABG pH ABG pH POC ABG pCO2 POC ABG pO2 ABG pO2 ABG HCO3 ABG Base Excess ABG Hemoglobin VBG pH Sodium Potassium Chloride Carbon Dioxide BUN Creatinine Glucose POC Glucose 183 H 202 H Hemoglobin A1c Lactic Acid Calcium Phosphorus 1.60 L D Magnesium AST ALT Ammonia Total Creatine Kinase Total Protein Albumin 05/05/19 05/05/19 05/05/19 08:40 09:40 10:45 WBC Hgb MCV MCHC RDW Seg Neutrophils % Seg Neuts % (Manual) Lymphocytes % (Manual) Monocytes % (Manual) Seg Neutrophils # Seg Neutrophils # Man Monocytes # (Manual) PT INR APTT POC ABG pH ABG pH POC ABG pCO2 POC ABG pO2 ABG pO2 ABG HCO3 ABG Base Excess ABG Hemoglobin VBG pH Sodium Potassium Chloride Carbon Dioxide BUN Creatinine Glucose POC Glucose 204 H 220 H 201 H Hemoglobin A1c Lactic Acid Calcium Phosphorus Magnesium AST ALT Ammonia Total Creatine Kinase Total Protein Albumin 05/05/19 05/05/19 05/05/19 11:45 12:26 12:45 WBC Hgb MCV MCHC RDW Seg Neutrophils % Seg Neuts % (Manual) Lymphocytes % (Manual) Monocytes % (Manual) Seg Neutrophils # Seg Neutrophils # Man Monocytes # (Manual) PT INR APTT POC ABG pH ABG pH POC ABG pCO2 POC ABG pO2 ABG pO2 ABG HCO3 ABG Base Excess ABG Hemoglobin VBG pH Sodium 149 H Potassium 3.0 L Chloride Carbon Dioxide 31 H BUN 24 H Creatinine Glucose 151 H POC Glucose 197 H 188 H Hemoglobin A1c Lactic Acid Calcium 7.4 L Phosphorus Magnesium AST ALT Ammonia Total Creatine Kinase Total Protein Albumin 05/05/19 05/05/19 05/05/19 13:34 14:34 15:49 WBC Hgb MCV MCHC RDW Seg Neutrophils % Seg Neuts % (Manual) Lymphocytes % (Manual) Monocytes % (Manual) Seg Neutrophils # Seg Neutrophils # Man Monocytes # (Manual) PT INR APTT POC ABG pH ABG pH POC ABG pCO2 POC ABG pO2 ABG pO2 ABG HCO3 ABG Base Excess ABG Hemoglobin VBG pH Sodium Potassium Chloride Carbon Dioxide BUN Creatinine Glucose POC Glucose 192 H 163 H 154 H Hemoglobin A1c Lactic Acid Calcium Phosphorus Magnesium AST ALT Ammonia Total Creatine Kinase Total Protein Albumin 05/05/19 05/05/19 05/05/19 16:51 17:39 19:56 WBC Hgb MCV MCHC RDW Seg Neutrophils % Seg Neuts % (Manual) Lymphocytes % (Manual) Monocytes % (Manual) Seg Neutrophils # Seg Neutrophils # Man Monocytes # (Manual) PT INR APTT POC ABG pH ABG pH POC ABG pCO2 POC ABG pO2 ABG pO2 ABG HCO3 ABG Base Excess ABG Hemoglobin VBG pH Sodium Potassium Chloride Carbon Dioxide BUN Creatinine Glucose POC Glucose 203 H 223 H 298 H Hemoglobin A1c Lactic Acid Calcium Phosphorus Magnesium AST ALT Ammonia Total Creatine Kinase Total Protein Albumin 05/05/19 05/05/19 05/06/19 22:34 23:35 02:07 WBC Hgb MCV MCHC RDW Seg Neutrophils % Seg Neuts % (Manual) Lymphocytes % (Manual) Monocytes % (Manual) Seg Neutrophils # Seg Neutrophils # Man Monocytes # (Manual) PT INR APTT POC ABG pH ABG pH POC ABG pCO2 POC ABG pO2 ABG pO2 ABG HCO3 ABG Base Excess ABG Hemoglobin VBG pH Sodium Potassium Chloride Carbon Dioxide BUN Creatinine Glucose POC Glucose 331 H 333 H 282 H Hemoglobin A1c Lactic Acid Calcium Phosphorus Magnesium AST ALT Ammonia Total Creatine Kinase Total Protein Albumin 05/06/19 05/06/19 05/06/19 04:15 05:10 05:54 WBC Hgb MCV MCHC RDW Seg Neutrophils % Seg Neuts % (Manual) Lymphocytes % (Manual) Monocytes % (Manual) Seg Neutrophils # Seg Neutrophils # Man Monocytes # (Manual) PT INR APTT POC ABG pH ABG pH POC ABG pCO2 POC ABG pO2 ABG pO2 ABG HCO3 ABG Base Excess ABG Hemoglobin VBG pH Sodium Potassium 3.2 L Chloride Carbon Dioxide BUN 21 H Creatinine Glucose 191 H POC Glucose 210 H 199 H Hemoglobin A1c Lactic Acid Calcium 7.4 L Phosphorus Magnesium AST ALT Ammonia Total Creatine Kinase Total Protein Albumin 05/06/19 05/06/19 05/06/19 06:09 06:09 11:39 WBC Hgb MCV MCHC RDW Seg Neutrophils % Seg Neuts % (Manual) Lymphocytes % (Manual) Monocytes % (Manual) Seg Neutrophils # Seg Neutrophils # Man Monocytes # (Manual) PT INR APTT POC ABG pH ABG pH POC ABG pCO2 POC ABG pO2 ABG pO2 ABG HCO3 ABG Base Excess ABG Hemoglobin VBG pH Sodium Potassium 2.8 L* Chloride Carbon Dioxide BUN 21 H Creatinine Glucose 182 H POC Glucose 228 H Hemoglobin A1c Lactic Acid Calcium 7.4 L Phosphorus 1.50 L Magnesium AST ALT Ammonia Total Creatine Kinase Total Protein Albumin 05/06/19 05/06/19 05/07/19 17:22 23:38 05:42 WBC Hgb MCV MCHC RDW Seg Neutrophils % Seg Neuts % (Manual) Lymphocytes % (Manual) Monocytes % (Manual) Seg Neutrophils # Seg Neutrophils # Man Monocytes # (Manual) PT INR APTT POC ABG pH ABG pH POC ABG pCO2 POC ABG pO2 ABG pO2 ABG HCO3 ABG Base Excess ABG Hemoglobin VBG pH Sodium Potassium 3.3 L Chloride Carbon Dioxide BUN 24 H Creatinine Glucose 264 H POC Glucose 246 H 340 H Hemoglobin A1c Lactic Acid Calcium 7.9 L Phosphorus Magnesium AST ALT Ammonia Total Creatine Kinase Total Protein Albumin 05/07/19 05/07/19 05/07/19 05:52 12:47 17:16 WBC Hgb MCV MCHC RDW Seg Neutrophils % Seg Neuts % (Manual) Lymphocytes % (Manual) Monocytes % (Manual) Seg Neutrophils # Seg Neutrophils # Man Monocytes # (Manual) PT INR APTT POC ABG pH ABG pH POC ABG pCO2 POC ABG pO2 ABG pO2 ABG HCO3 ABG Base Excess ABG Hemoglobin VBG pH Sodium Potassium Chloride Carbon Dioxide BUN Creatinine Glucose POC Glucose 251 H 213 H 258 H Hemoglobin A1c Lactic Acid Calcium Phosphorus Magnesium AST ALT Ammonia Total Creatine Kinase Total Protein Albumin 05/07/19 05/08/19 05/08/19 21:23 04:38 07:59 WBC Hgb MCV MCHC RDW Seg Neutrophils % Seg Neuts % (Manual) Lymphocytes % (Manual) Monocytes % (Manual) Seg Neutrophils # Seg Neutrophils # Man Monocytes # (Manual) PT INR APTT POC ABG pH ABG pH POC ABG pCO2 POC ABG pO2 ABG pO2 ABG HCO3 ABG Base Excess ABG Hemoglobin VBG pH Sodium 146 H Potassium 3.0 L Chloride Carbon Dioxide BUN Creatinine Glucose 147 H POC Glucose 204 H 161 H Hemoglobin A1c Lactic Acid Calcium 7.8 L Phosphorus 2.00 L D Magnesium AST 109 H ALT 87 H Ammonia Total Creatine Kinase Total Protein 5.8 L Albumin 2.3 L 05/08/19 05/08/19 05/08/19 11:53 16:52 21:03 WBC Hgb MCV MCHC RDW Seg Neutrophils % Seg Neuts % (Manual) Lymphocytes % (Manual) Monocytes % (Manual) Seg Neutrophils # Seg Neutrophils # Man Monocytes # (Manual) PT INR APTT POC ABG pH ABG pH POC ABG pCO2 POC ABG pO2 ABG pO2 ABG HCO3 ABG Base Excess ABG Hemoglobin VBG pH Sodium Potassium Chloride Carbon Dioxide BUN Creatinine Glucose POC Glucose 170 H 163 H 210 H Hemoglobin A1c Lactic Acid Calcium Phosphorus Magnesium AST ALT Ammonia Total Creatine Kinase Total Protein Albumin 05/09/19 05/09/19 05/09/19 04:58 04:58 08:24 WBC 12.5 H Hgb MCV MCHC RDW Seg Neutrophils % Seg Neuts % (Manual) 76.0 H Lymphocytes % (Manual) 10.0 L Monocytes % (Manual) 13.0 H Seg Neutrophils # Seg Neutrophils # Man 9.5 H Monocytes # (Manual) 1.6 H PT INR APTT POC ABG pH ABG pH POC ABG pCO2 POC ABG pO2 ABG pO2 ABG HCO3 ABG Base Excess ABG Hemoglobin VBG pH Sodium 146 H Potassium Chloride 107.8 H Carbon Dioxide BUN Creatinine Glucose 108 H POC Glucose 198 H Hemoglobin A1c Lactic Acid Calcium 7.9 L Phosphorus Magnesium AST ALT Ammonia Total Creatine Kinase Total Protein Albumin 05/09/19 13:08 WBC Hgb MCV MCHC RDW Seg Neutrophils % Seg Neuts % (Manual) Lymphocytes % (Manual) Monocytes % (Manual) Seg Neutrophils # Seg Neutrophils # Man Monocytes # (Manual) PT INR APTT POC ABG pH ABG pH POC ABG pCO2 POC ABG pO2 ABG pO2 ABG HCO3 ABG Base Excess ABG Hemoglobin VBG pH Sodium Potassium Chloride Carbon Dioxide BUN Creatinine Glucose POC Glucose 204 H Hemoglobin A1c Lactic Acid Calcium Phosphorus Magnesium AST ALT Ammonia Total Creatine Kinase Total Protein Albumin Allied health notes reviewed: nursing
[2019-05-09 14:12] LABS: Bacteria,Urine 2+ /HPF (Negative); Bilirubin,Urine NEG (Negative); Blood,Urine LG (Negative); Color,Urine Yellow (Yellow); Mucus,Urine 1+ /HPF; Urobilinogen,Urine < 2.0 mg/dL (<2.0)
[2019-05-09 14:15] LABS: RBC,Urine > 182.0 /HPF (0.0-6.0)
[2019-05-09] MEDS: SODIUM CHLORIDE FLUSH SYRINGE 10 ML IV SCH (14:29)
--- NOTE | 2019-05-09 16:22 | Discharge Summary ---
Providers - Providers Date of Admission: 05/02/19 14:10 Date of discharge: 05/09/19 Attending physician: BRENT GARCÍA 05/02/19 12:06 Consult to Dietitian/Nutrition [CONS] Routine Physician Instructions: Reason For Exam: Reason for Consult: Evaluate nutritional intake 05/02/19 12:49 Consult to Case Management [CONS] Routine Services Needed at Discharge: 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 Other Notified:: yes Phone number called:: in person Was contact made?: Yes If yes, spoke with:: Nisha Time called:: 07:54 05/02/19 16:00 Consult to Dietitian/Nutrition [CONS] Routine Physician Instructions: Reason For Exam: DKA Reason for Consult: Nutrition Recommendations Reason for Consult: Diet education 05/02/19 16:01 Consult to Case Management [CONS] Routine Services Needed at Discharge: 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 [employer] 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 Notified:: yes Phone number called:: in person Was contact made?: Yes If yes, spoke with:: Nisha Time called:: 07:56 05/02/19 19:05 Consult to Physician [CONS] Routine Comment: Consulting Provider: DANIELLE REBOLLAR Physician Instructions: Reason For Exam: DKA 05/02/19 20:31 Consult to Physician [CONS] Routine Comment: Consulting Provider: NATHALIE BERNARD Physician Instructions: Reason For Exam: STIVEN/ATN 05/03/19 19:27 Consult to Dietitian/Nutrition [CONS] Routine Physician Instructions: Reason For Exam: Reason for Consult: Write/Manage Tube Feeding 05/03/19 19:33 Consult to Dietitian/Nutrition [CONS] Routine Physician Instructions: Assess nutrtn needs, initiate, modify, manage TF Reason For Exam: Reason for Consult: Write/Manage Tube Feeding Reason for Consult: Write/Manage Tube Feeding 05/04/19 11:08 Occupational Therapy Evaluate and Treat [CONS] Routine Comment: Reason For Exam: debility, limited ADLS Physical Therapy Evaluation and Treat [CONS] Routine Comment: Reason For Exam: debility Speech Therapy Evaluation and Treat [CONS] Routine Reason For Exam: swallow evalaution, extubated 05/05/19 17:09 Consult to Dietitian/Nutrition [CONS] Routine Physician Instructions: Assess nutrtn needs, initiate, modify, manage TF Reason For Exam: Reason for Consult: Write/Manage Tube Feeding Reason for Consult: Write/Manage Tube Feeding 05/05/19 17:13 Consult to Dietitian/Nutrition [CONS] Routine Physician Instructions: Assess nutrtn needs, initiate, modify, manage TF Reason For Exam: Reason for Consult: Write/Manage Tube Feeding Reason for Consult: Write/Manage Tube Feeding 05/07/19 12:13 Physical Therapy Evaluation and Treat [CONS] Routine Comment: Reason For Exam: placement 05/07/19 12:24 Consult to Physician [CONS] Routine Comment: Consulting Provider: BEBA NUÑEZ Physician Instructions: Reason For Exam: new onset CHF [facility] Condition: Stable Hospital course: 59-year-old -[place] male with history of diabetes and hypertension brought in for altered sensorium and decreased responsiveness. Patient is currently residing with his sister who found him poorly responsive in the morning and EMS was called. EMS gave of wall fluid bolus and brought the patient for further evaluation to the emergency room at [facility]. In the emergency room because of the decreased responsiveness and decreased breathing--- patient was intubated. His BG was 1330, Cr 6.4, Na of 154. He was placed on pressores, insulin drip, aggressive iv fluid hydration, abx and admitted to ICU for further Mx. Discharge diagnosis: /Acute diarrhea, started on flagyl empirically /Intermittent hematurea, resolved, h/h stable / Acute metabolic encephalopathy, resolved - from [facility], hyperglycemia and hypernatremia - CT head unremarkable, cont to monitor clinically / Acute respiratory failure with hypoxia Patient was intubated for AMS and hypoxia CC consulted, weaned off vent - extubation 05/04/19 Continue Duonebs round the clock, Albuterol neb treatments prn / HHNS - hyperosmolar hyperglycemic non-ketotic syndrome Patient has a blood glucose level around 1330 with Severe metabolic acidosis and Minimal ketones in urine In the ER Insulin drip started, IV fluids about 3 L of normal saline bolus given then continued with D5W followed by 1/4NS for hypernatremia, BG and Na level improved, then was 1/2NS and free water with TF as failed swallow eval, started on subqu insulin - adjust dose as needed On mechanical soft diet / Hypovlomic shock vs cardiogenic shock, resolved - Started on Levophed and vasopressin following admission - now weaned off - septic shock unlikely as negative Cx, d/beverley iv abx, 2d echo showing EF 35-40% /New onset CHF, Ef 35-40% - stable w/o compensation - cardiology consulted if needed any ischemic workup before discharge - recommended medical Mx /Severe Hypernatremia , resolved - Na was upto 164 s/p on D5W and 1/4NS Cont to monitor BMP daily, 1/2 NS @30ml/hr / Metabolic acidosis Severe due to reclining renal function vs possible sepsis IV sodium bicarbonatex2, monitor bmp / h/o Hypertension Hold antihypertensives / Acute kidney injury due to ATN Secondary to severe dehydration Nephrology consult requested, renal function improved IV fluids for now, monitor renal function, / Hypocalcemia, s/p Calcium gluconate /Hyperkalemia on admission now persistent Hypokalemia - POA, replete as needed, cont to monitor BMP / Hyperammonemia, resolved s/p Lactulose 30 cc with feeding tube / DVT prophylaxis On heparin and GI prophylaxis Disposition: PT recommended Acute rehab Hospitalist physical: GENERAL: well-developed and well-nourished -[place] male lying on bed, HEENT: Normocephalic. Atraumatic. No conjunctival congestion or icterus. Patient has dry mucous membranes. + cataract both eyes NECK: Supple. Trachea midline. CHEST/LUNGS: Clear to auscultated bilaterally. No wheezes crackles or rhonchi. On mechanical ventilation HEART/CARDIOVASCULAR: Tachycardic. S1 and S2 positive. ABDOMEN: Abdomen is soft. Patient has normal bowel sounds. SKIN: There is no rash. Warm and dry. NEURO: moves all extremities, MUSCULOSKELETAL: No joint effusion or tenderness. EXTRIMITY: No edema, no cyanosis or clubbing. PSYCH: co-operative Disposition: DC/TX-70 ANOTHER TYPE HLTHCARE Time spent for discharge: 34 minutes Core Measure Documentation - Palliative Care Palliative Care/ Comfort Measures: Not Applicable - Core Measures Any of the following diagnoses?: none Exam - Constitutional Vitals: Temp Pulse Resp BP Pulse Ox 97.9 F 96 H 19 111/82 98 05/09/19 13:01 05/09/19 13:01 05/09/19 13:01 05/09/19 13:01 05/09/19 13:01 Plan Activity: fall precautions Weight Bearing Status: Non-Weight Bearing Diet: diabetic Special Instructions: record blood sugar diary Follow up with: [facility] BRIANNA [Primary Care Provider] - 3-5 Days ALLAN CHANCE MD [Staff Physician] - 7 Days
[2019-05-09 17:28] VITALS: BP 104/67
== END 2019-05-09 18:30 | DRG 871 ==
LOC: ED 11:50 → CC1 14:10 → 3A 05-06 12:08
PROVIDERS: ADMIT Internal Medicine; ATTEND Internal Medicine
PROC: 5A1945Z Respiratory Ventilation, 24-96 Consecutive Hours (ICD-10-PCS; principal; 2019-05-02)
PROC: 0BH17EZ Insertion of Endotracheal Airway into Trachea, Via Natural or Artificial Opening (ICD-10-PCS; 2019-05-02)
PROC: 4A033R1 Measurement of Arterial Saturation, Peripheral, Percutaneous Approach (ICD-10-PCS; 2019-05-02)
PROC: 06HY33Z Insertion of Infusion Device into Lower Vein, Percutaneous Approach (ICD-10-PCS; 2019-05-02)
DX: A41.9 Sepsis, unspecified organism (principal); E11.01 Type 2 diabetes mellitus with hyperosmolarity with coma; J96.01 Acute respiratory failure with hypoxia; G93.41 Metabolic encephalopathy; N17.0 Acute kidney failure with tubular necrosis; R57.0 Cardiogenic shock; E87.0 Hyperosmolality and hypernatremia; E72.20 Disorder of urea cycle metabolism, unspecified; I42.9 Cardiomyopathy, unspecified; I50.22 Chronic systolic (congestive) heart failure; R31.9 Hematuria, unspecified; I11.0 Hypertensive heart disease with heart failure; E86.0 Dehydration; E83.51 Hypocalcemia; E87.5 Hyperkalemia; E83.39 Other disorders of phosphorus metabolism; Z79.899 Other long term (current) drug therapy; Z94.7 Corneal transplant status; Z82.49 Family history of ischemic heart disease and other diseases of the circulatory system
CPT/HCPCS: 36415; 36600; 70450; 71045; 74018; 80048; 80053; 80076; 81001; 82010; 82140; 82550; 82553; 82803; 82805; 82947; 82962; 83036; 83735; 83880; 84100; 84484; 85007; 85025; 85610; 85730; 87040; 87045; 87086; 93005; 93010; 93306; 94002; 94003; 94640; 94760; 99292; G0378; A9270-GY; J0330; J0610; J0692; J1644; J1815; J2060; J2185; J3370; J3480; J7030; J7040; J7050; J7070

== ENCOUNTER 2019-05-09 16:18 | Inpatient (IN) | payer MEDICARE ==
[2019-05-09] MEDS ORDERED: D50W (25GM) Syringe IV PRN (18:45)
[2019-05-09] MEDS ORDERED: DULCOLAX PR PRN (18:56)
[2019-05-09] MEDS ORDERED: MIRALAX 3350 PO PRN (18:56)
[2019-05-09] MEDS ORDERED: ZOFRAN ODT PO PRN (18:56)
[2019-05-09] MEDS ORDERED: TYLENOL PO PRN (18:56)
[2019-05-09] MEDS ORDERED: ISOPTO TEARS 0.5% OU PRN (18:57)
[2019-05-09] MEDS ORDERED: PROVENTIL IH PRN (18:57)
[2019-05-09] MEDS: COREG PO SCH (21:11)
[2019-05-09] MEDS: ALPHAGAN P 0.15% OU SCH (21:12)
[2019-05-09] MEDS: HEPARIN SUB-Q SCH (21:12)
[2019-05-09] MEDS: HumuLIN R SUB-Q SCH (21:14)
[2019-05-09] MEDS: PEPCID PO SCH (21:42)
[2019-05-10] MEDS: HEPARIN SUB-Q SCH ×3 (05:18→21:49)
[2019-05-10 06:38] LABS: Hematocrit 40.7 % (35.5-45.6); Hemoglobin 13.3 gm/dl (11.8-15.2); Mean Corpuscular HGB Conc 33 % (32-34); Mean Corpuscular Volume 86 fl (84-94); Platelet Count 310 K/mm3 (140-440); Red Blood Count 4.74 M/mm3 (3.65-5.03)
[2019-05-10 07:05] LABS: Alanine Aminotransferase 79 units/L (7-56); Albumin 1.8 g/dL (3.9-5); BUN/Creatinine Ratio 23; Blood Urea Nitrogen 23 mg/dL (9-20); Calcium 8.1 mg/dL (8.4-10.2); Hemolysis Index 39
[2019-05-10] MEDS: NORVASC PO SCH (08:00)
[2019-05-10] MEDS: PEPCID PO SCH ×2 (08:05→21:48)
[2019-05-10] MEDS: GLUCOPHAGE PO SCH ×2 (08:05→18:56)
[2019-05-10] MEDS: HumuLIN R SUB-Q SCH ×4 (08:51→22:14)
--- NOTE | 2019-05-10 09:33 | History and Physical Report ---
History of Present Illness Date: 05/10/19 Date of admission: 05/09/19 18:45 Chief Complaint: Debility, encephalopathy, shock, HHNS History of present illness: 59-year-old male brought to the ER with altered mental status and decreased responsiveness. Patient was found by his sister at home and paramedics were called. Blood glucose was >1000 and he was hypernatremic. He was intubated, started on pressors and fluids. Acute kidney injury due to ATN and nephrology was consulted. This found to have hyperammonemia which was treated with lactulose. Feeding tube was inserted. He was slowly weaned off of ventilation and was extubated when appropriate. He is transferred to the floor where hospitalist continued to direct his improvement. Cardiology was consulted found that he had compensated systolic CHF and injection fraction of 35-40%. Therapies were ordered. Speech therapy worked with the patient and he developed inability to tolerate oral nutrition and meds. 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 On my exam he is still quite obtunded and is not oriented. I noted a slight right facial droop and the sister states that this was not present prior to this hospitalization but when she found him noted that was present. CT head was negative. Will order a MRI brain to confirm that he has not had CVA. Prior to discharge and admission to the rehabilitation he was noted to have increased WBCs, stool samples were check ed (and are negative for typical pathogens) and Flagyl was started. Urine was also checked and appears to have budding yeast. Awaiting final cultures, started him on fluconazole pending outcome of cultures. Currently patient has poor oral intake with only approximately 20% of his meal being eaten with assistance from nursing staff for feeding. He has vision deficits bilaterally and has cataracts and glaucoma. After the patient was medically stabilized he was transferred for further rehabilitation. All available medical records have been reviewed. Plan of care was discussed with patient and family. 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 denies: smoking, alcohol abuse Family history: hypertension Medications and Allergies Allergies Allergy/AdvReac Type Severity Reaction Status Date / Time No Known Allergies Allergy Unverified 08/06/13 08:33 Home Medications Medication Instructions Recorded Confirmed Last Taken Type glipiZIDE [Glucotrol] 10 mg PO QDAY 05/02/19 05/10/19 Unknown History Aspirin EC [Halfprin EC] 81 mg PO QDAY tablet 05/09/19 05/10/19 Unknown Rx AtorvaSTATin [Lipitor] 40 mg PO QHS tablet 05/09/19 05/10/19 Unknown Rx Carvedilol [Coreg] 3.125 mg PO BID tablet 05/09/19 05/10/19 Unknown Rx Dorzolamide Hcl/Timolol Maleat 1 drop OP BID 05/09/19 05/10/19 Unknown Rx [Dorzolamide-Timolol Eye Drops] Insulin NPH, Human [NovoLIN N] 25 unit SUB-Q BIDDIAB units 05/09/19 05/10/19 Unknown Rx Losartan [Cozaar] 12.5 mg PO QDAY tablet 05/09/19 05/10/19 Unknown Rx amLODIPine [Norvasc] 10 mg PO DAILY tablet 05/09/19 05/10/19 Unknown Rx metFORMIN [Glucophage] 1,000 mg PO BIDDIAB tablet 05/09/19 05/10/19 Unknown Rx metroNIDAZOLE [Flagyl TAB] 500 mg PO Q8HR tablet 05/09/19 05/10/19 Unknown Rx Active Meds: Active Medications Acetaminophen (Tylenol) 650 mg PO Q6H PRN PRN Reason: Non Cardiac Pain or Temp>100.5 Albuterol (Proventil) 2.5 mg IH Q6HRT PRN PRN Reason: Shortness Of Breath Amlodipine Besylate (Norvasc) 10 mg PO QDAY [facility] Artificial Tears (Isopto Tears 0.5%) 2 drops OU Q4H PRN PRN Reason: Dry Eye(s) Aspirin (Halfprin Ec) 81 mg PO QDAY [facility] Atorvastatin Calcium (Lipitor) 40 mg PO QHS [facility] Last Admin: 05/09/19 21:11 Dose: 40 mg Documented by: Bisacodyl (Dulcolax) 10 mg GA QDAY PRN PRN Reason: Constipation Brimonidine Tartrate (Alphagan P 0.15%) 1 drops OU BID [facility] Last Admin: 05/09/19 21:12 Dose: 1 drops Documented by: Carvedilol (Coreg) 3.125 mg PO BID [facility] Last Admin: 05/09/19 21:11 Dose: 3.125 mg Documented by: Dextrose (D50w (25gm) Syringe) 50 ml IV PRN PRN PRN Reason: Hypoglycemia Famotidine (Pepcid) 20 mg PO BID [facility] Last Admin: 05/09/19 21:42 Dose: 20 mg Documented by: Heparin Sodium (Porcine) (Heparin) 5,000 unit SUB-Q Q8HR [facility] Last Admin: 05/10/19 05:18 Dose: 5,000 unit Documented by: Insulin Human NPH (Humulin N) 25 unit SUB-Q BIDDIAB [facility] Insulin Human Regular (Humulin R) 0 units SUB-Q ACHS [facility]; Protocol Last Admin: 05/10/19 08:51 Dose: Not Given Documented by: Losartan Potassium (Cozaar) 12.5 mg PO QDAY [facility] Metformin HCl (Glucophage) 1,000 mg PO BIDDIAB [facility] Ondansetron HCl (Zofran Odt) 4 mg PO Q8H PRN PRN Reason: Nausea And Vomiting Polyethylene Glycol (Miralax 3350) 17 gm PO QDAY PRN PRN Reason: Constipation Potassium Chloride (K-Dur) 10 meq PO QDAY [facility] Review of Systems All systems: negative (ROS negative for 12 systems except as noted below with pertinent positives and negatives.) Constitutional: fatigue, weakness, lethargy, poor appetite Eyes: bilateral: decreased vision Ears, nose, mouth and throat: dysphagia, no decreased hearing, no bleeding gums, no headache Cardiovascular: no chest pain, no palpitations, no rapid/irregular heart beat, no edema Respiratory: no cough, no cough with sputum Gastrointestinal: no abdominal pain, no nausea, no vomiting, no diarrhea, no constipation Genitourinary Male: no dysuria Musculoskeletal: gait dysfunction Integumentary: no rash, no pruritis, no redness, no sores Neurological: change in mentation, confusion, loss of vision Exam - Exam Narrative exam: MUSCULOSKELETAL SPECIALTY EXAM CONSTITUTIONAL: Well developed, well nourished, appropriately groomed, thin LYMPHATIC: No appreciable abnormalities palpable in neck EENT: Visual deficit, unable to see clock on wall or pens held 1.5 ft in front of him. EOMI grossly intact with some difficulty following commands, dyscongugate gaze. Oropharynx clear. Hearing intact to soft voice. Lips slightly swollen (decreased per sister) RESPIRATORY: Clear to auscultation bilaterally, no increased work of breathing CARDIOVASCULAR: Regular Rate/ Rhythm, no swelling, edema or tenderness in BUE or BLE. Pulses palpable in all extremities. All extremities warm. GI: + bowel sounds, soft, NTTP, nondistended. INTEGUMENTARY: Normal, no lesion, rash, masses or bruising noted in extremities. MUSCULOSKELETAL: BUE and BLE normal without defect, crepitus, subluxation, effusion, arthritic changes or TTP. BUE 4+/5, good ROM, with normal tone. Difficulty following commands BLE 4+/5 good ROM, with normal tone. Difficulty following commands NEURO: Right facial droop, uncertain sensation differences side to side (confused) otherwise CN 2-12 grossly intact. Gross sensation intact in all extremities. Reflexes 1+ bilaterally at biceps, brachioradialis and patella. No clonus at ankles. Coordination unable to be tested due to difficulty following commands. No tremor noted in 4 extremities. POSTURE and GAIT: Sitting posture fair. Balance appears fair. Gait deferred until seen with therapy. PSYCH: Drowsy, not oriented, affect appears sedated. Insight unable to be tested. - Constitutional Vitals: Vital Signs - 12hr 05/09/19 05/10/19 05/10/19 22:00 04:42 07:30 Temperature 36.2 C L 36.8 C Pulse Rate 79 86 Pulse Rate [ 73 From Monitor] Respiratory 18 20 Rate Blood Pressure 107/70 108/71 [Left] O2 Sat by Pulse 98 99 Oximetry - Allied health notes FIMS assesment as documented by PT/OT/ST: Social interaction/Memory/Problem solving Social Interaction FIM Score 3. Moderate Assistance (Interacts appropriately 50-74%.) Memory FIM Score 3. Moderate Assistance (Recognizes and remembers 50-74%.) Problem Solving FIM Score 3. Moderate Assistance (Solves routine problems 50-74%.) - Labs CBC & Chem 7: 05/10/19 05:50 05/10/19 05:50 Labs: Laboratory Results - last 72 hr 05/09/19 05/10/19 05/10/19 20:43 05:50 05:50 WBC 14.5 H RBC 4.74 Hgb 13.3 Hct 40.7 MCV 86 MCH 28 MCHC 33 RDW 14.0 Plt Count 310 Sodium 147 H Potassium 3.9 Chloride 108.1 H Carbon Dioxide 27 Anion Gap 16 BUN 23 H Creatinine 1.0 Estimated GFR > 60 BUN/Creatinine Ratio 23 Glucose 112 H POC Glucose 109 H Calcium 8.1 L Total Bilirubin 0.40 AST 60 H ALT 79 H Alkaline Phosphatase 152 H Total Protein 5.4 L Albumin 1.8 L Albumin/Globulin Ratio 0.5 05/10/19 08:10 WBC RBC Hgb Hct MCV MCH MCHC RDW Plt Count Sodium Potassium Chloride Carbon Dioxide Anion Gap BUN Creatinine Estimated GFR BUN/Creatinine Ratio Glucose POC Glucose 133 H Calcium Total Bilirubin AST ALT Alkaline Phosphatase Total Protein Albumin Albumin/Globulin Ratio Assessment and Plan Assessment and plan: Patient was assessed and evaluated for Acute Inpatient Rehab Unit. Due to the patients above-mentioned medical complexity, along with decreased functional mobility and self care, this patient continues to require and be appropriate for a comprehensive, multidisciplinary [id number] rehabilitation program. These needs cannot be met in an outpatient or other less intensive setting. The patient would continue to benefit from skilled therapy intervention for at least 3 hours per day, five days a week, with techniques specific to the needs of the patient to improve function, activities of daily living, and reintegration into the community. The patient continues to require: -- OT to improve ROM, self-care, and learn use of adaptive equipment -- PT to improve strength and balance, functional transfers, and ambulation with energy conservation techniques to improve functional mobility -- METAL REFINER to address cognitive deficits and swallowing ability -- 24 hour RN to ensure and prevent skin breakdown, promote progressive independence while ensuring safety, ensure education regarding medications, and incorporation of the rehabilitation at the bedside -- 24 hour Publications Distribution Clerk to coordinate this interdisciplinary program, and to manage/prevent complications as a result of the patients medical comorbidities. -Plan of care by day 4 -Weekly team conferences With such a program, there is a reasonable certainty that the goals individualized for this patient can be achieved within the specified length of stay. Possible CVA vs metabolic encephalopathy: MRI brain ordered. Prior CT head report and images reviewed. Sedated, right facial droop, dysphagia. Monitor for clearing/improvement Hypernatremia: 1/2 NS, monitor. Will consult IM Fungal UTI: Start fluconazole. Awaiting Urine Cx HTN: medications restarted, hold orders placed DM: Continue insulin, carb controllled diet, adjust as needed. CHF: EF 35-40%. Continue medications, monitor Electrolyte abnormalities: Monitor and correct as needed Glaucoma: Cont drops Z73.6 ADL dysfunction: OT will work on improving ability to perform ADLs (including assistive devices) to increase independence and decrease caregiver burden and improve functional transfers and mobility training. R26.2 Difficulty walking: PT will work on gait training and proper use of assistive devices and advance as appropriate to use of stairs and outside ambulation on uneven surfaces. R26.81 Unsteadiness on feet: PT will work on improving static and dynamic sitting and standing balance as well as proper use of assistive devices to decrease risk of falls. R26.89 Abnormality of gait: PT will work to improve safety and efficiency of gait through neuromotor training and gait training along with instruction on proper use of assistive devices. M62.81 Muscle weakness: PT & OT will work on strengthening exercises to improve functional strength including mixture of closed and open kinetic chain exercises. R53.81 Debility: PT & OT will work on improving overall functional status to improve participation with ADLs, mobility and social involvement. R53.83 Fatigue: PT & OT will work on improving endurance through aerobic exercises and therapeutic activity while monitoring patients tolerance for activity and vital signs as needed. DVT ppx: heparin Pain: Continue physical modalities in therapy and pain medications as needed to achieve functional pain control. Sleep: Monitor and address as needed. Bowel: Monitor and address as needed. Appetite: Monitor and address as needed. Discharge planning: Pending therapy progress and care plan meeting. Will continue discussion with therapy team, SW, patient and family. Restrictions/ Precautions: Falls, aspiration, visual impairment, AMS WB status: FWB Functional Hx: ADLs: Independent Cognition: Independent Mobility: No AD Barriers to Discharge: Decreased mobility and ability to perform self care, balance deficits, weakness Estimated Length of Stay: 14-20 days Discharge Destination: Home with family POST ADMISSION PHYSICIAN EVALUATION I have examined the patient and find that functional status, medical condition and appropriateness for IRF admission are essentially unchanged from those described in the preadmission screening except for slightly worse than expected mental status, but he is participating with therapy. Will monitor for worsening AMS, DVT/PE, bowel and bladder complications and complications due to HTN, CHF, DM, renal function and electrolyte abnormalities. Will attempt to avoid occ urrence of these issues or treat them if they present themselves.
[2019-05-10] MEDS: ALPHAGAN P 0.15% OU SCH ×2 (09:38→21:50)
[2019-05-10] MEDS: K-DUR PO SCH (09:43)
[2019-05-10] MEDS: COREG PO SCH ×2 (09:43→22:27)
[2019-05-10] MEDS: HALFPRIN EC PO SCH (09:43)
[2019-05-10] MEDS: COZAAR PO SCH (12:15)
[2019-05-10 12:27] LABS: Band Neutrophils # (Manual) 0.9 K/mm3; Basophils % (Manual) 0 % (0.0-1.8); Eosinophils % (Manual) 0 % (0.0-4.3); Platelet Estimate Consistent w Auto; RBC Morphology Normal; Total Cells Counted 100
[2019-05-10] MEDS: DIFLUCAN PO SCH (14:51)
[2019-05-10] MEDS: NACL 0.45% 1000 ML 1,000 ML IV SCH (14:51)
[2019-05-10] MEDS: DORZOLAMIDE TIMOLOL OP SCH (22:06)
[2019-05-11] MEDS: HEPARIN SUB-Q SCH ×3 (05:20→22:35)
[2019-05-11] MEDS: NACL 0.45% 1000 ML 1,000 ML IV SCH (05:30)
--- NOTE | 2019-05-11 07:54 | Progress Note ---
Subjective Date of service: 05/11/19 Principal diagnosis: Debility, encephalopathy, shock, HHNS Interval history: 59-year-old male brought to the ER with altered mental status and decreased responsiveness. Patient was found by his sister at home and paramedics were called. Blood glucose was >1000 and he was hypernatremic. He was intubated, started on pressors and fluids. Acute kidney injury due to ATN and nephrology was consulted. This found to have hyperammonemia which was treated with lactulose. Feeding tube was inserted. He was slowly weaned off of ventilation and was extubated when appropriate. He is transferred to the floor where hospitalist continued to direct his improvement. Cardiology was consulted found that he had compensated systolic CHF and injection fraction of 35-40%. Therapies were ordered. Speech therapy worked with the patient and he developed inability to tolerate oral nutrition and meds. 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 Patient is participating in therapy and making slow progress. Intermittent speech and interaction, have questioned him about this being voluntary or not - no answer. Taking rest breaks as needed. +BM. Denies pain, palpitations, dyspnea, cough, N/V, weakness, or joint pain. Awaiting MRI brain. Will check ammonia level. Labs pending. He is working with therapy once he gets going. All records, vitals, labs and medications were reviewed. No other issues per patient, nursing or therapy. Objective - Exam Narrative Exam: MUSCULOSKELETAL SPECIALTY EXAM CONSTITUTIONAL: Well developed, well nourished, appropriately groomed, thin EENT: Visual deficit. EOMI grossly intact with some difficulty following commands, dyscongugate gaze. Hearing intact to soft voice. Lips slightly swollen, stable RESPIRATORY: Clear to auscultation bilaterally, no increased work of breathing CARDIOVASCULAR: Regular Rate/ Rhythm, no swelling, edema or tenderness in BUE or BLE. All extremities warm. GI: + bowel sounds, soft, NTTP, nondistended. INTEGUMENTARY: Normal, no lesion, rash, masses or bruising noted in extremities. MUSCULOSKELETAL: BUE and BLE normal without defect, crepitus, subluxation, effusion, arthritic changes or TTP. BUE 4+/5, good ROM, with normal tone. Difficulty following commands BLE 4+/5 good ROM, with normal tone. Difficulty following commands NEURO: Right facial droop, uncertain sensation differences side to side (confused) otherwise CN 2-12 grossly intact. Gross sensation intact in all extremities. No tremor noted in 4 extremities. POSTURE and GAIT: Sitting posture fair. Balance appears fair. Gait deferred until seen with therapy. PSYCH: Drowsy, not oriented, affect appears sedated. Insight unable to be tested. - Constitutional Vitals: Vital Signs - 12hr 05/10/19 05/10/19 05/11/19 21:11 22:27 00:15 Temperature 37.0 C Pulse Rate 70 79 Pulse Rate [ 66 From Monitor] Respiratory 18 Rate Blood Pressure 120/77 117/77 O2 Sat by Pulse 97 Oximetry 05/11/19 05/11/19 04:54 07:19 Temperature 37.0 C 36.4 C Pulse Rate 73 60 Pulse Rate [ From Monitor] Respiratory 18 16 Rate Blood Pressure 120/74 113/72 O2 Sat by Pulse 98 98 Oximetry - Allied health notes Allied health notes reviewed: nursing, PT, ST, OT FIMS assessment as documented by PT/OT/ST: Grooming Patient cleans teeth/dentures: Yes Patient dale/brushes hair: Yes Patient washes, rinses and Yes dries face: Patient washes, rinses and Yes dries hands: Patient shaves: No Patient performs (no make-up/ 4/4 (100%) shaving): Grooming FIM Score 5. Supervision ([place] applies toothpaste or opens containers.) Toileting Toileting FIM Score 2. Maximal Assistance (Patient = 25% or more) Social interaction/Memory/Problem solving Social Interaction FIM Score 2. Maximal Assistance (Appropriate 25-49% or needs restraint.) Memory FIM Score 3. Moderate Assistance (Recognizes and remembers 50-74%.) Problem Solving FIM Score 3. Moderate Assistance (Solves routine problems 50-74%.) Transfers Mode of Locomotion: Wheelchair Bed/Chair/Wheelchair Transfers 1. Total Assistance (Patient less than 25%. 2 or FIM Score more persons.) Patient transferred to: Shower Shower Transfers FIM Score 4. Minimal Assistance (Patient = 75% or more. Needs touching.) Locomotion- Stairs Stairs FIM Score 0. Activity does not occur Locomotion- walk/wheelchair Most Frequent Mode of Walking Locomotion: Ambulation Distance 150 Walking FIM Score 1. Total Assistance (Pt. < 25%, 2 or more person assist, or <50 ft.) Wheelchair Propulsion Distance 90 Wheelchair FIM Score 2. Maximal Assistance (Patient = 25% or more. Minimum of 50 ft.) Eating Eating FIM Score 5. Supervision/Set-Up (Needs help w/ containers, cutting meat, etc.) Dressing-Upper body Patient retrieves clothing No items: Patient applies/removes UE n/a prosthesis or orthosis: Upper Body Dressing FIM Score 5. Supv./Set-Up ([place] sets out clothes or applies pros./orth.) Dressing-lower body Patient retrieves clothing No items: Patient applies/removes LE n/a prosthesis or orthosis: Lower Body Dressing FIM Score 5. Supv./Set-Up ([place] sets out clothes or applies pros./orth.) - Labs CBC & Chem 7: 05/10/19 05:50 05/10/19 05:50 Labs: Laboratory Results - last 72 hr 05/09/19 05/10/19 05/10/19 20:43 05:50 05:50 WBC 14.5 H RBC 4.74 Hgb 13.3 Hct 40.7 MCV 86 MCH 28 MCHC 33 RDW 14.0 Plt Count 310 Add Manual Diff Complete Total Counted 100 Seg Neuts % (Manual) 82.0 H Band Neutrophils % 6.0 Lymphocytes % (Manual) 4.0 L Reactive Lymphs % (Man) 0 Monocytes % (Manual) 6.0 Eosinophils % (Manual) 0 Basophils % (Manual) 0 Metamyelocytes % 2.0 Myelocytes % 0 Promyelocytes % 0 Blast Cells % 0 Nucleated RBC % Not Reportable Seg Neutrophils # Man 11.9 H Band Neutrophils # 0.9 Lymphocytes # (Manual) 0.6 L Abs React Lymphs (Man) 0.0 Monocytes # (Manual) 0.9 H Eosinophils # (Manual) 0.0 Basophils # (Manual) 0.0 Metamyelocytes # 0.3 Myelocytes # 0.0 Promyelocytes # 0.0 Blast Cells # 0.0 WBC Morphology Not Reportable Hypersegmented Neuts Not Reportable Hyposegmented Neuts Not Reportable Hypogranular Neuts Not Reportable Smudge Cells Not Reportable Toxic Granulation Not Reportable Toxic Vacuolation Not Reportable Dohle Bodies Not Reportable Pelger-Huet Anomaly Not Reportable Curt Rods Not Reportable Platelet Estimate Consistent w auto Clumped Platelets Not Reportable Plt Clumps, EDTA Not Reportable Large Platelets Not Reportable Giant Platelets Not Reportable Platelet Satelliting Not Reportable Plt Morphology Comment Not Reportable RBC Morphology Normal Dimorphic RBCs Not Reportable Polychromasia Not Reportable Hypochromasia Not Reportable Poikilocytosis Not Reportable Anisocytosis Not Reportable Microcytosis Not Reportable Macrocytosis Not Reportable Spherocytes Not Reportable Pappenheimer Bodies Not Reportable Sickle Cells Not Reportable Target Cells Not Reportable Tear Drop Cells Not Reportable Ovalocytes Not Reportable Helmet Cells Not Reportable [place] Bodies Not Reportable [place] Rings Not Reportable [place] Cells Not Reportable Bite Cells Not Reportable Crenated Cell Not Reportable Elliptocytes Not Reportable Acanthocytes ([place]) Not Reportable Rouleaux Not Reportable Hemoglobin C Crystals Not Reportable Schistocytes Not Reportable Malaria parasites Not Reportable Nabeel Bodies Not Reportable Hem Pathologist Commnt No Sodium 147 H Potassium 3.9 Chloride 108.1 H Carbon Dioxide 27 Anion Gap 16 BUN 23 H Creatinine 1.0 Estimated GFR > 60 BUN/Creatinine Ratio 23 Glucose 112 H POC Glucose 109 H Calcium 8.1 L Total Bilirubin 0.40 AST 60 H ALT 79 H Alkaline Phosphatase 152 H Total Protein 5.4 L Albumin 1.8 L Albumin/Globulin Ratio 0.5 05/10/19 05/10/19 05/10/19 08:10 11:16 16:27 WBC RBC Hgb Hct MCV MCH MCHC RDW Plt Count Add Manual Diff Total Counted Seg Neuts % (Manual) Band Neutrophils % Lymphocytes % (Manual) Reactive Lymphs % (Man) Monocytes % (Manual) Eosinophils % (Manual) Basophils % (Manual) Metamyelocytes % Myelocytes % Promyelocytes % Blast Cells % Nucleated RBC % Seg Neutrophils # Man Band Neutrophils # Lymphocytes # (Manual) Abs React Lymphs (Man) Monocytes # (Manual) Eosinophils # (Manual) Basophils # (Manual) Metamyelocytes # Myelocytes # Promyelocytes # Blast Cells # WBC Morphology Hypersegmented Neuts Hyposegmented Neuts Hypogranular Neuts Smudge Cells Toxic Granulation Toxic Vacuolation Dohle Bodies Pelger-Huet Anomaly Curt Rods Platelet Estimate Clumped Platelets Plt Clumps, EDTA Large Platelets Giant Platelets Platelet Satelliting Plt Morphology Comment RBC Morphology Dimorphic RBCs Polychromasia Hypochromasia Poikilocytosis Anisocytosis Microcytosis Macrocytosis Spherocytes Pappenheimer Bodies Sickle Cells Target Cells Tear Drop Cells Ovalocytes Helmet Cells [place] Bodies [place]ahlen Cells Bite Cells Crenated Cell Elliptocytes Acanthocytes ([place]) Rouleaux Hemoglobin C Crystals Schistocytes Malaria parasites Nabeel Bodies Hem Pathologist Commnt Sodium Potassium Chloride Carbon Dioxide Anion Gap BUN Creatinine Estimated GFR BUN/Creatinine Ratio Glucose POC Glucose 133 H 295 H 168 H Calcium Total Bilirubin AST ALT Alkaline Phosphatase Total Protein Albumin Albumin/Globulin Ratio 05/10/19 05/11/19 21:41 07:26 WBC RBC Hgb Hct MCV MCH MCHC RDW Plt Count Add Manual Diff Total Counted Seg Neuts % (Manual) Band Neutrophils % Lymphocytes % (Manual) Reactive Lymphs % (Man) Monocytes % (Manual) Eosinophils % (Manual) Basophils % (Manual) Metamyelocytes % Myelocytes % Promyelocytes % Blast Cells % Nucleated RBC % Seg Neutrophils # Man Band Neutrophils # Lymphocytes # (Manual) Abs React Lymphs (Man) Monocytes # (Manual) Eosinophils # (Manual) Basophils # (Manual) Metamyelocytes # Myelocytes # Promyelocytes # Blast Cells # WBC Morphology Hypersegmented Neuts Hyposegmented Neuts Hypogranular Neuts Smudge Cells Toxic Granulation Toxic Vacuolation Dohle Bodies Pelger-Huet Anomaly Curt Rods Platelet Estimate Clumped Platelets Plt Clumps, EDTA Large Platelets Giant Platelets Platelet Satelliting Plt Morphology Comment RBC Morphology Dimorphic RBCs Polychromasia Hypochromasia Poikilocytosis Anisocytosis Microcytosis Macrocytosis Spherocytes Pappenheimer Bodies Sickle Cells Target Cells Tear Drop Cells Ovalocytes Helmet Cells [place] Bodies [place] Cells Bite Cells Crenated Cell Elliptocytes Acanthocytes ([place]) Rouleaux Hemoglobin C Crystals Schistocytes Malaria parasites Nabeel Bodies Hem Pathologist Commnt Sodium Potassium Chloride Carbon Dioxide Anion Gap BUN Creatinine Estimated GFR BUN/Creatinine Ratio Glucose POC Glucose 178 H 99 Calcium Total Bilirubin AST ALT Alkaline Phosphatase Total Protein Albumin Albumin/Globulin Ratio Assessment and Plan Possible CVA vs metabolic encephalopathy: MRI brain ordered, awaiting results. Prior CT head report and images reviewed. Sedated, right facial droop, dysphagia. Monitor for clearing/improvement Hypernatremia: 1/2 NS, monitor, awaiting labs. Will consult IM Fungal UTI: Start fluconazole. Awaiting Urine Cx HTN: medications restarted, hold orders placed DM: Continue insulin, carb controllled diet, adjust as needed. CHF: EF 35-40%. Continue medications, monitor Electrolyte abnormalities: Monitor and correct as needed Glaucoma: Cont drops Z73.6 ADL dysfunction: OT will work on improving ability to perform ADLs (including assistive devices) to increase independence and decrease caregiver burden and improve functional transfers and mobility training. R26.2 Difficulty walking: PT will work on gait training and proper use of assistive devices and advance as appropriate to use of stairs and outside ambulation on uneven surfaces. R26.81 Unsteadiness on feet: PT will work on improving static and dynamic sitting and standing balance as well as proper use of assistive devices to decrease risk of falls. R26.89 Abnormality of gait: PT will work to improve safety and efficiency of gait through neuromotor training and gait training along with instruction on proper use of assistive devices. M62.81 Muscle weakness: PT & OT will work on strengthening exercises to improve functional strength including mixture of closed and open kinetic chain exercises. R53.81 Debility: PT & OT will work on improving overall functional status to improve participation with ADLs, mobility and social involvement. R53.83 Fatigue: PT & OT will work on improving endurance through aerobic exercises and therapeutic activity while monitoring patients tolerance for activity and vital signs as needed. DVT ppx: heparin Pain: Continue physical modalities in therapy and pain medications as needed to achieve functional pain control. Sleep: Monitor and address as needed. Bowel: Monitor and address as needed. Appetite: Monitor and address as needed. Discharge planning: Pending therapy progress and care plan meeting. Will continue discussion with therapy team, SW, patient and family. Restrictions/ Precautions: Falls, aspiration, visual impairment, AMS WB status: FWB Functional Hx: ADLs: Independent Cognition: Independent Mobility: No AD Barriers to Discharge: Decreased mobility and ability to perform self care, balance deficits, weakness Estimated Length of Stay: 14-20 days Discharge Destination: Home with family
[2019-05-11] MEDS: HumuLIN R SUB-Q SCH ×3 (09:40→18:55)
[2019-05-11] MEDS: GLUCOPHAGE PO SCH ×2 (09:41→18:54)
[2019-05-11] MEDS: K-DUR PO SCH (10:58)
[2019-05-11] MEDS: DIFLUCAN PO SCH (10:59)
[2019-05-11] MEDS: COZAAR PO SCH (10:59)
[2019-05-11] MEDS: ALPHAGAN P 0.15% OU SCH (11:00)
[2019-05-11] MEDS: DORZOLAMIDE TIMOLOL OP SCH ×2 (11:04→22:44)
[2019-05-11] MEDS: NORVASC PO SCH (11:05)
[2019-05-11] MEDS: COREG PO SCH ×2 (11:07→22:38)
[2019-05-11] MEDS: PEPCID PO SCH ×2 (11:09→22:42)
[2019-05-11] MEDS: HALFPRIN EC PO SCH (11:17)
[2019-05-11 11:31] LABS: Hematocrit 40.2 % (35.5-45.6); Hemoglobin 13.2 gm/dl (11.8-15.2); Mean Corpuscular HGB Conc 33 % (32-34); Mean Corpuscular Volume 85 fl (84-94); Platelet Count 432 K/mm3 (140-440); Red Blood Count 4.72 M/mm3 (3.65-5.03)
[2019-05-11 11:51] LABS: BUN/Creatinine Ratio 24; Blood Urea Nitrogen 24 mg/dL (9-20); Hemolysis Index 11
--- NOTE | 2019-05-11 16:36 | Magnetic Resonance Report ---
MRI BRAIN WITHOUT CONTRAST INDICATION / CLINICAL INFORMATION: Right facial droop, obtundation. TECHNIQUE: Multiplanar, multisequence MR images of the brain were obtained. COMPARISON: Head CT on 05/02/2019. FINDINGS: BRAIN / INTRACRANIAL CONTENTS: No acute ischemia, acute hemorrhage, mass effect, midline shift, or hy drocephalus. No chronic infarct or significant atrophy. No significant demyelinating changes. CRANIOCERVICAL JUNCTION: No significant abnormality. VASCULAR FLOW-VOIDS: No significant abnormality. ORBITS: Phthisis bulbi right globe noted. Left-sided scleral band also noted. SINUSES / MASTOIDS: No significant abnormality of visualized sinuses and mastoid air cells. ADDITIONAL FINDINGS: None. IMPRESSION: 1. No acute intracranial abnormality. No acute infarct or finding to explain the patient's symptoms. Signer Name: Jhony Leblanc MD Signed: 05/11/2019 4:31 PM Workstation Name: [id number]
[2019-05-11] MEDS ORDERED: K-DUR PO ONE (17:00)
[2019-05-12] MEDS: ALPHAGAN P 0.15% OU SCH ×3 (00:25→22:06)
[2019-05-12] MEDS: HumuLIN R SUB-Q SCH ×4 (01:40→22:05)
[2019-05-12] MEDS: NACL 0.45% 1000 ML 1,000 ML IV SCH (05:58)
[2019-05-12] MEDS: HEPARIN SUB-Q SCH ×3 (05:59→22:03)
[2019-05-12 06:18] LABS: Hematocrit 37.4 % (35.5-45.6); Hemoglobin 12.1 gm/dl (11.8-15.2); Mean Corpuscular HGB Conc 33 % (32-34); Mean Corpuscular Volume 85 fl (84-94); Platelet Count 396 K/mm3 (140-440); Red Blood Count 4.38 M/mm3 (3.65-5.03); Red Cell Distribution Width 13.8 % (13.2-15.2)
[2019-05-12 06:21] LABS: BUN/Creatinine Ratio 25; Blood Urea Nitrogen 20 mg/dL (9-20); Calcium 7.6 mg/dL (8.4-10.2); Hemolysis Index 6
[2019-05-12] MEDS: DORZOLAMIDE TIMOLOL OP SCH ×2 (08:25→22:23)
[2019-05-12] MEDS: COZAAR PO SCH (08:52)
[2019-05-12] MEDS: DIFLUCAN PO SCH (08:52)
[2019-05-12] MEDS: GLUCOPHAGE PO SCH ×2 (08:53→17:40)
[2019-05-12] MEDS: K-DUR PO SCH ×3 (08:53→22:05)
[2019-05-12] MEDS: HALFPRIN EC PO SCH (08:53)
[2019-05-12] MEDS: NORVASC PO SCH (08:53)
[2019-05-12] MEDS: PEPCID PO SCH ×2 (08:53→22:03)
[2019-05-12] MEDS: COREG PO SCH ×2 (08:53→22:49)
--- NOTE | 2019-05-12 09:01 | Progress Note ---
Subjective Date of service: 05/12/19 Principal diagnosis: Debility, encephalopathy, shock, HHNS Interval history: 59-year-old male brought to the ER with altered mental status and decreased responsiveness. Patient was found by his sister at home and paramedics were called. Blood glucose was >1000 and he was hypernatremic. He was intubated, started on pressors and fluids. Acute kidney injury due to ATN and nephrology was consulted. This found to have hyperammonemia which was treated with lactulose. Feeding tube was inserted. He was slowly weaned off of ventilation and was extubated when appropriate. He is transferred to the floor where hospitalist continued to direct his improvement. Cardiology was consulted found that he had compensated systolic CHF and injection fraction of 35-40%. Therapies were ordered. Speech therapy worked with the patient and he developed inability to tolerate oral nutrition and meds. 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 Patient is participating in therapy and making slow progress. MRI brain NEG. Spoke more today, thinks he is ready to go home. Does not have clear thought pattern all the time. Choosing colors 50/50 even with glasses. Taking rest breaks as needed. +BM. Denies pain, palpitations, dyspnea, cough, N/V, weakness, or joint pain. K replaced yesterday and lower today. Mg ordered. D/C caban and monitor UOP. Na improved, stop IVF. He is working with therapy once he gets going. Discussed in Team Conference. Intermittent confusion, likely still recovering from encephalopathy. Balance is poor with ambulation and he is having difficulty attending to environment. Will continue therapy while he continues to clear and look to d/c 05/23 with his sister going home with him. All records, vitals, labs and medications were reviewed. No other issues per patient, nursing or therapy. Objective - Exam Narrative Exam: MUSCULOSKELETAL SPECIALTY EXAM CONSTITUTIONAL: Well developed, well nourished, appropriately groomed, thin EENT: Visual deficit. EOMI grossly intact with some difficulty following commands, dyscongugate gaze. Hearing intact to soft voice. Lips slightly swollen, stable RESPIRATORY: Clear to auscultation bilaterally, no increased work of breathing CARDIOVASCULAR: Regular Rate/ Rhythm, no swelling, edema or tenderness in BUE or BLE. All extremities warm. GI: + bowel sounds, soft, NTTP, nondistended. INTEGUMENTARY: Normal, no lesion, rash, masses or bruising noted in extremities. MUSCULOSKELETAL: BUE and BLE normal without defect, crepitus, subluxation, effusion, arthritic changes or TTP. BUE 4+/5, good ROM, with normal tone. Difficulty following commands BLE 4+/5 good ROM, with normal tone. Difficulty following commands NEURO: Right mild facial droop, uncertain sensation differences side to side (confused) otherwise CN 2-12 grossly intact. Gross sensation intact in all extremities. No tremor noted in 4 extremities. POSTURE and GAIT: Sitting posture fair. Balance appears fair. Gait slowed and unsteady. PSYCH: Awake, some confusion, affect appears flat. Decreased awareness of deficits. - Constitutional Vitals: Vital Signs - 12hr 05/11/19 05/12/19 05/12/19 22:38 00:14 05:12 Temperature 37.3 C 36.5 C Pulse Rate 65 83 53 L Respiratory 18 18 Rate Blood Pressure 113/70 113/70 115/72 O2 Sat by Pulse 98 98 Oximetry - Allied health notes Allied health notes reviewed: nursing, PT, OT FIMS assessment as documented by PT/OT/ST: Grooming Patient cleans teeth/dentures: Yes Patient dale/brushes hair: Yes Patient washes, rinses and Yes dries face: Patient washes, rinses and Yes dries hands: Patient shaves: No Patient performs (no make-up/ /4 (100%) shaving): Grooming FIM Score 5. Supervision ([place] applies toothpaste or opens containers.) Toileting Toileting FIM Score 2. Maximal Assistance (Patient = 25% or more) Social interaction/Memory/Problem solving Social Interaction FIM Score 2. Maximal Assistance (Appropriate 25-49% or needs restraint.) Memory FIM Score 3. Moderate Assistance (Recognizes and remembers 50-74%.) Problem Solving FIM Score 4. Minimal Assistance (Solves routine problems 75-90%.) Transfers Mode of Locomotion: Wheelchair Bed/Chair/Wheelchair Transfers 5. Supervision (Needs supv. or set-up for FIM Score sliding board, foot rests.) Patient transferred to: Shower Shower Transfers FIM Score 4. Minimal Assistance (Patient = 75% or more. Needs touching.) Locomotion- Stairs Stairs FIM Score 0. Activity does not occur Locomotion- walk/wheelchair Most Frequent Mode of Walking Locomotion: Ambulation Distance 150 Walking FIM Score 4. Minimal Assistance (Patient = 75% or more. Minimum of 150 ft.) Wheelchair Propulsion Distance 150 Wheelchair FIM Score 3. Moderate Assistance (Patient = 50% or more. Minimum of 150 ft.) Eating Eating FIM Score 5. Supervision/Set-Up (Needs help w/ containers, cutting meat, etc.) Dressing-Upper body Patient retrieves clothing No items: Patient applies/removes UE n/a prosthesis or orthosis: Upper Body Dressing FIM Score 5. Supv./Set-Up ([place] sets out clothes or applies pros./orth.) Dressing-lower body Patient retrieves clothing No items: Patient applies/removes LE n/a prosthesis or orthosis: Lower Body Dressing FIM Score 5. Supv./Set-Up ([place] sets out clothes or applies pros./orth.) - Labs CBC & Chem 7: 05/12/19 05:26 05/12/19 05:26 Labs: Laboratory Results - last 72 hr 05/09/19 05/10/19 05/10/19 20:43 05:50 05:50 WBC 14.5 H RBC 4.74 Hgb 13.3 Hct 40.7 MCV 86 MCH 28 MCHC 33 RDW 14.0 Plt Count 310 Add Manual Diff Complete Total Counted 100 Seg Neuts % (Manual) 82.0 H Band Neutrophils % 6.0 Lymphocytes % (Manual) 4.0 L Reactive Lymphs % (Man) 0 Monocytes % (Manual) 6.0 Eosinophils % (Manual) 0 Basophils % (Manual) 0 Metamyelocytes % 2.0 Myelocytes % 0 Promyelocytes % 0 Blast Cells % 0 Nucleated RBC % Not Reportable Seg Neutrophils # Man 11.9 H Band Neutrophils # 0.9 Lymphocytes # (Manual) 0.6 L Abs React Lymphs (Man) 0.0 Monocytes # (Manual) 0.9 H Eosinophils # (Manual) 0.0 Basophils # (Manual) 0.0 Metamyelocytes # 0.3 Myelocytes # 0.0 Promyelocytes # 0.0 Blast Cells # 0.0 WBC Morphology Not Reportable Hypersegmented Neuts Not Reportable Hyposegmented Neuts Not Reportable Hypogranular Neuts Not Reportable Smudge Cells Not Reportable Toxic Granulation Not Reportable Toxic Vacuolation Not Reportable Dohle Bodies Not Reportable Pelger-Huet Anomaly Not Reportable Curt Rods Not Reportable Platelet Estimate Consistent w auto Clumped Platelets Not Reportable Plt Clumps, EDTA Not Reportable Large Platelets Not Reportable Giant Platelets Not Reportable Platelet Satelliting Not Reportable Plt Morphology Comment Not Reportable RBC Morphology Normal Dimorphic RBCs Not Reportable Polychromasia Not Reportable Hypochromasia Not Reportable Poikilocytosis Not Reportable Anisocytosis Not Reportable Microcytosis Not Reportable Macrocytosis Not Reportable Spherocytes Not Reportable Pappenheimer Bodies Not Reportable Sickle Cells Not Reportable Target Cells Not Reportable Tear Drop Cells Not Reportable Ovalocytes Not Reportable Helmet Cells Not Reportable [place] Bodies Not Reportable [place] Rings Not Reportable [place] Cells Not Reportable Bite Cells Not Reportable Crenated Cell Not Reportable Elliptocytes Not Reportable Acanthocytes ([place]) Not Reportable Rouleaux Not Reportable Hemoglobin C Crystals Not Reportable Schistocytes Not Reportable Malaria parasites Not Reportable Nabeel Bodies Not Reportable Hem Pathologist Commnt No Sodium 147 H Potassium 3.9 Chloride 108.1 H Carbon Dioxide 27 Anion Gap 16 BUN 23 H Creatinine 1.0 Estimated GFR > 60 BUN/Creatinine Ratio 23 Glucose 112 H POC Glucose 109 H Calcium 8.1 L Phosphorus Total Bilirubin 0.40 AST 60 H ALT 79 H Alkaline Phosphatase 152 H Ammonia Total Protein 5.4 L Albumin 1.8 L Albumin/Globulin Ratio 0.5 05/10/19 05/10/19 05/10/19 08:10 11:16 16:27 WBC RBC Hgb Hct MCV MCH MCHC RDW Plt Count Add Manual Diff Total Counted Seg Neuts % (Manual) Band Neutrophils % Lymphocytes % (Manual) Reactive Lymphs % (Man) Monocytes % (Manual) Eosinophils % (Manual) Basophils % (Manual) Metamyelocytes % Myelocytes % Promyelocytes % Blast Cells % Nucleated RBC % Seg Neutrophils # Man Band Neutrophils # Lymphocytes # (Manual) Abs React Lymphs (Man) Monocytes # (Manual) Eosinophils # (Manual) Basophils # (Manual) Metamyelocytes # Myelocytes # Promyelocytes # Blast Cells # WBC Morphology Hypersegmented Neuts Hyposegmented Neuts Hypogranular Neuts Smudge Cells Toxic Granulation Toxic Vacuolation Dohle Bodies Pelger-Huet Anomaly Curt Rods Platelet Estimate Clumped Platelets Plt Clumps, EDTA Large Platelets Giant Platelets Platelet Satelliting Plt Morphology Comment RBC Morphology Dimorphic RBCs Polychromasia Hypochromasia Poikilocytosis Anisocytosis Microcytosis Macrocytosis Spherocytes Pappenheimer Bodies Sickle Cells Target Cells Tear Drop Cells Ovalocytes Helmet Cells [place] Bodies [place] Cells Bite Cells Crenated Cell Elliptocytes Acanthocytes ([place]) Rouleaux Hemoglobin C Crystals Schistocytes Malaria parasites Nabeel Bodies Hem Pathologist Commnt Sodium Potassium Chloride Carbon Dioxide Anion Gap BUN Creatinine Estimated GFR BUN/Creatinine Ratio Glucose POC Glucose 133 H 295 H 168 H Calcium Phosphorus Total Bilirubin AST ALT Alkaline Phosphatase Ammonia Total Protein Albumin Albumin/Globulin Ratio 05/10/19 05/11/19 05/11/19 21:41 07:26 11:12 WBC 12.6 H RBC 4.72 Hgb 13.2 Hct 40.2 MCV 85 MCH 28 MCHC 33 RDW 14.0 Plt Count 432 Add Manual Diff Total Counted Seg Neuts % (Manual) Band Neutrophils % Lymphocytes % (Manual) Reactive Lymphs % (Man) Monocytes % (Manual) Eosinophils % (Manual) Basophils % (Manual) Metamyelocytes % Myelocytes % Promyelocytes % Blast Cells % Nucleated RBC % Seg Neutrophils # Man Band Neutrophils # Lymphocytes # (Manual) Abs React Lymphs (Man) Monocytes # (Manual) Eosinophils # (Manual) Basophils # (Manual) Metamyelocytes # Myelocytes # Promyelocytes # Blast Cells # WBC Morphology Hypersegmented Neuts Hyposegmented Neuts Hypogranular Neuts Smudge Cells Toxic Granulation Toxic Vacuolation Dohle Bodies Pelger-Huet Anomaly Curt Rods Platelet Estimate Clumped Platelets Plt Clumps, EDTA Large Platelets Giant Platelets Platelet Satelliting Plt Morphology Comment RBC Morphology Dimorphic RBCs Polychromasia Hypochromasia Poikilocytosis Anisocytosis Microcytosis Macrocytosis Spherocytes Pappenheimer Bodies Sickle Cells Target Cells Tear Drop Cells Ovalocytes Helmet Cells [place] Bodies [place] Cells Bite Cells Crenated Cell Elliptocytes Acanthocytes ([place]) Rouleaux Hemoglobin C Crystals Schistocytes Malaria parasites Nabeel Bodies Hem Pathologist Commnt Sodium Potassium Chloride Carbon Dioxide Anion Gap BUN Creatinine Estimated GFR BUN/Creatinine Ratio Glucose POC Glucose 178 H 99 Calcium Phosphorus Total Bilirubin AST ALT Alkaline Phosphatase Ammonia Total Protein Albumin Albumin/Globulin Ratio 05/11/19 05/11/19 05/11/19 11:12 11:12 11:49 WBC RBC Hgb Hct MCV MCH MCHC RDW Plt Count Add Manual Diff Total Counted Seg Neuts % (Manual) Band Neutrophils % Lymphocytes % (Manual) Reactive Lymphs % (Man) Monocytes % (Manual) Eosinophils % (Manual) Basophils % (Manual) Metamyelocytes % Myelocytes % Promyelocytes % Blast Cells % Nucleated RBC % Seg Neutrophils # Man Band Neutrophils # Lymphocytes # (Manual) Abs React Lymphs (Man) Monocytes # (Manual) Eosinophils # (Manual) Basophils # (Manual) Metamyelocytes # Myelocytes # Promyelocytes # Blast Cells # WBC Morphology Hypersegmented Neuts Hyposegmented Neuts Hypogranular Neuts Smudge Cells Toxic Granulation Toxic Vacuolation Dohle Bodies Pelger-Huet Anomaly Curt Rods Platelet Estimate Clumped Platelets Plt Clumps, EDTA Large Platelets Giant Platelets Platelet Satelliting Plt Morphology Comment RBC Morphology Dimorphic RBCs Polychromasia Hypochromasia Poikilocytosis Anisocytosis Microcytosis Macrocytosis Spherocytes Pappenheimer Bodies Sickle Cells Target Cells Tear Drop Cells Ovalocytes Helmet Cells [place] Bodies [place] Cells Bite Cells Crenated Cell Elliptocytes Acanthocytes ([place]) Rouleaux Hemoglobin C Crystals Schistocytes Malaria parasites Nabeel Bodies Hem Pathologist Commnt Sodium 142 Potassium 3.4 L Chloride 104.2 Carbon Dioxide 25 Anion Gap 16 BUN 24 H Creatinine 1.0 Estimated GFR > 60 BUN/Creatinine Ratio 24 Glucose 227 H POC Glucose 247 H Calcium 8.0 L Phosphorus 3.10 Total Bilirubin AST ALT Alkaline Phosphatase Ammonia 40.0 Total Protein Albumin Albumin/Globulin Ratio 05/11/19 05/11/19 05/12/19 16:51 22:27 05:26 WBC 10.2 RBC 4.38 Hgb 12.1 Hct 37.4 MCV 85 MCH 28 MCHC 33 RDW 13.8 Plt Count 396 Add Manual Diff Total Counted Seg Neuts % (Manual) Band Neutrophils % Lymphocytes % (Manual) Reactive Lymphs % (Man) Monocytes % (Manual) Eosinophils % (Manual) Basophils % (Manual) Metamyelocytes % Myelocytes % Promyelocytes % Blast Cells % Nucleated RBC % Seg Neutrophils # Man Band Neutrophils # Lymphocytes # (Manual) Abs React Lymphs (Man) Monocytes # (Manual) Eosinophils # (Manual) Basophils # (Manual) Metamyelocytes # Myelocytes # Promyelocytes # Blast Cells # WBC Morphology Hypersegmented Neuts Hyposegmented Neuts Hypogranular Neuts Smudge Cells Toxic Granulation Toxic Vacuolation Dohle Bodies Pelger-Huet Anomaly Curt Rods Platelet Estimate Clumped Platelets Plt Clumps, EDTA Large Platelets Giant Platelets Platelet Satelliting Plt Morphology Comment RBC Morphology Dimorphic RBCs Polychromasia Hypochromasia Poikilocytosis Anisocytosis Microcytosis Macrocytosis Spherocytes Pappenheimer Bodies Sickle Cells Target Cells Tear Drop Cells Ovalocytes Helmet Cells [place] Bodies [place] Cells Bite Cells Crenated Cell Elliptocytes Acanthocytes (Sp[place]) Rouleaux Hemoglobin C Crystals Schistocytes Malaria parasites Nabeel Bodies Hem Pathologist Commnt Sodium Potassium Chloride Carbon Dioxide Anion Gap BUN Creatinine Estimated GFR BUN/Creatinine Ratio Glucose POC Glucose 231 H 178 H Calcium Phosphorus Total Bilirubin AST ALT Alkaline Phosphatase Ammonia Total Protein Albumin Albumin/Globulin Ratio 05/12/19 05:26 WBC RBC Hgb Hct MCV MCH MCHC RDW Plt Count Add Manual Diff Total Counted Seg Neuts % (Manual) Band Neutrophils % Lymphocytes % (Manual) Reactive Lymphs % (Man) Monocytes % (Manual) Eosinophils % (Manual) Basophils % (Manual) Metamyelocytes % Myelocytes % Promyelocytes % Blast Cells % Nucleated RBC % Seg Neutrophils # Man Band Neutrophils # Lymphocytes # (Manual) Abs React Lymphs (Man) Monocytes # (Manual) Eosinophils # (Manual) Basophils # (Manual) Metamyelocytes # Myelocytes # Promyelocytes # Blast Cells # WBC Morphology Hypersegmented Neuts Hyposegmented Neuts Hypogranular Neuts Smudge Cells Toxic Granulation Toxic Vacuolation Dohle Bodies Pelger-Huet Anomaly Curt Rods Platelet Estimate Clumped Platelets Plt Clumps, EDTA Large Platelets Giant Platelets Platelet Satelliting Plt Morphology Comment RBC Morphology Dimorphic RBCs Polychromasia Hypochromasia Poikilocytosis Anisocytosis Microcytosis Macrocytosis Spherocytes Pappenheimer Bodies Sickle Cells Target Cells Tear Drop Cells Ovalocytes Helmet Cells [place] Bodies [place] Cells Bite Cells Crenated Cell Elliptocytes Acanthocytes (Sp[place]) Rouleaux Hemoglobin C Crystals Schistocytes Malaria parasites Nabeel Bodies Hem Pathologist Commnt Sodium 140 Potassium 3.2 L Chloride 105.5 Carbon Dioxide 24 Anion Gap 14 BUN 20 Creatinine 0.8 Estimated GFR > 60 BUN/Creatinine Ratio 25 Glucose 157 H POC Glucose Calcium 7.6 L Phosphorus 3.00 Total Bilirubin AST ALT Alkaline Phosphatase Ammonia Total Protein Albumin Albumin/Globulin Ratio Assessment and Plan Metabolic encephalopathy: MRI brain NEG for acute changes. Prior CT head report and images reviewed. Slight right facial droop, dysphagia. Monitor for clearing/improvement Hypernatremia: 1/2 NS prn, monitor, improved Fungal UTI: Stop fluconazole. Urine Cx back with skin alfred. HTN: medications restarted, hold orders placed DM: Continue insulin, carb controllled diet, adjust as needed. CHF: EF 35-40%. Continue medications, monitor Electrolyte abnormalities: Monitor and correct as needed Glaucoma: Cont drops Z73.6 ADL dysfunction: OT will work on improving ability to perform ADLs (including assistive devices) to increase independence and decrease caregiver burden and improve functional transfers and mobility training. R26.2 Difficulty walking: PT will work on gait training and proper use of assistive devices and advance as appropriate to use of stairs and outside ambulation on uneven surfaces. R26.81 Unsteadiness on feet: PT will work on improving static and dynamic sitting and standing balance as well as proper use of assistive devices to decrease risk of falls. R26.89 Abnormality of gait: PT will work to improve safety and efficiency of gait through neuromotor training and gait training along with instruction on proper use of assistive devices. M62.81 Muscle weakness: PT & OT will work on strengthening exercises to improve functional strength including mixture of closed and open kinetic chain exercises. R53.81 Debility: PT & OT will work on improving overall functional status to improve participation with ADLs, mobility and social involvement. R53.83 Fatigue: PT & OT will work on improving endurance through aerobic exercises and therapeutic activity while monitoring patients tolerance for activity and vital signs as needed. DVT ppx: heparin Pain: Continue physical modalities in therapy and pain medications as needed to achieve functional pain control. Sleep: Monitor and address as needed. Bowel: Monitor and address as needed. Appetite: Monitor and address as needed. Discharge planning: Pending therapy progress and care plan meeting. Will continue discussion with therapy team, SW, patient and family. Restrictions/ Precautions: Falls, aspiration, visual impairment, AMS WB status: FWB Functional Hx: ADLs: Independent Cognition: Independent Mobility: No AD Barriers to Discharge: Decreased mobility and ability to perform self care, balance deficits, weakness Estimated Length of Stay: 14-20 days Discharge Destination: Home with family
[2019-05-12] MEDS ORDERED: MAGNESIUM SULFATE 1 GM in NACL 0.9% 50 ML IV ONE (12:00)
--- NOTE | 2019-05-12 14:02 | IRU Plan of Care ---
Interdisciplinary Plan of Care - IP IRU INTERDISCIPLINARY PLAN: [facility] Inpatient Rehab Unit Plan of Care IRU Interdisciplinary Care Plan Start: 05/09/19 19:41 Freq: Admission then PRN Status: Active Protocol: Document 05/12/19 13:41 TH (Rec: 05/12/19 13:48 TH [id number]) Interdisciplinary Problem List Interdisciplinary Problem List Interdisciplinary Problem List Impaired Bathing/Grooming, Query Text:Answers will Trigger Problems Impaired Dressing,Impaired and Outcomes on Worklist. Mobility,Impaired Transfers, Impaired Toileting,Impaired Comprehension,Impaired Expression,Knowledge Deficits, Impaired Safety,Medications Education,Diabetes Education, Impaired Cardiovascular System IRU Interdisciplinary Care Plan Therapy Services Therapy Services Will Include: Physical Therapy,Occupational Query Text:Patient will be seen for a Therapy minimum of 3 hours of daily therapy 5 out of 7 days a week. Therapy intensity may be adjusted within a 7 consecutive day period to effectively serve the individual needs of the patient. Treatment Frequency/Intensity/Duration Treatment Frequency 5 days per week Treatment Intensity 3 hours per day Treatment Duration 10-14 days Problem Area: Eating/Swallowing Eating/Swallowing Outcomes Eating/Swallowing Interventions Problem Area: Bathing/Grooming Bathing/Grooming Outcomes Improve [place] w/ Grooming,Improve [place] w/ Bathing Bathing/Grooming Interventions ADL Training,Use of Assistive Devices,Therapeutic Exercise, Therapeutic Activity, Neuromuscular Re-Education, Balance Work,Activity Tolerance Work,Patient/ Caregiver Education Problem Area: Dressing Dressing Outcomes Improve [place] w/ UB Dressing,Improve [place] w/ LB Dressing Dressing Interventions ADL Training,Use of Assistive Devices,Neuromuscular Re- Education,Therapeutic Exercise ,Balance Work,Modalities, Patient/Caregiver Education Problem Area: Mobility Mobility Outcomes Improve [place] w/ Bed Mobility,Improve [place] w/ Ambulation,Improve [place] w/ Stairs/Curb, Improve [place] w/ Wheelchair Mobility Interventions Therapeutic Exercise, Neuromuscular Re-Ed.,Visual/ Perceptual Training,Activity Tolerance Work,Modalities,Use of Assistive Devices,Patient/ Caregiver Education,Bed Mobility Work,Gait Training, Household Mobility Work,W/C Mobility Work Problem Area: Transfers Transfers Outcomes Improve [place] w/ Bed Transfers,Improve [place] w/ Toilet Transfers,Improve [place] w/ Tub/Shower Transfers,Improve [place] w/ Car Transfers Transfers Interventions Transfer Training,Therapeutic Exercise,Neuromuscular Re- Education,Visual/Perceptual Training,Activity Tolerance Work,Modalities,Use of Assistive Devices,Patient/ Caregiver Education Problem Area: Bowel/Bladder Managment Bowel/Bladder Outcomes Bowel/Bladder Interventions Problem Area: Toileting Toileting Outcomes Toileting Interventions Problem Area: Nutrition Nutrition Outcomes Nutrition Interventions Problem Area: Comprehension Comprehension Outcomes Comprehension Interventions Problem Area: Expression Expression Outcomes Expression Interventions Problem Area: Problem Solving Problem Solving Outcomes Problem Solving Interventions Problem Area: Memory Memory Outcomes Memory Interventions Problem Area: Pain Management Pain Management Outcomes Pain Management Interventions Problem Area: Knowledge Deficits Knowledge Deficits Outcomes Demonstrate Ability to Manage Blood Glucose,Verbalize Understanding of S/S of Stroke Knowledge Deficits Interventions Medication Use Education Problem Area: Skin/Tissue Integrity Skin/Tissue Integrity Outcomes Skin/Tissue Integrity Interventions Problem Area: Social Interaction Social Interaction Outcomes Social Interaction Interventions Problem Area: Adjustment to Disability Adjustment to Disability Outcomes Adjustment to Disability Interventions Problem Area: Discharge Concerns Discharge Concerns Outcomes Discharge w/ Necessary Equipment,Have Home Health/ Outpatient Services Discharge Concerns Interventions Discharge Planning,Family/ Caregiver Training Problem Area: Community Reintegration Community Reintegration Outcomes Community Reintegration Interventions Problem Area: Home Management Home Management Outcomes Home Management Interventions Problem Area: Safety Safety Outcomes Provide Safe Environment, Perform Selfcare Safely, Demonstrate Good Safety w/ Transfers/Mobility Safety Interventions Identify Fall Risk,[place] Pt. to Environment,Reduce Environmental Hazards,Neuro Check Assessment,Implement Mechanical Devices, i.e. Chair Alarm (Post Fall Update),Re- Educate Patient/Caregiver for Safety (Post Fall Update) Problem Area: Medication Education Medication Education Outcomes Patient/Caregiver will Verbalize Understanding of Medications Medication Education Interventions Explain Administration/Side Effects/Interactions Problem Area: Diabetes Education Diabetes Education Outcomes Demonstrate Knowledge of Resources Availlable in Diabetic Ed. Folder Diabetes Education Interventions Discuss Pathophysiology of Diabetes Problem Area: Oxygenation Oxygenation Outcomes Oxygenation Interventions Problem Area: Cardiovascular Cardiovascular Outcomes Cardiovascular Interventions Physician Only Medical Prognosis and Rehabilitation Potential (Completed by Physician) Good medical prognosis. NEG CVA, awaiting clearing from encephalopathy. Good rehab potential. Held back by visual deficit and confusion. Will need supervision at home which will be provided by sister initially with plan to move him closer to his sons later. Will need better DM control and management This plan of care has been developed based on the findings from the pre- admission assessment, post admission physician evaluation, information gathered from the assessments from all therapy disciplines and other pertinent clinicia ns. The plan of care has been reviewed and discussed in collaboration with the interdisciplinary team. The plan of care will be reviewed and updated at least weekly.
[2019-05-13] MEDS: HEPARIN SUB-Q SCH ×3 (05:45→21:53)
[2019-05-13 06:53] LABS: Hemoglobin 11.9 gm/dl (11.8-15.2); Mean Corpuscular HGB Conc 33 % (32-34); Mean Corpuscular Volume 85 fl (84-94); Platelet Count 446 K/mm3 (140-440); Red Blood Count 4.22 M/mm3 (3.65-5.03); Red Cell Distribution Width 13.9 % (13.2-15.2)
[2019-05-13 07:17] LABS: BUN/Creatinine Ratio 20; Blood Urea Nitrogen 16 mg/dL (9-20); Calcium 7.4 mg/dL (8.4-10.2); Hemolysis Index 7
[2019-05-13] MEDS: K-DUR PO SCH ×2 (08:47→21:54)
[2019-05-13] MEDS: GLUCOPHAGE PO SCH ×2 (08:48→17:42)
[2019-05-13] MEDS: NORVASC PO SCH (08:48)
[2019-05-13] MEDS: COZAAR PO SCH (08:49)
[2019-05-13] MEDS: HALFPRIN EC PO SCH (08:49)
[2019-05-13] MEDS: COREG PO SCH (08:49)
[2019-05-13] MEDS: PEPCID PO SCH ×2 (08:49→21:54)
[2019-05-13] MEDS: HumuLIN R SUB-Q SCH ×4 (09:19→22:18)
[2019-05-13] MEDS: ALPHAGAN P 0.15% OU SCH ×2 (09:33→21:55)
[2019-05-13] MEDS: DORZOLAMIDE TIMOLOL OP SCH ×2 (09:33→21:57)
--- NOTE | 2019-05-13 16:26 | Progress Note ---
Subjective Date of service: 05/13/19 Principal diagnosis: Debility, encephalopathy, shock, HHNS Interval history: 59-year-old male brought to the ER with altered mental status and decreased responsiveness. Patient was found by his sister at home and paramedics were called. Blood glucose was >1000 and he was hypernatremic. He was intubated, started on pressors and fluids. Acute kidney injury due to ATN and nephrology was consulted. This found to have hyperammonemia which was treated with lactulose. Feeding tube was inserted. He was slowly weaned off of ventilation and was extubated when appropriate. He is transferred to the floor where hospitalist continued to direct his improvement. Cardiology was consulted found that he had compensated systolic CHF and injection fraction of 35-40%. Therapies were ordered. Speech therapy worked with the patient and he developed inability to tolerate oral nutrition and meds. 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 Patient is participating in therapy and making slow progress. MRI brain NEG. Spoke less today, uncertain how much is volitional vs how much is residual encephalopathy related. Does not have clear thought pattern all the time. Taking rest breaks as needed. +BM. Denies pain, palpitations, dyspnea, cough, N/V, weakness, or joint pain. D/C caban and monitor UOP. He is working with therapy once he gets going. All records, vitals, labs and medications were reviewed. No other issues per patient, nursing or therapy. Objective - Exam Narrative Exam: MUSCULOSKELETAL SPECIALTY EXAM CONSTITUTIONAL: Well developed, well nourished, appropriately groomed, thin EENT: Visual deficit. EOMI grossly intact with some difficulty following commands, dyscongugate gaze. Hearing intact to soft voice. Lips slightly swollen, stable RESPIRATORY: Clear to auscultation bilaterally, no increased work of breathing CARDIOVASCULAR: Regular Rate/ Rhythm, no swelling, edema or tenderness in BUE or BLE. All extremities warm. GI: + bowel sounds, soft, NTTP, nondistended. INTEGUMENTARY: Normal, no lesion, rash, masses or bruising noted in extremities. MUSCULOSKELETAL: BUE and BLE normal without defect, crepitus, subluxation, effusion, arthritic changes or TTP. BUE 4+/5, good ROM, with normal tone. Difficulty following commands BLE 4+/5 good ROM, with normal tone. Difficulty following commands NEURO: Right mild facial droop, uncertain sensation differences side to side (confused) otherwise CN 2-12 grossly intact. Gross sensation intact in all extremities. No tremor noted in 4 extremities. POSTURE and GAIT: Sitting posture fair. Balance appears fair. Gait slowed and unsteady. PSYCH: Awake, some confusion, affect appears flat. Decreased awareness of deficits. - Constitutional Vitals: Vital Signs - 12hr 05/13/19 05:23 Temperature 36.5 C Pulse Rate 56 L Respiratory 18 Rate Blood Pressure 125/71 O2 Sat by Pulse 99 Oximetry - Allied health notes Allied health notes reviewed: nursing, PT, OT FIMS assessment as documented by PT/OT/ST: Grooming Patient cleans teeth/dentures: Yes Patient dale/brushes hair: Yes Patient washes, rinses and Yes dries face: Patient washes, rinses and Yes dries hands: Patient shaves: No Patient performs (no make-up/ / (100%) shaving): Grooming FIM Score 5. Supervision ([place] applies toothpaste or opens containers.) Toileting Toileting FIM Score 2. Maximal Assistance (Patient = 25% or more) Social interaction/Memory/Problem solving Social Interaction FIM Score 3. Moderate Assistance (Interacts appropriately 50-74%.) Memory FIM Score 5. Supervision (Needs cueing <10%, stressful/ unfamiliar situations.) Problem Solving FIM Score 4. Minimal Assistance (Solves routine problems 75-90%.) Transfers Mode of Locomotion: Wheelchair Bed/Chair/Wheelchair Transfers 4. Minimal Assistance (Patient = 75% or more. FIM Score Needs touching.) Patient transferred to: Shower Shower Transfers FIM Score 4. Minimal Assistance (Patient = 75% or more. Needs touching.) Locomotion- Stairs Device used on Stairs Handrail/s Number of Stairs Ascended/ 12 Descended Patient used handrail/support: Yes Stairs FIM Score 4. Minimal Assistance (Patient = 75% or more, touching. 12-14 stairs.) Locomotion- walk/wheelchair Most Frequent Mode of Walking Locomotion: Ambulation Distance 680 Walking FIM Score 4. Minimal Assistance (Patient = 75% or more. Minimum of 150 ft.) Wheelchair Propulsion Distance 150 Wheelchair FIM Score 2. Maximal Assistance (Patient = 25% or more. Minimum of 50 ft.) Eating Eating FIM Score 5. Supervision/Set-Up (Needs help w/ containers, cutting meat, etc.) Dressing-Upper body Patient retrieves clothing No items: Patient applies/removes UE n/a prosthesis or orthosis: Upper Body Dressing FIM Score 5. Supv./Set-Up ([place] sets out clothes or applies pros./orth.) Dressing-lower body Patient retrieves clothing No items: Patient applies/removes LE n/a prosthesis or orthosis: Lower Body Dressing FIM Score 5. Supv./Set-Up ([place] sets out clothes or applies pros./orth.) - Labs CBC & Chem 7: 05/14/19 06:04 05/13/19 06:38 Labs: Laboratory Results - last 72 hr 05/10/19 05/10/19 05/11/19 16:27 21:41 07:26 WBC RBC Hgb Hct MCV MCH MCHC RDW Plt Count Sodium Potassium Chloride Carbon Dioxide Anion Gap BUN Creatinine Estimated GFR BUN/Creatinine Ratio Glucose POC Glucose 168 H 178 H 99 Calcium Phosphorus Magnesium Ammonia 05/11/19 05/11/19 05/11/19 11:12 11:12 11:12 WBC 12.6 H RBC 4.72 Hgb 13.2 Hct 40.2 MCV 85 MCH 28 MCHC 33 RDW 14.0 Plt Count 432 Sodium 142 Potassium 3.4 L Chloride 104.2 Carbon Dioxide 25 Anion Gap 16 BUN 24 H Creatinine 1.0 Estimated GFR > 60 BUN/Creatinine Ratio 24 Glucose 227 H POC Glucose Calcium 8.0 L Phosphorus 3.10 Magnesium Ammonia 40.0 05/11/19 05/11/19 05/11/19 11:49 16:51 22:27 WBC RBC Hgb Hct MCV MCH MCHC RDW Plt Count Sodium Potassium Chloride Carbon Dioxide Anion Gap BUN Creatinine Estimated GFR BUN/Creatinine Ratio Glucose POC Glucose 247 H 231 H 178 H Calcium Phosphorus Magnesium Ammonia 05/12/19 05/12/19 05/12/19 05:26 05:26 08:52 WBC 10.2 RBC 4.38 Hgb 12.1 Hct 37.4 MCV 85 MCH 28 MCHC 33 RDW 13.8 Plt Count 396 Sodium 140 Potassium 3.2 L Chloride 105.5 Carbon Dioxide 24 Anion Gap 14 BUN 20 Creatinine 0.8 Estimated GFR > 60 BUN/Creatinine Ratio 25 Glucose 157 H POC Glucose 163 H Calcium 7.6 L Phosphorus 3.00 Magnesium Ammonia 05/12/19 05/12/19 05/12/19 09:42 12:16 16:15 WBC RBC Hgb Hct MCV MCH MCHC RDW Plt Count Sodium Potassium Chloride Carbon Dioxide Anion Gap BUN Creatinine Estimated GFR BUN/Creatinine Ratio Glucose POC Glucose 224 H 253 H Calcium Phosphorus Magnesium 1.80 Ammonia 05/12/19 05/13/19 05/13/19 21:48 06:38 06:38 WBC 9.7 RBC 4.22 Hgb 11.9 Hct 36.0 MCV 85 MCH 28 MCHC 33 RDW 13.9 Plt Count 446 H Sodium 141 Potassium 3.6 Chloride 107.6 H Carbon Dioxide 23 Anion Gap 14 BUN 16 Creatinine 0.8 Estimated GFR > 60 BUN/Creatinine Ratio 20 Glucose 175 H POC Glucose 141 H Calcium 7.4 L Phosphorus 2.90 Magnesium Ammonia 05/13/19 05/13/19 08:02 12:26 WBC RBC Hgb Hct MCV MCH MCHC RDW Plt Count Sodium Potassium Chloride Carbon Dioxide Anion Gap BUN Creatinine Estimated GFR BUN/Creatinine Ratio Glucose POC Glucose 201 H 239 H Calcium Phosphorus Magnesium Ammonia Assessment and Plan Metabolic encephalopathy: MRI brain NEG for acute changes. Prior CT head report and images reviewed. Slight right facial droop, dysphagia. Monitor for clearing/improvement Hypernatremia: 1/2 NS prn, monitor, improved Fungal UTI: Stop fluconazole. Urine Cx back with skin alfred. Resolved HTN: medications restarted, hold orders placed DM: Continue insulin, carb controllled diet, adjust as needed. CHF: EF 35-40%. Continue medications, monitor Electrolyte abnormalities: Monitor and correct as needed Glaucoma: Cont drops Z73.6 ADL dysfunction: OT will work on improving ability to perform ADLs (including assistive devices) to increase independence and decrease caregiver burden and improve functional transfers and mobility training. R26.2 Difficulty walking: PT will work on gait training and proper use of assistive devices and advance as appropriate to use of stairs and outside ambulation on uneven surfaces. R26.81 Unsteadiness on feet: PT will work on improving static and dynamic sitting and standing balance as well as proper use of assistive devices to decrease risk of falls. R26.89 Abnormality of gait: PT will work to improve safety and efficiency of gait through neuromotor training and gait training along with instruction on proper use of assistive devices. M62.81 Muscle weakness: PT & OT will work on strengthening exercises to improve functional strength including mixture of closed and open kinetic chain exercises. R53.81 Debility: PT & OT will work on improving overall functional status to improve participation with ADLs, mobility and social involvement. R53.83 Fatigue: PT & OT will work on improving endurance through aerobic exercises and therapeutic activity while monitoring patients tolerance for activity and vital signs as needed. DVT ppx: heparin Pain: Continue physical modalities in therapy and pain medications as needed to achieve functional pain control. Sleep: Monitor and address as needed. Bowel: Monitor and address as needed. Appetite: Monitor and address as needed. Discharge planning: Pending therapy progress and care plan meeting. Will continue discussion with therapy team, SW, patient and family. Will need supervision at home. Restrictions/ Precautions: Falls, aspiration, visual impairment, AMS WB status: FWB Functional Hx: ADLs: Independent Cognition: Independent Mobility: No AD Barriers to Discharge: Decreased mobility and ability to perform self care, balance deficits, weakness Estimated Length of Stay: 10-14 days Discharge Destination: Home with family
[2019-05-14] MEDS: COREG PO SCH ×3 (05:01→22:40)
[2019-05-14] MEDS: HEPARIN SUB-Q SCH ×3 (05:36→22:05)
[2019-05-14 06:51] LABS: Hematocrit 36.9 % (35.5-45.6); Hemoglobin 12.1 gm/dl (11.8-15.2); Mean Corpuscular HGB Conc 33 % (32-34); Mean Corpuscular Volume 85 fl (84-94); Platelet Count 446 K/mm3 (140-440); Red Blood Count 4.36 M/mm3 (3.65-5.03); Red Cell Distribution Width 13.9 % (13.2-15.2)
[2019-05-14 07:16] LABS: BUN/Creatinine Ratio 19; Blood Urea Nitrogen 15 mg/dL (9-20); Calcium 7.6 mg/dL (8.4-10.2); Hemolysis Index 2
--- NOTE | 2019-05-14 08:02 | Progress Note ---
Subjective Date of service: 05/14/19 Principal diagnosis: Debility, encephalopathy, shock, HHNS Interval history: 59-year-old male brought to the ER with altered mental status and decreased responsiveness. Patient was found by his sister at home and paramedics were called. Blood glucose was >1000 and he was hypernatremic. He was intubated, started on pressors and fluids. Acute kidney injury due to ATN and nephrology was consulted. This found to have hyperammonemia which was treated with lactulose. Feeding tube was inserted. He was slowly weaned off of ventilation and was extubated when appropriate. He is transferred to the floor where hospitalist continued to direct his improvement. Cardiology was consulted found that he had compensated systolic CHF and injection fraction of 35-40%. Therapies were ordered. Speech therapy worked with the patient and he developed inability to tolerate oral nutrition and meds. 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 Patient is participating in therapy and making slow progress. MRI brain NEG. Spoke less today, uncertain how much is volitional vs how much is residual encephalopathy related. Does not have clear thought pattern all the time. Taking rest breaks as needed. +BM. Denies pain, palpitations, dyspnea, cough, N/V, weakness, or joint pain. He is working with therapy once he gets going. Labs pending All records, vitals, labs and medications were reviewed. No other issues per patient, nursing or therapy. Objective - Exam Narrative Exam: MUSCULOSKELETAL SPECIALTY EXAM CONSTITUTIONAL: Well developed, well nourished, appropriately groomed, thin EENT: Visual deficit. EOMI grossly intact with some difficulty following commands, dyscongugate gaze. Hearing intact to soft voice. Lips slightly swollen, stable RESPIRATORY: Clear to auscultation bilaterally, no increased work of breathing CARDIOVASCULAR: Regular Rate/ Rhythm, no swelling, edema or tenderness in BUE or BLE. All extremities warm. GI: + bowel sounds, soft, NTTP, nondistended. INTEGUMENTARY: Normal, no lesion, rash, masses or bruising noted in extremities. MUSCULOSKELETAL: BUE and BLE normal without defect, crepitus, subluxation, effusion, arthritic changes or TTP. BUE 4+/5, good ROM, with normal tone. Difficulty following commands BLE 4+/5 good ROM, with normal tone. Difficulty following commands NEURO: Right mild facial droop, uncertain sensation differences side to side (confused) otherwise CN 2-12 grossly intact. Gross sensation intact in all extremities. No tremor noted in 4 extremities. POSTURE and GAIT: Sitting posture fair. Balance appears fair. Gait slowed and unsteady. PSYCH: Awake, some confusion, affect appears flat. Decreased awareness of deficits. - Constitutional Vitals: Vital Signs - 12hr 05/13/19 05/13/19 05/13/19 20:31 22:00 23:47 Temperature 37.2 C Pulse Rate 75 58 L Respiratory 20 Rate Respiratory 17 Rate [ Generalized] Blood Pressure Blood Pressure 100/72 [Left] O2 Sat by Pulse 97 98 Oximetry 05/14/19 05/14/19 05/14/19 00:00 01:14 04:26 Temperature 37.1 C 36.7 C Pulse Rate 57 L 62 Respiratory 17 16 20 Rate Respiratory Rate [ Generalized] Blood Pressure 114/63 Blood Pressure 102/63 [Left] O2 Sat by Pulse 99 98 Oximetry 05/14/19 05/14/19 05:01 07:22 Temperature 36.7 C Pulse Rate 60 51 L Respiratory 16 Rate Respiratory Rate [ Generalized] Blood Pressure 102/62 120/70 Blood Pressure [Left] O2 Sat by Pulse 98 Oximetry - Allied health notes FIMS assessment as documented by PT/OT/ST: Grooming Patient cleans teeth/dentures: Yes Patient dale/brushes hair: Yes Patient washes, rinses and Yes dries face: Patient washes, rinses and Yes dries hands: Patient shaves: No Patient performs (no make-up/ / (100%) shaving): Grooming FIM Score 5. Supervision ([place] applies toothpaste or opens containers.) Toileting Toileting FIM Score 2. Maximal Assistance (Patient = 25% or more) Social interaction/Memory/Problem solving Social Interaction FIM Score 3. Moderate Assistance (Interacts appropriately 50-74%.) Memory FIM Score 5. Supervision (Needs cueing <10%, stressful/ unfamiliar situations.) Problem Solving FIM Score 4. Minimal Assistance (Solves routine problems 75-90%.) Transfers Mode of Locomotion: Wheelchair Bed/Chair/Wheelchair Transfers 4. Minimal Assistance (Patient = 75% or more. FIM Score Needs touching.) Patient transferred to: Shower Shower Transfers FIM Score 4. Minimal Assistance (Patient = 75% or more. Needs touching.) Locomotion- Stairs Device used on Stairs Handrail/s Number of Stairs Ascended/ 12 Descended Patient used handrail/support: Yes Stairs FIM Score 4. Minimal Assistance (Patient = 75% or more, touching. 12-14 stairs.) Locomotion- walk/wheelchair Most Frequent Mode of Walking Locomotion: Ambulation Distance 680 Walking FIM Score 4. Minimal Assistance (Patient = 75% or more. Minimum of 150 ft.) Wheelchair Propulsion Distance 150 Wheelchair FIM Score 2. Maximal Assistance (Patient = 25% or more. Minimum of 50 ft.) Eating Eating FIM Score 5. Supervision/Set-Up (Needs help w/ containers, cutting meat, etc.) Dressing-Upper body Patient retrieves clothing No items: Patient applies/removes UE n/a prosthesis or orthosis: Upper Body Dressing FIM Score 5. Supv./Set-Up ([place] sets out clothes or applies pros./orth.) Dressing-lower body Patient retrieves clothing No items: Patient applies/removes LE n/a prosthesis or orthosis: Lower Body Dressing FIM Score 5. Supv./Set-Up ([place] sets out clothes or applies pros./orth.) - Labs CBC & Chem 7: 05/16/19 06:27 05/16/19 06:27 Labs: Laboratory Results - last 72 hr 05/11/19 05/11/19 05/11/19 11:12 11:12 11:12 WBC 12.6 H RBC 4.72 Hgb 13.2 Hct 40.2 MCV 85 MCH 28 MCHC 33 RDW 14.0 Plt Count 432 Sodium 142 Potassium 3.4 L Chloride 104.2 Carbon Dioxide 25 Anion Gap 16 BUN 24 H Creatinine 1.0 Estimated GFR > 60 BUN/Creatinine Ratio 24 Glucose 227 H POC Glucose Calcium 8.0 L Phosphorus 3.10 Magnesium Ammonia 40.0 05/11/19 05/11/19 05/11/19 11:49 16:51 22:27 WBC RBC Hgb Hct MCV MCH MCHC RDW Plt Count Sodium Potassium Chloride Carbon Dioxide Anion Gap BUN Creatinine Estimated GFR BUN/Creatinine Ratio Glucose POC Glucose 247 H 231 H 178 H Calcium Phosphorus Magnesium Ammonia 05/12/19 05/12/19 05/12/19 05:26 05:26 08:52 WBC 10.2 RBC 4.38 Hgb 12.1 Hct 37.4 MCV 85 MCH 28 MCHC 33 RDW 13.8 Plt Count 396 Sodium 140 Potassium 3.2 L Chloride 105.5 Carbon Dioxide 24 Anion Gap 14 BUN 20 Creatinine 0.8 Estimated GFR > 60 BUN/Creatinine Ratio 25 Glucose 157 H POC Glucose 163 H Calcium 7.6 L Phosphorus 3.00 Magnesium Ammonia 05/12/19 05/12/19 05/12/19 09:42 12:16 16:15 WBC RBC Hgb Hct MCV MCH MCHC RDW Plt Count Sodium Potassium Chloride Carbon Dioxide Anion Gap BUN Creatinine Estimated GFR BUN/Creatinine Ratio Glucose POC Glucose 224 H 253 H Calcium Phosphorus Magnesium 1.80 Ammonia 05/12/19 05/13/19 05/13/19 21:48 06:38 06:38 WBC 9.7 RBC 4.22 Hgb 11.9 Hct 36.0 MCV 85 MCH 28 MCHC 33 RDW 13.9 Plt Count 446 H Sodium 141 Potassium 3.6 Chloride 107.6 H Carbon Dioxide 23 Anion Gap 14 BUN 16 Creatinine 0.8 Estimated GFR > 60 BUN/Creatinine Ratio 20 Glucose 175 H POC Glucose 141 H Calcium 7.4 L Phosphorus 2.90 Magnesium Ammonia 05/13/19 05/13/19 05/13/19 08:02 12:26 17:28 WBC RBC Hgb Hct MCV MCH MCHC RDW Plt Count Sodium Potassium Chloride Carbon Dioxide Anion Gap BUN Creatinine Estimated GFR BUN/Creatinine Ratio Glucose POC Glucose 201 H 239 H 140 H Calcium Phosphorus Magnesium Ammonia 05/13/19 05/14/19 05/14/19 21:47 06:04 06:04 WBC 8.2 RBC 4.36 Hgb 12.1 Hct 36.9 MCV 85 MCH 28 MCHC 33 RDW 13.9 Plt Count 446 H Sodium 141 Potassium 3.2 L Chloride 106.8 Carbon Dioxide 23 Anion Gap 14 BUN 15 Creatinine 0.8 Estimated GFR > 60 BUN/Creatinine Ratio 19 Glucose 92 POC Glucose 234 H Calcium 7.6 L Phosphorus Magnesium Ammonia 05/14/19 07:31 WBC RBC Hgb Hct MCV MCH MCHC RDW Plt Count Sodium Potassium Chloride Carbon Dioxide Anion Gap BUN Creatinine Estimated GFR BUN/Creatinine Ratio Glucose POC Glucose 126 H Calcium Phosphorus Magnesium Ammonia Assessment and Plan Metabolic encephalopathy: MRI brain NEG for acute changes. Prior CT head report and images reviewed. Slight right facial droop, dysphagia. Monitor for clearing/improvement Hypernatremia: 1/2 NS prn, monitor, improved Fungal UTI: Stop fluconazole. Urine Cx back with skin alfred. Resolved HTN: medications restarted, hold orders placed DM: Continue insulin, carb controllled diet, adjust as needed. CHF: EF 35-40%. Continue medications, monitor Electrolyte abnormalities: Monitor and correct as needed Glaucoma: Cont drops Z73.6 ADL dysfunction: OT will work on improving ability to perform ADLs (including assistive devices) to increase independence and decrease caregiver burden and improve functional transfers and mobility training. R26.2 Difficulty walking: PT will work on gait training and proper use of assistive devices and advance as appropriate to use of stairs and outside ambulation on uneven surfaces. R26.81 Unsteadiness on feet: PT will work on improving static and dynamic sitting and standing balance as well as proper use of assistive devices to decrease risk of falls. R26.89 Abnormality of gait: PT will work to improve safety and efficiency of gait through neuromotor training and gait training along with instruction on proper use of assistive devices. M62.81 Muscle weakness: PT & OT will work on strengthening exercises to improve functional strength including mixture of closed and open kinetic chain exercises. R53.81 Debility: PT & OT will work on improving overall functional status to improve participation with ADLs, mobility and social involvement. R53.83 Fatigue: PT & OT will work on improving endurance through aerobic exercises and therapeutic activity while monitoring patients tolerance for activity and vital signs as needed. DVT ppx: heparin Pain: Continue physical modalities in therapy and pain medications as needed to achieve functional pain control. Sleep: Monitor and address as needed. Bowel: Monitor and address as needed. Appetite: Monitor and address as needed. Discharge planning: Pending therapy progress and care plan meeting. Will continue discussion with therapy team, SW, patient and family. Will need supervision at home. Restrictions/ Precautions: Falls, aspiration, visual impairment, AMS WB status: FWB Functional Hx: ADLs: Independent Cognition: Independent Mobility: No AD Barriers to Discharge: Decreased mobility and ability to perform self care, balance deficits, weakness Estimated Length of Stay: 10-14 days Discharge Destination: Home with family
[2019-05-14] MEDS: HumuLIN R SUB-Q SCH ×4 (08:55→23:00)
[2019-05-14] MEDS ORDERED: K-DUR PO SCH (09:00)
[2019-05-14] MEDS: HALFPRIN EC PO SCH (10:26)
[2019-05-14] MEDS: COZAAR PO SCH (10:26)
[2019-05-14] MEDS: NORVASC PO SCH (10:28)
[2019-05-14] MEDS: PEPCID PO SCH ×2 (10:28→22:04)
[2019-05-14] MEDS: GLUCOPHAGE PO SCH ×2 (10:28→16:34)
[2019-05-14] MEDS: ALPHAGAN P 0.15% OU SCH ×2 (10:42→22:05)
[2019-05-14] MEDS: DORZOLAMIDE TIMOLOL OP SCH ×2 (10:43→22:07)
[2019-05-15] MEDS: HEPARIN SUB-Q SCH ×3 (05:44→21:37)
[2019-05-15 06:52] LABS: Hematocrit 38.4 % (35.5-45.6); Hemoglobin 12.6 gm/dl (11.8-15.2); Mean Corpuscular HGB Conc 33 % (32-34); Mean Corpuscular Volume 85 fl (84-94); Platelet Count 494 K/mm3 (140-440); Red Blood Count 4.53 M/mm3 (3.65-5.03)
[2019-05-15 07:18] LABS: BUN/Creatinine Ratio 13; Blood Urea Nitrogen 10 mg/dL (9-20); Calcium 7.7 mg/dL (8.4-10.2); Hemolysis Index 4
[2019-05-15] MEDS: HumuLIN R SUB-Q SCH ×4 (08:14→21:47)
[2019-05-15] MEDS: COREG PO SCH ×2 (10:45→21:41)
[2019-05-15] MEDS: GLUCOPHAGE PO SCH ×2 (10:45→16:25)
[2019-05-15] MEDS: HALFPRIN EC PO SCH (10:45)
[2019-05-15] MEDS: NORVASC PO SCH (10:45)
[2019-05-15] MEDS: DORZOLAMIDE TIMOLOL OP SCH ×2 (10:46→21:39)
[2019-05-15] MEDS: PEPCID PO SCH ×2 (10:46→21:39)
[2019-05-15] MEDS: ALPHAGAN P 0.15% OU SCH ×2 (10:46→21:40)
[2019-05-15] MEDS: COZAAR PO SCH (10:47)
[2019-05-15] MEDS ORDERED: K-DUR PO SCH (11:00)
[2019-05-15] MEDS: POTASSIUM CHLORIDE FEEDTUBE SCH (13:03)
[2019-05-16] MEDS: HEPARIN SUB-Q SCH ×3 (06:47→22:07)
[2019-05-16 07:20] LABS: Hematocrit 33.6 % (35.5-45.6); Hemoglobin 11.2 gm/dl (11.8-15.2); Mean Corpuscular HGB Conc 33 % (32-34); Mean Corpuscular Volume 85 fl (84-94); Platelet Count 418 K/mm3 (140-440); Red Blood Count 3.96 M/mm3 (3.65-5.03); Red Cell Distribution Width 13.8 % (13.2-15.2)
[2019-05-16 07:34] LABS: BUN/Creatinine Ratio 13; Blood Urea Nitrogen 9 mg/dL (9-20); Calcium 7.3 mg/dL (8.4-10.2)
[2019-05-16 07:35] LABS: Hemolysis Index 3
[2019-05-16] MEDS: COZAAR PO SCH (09:11)
[2019-05-16] MEDS: HALFPRIN EC PO SCH (09:11)
[2019-05-16] MEDS: NORVASC PO SCH (09:11)
[2019-05-16] MEDS: PEPCID PO SCH ×2 (09:12→22:06)
[2019-05-16] MEDS: POTASSIUM CHLORIDE FEEDTUBE SCH (09:12)
[2019-05-16] MEDS: DORZOLAMIDE TIMOLOL OP SCH ×2 (09:12→22:09)
[2019-05-16] MEDS: GLUCOPHAGE PO SCH ×2 (09:12→16:37)
[2019-05-16] MEDS: HumuLIN R SUB-Q SCH ×5 (09:12→22:48)
[2019-05-16] MEDS: ALPHAGAN P 0.15% OU SCH ×2 (09:13→22:06)
[2019-05-16] MEDS: COREG PO SCH ×2 (09:13→23:01)
[2019-05-16] MEDS ORDERED: MAGNESIUM SULFATE 2GM/50ML 2 GM/50 ML BAG IV ONE (10:43)
[2019-05-16] MEDS ORDERED: KCL 10MEQ/100ML 10 MEQ/100 ML BAG IV ONE (10:43)
--- NOTE | 2019-05-16 10:52 | Progress Note ---
Subjective Date of service: 05/16/19 Principal diagnosis: Debility, encephalopathy, shock, HHNS Interval history: 59-year-old male brought to the ER with altered mental status and decreased responsiveness. Patient was found by his sister at home and paramedics were called. Blood glucose was >1000 and he was hypernatremic. He was intubated, started on pressors and fluids. Acute kidney injury due to ATN and nephrology was consulted. This found to have hyperammonemia which was treated with lactulose. Feeding tube was inserted. He was slowly weaned off of ventilation and was extubated when appropriate. He is transferred to the floor where hospitalist continued to direct his improvement. Cardiology was consulted found that he had compensated systolic CHF and injection fraction of 35-40%. Therapies were ordered. Speech therapy worked with the patient and he developed inability to tolerate oral nutrition and meds. 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 Patient is participating in therapy and making slow progress. MRI brain NEG. Spoke very little to me today, uncertain how much is volitional vs how much is residual encephalopathy related. Apparently he was able to do a lot with therapy - issues seem more volitional the more we observe. Reports from sister and staff of him speaking normally and much more. Taking rest breaks as needed. +BM. Denies pain, palpitations, dyspnea, cough, N/V, weakness, or joint pain. Electrolytes low again, will replace. Informed him we would move to discharge as soon as possible. All records, vitals, labs and medications were reviewed. No other issues per patient, nursing or therapy. Objective - Exam Narrative Exam: MUSCULOSKELETAL SPECIALTY EXAM CONSTITUTIONAL: Well developed, well nourished, appropriately groomed, thin EENT: Visual deficit. EOMI grossly intact with some difficulty following commands, dyscongugate gaze. Hearing intact to soft voice. Lips slightly swollen, stable RESPIRATORY: Clear to auscultation bilaterally, no increased work of breathing CARDIOVASCULAR: Regular Rate/ Rhythm, no swelling, edema or tenderness in BUE or BLE. All extremities warm. GI: + bowel sounds, soft, NTTP, nondistended. INTEGUMENTARY: Normal, no lesion, rash, masses or bruising noted in extremities. MUSCULOSKELETAL: BUE and BLE normal without defect, crepitus, subluxation, effusion, arthritic changes or TTP. BUE 4+/5, good ROM, with normal tone. Difficulty following commands BLE 4+/5 good ROM, with normal tone. Difficulty following commands NEURO: Right mild facial droop, uncertain sensation differences side to side (confused) otherwise CN 2-12 grossly intact. Gross sensation intact in all extremities. No tremor noted in 4 extremities. POSTURE and GAIT: Sitting posture fair. Balance appears fair. Gait slowed and unsteady. PSYCH: Awake, some confusion, affect appears flat. Decreased awareness of deficits?? Uncertain of malingering vs non-cooperation vs residual symptoms from encephal opathy. - Constitutional Vitals: Vital Signs - 12hr 05/16/19 05/16/19 05/16/19 00:27 01:10 04:19 Temperature 37.4 C Pulse Rate 67 76 66 Respiratory 16 Rate Respiratory Rate [ Generalized] Blood Pressure 117/73 [Left] O2 Sat by Pulse 98 96 98 Oximetry 05/16/19 05/16/19 04:39 07:48 Temperature 36.9 C Pulse Rate 64 Respiratory 18 Rate Respiratory 18 Rate [ Generalized] Blood Pressure 129/76 [Left] O2 Sat by Pulse 98 Oximetry - Allied health notes Allied health notes reviewed: nursing, PT, OT FIMS assessment as documented by PT/OT/ST: Grooming Patient cleans teeth/dentures: Yes Patient dale/brushes hair: Yes Patient washes, rinses and Yes dries face: Patient washes, rinses and Yes dries hands: Patient shaves: No Patient performs (no make-up/ 12/16 (100%) shaving): Grooming FIM Score 5. Supervision ([place] applies toothpaste or opens containers.) Toileting Patient able to: Adjust clothes before,Clean self,Adjust clothes after Patient able to perform: 3/3 (100%) Toileting FIM Score 5. Supv./Set-Up (Needs stand-by, set-up, applying prosth/orth.) Social interaction/Memory/Problem solving Social Interaction FIM Score 5. Supervision (Needs supv. <10%. Needs encouragement to participate.) Memory FIM Score 5. Supervision (Needs cueing <10%, stressful/ unfamiliar situations.) Problem Solving FIM Score 5. Supervision (Needs cueing <10% to solve routine problems.) Transfers Mode of Locomotion: Wheelchair Bed/Chair/Wheelchair Transfers 5. Supervision (Needs supv. or set-up for FIM Score sliding board, foot rests.) Toilet Transfers FIM Score 4. Minimal Assistance (Patient = 75% or more. Needs touching.) Patient transferred to: Shower Shower Transfers FIM Score 4. Minimal Assistance (Patient = 75% or more. Needs touching.) Locomotion- Stairs Device used on Stairs Handrail/s Number of Stairs Ascended/ 12 Descended Patient used handrail/support: Yes Stairs FIM Score 4. Minimal Assistance (Patient = 75% or more, touching. 12-14 stairs.) Locomotion- walk/wheelchair Most Frequent Mode of Walking Locomotion: Ambulation Distance 203 Walking FIM Score 4. Minimal Assistance (Patient = 75% or more. Minimum of 150 ft.) Wheelchair Propulsion Distance 100 Wheelchair FIM Score 2. Maximal Assistance (Patient = 25% or more. Minimum of 50 ft.) Eating Eating FIM Score 6. Modified [place] (Special consistency or uses device.) Dressing-Upper body Patient retrieves clothing Yes items: Patient applies/removes UE n/a prosthesis or orthosis: Upper Body Dressing FIM Score 6. Modified [place] (Needs equipment, velcro or pros./orth.) Dressing-lower body Patient retrieves clothing Yes items: Patient applies/removes LE n/a prosthesis or orthosis: Lower Body Dressing FIM Score 5. Supv./Set-Up ([place] sets out clothes or applies pros./orth.) - Labs CBC & Chem 7: 05/16/19 06:27 05/16/19 06:27 Labs: Laboratory Results - last 72 hr 05/13/19 05/13/19 05/13/19 12:26 17:28 21:47 WBC RBC Hgb Hct MCV MCH MCHC RDW Plt Count Sodium Potassium Chloride Carbon Dioxide Anion Gap BUN Creatinine Estimated GFR BUN/Creatinine Ratio Glucose POC Glucose 239 H 140 H 234 H Calcium Magnesium 05/14/19 05/14/19 05/14/19 06:04 06:04 07:31 WBC 8.2 RBC 4.36 Hgb 12.1 Hct 36.9 MCV 85 MCH 28 MCHC 33 RDW 13.9 Plt Count 446 H Sodium 141 Potassium 3.2 L Chloride 106.8 Carbon Dioxide 23 Anion Gap 14 BUN 15 Creatinine 0.8 Estimated GFR > 60 BUN/Creatinine Ratio 19 Glucose 92 POC Glucose 126 H Calcium 7.6 L Magnesium 05/14/19 05/14/19 05/14/19 11:29 16:03 22:19 WBC RBC Hgb Hct MCV MCH MCHC RDW Plt Count Sodium Potassium Chloride Carbon Dioxide Anion Gap BUN Creatinine Estimated GFR BUN/Creatinine Ratio Glucose POC Glucose 205 H 226 H 63 L Calcium Magnesium 05/15/19 05/15/19 05/15/19 05:58 06:25 06:25 WBC 8.0 RBC 4.53 Hgb 12.6 Hct 38.4 MCV 85 MCH 28 MCHC 33 RDW 14.0 Plt Count 494 H Sodium 141 Potassium 3.0 L Chloride 103.5 Carbon Dioxide 24 Anion Gap 16 BUN 10 Creatinine 0.8 Estimated GFR > 60 BUN/Creatinine Ratio 13 Glucose 118 H POC Glucose 51 L Calcium 7.7 L Magnesium 05/15/19 05/15/19 05/15/19 06:43 12:07 16:11 WBC RBC Hgb Hct MCV MCH MCHC RDW Plt Count Sodium Potassium Chloride Carbon Dioxide Anion Gap BUN Creatinine Estimated GFR BUN/Creatinine Ratio Glucose POC Glucose 108 H 207 H 76 Calcium Magnesium 05/15/19 05/16/19 05/16/19 21:54 06:27 06:27 WBC 6.8 RBC 3.96 Hgb 11.2 L Hct 33.6 L MCV 85 MCH 28 MCHC 33 RDW 13.8 Plt Count 418 Sodium 138 Potassium 3.0 L Chloride 103.9 Carbon Dioxide 23 Anion Gap 14 BUN 9 Creatinine 0.7 L Estimated GFR > 60 BUN/Creatinine Ratio 13 Glucose 145 H POC Glucose 144 H Calcium 7.3 L Magnesium 05/16/19 05/16/19 06:27 07:41 WBC RBC Hgb Hct MCV MCH MCHC RDW Plt Count Sodium Potassium Chloride Carbon Dioxide Anion Gap BUN Creatinine Estimated GFR BUN/Creatinine Ratio Glucose POC Glucose 145 H Calcium Magnesium 1.20 L Assessment and Plan Metabolic encephalopathy: MRI brain NEG for acute changes. Prior CT head report and images reviewed. Slight right facial droop, dysphagia. Monitor for clearing/improvement. Possible malingering or just not cooperating. Will move to discharge Hypernatremia: 1/2 NS prn, monitor, improved Fungal UTI: Stop fluconazole. Urine Cx back with skin alfred. Resolved HTN: medications restarted, hold orders placed DM: Continue insulin, carb controllled diet, adjust as needed. CHF: EF 35-40%. Continue medications, monitor Electrolyte abnormalities: Monitor and correct as needed Glaucoma: Cont drops Z73.6 ADL dysfunction: OT will work on improving ability to perform ADLs (including assistive devices) to increase independence and decrease caregiver burden and improve functional transfers and mobility training. R26.2 Difficulty walking: PT will work on gait training and proper use of assistive devices and advance as appropriate to use of stairs and outside ambula tion on uneven surfaces. R26.81 Unsteadiness on feet: PT will work on improving static and dynamic s itting and standing balance as well as proper use of assistive devices to decrease risk of falls. R26.89 Abnormality of gait: PT will work to improve safety and efficiency of gait through neuromotor training and gait training along with instruction on proper use of assistive devices. M62.81 Muscle weakness: PT & OT will work on strengthening exercises to improve functional strength including mixture of closed and open kinetic chain exercises. R53.81 Debility: PT & OT will work on improving overall functional status to improve participation with ADLs, mobility and social involvement. R53.83 Fatigue: PT & OT will work on improving endurance through aerobic exercises and therapeutic activity while monitoring patients tolerance for activity and vital signs as needed. DVT ppx: heparin Pain: Continue physical modalities in therapy and pain medications as needed to achieve functional pain control. Sleep: Monitor and address as needed. Bowel: Monitor and address as needed. Appetite: Monitor and address as needed. Discharge planning: Pending therapy progress and care plan meeting. Will continue discussion with therapy team, SW, patient and family. Will need supervision at home. Restrictions/ Precautions: Falls, aspiration, visual impairment, AMS WB status: FWB Functional Hx: ADLs: Independent Cognition: Independent Mobility: No AD Barriers to Discharge: Decreased mobility and ability to perform self care, balance deficits, weakness Estimated Length of Stay: 10-14 days Discharge Destination: Home with family
[2019-05-16] MEDS ORDERED: NACL 0.9% 500 ML 500 ML ONE (11:59)
[2019-05-16] MEDS ORDERED: NACL 0.9% 500 ML 500 ML IV SCH (12:00)
[2019-05-16] MEDS: KCL 10MEQ/100ML 10 MEQ/100 ML BAG IV SCH ×2 (16:09→22:51)
[2019-05-16] MEDS ORDERED: MAGNESIUM SULFATE 1 GM in NACL 0.9% 50 ML IV ONE (19:47)
[2019-05-17] MEDS: KCL 10MEQ/100ML 10 MEQ/100 ML BAG IV SCH (02:00)
[2019-05-17] MEDS: HEPARIN SUB-Q SCH ×3 (05:23→22:48)
[2019-05-17 07:22] LABS: Hemoglobin 10.7 gm/dl (11.8-15.2); Mean Corpuscular HGB Conc 33 % (32-34); Mean Corpuscular Volume 85 fl (84-94); Platelet Count 421 K/mm3 (140-440); Red Blood Count 3.78 M/mm3 (3.65-5.03)
[2019-05-17 07:46] LABS: BUN/Creatinine Ratio 8; Blood Urea Nitrogen 6 mg/dL (9-20); Calcium 7.4 mg/dL (8.4-10.2); Hemolysis Index 3
--- NOTE | 2019-05-17 09:41 | Progress Note ---
Subjective Date of service: 05/17/19 Principal diagnosis: Debility, encephalopathy, shock, HHNS Interval history: 59-year-old male brought to the ER with altered mental status and decreased responsiveness. Patient was found by his sister at home and paramedics were called. Blood glucose was >1000 and he was hypernatremic. He was intubated, started on pressors and fluids. Acute kidney injury due to ATN and nephrology was consulted. This found to have hyperammonemia which was treated with lactulose. Feeding tube was inserted. He was slowly weaned off of ventilation and was extubated when appropriate. He is transferred to the floor where hospitalist continued to direct his improvement. Cardiology was consulted found that he had compensated systolic CHF and injection fraction of 35-40%. Therapies were ordered. Speech therapy worked with the patient and he developed inability to tolerate oral nutrition and meds. 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 Patient is participating in therapy and making slow progress. MRI brain NEG. Spoke more to me today, and did talk encircles quite a bit leading me to believe that this is more so related to earlier stages of dementia. Based on his progress with therapy we will still look to discharge him tomorrow. Have discussed with the sister that he will likely need very close supervision and would possibly benefit from a memory care unit at some point in the future. Magnesium barely came up to normal. Will replace that with another dose of IV replacement. Potassium still slightly low Will add another replacement of potassium as well. Taking rest breaks as needed. +BM. Denies pain, palpit ations, dyspnea, cough, N/V, weakness, or joint pain. Informed him we would move to discharge as soon as possible. All records, vitals, labs and medications were reviewed. No other issues per patient, nursing or therapy. Objective - Exam Narrative Exam: MUSCULOSKELETAL SPECIALTY EXAM CONSTITUTIONAL: Well developed, well nourished, appropriately groomed, thin EENT: Visual deficit. EOMI grossly, dyscongugate gaze. Hearing intact to soft voice. Lips slightly swollen, stable RESPIRATORY: Clear to auscultation bilaterally, no increased work of breathing CARDIOVASCULAR: Regular Rate/ Rhythm, no swelling, edema or tenderness in BUE or BLE. All extremities warm. GI: + bowel sounds, soft, NTTP, nondistended. INTEGUMENTARY: Normal, no lesion, rash, masses or bruising noted in extremities. MUSCULOSKELETAL: BUE and BLE normal without defect, crepitus, subluxation, effusion, arthritic changes or TTP. BUE 4+/5, good ROM, with normal tone. BLE 4+/5 good ROM, with normal tone. NEURO: Right mild facial droop, uncertain sensation differences side to side (confused) otherwise CN 2-12 grossly intact. Gross sensation intact in all extremities. No tremor noted in 4 extremities. POSTURE and GAIT: Sitting posture fair. Balance appears fair. Gait slowed and unsteady. PSYCH: Awake, some confusion, affect appears flat. Decreased awareness of deficits?? Likely due to early stages of dementia. - Constitutional Vitals: Vital Signs - 12hr 05/16/19 05/17/19 05/17/19 23:01 01:26 05:10 Temperature 36.9 C 37.2 C Pulse Rate 78 61 65 Respiratory 18 18 Rate Blood Pressure 109/69 122/76 136/83 O2 Sat by Pulse 98 98 Oximetry 05/17/19 08:04 Temperature 37.2 C Pulse Rate 69 Respiratory 18 Rate Blood Pressure 132/81 O2 Sat by Pulse 98 Oximetry - Allied health notes Allied health notes reviewed: nursing, PT, OT FIMS assessment as documented by PT/OT/ST: Grooming Patient cleans teeth/dentures: Yes Patient dale/brushes hair: Yes Patient washes, rinses and Yes dries face: Patient washes, rinses and Yes dries hands: Patient shaves: No Patient performs (no make-up/ / (100%) shaving): Grooming FIM Score 5. Supervision ([place] applies toothpaste or opens containers.) Toileting Patient able to: Adjust clothes before,Clean self,Adjust clothes after Patient able to perform: 3/3 (100%) Toileting FIM Score 5. Supv./Set-Up (Needs stand-by, set-up, applying prosth/orth.) Social interaction/Memory/Problem solving Social Interaction FIM Score 5. Supervision (Needs supv. <10%. Needs encouragement to participate.) Memory FIM Score 5. Supervision (Needs cueing <10%, stressful/ unfamiliar situations.) Problem Solving FIM Score 5. Supervision (Needs cueing <10% to solve routine problems.) Transfers Mode of Locomotion: Wheelchair Bed/Chair/Wheelchair Transfers 5. Supervision (Needs supv. or set-up for FIM Score sliding board, foot rests.) Toilet Transfers FIM Score 4. Minimal Assistance (Patient = 75% or more. Needs touching.) Patient transferred to: Shower Shower Transfers FIM Score 4. Minimal Assistance (Patient = 75% or more. Needs touching.) Locomotion- Stairs Device used on Stairs Handrail/s Number of Stairs Ascended/ 12 Descended Patient used handrail/support: Yes Stairs FIM Score 4. Minimal Assistance (Patient = 75% or more, touching. 12-14 stairs.) Locomotion- walk/wheelchair Most Frequent Mode of Walking Locomotion: Ambulation Distance 203 Walking FIM Score 4. Minimal Assistance (Patient = 75% or more. Minimum of 150 ft.) Wheelchair Propulsion Distance 100 Wheelchair FIM Score 2. Maximal Assistance (Patient = 25% or more. Minimum of 50 ft.) Eating Eating FIM Score 6. Modified [place] (Special consistency or uses device.) Dressing-Upper body Patient retrieves clothing Yes items: Patient applies/removes UE n/a prosthesis or orthosis: Upper Body Dressing FIM Score 6. Modified [place] (Needs equipment, velcro or pros./orth.) Dressing-lower body Patient retrieves clothing Yes items: Patient applies/removes LE n/a prosthesis or orthosis: Lower Body Dressing FIM Score 5. Supv./Set-Up ([place] sets out clothes or applies pros./orth.) - Labs CBC & Chem 7: 05/17/19 07:06 05/17/19 07:06 Labs: Laboratory Results - last 72 hr 05/14/19 05/14/19 05/14/19 11:29 16:03 22:19 WBC RBC Hgb Hct MCV MCH MCHC RDW Plt Count Sodium Potassium Chloride Carbon Dioxide Anion Gap BUN Creatinine Estimated GFR BUN/Creatinine Ratio Glucose POC Glucose 205 H 226 H 63 L Calcium Magnesium 05/15/19 05/15/19 05/15/19 05:58 06:25 06:25 WBC 8.0 RBC 4.53 Hgb 12.6 Hct 38.4 MCV 85 MCH 28 MCHC 33 RDW 14.0 Plt Count 494 H Sodium 141 Potassium 3.0 L Chloride 103.5 Carbon Dioxide 24 Anion Gap 16 BUN 10 Creatinine 0.8 Estimated GFR > 60 BUN/Creatinine Ratio 13 Glucose 118 H POC Glucose 51 L Calcium 7.7 L Magnesium 05/15/19 05/15/19 05/15/19 06:43 12:07 16:11 WBC RBC Hgb Hct MCV MCH MCHC RDW Plt Count Sodium Potassium Chloride Carbon Dioxide Anion Gap BUN Creatinine Estimated GFR BUN/Creatinine Ratio Glucose POC Glucose 108 H 207 H 76 Calcium Magnesium 05/15/19 05/16/19 05/16/19 21:54 06:27 06:27 WBC 6.8 RBC 3.96 Hgb 11.2 L Hct 33.6 L MCV 85 MCH 28 MCHC 33 RDW 13.8 Plt Count 418 Sodium 138 Potassium 3.0 L Chloride 103.9 Carbon Dioxide 23 Anion Gap 14 BUN 9 Creatinine 0.7 L Estimated GFR > 60 BUN/Creatinine Ratio 13 Glucose 145 H POC Glucose 144 H Calcium 7.3 L Magnesium 05/16/19 05/16/19 05/16/19 06:27 07:41 11:18 WBC RBC Hgb Hct MCV MCH MCHC RDW Plt Count Sodium Potassium Chloride Carbon Dioxide Anion Gap BUN Creatinine Estimated GFR BUN/Creatinine Ratio Glucose POC Glucose 145 H 224 H Calcium Magnesium 1.20 L 05/16/19 05/16/19 05/16/19 16:15 17:39 21:34 WBC RBC Hgb Hct MCV MCH MCHC RDW Plt Count Sodium Potassium Chloride Carbon Dioxide Anion Gap BUN Creatinine Estimated GFR BUN/Creatinine Ratio Glucose POC Glucose 106 H 196 H Calcium Magnesium 1.70 05/17/19 05/17/19 05/17/19 07:06 07:06 07:55 WBC 6.5 RBC 3.78 Hgb 10.7 L Hct 32.0 L MCV 85 MCH 28 MCHC 33 RDW 14.0 Plt Count 421 Sodium 138 Potassium 3.5 L Chloride 105.1 Carbon Dioxide 27 Anion Gap 9 BUN 6 L Creatinine 0.8 Estimated GFR > 60 BUN/Creatinine Ratio 8 Glucose 123 H POC Glucose 116 H Calcium 7.4 L Magnesium 1.70 Assessment and Plan Metabolic encephalopathy: MRI brain NEG for acute changes. Prior CT head report and images reviewed. Slight right facial droop, dysphagia. Monitor for clearing/improvement. Possible malingering or just not cooperating. Will move to discharge Hypernatremia: 1/2 NS prn, monitor, improved Fungal UTI: Stop fluconazole. Urine Cx back with skin alfred. Resolved HTN: medications restarted, hold orders placed DM: Continue insulin, carb controllled diet, adjust as needed. CHF: EF 35-40%. Continue medications, monitor Electrolyte abnormalities: Monitor and correct as needed. We'll replace with IV again today. Glaucoma: Cont drops Z73.6 ADL dysfunction: OT will work on improving ability to perform ADLs (including assistive devices) to increase independence and decrease caregiver burden and improve functional transfers and mobility training. R26.2 Difficulty walking: PT will work on gait training and proper use of assistive devices and advance as appropriate to use of stairs and outside ambulation on uneven surfaces. R26.81 Unsteadiness on feet: PT will work on improving static and dynamic sitting and standing balance as well as proper use of assistive devices to decrease risk of falls. R26.89 Abnormality of gait: PT will work to improve safety and efficiency of gait through neuromotor training and gait training along with instruction on proper use of assistive devices. M62.81 Muscle weakness: PT & OT will work on strengthening exercises to improve functional strength including mixture of closed and open kinetic chain exerci ses. R53.81 Debility: PT & OT will work on improving overall functional status to improve participation with ADLs, mobility and social involvement. R53.83 Fatigue: PT & OT will work on improving endurance through aerobic exercises and therapeutic activity while monitoring patients tolerance for act ivity and vital signs as needed. DVT ppx: heparin Pain: Continue physical modalities in therapy and pain medications as needed to achieve functional pain control. Sleep: Monitor and address as needed. Bowel: Monitor and address as needed. Appetite: Monitor and address as needed. Discharge planning: Pending therapy progress and care plan meeting. Will continue discussion with therapy team, SW, patient and family. Will need supervision at home. Restrictions/ Precautions: Falls, aspiration, visual impairment, AMS WB status: FWB Functional Hx: ADLs: Independent Cognition: Independent Mobility: No AD Barriers to Discharge: Decreased mobility and ability to perform self care, balance deficits, weakness Estimated Length of Stay: 10-14 days Discharge Destination: Home with family
[2019-05-17] MEDS: GLUCOPHAGE PO SCH ×2 (09:50→18:44)
[2019-05-17] MEDS: NORVASC PO SCH (09:50)
[2019-05-17] MEDS: COREG PO SCH ×2 (09:51→22:50)
[2019-05-17] MEDS: PEPCID PO SCH ×2 (09:52→22:49)
[2019-05-17] MEDS: COZAAR PO SCH (09:53)
[2019-05-17] MEDS: HALFPRIN EC PO SCH (09:53)
[2019-05-17] MEDS: POTASSIUM CHLORIDE FEEDTUBE SCH (09:54)
[2019-05-17] MEDS ORDERED: MAGNESIUM SULFATE 2GM/50ML 2 GM/50 ML BAG IV ONE (10:00)
[2019-05-17] MEDS: ALPHAGAN P 0.15% OU SCH ×2 (10:40→22:52)
[2019-05-17] MEDS: DORZOLAMIDE TIMOLOL OP SCH ×2 (10:45→22:53)
[2019-05-17] MEDS: HumuLIN R SUB-Q SCH ×3 (10:46→18:45)
[2019-05-17] MEDS ORDERED: KCL 10MEQ/100ML 10 MEQ/100 ML BAG IV ONE ×2 (13:00→19:00)
[2019-05-18] MEDS: HumuLIN R SUB-Q SCH ×5 (00:29→22:21)
[2019-05-18] MEDS: HEPARIN SUB-Q SCH ×3 (05:32→22:03)
[2019-05-18 07:34] LABS: Basophils # (Auto) 0.1 K/mm3 (0.0-0.1); Basophils % (Auto) 0.6 % (0.0-1.8); Eosinophils % (Auto) 0.2 % (0.0-4.3); Hematocrit 32.5 % (35.5-45.6); Hemoglobin 10.6 gm/dl (11.8-15.2); Lymphocytes # (Auto) 1.1 K/mm3 (1.2-5.4); Lymphocytes % (Auto) 12.8 % (13.4-35.0); Mean Corpuscular HGB Conc 33 % (32-34); Mean Corpuscular Volume 86 fl (84-94); Monocytes # (Auto) 0.5 K/mm3 (0.0-0.8); Platelet Count 387 K/mm3 (140-440); Red Blood Count 3.76 M/mm3 (3.65-5.03); Red Cell Distribution Width 14.3 % (13.2-15.2)
[2019-05-18 07:52] LABS: BUN/Creatinine Ratio 10; Blood Urea Nitrogen 7 mg/dL (9-20); Calcium 7.4 mg/dL (8.4-10.2); Hemolysis Index 10
[2019-05-18] MEDS: HALFPRIN EC PO SCH (09:48)
[2019-05-18] MEDS: PEPCID PO SCH (09:49)
[2019-05-18] MEDS: COREG PO SCH ×2 (09:49→22:02)
[2019-05-18] MEDS: NORVASC PO SCH (09:49)
[2019-05-18] MEDS: GLUCOPHAGE PO SCH ×2 (09:50→17:43)
--- NOTE | 2019-05-18 09:57 | Progress Note ---
Subjective Date of service: 05/18/19 Principal diagnosis: Debility, encephalopathy, shock, HHNS Interval history: 59-year-old male brought to the ER with altered mental status and decreased responsiveness. Patient was found by his sister at home and paramedics were called. Blood glucose was >1000 and he was hypernatremic. He was intubated, started on pressors and fluids. Acute kidney injury due to ATN and nephrology was consulted. This found to have hyperammonemia which was treated with lactulose. Feeding tube was inserted. He was slowly weaned off of ventilation and was extubated when appropriate. He is transferred to the floor where hospitalist continued to direct his improvement. Cardiology was consulted found that he had compensated systolic CHF and injection fraction of 35-40%. Therapies were ordered. Speech therapy worked with the patient and he developed inability to tolerate oral nutrition and meds. 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 Patient is participating in therapy and making slow progress. MRI brain NEG. electrolytes have normalized. We'll continue oral replacements with monitoring. Called yesterday about possible blood in stool which the sister reported but apparently flushed before anyone else could verify. Requested a fecal occult blood, unfortunately receptacle was not placed and toilet and the patient had a bowel movement this morning. Still awaiting capture of stool for testing. Hemoglobin is slightly lower overall. Taking rest breaks as needed. +BM. Denies pain, palpitations, dyspnea, cough, N/V, weakness, or joint pain. Also informed that sister is now requesting SNF instead of wanting to take the patient home. We'll continue to work towards discharge All records, vitals, labs and medications were reviewed. No other issues per patient, nursing or therapy. Objective - Exam Narrative Exam: MUSCULOSKELETAL SPECIALTY EXAM CONSTITUTIONAL: Well developed, well nourished, appropriately groomed, thin EENT: Visual deficit. EOMI grossly, dyscongugate gaze. Hearing intact to soft voice. Lips slightly swollen, stable RESPIRATORY: Clear to auscultation bilaterally, no increased work of breathing CARDIOVASCULAR: Regular Rate/ Rhythm, no swelling, edema or tenderness in BUE or BLE. All extremities warm. GI: + bowel sounds, soft, NTTP, nondistended. INTEGUMENTARY: Normal, no lesion, rash, masses or bruising noted in extremities. MUSCULOSKELETAL: BUE and BLE normal without defect, crepitus, subluxation, effusion, arthritic changes or TTP. BUE 4+/5, good ROM, with normal tone. BLE 4+/5 good ROM, with normal tone. NEURO: Right mild facial droop, uncertain sensation differences side to side (confused) otherwise CN 2-12 grossly intact. Gross sensation intact in all extremities. No tremor noted in 4 extremities. POSTURE and GAIT: Sitting posture fair. Balance appears fair. Gait slowed and more steady, single point cane PSYCH: Awake, some confusion, affect appears flat. Decreased awareness of deficits?? Likely due to early stages of dementia. - Constitutional Vitals: Vital Signs - 12hr 05/17/19 05/18/19 05/18/19 22:50 05:27 09:18 Temperature 36.3 C L 36.5 C Pulse Rate 72 74 87 Respiratory 18 18 Rate Blood Pressure 127/71 Blood Pressure 125/84 130/89 [Left] O2 Sat by Pulse 99 98 Oximetry 05/18/19 09:49 Temperature Pulse Rate 87 Respiratory Rate Blood Pressure 130/89 Blood Pressure [Left] O2 Sat by Pulse Oximetry - Allied health notes Allied health notes reviewed: nursing, PT, OT FIMS assessment as documented by PT/OT/ST: Grooming Patient cleans teeth/dentures: Yes Patient dale/brushes hair: Yes Patient washes, rinses and Yes dries face: Patient washes, rinses and Yes dries hands: Patient shaves: No Patient performs (no make-up/ / (100%) shaving): Grooming FIM Score 5. Supervision ([place] applies toothpaste or opens containers.) Toileting Patient able to: Adjust clothes before,Clean self,Adjust clothes after Patient able to perform: 3/3 (100%) Toileting FIM Score 5. Supv./Set-Up (Needs stand-by, set-up, applying prosth/orth.) Social interaction/Memory/Problem solving Social Interaction FIM Score 5. Supervision (Needs supv. <10%. Needs encouragement to participate.) Memory FIM Score 6. Modified [place](Mild difficulty remembering people/routines.) Problem Solving FIM Score 5. Supervision (Needs cueing <10% to solve routine problems.) Transfers Mode of Locomotion: Wheelchair Bed/Chair/Wheelchair Transfers 5. Supervision (Needs supv. or set-up for FIM Score sliding board, foot rests.) Toilet Transfers FIM Score 4. Minimal Assistance (Patient = 75% or more. Needs touching.) Patient transferred to: Shower Shower Transfers FIM Score 4. Minimal Assistance (Patient = 75% or more. Needs touching.) Locomotion- Stairs Device used on Stairs Handrail/s Number of Stairs Ascended/ 12 Descended Patient used handrail/support: Yes Stairs FIM Score 4. Minimal Assistance (Patient = 75% or more, touching. 12-14 stairs.) Locomotion- walk/wheelchair Most Frequent Mode of Walking Locomotion: Ambulation Distance 30 Walking FIM Score 2. Maximal Assistance (Patient = 25% or more. Minimum of 50 ft.) Wheelchair Propulsion Distance 100 Wheelchair FIM Score 2. Maximal Assistance (Patient = 25% or more. Minimum of 50 ft.) Eating Eating FIM Score 6. Modified [place] (Special consistency or uses device.) Dressing-Upper body Patient retrieves clothing Yes items: Patient applies/removes UE n/a prosthesis or orthosis: Upper Body Dressing FIM Score 6. Modified [place] (Needs equipment, velcro or pros./orth.) Dressing-lower body Patient retrieves clothing Yes items: Patient applies/removes LE n/a prosthesis or orthosis: Lower Body Dressing FIM Score 5. Supv./Set-Up ([place] sets out clothes or applies pros./orth.) - Labs CBC & Chem 7: 05/18/19 06:23 05/18/19 03:36 Labs: Laboratory Results - last 72 hr 05/15/19 05/15/19 05/15/19 12:07 16:11 21:54 WBC RBC Hgb Hct MCV MCH MCHC RDW Plt Count Lymph % (Auto) [place] % (Auto) Eos % (Auto) Baso % (Auto) Lymph # [place] # Eos # Baso # Seg Neutrophils % Seg Neutrophils # Sodium Potassium Chloride Carbon Dioxide Anion Gap BUN Creatinine Estimated GFR BUN/Creatinine Ratio Glucose POC Glucose 207 H 76 144 H Calcium Magnesium 05/16/19 05/16/19 05/16/19 06:27 06:27 06:27 WBC 6.8 RBC 3.96 Hgb 11.2 L Hct 33.6 L MCV 85 MCH 28 MCHC 33 RDW 13.8 Plt Count 418 Lymph % (Auto) [place] % (Auto) Eos % (Auto) Baso % (Auto) Lymph # [place] # Eos # Baso # Seg Neutrophils % Seg Neutrophils # Sodium 138 Potassium 3.0 L Chloride 103.9 Carbon Dioxide 23 Anion Gap 14 BUN 9 Creatinine 0.7 L Estimated GFR > 60 BUN/Creatinine Ratio 13 Glucose 145 H POC Glucose Calcium 7.3 L Magnesium 1.20 L 05/16/19 05/16/19 05/16/19 07:41 11:18 16:15 WBC RBC Hgb Hct MCV MCH MCHC RDW Plt Count Lymph % (Auto) [place] % (Auto) Eos % (Auto) Baso % (Auto) Lymph # [place] # Eos # Baso # Seg Neutrophils % Seg Neutrophils # Sodium Potassium Chloride Carbon Dioxide Anion Gap BUN Creatinine Estimated GFR BUN/Creatinine Ratio Glucose POC Glucose 145 H 224 H 106 H Calcium Magnesium 05/16/19 05/16/19 05/17/19 17:39 21:34 07:06 WBC 6.5 RBC 3.78 Hgb 10.7 L Hct 32.0 L MCV 85 MCH 28 MCHC 33 RDW 14.0 Plt Count 421 Lymph % (Auto) [place] % (Auto) Eos % (Auto) Baso % (Auto) Lymph # [place] # Eos # Baso # Seg Neutrophils % Seg Neutrophils # Sodium Potassium Chloride Carbon Dioxide Anion Gap BUN Creatinine Estimated GFR BUN/Creatinine Ratio Glucose POC Glucose 196 H Calcium Magnesium 1.70 05/17/19 05/17/19 05/17/19 07:06 07:55 11:50 WBC RBC Hgb Hct MCV MCH MCHC RDW Plt Count Lymph % (Auto) [place] % (Auto) Eos % (Auto) Baso % (Auto) Lymph # [place] # Eos # Baso # Seg Neutrophils % Seg Neutrophils # Sodium 138 Potassium 3.5 L Chloride 105.1 Carbon Dioxide 27 Anion Gap 9 BUN 6 L Creatinine 0.8 Estimated GFR > 60 BUN/Creatinine Ratio 8 Glucose 123 H POC Glucose 116 H 285 H Calcium 7.4 L Magnesium 1.70 05/17/19 05/17/19 05/18/19 16:24 21:12 03:36 WBC RBC Hgb Hct MCV MCH MCHC RDW Plt Count Lymph % (Auto) [place] % (Auto) Eos % (Auto) Baso % (Auto) Lymph # [place] # Eos # Baso # Seg Neutrophils % Seg Neutrophils # Sodium 134 L Potassium 3.6 Chloride 101.7 Carbon Dioxide 20 L D Anion Gap 16 BUN 7 L Creatinine 0.7 L Estimated GFR > 60 BUN/Creatinine Ratio 10 Glucose 173 H POC Glucose 194 H 182 H Calcium 7.4 L Magnesium 1.70 05/18/19 05/18/19 05/18/19 04:54 05:05 06:23 WBC 8.9 RBC 3.76 Hgb 10.6 L Hct 32.5 L MCV 86 MCH 28 MCHC 33 RDW 14.3 Plt Count 387 Lymph % (Auto) 12.8 L [place] % (Auto) 6.0 Eos % (Auto) 0.2 Baso % (Auto) 0.6 Lymph # 1.1 L [place] # 0.5 Eos # 0.0 Baso # 0.1 Seg Neutrophils % 80.4 H Seg Neutrophils # 7.2 Sodium Potassium Chloride Carbon Dioxide Anion Gap BUN Creatinine Estimated GFR BUN/Creatinine Ratio Glucose POC Glucose < 40 L 209 H Calcium Magnesium 05/18/19 07:52 WBC RBC Hgb Hct MCV MCH MCHC RDW Plt Count Lymph % (Auto) [place] % (Auto) Eos % (Auto) Baso % (Auto) Lymph # [place] # Eos # Baso # Seg Neutrophils % Seg Neutrophils # Sodium Potassium Chloride Carbon Dioxide Anion Gap BUN Creatinine Estimated GFR BUN/Creatinine Ratio Glucose POC Glucose 165 H Calcium Magnesium Assessment and Plan Metabolic encephalopathy: MRI brain NEG for acute changes. Prior CT head report and images reviewed. Slight right facial droop, dysphagia. Monitor for clearing/improvement. Possible malingering or just not cooperating. Will move to discharge Hypernatremia: 1/2 NS prn, monitor, improved Fungal UTI: Stop fluconazole. Urine Cx back with skin alfred. Resolved HTN: medications restarted, hold orders placed DM: Continue insulin, carb controllled diet, adjust as needed. CHF: EF 35-40%. Continue medications, monitor Electrolyte abnormalities: Monitor and correct as needed. We'll replace with IV again today. Glaucoma: Cont drops Anemia: Has been a slow decline to admission. Possible blood in stool, awaiting FOBT. We will check anemia panel. Z73.6 ADL dysfunction: OT will work on improving ability to perform ADLs (including assistive devices) to increase independence and decrease caregiver burden and improve functional transfers and mobility training. R26.2 Difficulty walking: PT will work on gait training and proper use of assist merari devices and advance as appropriate to use of stairs and outside ambulation on uneven surfaces. R26.81 Unsteadiness on feet: PT will work on improving static and dynamic sitting and standing balance as well as proper use of assistive devices to decrease risk of falls. R26.89 Abnormality of gait: PT will work to improve safety and efficiency of gait through neuromotor training and gait training along with instruction on proper use of assistive devices. M62.81 Muscle weakness: PT & OT will work on strengthening exercises to improve functional strength including mixture of closed and open kinetic chain exercises. R53.81 Debility: PT & OT will work on improving overall functional status to im prove participation with ADLs, mobility and social involvement. R53.83 Fatigue: PT & OT will work on improving endurance through aerobic exercises and therapeutic activity while monitoring patients tolerance for activity and vital signs as needed. DVT ppx: heparin Pain: Continue physical modalities in therapy and pain medications as needed to achieve functional pain control. Sleep: Monitor and address as needed. Bowel: Monitor and address as needed. Appetite: Monitor and address as needed. Discharge planning: Pending therapy progress and care plan meeting. Will continue discussion with therapy team, SW, patient and family. Will need supervision at home. Restrictions/ Precautions: Falls, aspiration, visual impairment, AMS WB status: FWB Functional Hx: ADLs: Independent Cognition: Independent Mobility: No AD Barriers to Discharge: Decreased mobility and ability to perform self care, balance deficits, weakness Estimated Length of Stay: 10-14 days Discharge Destination: Home with family
[2019-05-18] MEDS: COZAAR PO SCH (10:01)
[2019-05-18] MEDS: ALPHAGAN P 0.15% OU SCH ×2 (10:04→22:22)
[2019-05-18] MEDS: DORZOLAMIDE TIMOLOL OP SCH ×2 (10:05→22:34)
[2019-05-18] MEDS: POTASSIUM CHLORIDE FEEDTUBE SCH (10:06)
[2019-05-18 12:09] LABS: Iron 66 ug/dL (49-181); Total Iron Binding Capacity 230 mcg/dL (250-450)
[2019-05-18] MEDS: PROTONIX PO SCH (12:40)
[2019-05-18] MEDS: MAG-OX PO SCH (12:47)
[2019-05-18] MEDS: K-DUR PO SCH (22:03)
[2019-05-19] MEDS: HEPARIN SUB-Q SCH ×3 (06:07→22:10)
[2019-05-19] MEDS: ALPHAGAN P 0.15% OU SCH ×2 (08:46→22:13)
[2019-05-19] MEDS: DORZOLAMIDE TIMOLOL OP SCH ×2 (08:46→22:13)
[2019-05-19] MEDS: K-DUR PO SCH ×2 (08:47→22:09)
[2019-05-19] MEDS: GLUCOPHAGE PO SCH ×2 (08:47→17:57)
[2019-05-19] MEDS: NORVASC PO SCH (08:47)
[2019-05-19] MEDS: COREG PO SCH ×2 (08:47→22:11)
[2019-05-19] MEDS: HALFPRIN EC PO SCH (08:47)
[2019-05-19] MEDS: PROTONIX PO SCH (08:47)
[2019-05-19] MEDS: MAG-OX PO SCH (08:50)
[2019-05-19] MEDS: COZAAR PO SCH (08:50)
[2019-05-19] MEDS: HumuLIN R SUB-Q SCH ×4 (09:03→22:12)
[2019-05-19 10:32] LABS: Hematocrit 31.5 % (35.5-45.6); Hemoglobin 10.5 gm/dl (11.8-15.2)
--- NOTE | 2019-05-19 12:54 | Progress Note ---
Subjective Date of service: 05/19/19 Principal diagnosis: Debility, encephalopathy, shock, HHNS Interval history: 59-year-old male brought to the ER with altered mental status and decreased responsiveness. Patient was found by his sister at home and paramedics were called. Blood glucose was >1000 and he was hypernatremic. He was intubated, started on pressors and fluids. Acute kidney injury due to ATN and nephrology was consulted. This found to have hyperammonemia which was treated with lactulose. Feeding tube was inserted. He was slowly weaned off of ventilation and was extubated when appropriate. He is transferred to the floor where hospitalist continued to direct his improvement. Cardiology was consulted found that he had compensated systolic CHF and injection fraction of 35-40%. Therapies were ordered. Speech therapy worked with the patient and he developed inability to tolerate oral nutrition and meds. 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 Patient is participating in therapy and making slow progress. +BM. Denies pain, palpitations, dyspnea, cough, N/V, weakness, or joint pain. Continue oral electrolyte replacements with monitoring. Requested a fecal occult blood 05/17, unfortunately receptacle was not placed and toilet and we missed another sample. Supposed to discharge today. Able to get a sample later, POS for heme. GI consulted. Hemoglobin is slightly lower overall today (10.6-10.5). Has slowly decreased since in rehab (13.3-10.5), more of a decrease when looking at level on acute admission (15.3-13.1). Taking rest breaks as needed. Will look to discharge once stable from GI standpoint. All records, vitals, labs and medications were reviewed. No other issues per patient, nursing or therapy. Objective - Exam Narrative Exam: MUSCULOSKELETAL SPECIALTY EXAM CONSTITUTIONAL: Well developed, well nourished, appropriately groomed, thin EENT: Visual deficit. EOMI grossly, dyscongugate gaze. Hearing intact to soft voice. Lips slightly swollen, stable RESPIRATORY: Clear to auscultation bilaterally, no increased work of breathing CARDIOVASCULAR: Regular Rate/ Rhythm, no swelling, edema or tenderness in BUE or BLE. All extremities warm. GI: + bowel sounds, soft, NTTP, nondistended. INTEGUMENTARY: Normal, no lesion, rash, masses or bruising noted in extremities. MUSCULOSKELETAL: BUE and BLE normal without defect, crepitus, subluxation, effusion, arthritic changes or TTP. BUE 4+/5, good ROM, with normal tone. BLE 4+/5 good ROM, with normal tone. NEURO: Right mild facial droop, uncertain sensation differences side to side (confused) otherwise CN 2-12 grossly intact. Gross sensation intact in all extremities. No tremor noted in 4 extremities. POSTURE and GAIT: Sitting posture fair. Balance appears fair. Gait slowed and more steady, single point cane PSYCH: Awake, some confusion, affect appears flat. Decreased awareness of deficits?? Possibly due to early stages of dementia. - Constitutional Vitals: Vital Signs - 12hr 05/19/19 05/19/19 05/19/19 05:03 07:29 11:37 Temperature 36.8 C 37.2 C Pulse Rate 71 64 78 Respiratory 20 19 19 Rate Blood Pressure 106/61 110/59 117/76 O2 Sat by Pulse 96 97 98 Oximetry - Allied health notes Allied health notes reviewed: nursing, PT, OT FIMS assessment as documented by PT/OT/ST: Grooming Patient cleans teeth/dentures: Yes Patient dale/brushes hair: Yes Patient washes, rinses and Yes dries face: Patient washes, rinses and Yes dries hands: Patient shaves: No Patient performs (no make-up/ 12/16 (100%) shaving): Grooming FIM Score 5. Supervision ([place] applies toothpaste or opens containers.) Toileting Patient able to: Adjust clothes before,Clean self,Adjust clothes after Patient able to perform: 3/3 (100%) Toileting FIM Score 5. Supv./Set-Up (Needs stand-by, set-up, applying prosth/orth.) Social interaction/Memory/Problem solving Social Interaction FIM Score 5. Supervision (Needs supv. <10%. Needs encouragement to participate.) Memory FIM Score 6. Modified [place](Mild difficulty remembering people/routines.) Problem Solving FIM Score 5. Supervision (Needs cueing <10% to solve routine problems.) Transfers Mode of Locomotion: Wheelchair Bed/Chair/Wheelchair Transfers 5. Supervision (Needs supv. or set-up for FIM Score sliding board, foot rests.) Toilet Transfers FIM Score 5. Supervision (Needs supervision or cueing.) Patient transferred to: Shower Shower Transfers FIM Score 4. Minimal Assistance (Patient = 75% or more. Needs touching.) Locomotion- Stairs Device used on Stairs Handrail/s Number of Stairs Ascended/ 12 Descended Patient used handrail/support: Yes Stairs FIM Score 4. Minimal Assistance (Patient = 75% or more, touching. 12-14 stairs.) Locomotion- walk/wheelchair Most Frequent Mode of Walking Locomotion: Ambulation Distance 350 Walking FIM Score 2. Maximal Assistance (Patient = 25% or more. Minimum of 50 ft.) Wheelchair Propulsion Distance 340 Wheelchair FIM Score 4. Minimal Assistance (Patient = 75% or more. Minimum of 150 ft.) Eating Eating FIM Score 6. Modified [place] (Special consistency or uses device.) Dressing-Upper body Patient retrieves clothing Yes items: Patient applies/removes UE n/a prosthesis or orthosis: Upper Body Dressing FIM Score 6. Modified [place] (Needs equipment, velcro or pros./orth.) Dressing-lower body Patient retrieves clothing Yes items: Patient applies/removes LE n/a prosthesis or orthosis: Lower Body Dressing FIM Score 5. Supv./Set-Up ([place] sets out clothes or applies pros./orth.) - Labs CBC & Chem 7: 05/19/19 10:20 05/18/19 03:36 Labs: Laboratory Results - last 72 hr 05/16/19 05/16/19 05/16/19 16:15 17:39 21:34 WBC RBC Hgb Hct MCV MCH MCHC RDW Plt Count Lymph % (Auto) [place] % (Auto) Eos % (Auto) Baso % (Auto) Lymph # [place] # Eos # Baso # Seg Neutrophils % Seg Neutrophils # Sodium Potassium Chloride Carbon Dioxide Anion Gap BUN Creatinine Estimated GFR BUN/Creatinine Ratio Glucose POC Glucose 106 H 196 H Calcium Magnesium 1.70 Iron TIBC Ferritin Vitamin B12 Folate 05/17/19 05/17/19 05/17/19 07:06 07:06 07:55 WBC 6.5 RBC 3.78 Hgb 10.7 L Hct 32.0 L MCV 85 MCH 28 MCHC 33 RDW 14.0 Plt Count 421 Lymph % (Auto) [place] % (Auto) Eos % (Auto) Baso % (Auto) Lymph # [place] # Eos # Baso # Seg Neutrophils % Seg Neutrophils # Sodium 138 Potassium 3.5 L Chloride 105.1 Carbon Dioxide 27 Anion Gap 9 BUN 6 L Creatinine 0.8 Estimated GFR > 60 BUN/Creatinine Ratio 8 Glucose 123 H POC Glucose 116 H Calcium 7.4 L Magnesium 1.70 Iron TIBC Ferritin Vitamin B12 Folate 05/17/19 05/17/19 05/17/19 11:50 16:24 21:12 WBC RBC Hgb Hct MCV MCH MCHC RDW Plt Count Lymph % (Auto) [place] % (Auto) Eos % (Auto) Baso % (Auto) Lymph # [place] # Eos # Baso # Seg Neutrophils % Seg Neutrophils # Sodium Potassium Chloride Carbon Dioxide Anion Gap BUN Creatinine Estimated GFR BUN/Creatinine Ratio Glucose POC Glucose 285 H 194 H 182 H Calcium Magnesium Iron TIBC Ferritin Vitamin B12 Folate 05/18/19 05/18/19 05/18/19 03:36 04:54 05:05 WBC RBC Hgb Hct MCV MCH MCHC RDW Plt Count Lymph % (Auto) [place] % (Auto) Eos % (Auto) Baso % (Auto) Lymph # [place] # Eos # Baso # Seg Neutrophils % Seg Neutrophils # Sodium 134 L Potassium 3.6 Chloride 101.7 Carbon Dioxide 20 L D Anion Gap 16 BUN 7 L Creatinine 0.7 L Estimated GFR > 60 BUN/Creatinine Ratio 10 Glucose 173 H POC Glucose < 40 L 209 H Calcium 7.4 L Magnesium 1.70 Iron TIBC Ferritin Vitamin B12 Folate 05/18/19 05/18/19 05/18/19 06:23 07:52 10:55 WBC 8.9 RBC 3.76 Hgb 10.6 L Hct 32.5 L MCV 86 MCH 28 MCHC 33 RDW 14.3 Plt Count 387 Lymph % (Auto) 12.8 L Gibson % (Auto) 6.0 Eos % (Auto) 0.2 Baso % (Auto) 0.6 Lymph # 1.1 L [place] # 0.5 Eos # 0.0 Baso # 0.1 Seg Neutrophils % 80.4 H Seg Neutrophils # 7.2 Sodium Potassium Chloride Carbon Dioxide Anion Gap BUN Creatinine Estimated GFR BUN/Creatinine Ratio Glucose POC Glucose 165 H Calcium Magnesium Iron 66 TIBC 230 L Ferritin Vitamin B12 Folate 05/18/19 05/18/19 05/18/19 10:55 10:55 10:55 WBC RBC Hgb Hct MCV MCH MCHC RDW Plt Count Lymph % (Auto) [place] % (Auto) Eos % (Auto) Baso % (Auto) Lymph # [place] # Eos # Baso # Seg Neutrophils % Seg Neutrophils # Sodium Potassium Chloride Carbon Dioxide Anion Gap BUN Creatinine Estimated GFR BUN/Creatinine Ratio Glucose POC Glucose Calcium Magnesium Iron TIBC Ferritin 711.3 H Vitamin B12 > 2000 H Folate 11.29 05/18/19 05/18/19 05/18/19 12:07 16:30 20:58 WBC RBC Hgb Hct MCV MCH MCHC RDW Plt Count Lymph % (Auto) [place] % (Auto) Eos % (Auto) Baso % (Auto) Lymph # [place] # Eos # Baso # Seg Neutrophils % Seg Neutrophils # Sodium Potassium Chloride Carbon Dioxide Anion Gap BUN Creatinine Estimated GFR BUN/Creatinine Ratio Glucose POC Glucose 228 H 150 H 271 H Calcium Magnesium Iron TIBC Ferritin Vitamin B12 Folate 05/19/19 05/19/19 05/19/19 07:45 10:20 11:44 WBC RBC Hgb 10.5 L Hct 31.5 L MCV MCH MCHC RDW Plt Count Lymph % (Auto) [place] % (Auto) Eos % (Auto) Baso % (Auto) Lymph # [place] # Eos # Baso # Seg Neutrophils % Seg Neutrophils # Sodium Potassium Chloride Carbon Dioxide Anion Gap BUN Creatinine Estimated GFR BUN/Creatinine Ratio Glucose POC Glucose 174 H 163 H Calcium Magnesium Iron TIBC Ferritin Vitamin B12 Folate Assessment and Plan Metabolic encephalopathy: MRI brain NEG for acute changes. Prior CT head report and images reviewed. Slight right facial droop, dysphagia. Monitor for clearing/improvement. Hypernatremia: monitor, improved Fungal UTI: Stop fluconazole. Urine Cx back with skin alfred. Resolved HTN: medications restarted, hold orders placed DM: Continue insulin, carb controlled diet, adjust as needed. CHF: EF 35-40%. Continue medications, monitor Electrolyte abnormalities: Monitor and correct as needed. Oral replacement. Glaucoma: Cont drops Anemia: Has been a slow decline since admission. FOBT collected and is POS. GI consulted Z73.6 ADL dysfunction: OT will work on improving ability to perform ADLs (including assistive devices) to increase independence and decrease caregiver burden and improve functional transfers and mobility training. R26.2 Difficulty walking: PT will work on gait training and proper use of assistive devices and advance as appropriate to use of stairs and outside ambulation on uneven surfaces. R26.81 Unsteadiness on feet: PT will work on improving static and dynamic sitting and standing balance as well as proper use of assistive devices to decrease risk of falls. R26.89 Abnormality of gait: PT will work to improve safety and efficiency of gait through neuromotor training and gait training along with instruction on proper use of assistive devices. M62.81 Muscle weakness: PT & OT will work on strengthening exercises to improve functional strength including mixture of closed and open kinetic chain exercises. R53.81 Debility: PT & OT will work on improving overall functional status to improve participation with ADLs, mobility and social involvement. R53.83 Fatigue: PT & OT will work on improving endurance through aerobic exercises and therapeutic activity while monitoring patients tolerance for activity and vital signs as needed. DVT ppx: heparin Pain: Continue physical modalities in therapy and pain medications as needed to achieve functional pain control. Sleep: Monitor and address as needed. Bowel: Monitor and address as needed. Appetite: Monitor and address as needed. Discharge planning: Pending therapy progress and care plan meeting. Will continue discussion with therapy team, SW, patient and family. Will need supervision at home. Restrictions/ Precautions: Falls, aspiration, visual impairment, AMS WB status: FWB Functional Hx: ADLs: Independent Cognition: Independent Mobility: No AD Barriers to Discharge: Decreased mobility and ability to perform self care, balance deficits, weakness Estimated Length of Stay: 10-14 days Discharge Destination: Home with family
--- NOTE | 2019-05-19 17:32 | Event Note ---
full GI consult dictated - pt defers GI eval including colonoscopy at this time - will sign off, call if needed
[2019-05-20] MEDS: HEPARIN SUB-Q SCH (06:20)
[2019-05-20] MEDS: HumuLIN R SUB-Q SCH ×2 (07:35→19:36)
--- NOTE | 2019-05-20 08:37 | Discharge Summary ---
Providers - Providers Date of Admission: 05/09/19 18:45 Date of discharge: 05/20/19 Attending physician: ZEINAB ENRIQUE III, MD 05/09/19 18:45 Occupational Therapy Evaluate and Treat [CONS] Routine Comment: Reason For Exam: ADL dysfunction Physical Therapy Evaluation and Treat [CONS] Routine Comment: Reason For Exam: Mobility Dysfunction Speech Therapy Evaluation and Treat [CONS] Routine Reason For Exam: Dysphagia, Eval & TReat 05/09/19 18:53 Consult to Case Management [CONS] Routine Services Needed at Discharge: Home Health Services Notified:: cm notified 05/19/19 11:57 Consult to Physician [CONS] Routine Comment: Consulting Provider: LIDA MONTGOMERY Physician Instructions: Reason For Exam: GI Bleed [facility] Reason for admission: Debility, encephalopathy, shock, HHNS Condition: Fair Pertinent studies: MRI brain 05/10/19: Negative for any acute intracranial abnormality. No significant atrophy. Hospital course: 59-year-old male brought to the ER with altered mental status and decreased res ponsiveness. Patient was found by his sister at home and paramedics were called. Blood glucose was >1000 and he was hypernatremic. He was intubated, started on pressors and fluids. Acute kidney injury due to ATN and nephrology was consulted. This found to have hyperammonemia which was treated with lactulose. Feeding tube was inserted. He was slowly weaned off of ventilation and was extubated when appropriate. He is transferred to the floor where hospitalist continued to direct his improvement. Cardiology was consulted found that he had compensated systolic CHF and injection fraction of 35-40%. Therapies were ordered. Speech therapy worked with the patient and he developed ability to tolerate oral nutrition and meds. 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 On my exam he is still quite obtunded and is not oriented. I noted a slight right facial droop and the sister states that this was not present prior to this hospitalization but when she found him noted that was present. CT head was negative. Will order a MRI brain to confirm that he has not had CVA. Prior to discharge and admission to the rehabilitation he was noted to have increased WBCs, stool samples were checked (and are negative for typical pathogens) and Flagyl was started. Urine was also checked and appears to have budding yeast. Awaiting final cultures, started him on fluconazole pending outcome of cultures. Currently patient has poor oral intake with only approximately 20% of his meal being eaten with assistance from nursing staff for feeding. He has vision deficits bilaterally and has cataracts and glaucoma. Patient improved with time with working with therapy. He still has times where he is less cooperative and other times where he is more cooperative. Uncertain if this is related to a possible early stages of dementia or if this is more personality in nature. Patient would not cooperate with speech therapy for cognition testing. His sister described his home living environment in a way which could either support the diagnosis of dementia or someone who just is not taking care of themselves. At time of discharge she is able to ambulate with a single-point cane and contact guard with minimal loss of balance for greater than 500 feet. He was able to traverse 12 stairs utilizing hand rails and standby assist. He does have occasional loss of balance and his gait is slowed. This is somewhat acceptable due to his visual impairment. He was able to dress himself as well as perform bathing, toileting and hygiene with only standby assist. Our original goal was to discharge the patient home with close supervision however due to his fluctuating command following and our concern for possible early stages of dementia we wanted to send him with supervision. Due to the family's inability currently to provide supervision for him they opted instead to find SNF placement. It does appear currently that he is more interactive and talkative now than previously and he is looking forward to moving to the next step. When he is interacting the way he is currently, it is very difficult to clearly call this early stages of dementia as he seems to be very lucid, has good recall, and does not show any signs of confusion or cognitive impairment. Further testing would be helpful but as stated before he decline to work with speech therapy to undergo that testing. During his time on the acute care side of the hospital and rehabilitation unit his potassium and magnesium levels were variable and had to be replaced multiple times. We utilized IV replacement while transitioning him to oral replacements. He seems to have leveled out on his current regimen but we would recommend at least weekly monitoring of his BMP and magnesium. As of 05/18 his potassium was 3.6 and his magnesium was 1.7. We are replacing his potassium at 20 mEq twice a day and his magnesium at 400 mg daily. He also had a slight decline in his hemoglobin during his stay. His initial hemoglobin was 13.3 on 05/10 which quickly dropped to 12.1 on 05/14. Over the past several days he has continued to slowly decline from 11.2-10.7-10.6-10.5. Anemia workup was ordered which showed normal iron at 66 with an elevated level of ferritin at 711.3 and a low TIBC at 230. Vitamin B12 was elevated at greater than 2000, folate was normal at 11.29. There is a question of possible blood in the stool and we attempted to obtain stool for FOBT which did in fact show as positive. A GI consult was ordered however when the physician spoke with the patient he refused any workup despite the various etiologies that were explained to him. I personally also discussed this with the patient explaining this could be anything from an ulcer due to hemorrhoids to cancer and the patient again stated that he understood but did not want to pursue any further workup. Given his current condition it does appear that he has medical decision making capacity as he was able to understand the information given to him, the medical consequences of his choices and the risk and benefit of choosing to either workup are not workup his condition. He does not currently have any signs of delirium that would interfere with his capacity to make medical decisions. Urine culture that was pending at admission was NEG with no fungal growth and only skin alfred. Fluconazole was d/c'd. Patient denied any dysuria. Due to mental status and lethargy early on we were concerned for possible CVA. MRI brain was performed and was negative for any acute changes and notably did not show any significant atrophy. Otherwise, his blood pressure and diabetes well controlled on current medications during the rehab admission. His CHF with an ejection fraction of 35-40% was well-controlled and did not show any signs of exacerbation. Disposition: [id number] SNF [facility] CERT Time spent for discharge: >35 mins - Discharge Diagnoses (1) Acute kidney injury with acute tubular necrosis Status: Resolved (2) Hypokalemia Status: Acute (3) Hypertension Status: Chronic Qualifiers: Hypertension type: essential hypertension Qualified Code(s): I10 - Essential (primary) hypertension (4) Diabetes type 2, uncontrolled Status: Chronic Qualifiers: Glycemic state: with hyperglycemia Qualified Code(s): E11.65 - Type 2 diabetes mellitus with hyperglycemia (5) Vision decreased Status: Chronic Core Measure Documentation - Palliative Care Palliative Care/ Comfort Measures: Not Applicable - Core Measures Any of the following diagnoses?: heart failure - Heart Failure Discharge Requirements KILO/ARB for LVSD if EF <40%: Yes Beta rupal at discharge: Yes Exam - Physical Exam Narrative exam: MUSCULOSKELETAL SPECIALTY EXAM CONSTITUTIONAL: Well developed, well nourished, appropriately groomed, thin EENT: Visual deficit. EOMI grossly, dyscongugate gaze. Hearing intact to soft voice. Lips slightly swollen, stable RESPIRATORY: Clear to auscultation bilaterally, no increased work of breathing CARDIOVASCULAR: Regular Rate/ Rhythm, no swelling, edema or tenderness in BUE or BLE. All extremities warm. GI: + bowel sounds, soft, NTTP, nondistended. INTEGUMENTARY: Normal, no lesion, rash, masses or bruising noted in extremities. MUSCULOSKELETAL: BUE and BLE normal without defect, crepitus, subluxation, effusion, arthritic changes or TTP. BUE 4+/5, good ROM, with normal tone. BLE 4+/5 good ROM, with normal tone. NEURO: CN 2-12 grossly intact. Gross sensation intact in all extremities. No tremor noted in 4 extremities. POSTURE and GAIT: Sitting posture fair. Balance appears fair. Gait slowed and more steady, single point cane PSYCH: Awake, affect appears euthymic. More interactive. - Constitutional Vitals: Temp Pulse Resp BP Pulse Ox 37.3 C 63 18 134/86 97 05/20/19 07:38 05/20/19 07:38 05/20/19 07:38 05/20/19 07:38 05/20/19 07:38 - Allied Health Allied health notes reviewed: nursing, PT, OT Plan Activity: advance as tolerated, up only with assistance, fall precautions Weight Bearing Status: Full Weight Bearing Diet: diabetic (Mech soft with chopped meats, Glucerna supplement TID) Special Instructions: follow up in rehab Durable Medical Equipment Needed Upon Discharge: other (Per SNF) Care Plan Goals: Continue to monitor patient's BMP and magnesium levels on at least a weekly basis and adjust or replacement as needed. Continue to monitor CBC. If patient becomes agreeable to a GI workup, would recommend colonoscopy as he states he doesn't believe he has ever had one. Plan of Treatment: Continue medications as ordered and adjust as needed to control diabetes, hypertension and CHF symptoms. Health Concerns: Poorly controlled diabetes with recent hemoglobin A1c of 12.9% and hyperglycemic hyperosmolar nonketotic syndrome. Hypertension, fairly well controlled on current regimen CHF with recent ejection fraction of 35-40% and no acute exacerbation during this rehabilitation stay. On ARB and BB. Glaucoma with visual impairment on brimonidine and dorzolamide timolol eyedrops Electrolyte abnormalities with potassium and magnesium both being replaced orally. Follow up with: OPAL AMOR MD [Primary Care Provider] - 7 Days
[2019-05-20] MEDS: K-DUR PO SCH (08:43)
[2019-05-20] MEDS: HALFPRIN EC PO SCH (08:44)
[2019-05-20] MEDS: GLUCOPHAGE PO SCH (08:44)
[2019-05-20] MEDS: COZAAR PO SCH (08:44)
[2019-05-20] MEDS: MAG-OX PO SCH (08:45)
[2019-05-20] MEDS: NORVASC PO SCH (08:48)
[2019-05-20] MEDS: COREG PO SCH (09:44)
[2019-05-20] MEDS: PROTONIX PO SCH (09:45)
[2019-05-20 11:54] VITALS: BP 111/69
--- NOTE | 2019-05-20 13:58 | Consultation ---
REFERRING PHYSICIAN: Yonatan Alvarez, III INDICATION: Anemia. HISTORY OF PRESENT ILLNESS: The patient is a 59-year-old black male seen by GI for anemia. The patient was initially admitted on 05/10/2019. The patient has a history of diabetes and hypertension. The patient has had multiple complex medical issues and was admitted for possible cerebrovascular accident versus encephalopathy versus other. The patient subsequently has been managed for these issues. The patient was noted to be anemic. The patient denies any obvious signs of bleeding including bright red blood per rectum or melena. Does report some loose stool. Denies any weight loss. The patient reports he has never had a colonoscopy or endoscopy. Denies any other specific GI problems or complaints. PAST MEDICAL HISTORY: Includes diabetes, hypertension, and glaucoma. MEDICATIONS: Reviewed and updated in chart. ALLERGIES: No known drug allergies. SOCIAL HISTORY: Denies alcohol, tobacco or drug abuse. FAMILY HISTORY: Negative for colon cancer, IBD, or liver disease. REVIEW OF SYSTEMS: GENERAL: Reports mild weakness. HEENT: No visual complaints or tinnitus. PULMONARY: No shortness of breath. No cough. CARDIOVASCULAR: No chest pain. GASTROINTESTINAL: Reports no signs of bleeding. LABORATORY DATA: From 05/18/2019 showed a white count of 8.9, hemoglobin and hematocrit of 10.6 and 32.5, platelet count of 387. Chem-7 within normal limits. ASSESSMENT: A 59-year-old male who has been seen by GI for anemia without obvious signs of bleeding. The patient reports no obvious GI related problems or complaints. He does report he has never had a colonoscopy. I had a long discussion with the patient. He reports at this time he would not like any further GI evaluation including colonoscopy, endoscopy. He defers any evaluation at this time given that no need for further GI input. PLAN: 1. Follow hematocrit and transfuse as needed. 2. The patient defers GI evaluation. 3. If the patient changes his mind or patient re-call, we will consider colonoscopy and possible endoscopy. JOB# [id number] CAB/NTS
== END 2019-05-20 13:15 | DRG 70 ==
LOC: UNDOADMIN 16:18 → 3A 16:18 → 3B 18:45
PROVIDERS: ADMIT Physical Medicine & Rehabilitation; ATTEND Physical Medicine & Rehabilitation
DX: G93.41 Metabolic encephalopathy (principal); N17.0 Acute kidney failure with tubular necrosis; E87.0 Hyperosmolality and hypernatremia; I50.22 Chronic systolic (congestive) heart failure; N39.0 Urinary tract infection, site not specified; H40.9 Unspecified glaucoma; I11.0 Hypertensive heart disease with heart failure; E87.8 Other disorders of electrolyte and fluid balance, not elsewhere classified; R26.81 Unsteadiness on feet; M62.81 Muscle weakness (generalized); D64.9 Anemia, unspecified; E87.6 Hypokalemia; R53.81 Other malaise; R13.10 Dysphagia, unspecified; E11.9 Type 2 diabetes mellitus without complications; Z82.49 Family history of ischemic heart disease and other diseases of the circulatory system; Z79.82 Long term (current) use of aspirin; Z79.899 Other long term (current) drug therapy
CPT/HCPCS: 36415; 70551; 80048; 80053; 82140; 82270; 82607; 82728; 82747; 82962; 83550; 83735; 84100; 85007; 85014; 85018; 85025; 85027; G0378; G0515; A9270-GY; J1644; J1815; J3475; J3480; J7030; J7040; Q0162